=== PATIENT | female | born 1960 | race Caucasian/White ===

== ENCOUNTER → 2017-05-29 16:56 | Outpatient (CLI) | payer BC, SELFPAY ==
--- NOTE | 2017-05-29 17:10 | XR_ITS ---
XR foot RT min 3V HISTORY: ITS.REASON: RIGHT FOOT PAIN ORDERING PHYSICIAN: Buddy Blanton MD PATIENT AGE: 56 years COMPARISON: None FINDINGS: No acute displaced fracture or dislocation. There is deformity of the distal aspect of the fifth metatarsal with cortical thickening and bony hypertrophic changes laterally consistent with an old fracture. No lytic or blastic change. No significant arthritic change. There is a faint longitudinal lucency at the base of the first metatarsal. While this could be related to an area of prominent trabeculation, one cannot exclude a nondisplaced fracture. Please correlate to patient's area of pain and tenderness otherwise negative. IMPRESSION: 1. Faint longitudinal lucency base of first metatarsal which could be related to nondisplaced fracture or prominent trabeculation. 2. Old fifth metatarsal fracture
[2017-05-29 17:29] LABS: Basophils % 0.5 % (0.1-2.0); Eosinophils % 0.2 % (0.1-12.0); Hematocrit 35.2 % (37.0-47.0); Hemoglobin 11.3 g/dL (12.2-16.2); Lymphocytes # 2.5 K/mm3 (0.7-4.5); Lymphocytes % 30.7 K/mm3 (10-50); Mean Corpuscular HGB Conc 32.1 g/dL (31.8-35.4); Mean Corpuscular Hemoglobin 26.8 pg (27.0-31.2); Mean Corpuscular Volume 83.5 fl (81-99); Mean Platelet Volume 7.7 fl (7.4-10.4); Monocytes # 0.4 K/mm3 (0.1-1.0); Monocytes % 4.8 % (1.7-9.3); Neutrophils # 5.3 K/mm3 (1.8-7.8); Neutrophils % 63.7 % (37.0-80.0); Platelet Count 216 K/mm3 (142-424); Red Blood Count 4.21 M/mm3 (4.20-5.40); Red Cell Distribution Width 14.6 % (11.5-17.5); White Blood Count 8.3 K/mm3 (4.8-10.8)
[2017-05-29 18:07] LABS: Alanine Aminotransferase 26 U/L (12-78); Albumin Level 3.7 gm/dL (3.4-5.0); Albumin/Globulin Ratio 0.8 (1.1-1.8); Alkaline Phosphatase 140 U/L (46-116); Anion Gap 13.3 mEq/L (5-15); Aspartate Amino Transferase 20 U/L (15-37); Bilirubin,Total 0.2 mg/dL (0.2-1.0); Blood Urea Nitrogen 18 mg/dL (7-18); Calcium 9.1 mg/dL (8.5-10.1); Carbon Dioxide 26 mmol/L (21.0-32.0); Chloride 102 mmol/L (98-107); Chol/HDL Ratio 3.3 (1-3.5); Cholesterol 190 mg/dL (140-200); Creatinine,Serum 0.98 mg/dL (0.55-1.02); Estimated Glomerular Filt Rate 59 ml/min (>60); GFR (African American) 71 ML/MIN (>60); Globulin 4.4 gm/dl (1.3-3.2); Glucose 135 mg/dL (74-106); HDL Cholesterol 58 mg/dL (29-89); LDL Cholesterol 105 mg/dL (0-130); Potassium 4.3 mmoL/L (3.5-5.1); Sodium 137 mmol/L (136-145); Total Protein,Serum 8.1 gm/dL (6.4-8.2); Triglycerides 133 mg/dL (30-200); VLDL Cholesterol 27 mg/dL (0-40)
[2017-05-29 19:22] LABS: Hemoglobin A1C 7.3 % (0.0-7.0)
[2017-05-29 20:02] LABS: Erythrocyte Sedimentation Rate 58 mm/hr (0-30)
== END ==
PROVIDERS: PCP Internal Medicine Adolescent Medicine; Visit Provider Internal Medicine Adolescent Medicine
DX: E11.42 Type 2 diabetes mellitus with diabetic polyneuropathy (principal); M79.671 Pain in right foot
CPT/HCPCS: 36415; 73630; 80053; 80061; 83036; 85025; 85651

== ENCOUNTER → 2017-08-09 15:50 | Outpatient (CLI) | payer BC, SELFPAY ==
--- NOTE | 2017-08-09 15:55 | MR_ITS ---
MR foot RT wo con CLINICAL INDICATION: Right foot pain and swelling with neuropathy ITS.REASON: SWELLING OF RIGHT FOOT ORDERING PHYSICIAN: Buddy Blanton MD PATIENT AGE: 57 years Comparison: 05/29/2017 TECHNIQUE: Multiplanar multiecho sequences performed without contrast FINDINGS: On the radiograph there was a faint radiolucency at the base of the first metatarsal. This is not demonstrated on the MRI and was likely due to prominent trabeculation. Increased T2 signal involves the second and third metatarsal from the proximal to the distal aspect with sparing of the head. There is also increased T2 signal involving the proximal and mid aspect of the fourth metatarsal. Increased T2 signal is also present in mid and lateral cuneiforms. There are some cystic changes noted in the base of the third metatarsal as well nonspecific measuring approximately 6 mm.. Mild edema is also noted at the navicular cuneiform junction superiorly. There is a small amount fluid in the first metatarsophalangeal joint. No abscess. No obvious ligamentous or tendinous abnormality. Mild subcutaneous edema about the ankle and in the dorsal subcutaneous tissues. Plantar fascia has an unremarkable appearance. IMPRESSION: Generalized bone marrow edema in the mid and forefoot as described within the second, third, and fourth metatarsals as well as the mid and lateral cuneiform and the navicular cuneiform junction. This is nonspecific. Differential diagnosis would include developing Charcot joint, posttraumatic changes, avascular sclerosis, or osteomyelitis. No fracture or dislocation. No abscess.
== END ==
PROVIDERS: PCP Internal Medicine Adolescent Medicine; Visit Provider Internal Medicine Adolescent Medicine
DX: M79.89 Other specified soft tissue disorders (principal); M79.671 Pain in right foot
CPT/HCPCS: 73718

== ENCOUNTER → 2017-08-21 11:37 | Outpatient (CLI) | payer BC, SELFPAY ==
--- NOTE | 2017-08-21 11:38 | XR_ITS ---
XR foot wt bearing RT 3V HISTORY: Right foot pain and swelling ITS.REASON: pain ORDERING PHYSICIAN: Megan Jiang DPM PATIENT AGE: 57 years COMPARISON: 05/29/2017 FINDINGS: No fracture or dislocation. No lytic or blastic change. There is normal mineralization.. There are minimal osteoarthritic changes first metatarsophalangeal joint. There is some deformity of the distal aspect of the fifth metatarsal consistent with old fracture. IMPRESSION: Old distal fifth metatarsal fracture Minimal osteoarthritis first metatarsophalangeal joint
--- NOTE | 2017-08-21 11:38 | XR_ITS ---
XR foot wt bearing LT 3V HISTORY: ITS.REASON: pain ORDERING PHYSICIAN: Megan Jiang DPM PATIENT AGE: 57 years COMPARISON: 11/24/2016 FINDINGS: There has been prior amputation involving the distal aspect of the fifth metatarsal with some bony hypertrophic change at the amputation site. Minimal osteoarthritic change involves the first metatarsophalangeal joint. No other significant anomalies are evident. IMPRESSION: 1. Minimal osteoarthritis first metatarsophalangeal joint. 2. Prior amputation of the distal aspect of the fifth metatarsal
== END ==
PROVIDERS: Visit Provider Podiatrist
DX: E11.610 Type 2 diabetes mellitus with diabetic neuropathic arthropathy; M79.671 Pain in right foot; E11.42 Type 2 diabetes mellitus with diabetic polyneuropathy; Z79.4 Long term (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
CPT/HCPCS: 73630

== ENCOUNTER → 2017-09-06 07:55 | Outpatient (CLI) | payer BC, SELFPAY ==
--- NOTE | 2017-09-06 07:57 | XR_ITS ---
XR foot wt bearing RT 3V HISTORY: ITS.REASON: pain ORDERING PHYSICIAN: Megan Jiang DPM PATIENT AGE: 57 years COMPARISON: 08/21/2017 FINDINGS:. Weightbearing views performed. There is an old fifth metatarsal fracture. Minimal osteoarthritic changes are present at the first metatarsophalangeal junction. No acute fracture or dislocation. No lytic or blastic change. IMPRESSION: No jacket changer the fifth metatarsal fracture with minimal osteoarthritic change at the first MTP joint
== END ==
PROVIDERS: Visit Provider Podiatrist
DX: E11.610 Type 2 diabetes mellitus with diabetic neuropathic arthropathy (principal)
CPT/HCPCS: 73630

== ENCOUNTER → 2017-09-19 11:03 | Outpatient (CLI) | payer BC, SELFPAY ==
--- NOTE | 2017-09-19 11:05 | XR_ITS ---
XR foot wt bearing RT 3V HISTORY: Right foot pain ITS.REASON: pain ORDERING PHYSICIAN: Megan Jiang DPM PATIENT AGE: 57 years COMPARISON: 09/06/2017 FINDINGS: There is an old fracture of the distal aspect of the fifth metatarsal. Minimal osteoarthritic changes involve the first metatarsophalangeal joint. Normal alignment with no other significant anomalies. IMPRESSION: No change with no acute finding compared to 09/06/2017
--- NOTE | 2017-09-19 11:05 | XR_ITS ---
XR foot wt bearing LT 3V HISTORY: Left foot pain, recent fifth toe amputation ITS.REASON: pain ORDERING PHYSICIAN: Megan Jiang DPM PATIENT AGE: 57 years COMPARISON: 08/21/2017 FINDINGS: There has been prior amputation of the mid to distal shaft of the fifth metatarsal with callus formation at this region and minimal dystrophic calcification. This is similar. No bony erosive process evident. No acute fracture or dislocation. No significant change compared to the previous exam. IMPRESSION: No change status post amputation at the mid to distal aspect of the fifth metatarsal with no acute finding
--- NOTE | 2017-09-19 11:05 | XR_ITS ---
XR ankle wt bearing LT min 3V HISTORY: ITS.REASON: pain ORDERING PHYSICIAN: Megan Jiang DPM PATIENT AGE: 57 years Comparison: None FINDINGS: No fracture or dislocation. No lytic or blastic change. There is normal mineralization.. The joint spaces are well-preserved. No significant degenerative/arthritic changes. No erosive changes evident. There is a small nonspecific calcaneal spur and an enthesophyte at the Achilles insertion IMPRESSION: As above, no acute finding
--- NOTE | 2017-09-19 11:05 | XR_ITS ---
XR ankle wt bearing RT min 3V HISTORY: ITS.REASON: pain ORDERING PHYSICIAN: Megan Jiang DPM PATIENT AGE: 57 years Comparison: None FINDINGS: No fracture or dislocation. No lytic or blastic change. There is normal mineralization.. The joint spaces are well-preserved. No significant degenerative/arthritic changes. No erosive changes evident. IMPRESSION: Negative ankle, no acute finding
== END ==
PROVIDERS: Visit Provider Podiatrist
DX: E11.610 Type 2 diabetes mellitus with diabetic neuropathic arthropathy (principal)
CPT/HCPCS: 73610; 73630

== ENCOUNTER → 2017-10-04 07:48 | Outpatient (CLI) | payer BC, SELFPAY ==
--- NOTE | 2017-10-04 07:49 | XR_ITS ---
XR foot wt bearing RT 3V Ordering Physician: Megan Jiang DPM Patient Age: 57 years: Female HISTORY: ITS.REASON: charcot Diabetic foot pain on right. TECHNIQUE: 3 views right foot weightbearing COMPARISON :09/19/2017 right foot FINDINGS There is an old old fracture with deformity at the neck of the fifth metatarsal. . narrowing at the first MTP joint reflecting degenerative changes here. Suggestion slight narrowing at the IP joint of the toes reflecting possible scant degenerative changes in these regions. Suspect early developing arthritic changes at tarsometatarsal joints with suggestion of subtle sclerosis about these joints as noted on oblique view. Mild calcaneal spurs at Achilles insertion and plantar aspect calcaneus noted similar to previous. Suggest mild soft tissue swelling about the foot. IMPRESSION: ======== Old fracture neck of fifth met at tarsal with mild deformity here. Suspect some early degenerative arthritic changes at tarsometatarsal joints. Also mild degenerative changes at first MTP joint and possibly early arthritic changes at toes
== END ==
PROVIDERS: Visit Provider Podiatrist
DX: E11.610 Type 2 diabetes mellitus with diabetic neuropathic arthropathy (principal)
CPT/HCPCS: 73630

== ENCOUNTER 2018-01-29 12:40 | Outpatient (RCR) | payer BC, SELFPAY ==
--- NOTE | 2018-01-29 13:46 | HMH.PTOPWND ---
Rehab Outpt Wound Evaluation Rehab OP Wound Evaluation Start: 01/29/18 12:55 Freq: Status: Active Protocol: Document 01/29/18 13:29 PHOARIC (Rec: 01/29/18 13:46 PHORNE [id number]) Electronically Signed By Len Lazo, PT 01/29/18 13:29 Subjective/History History History Pt is 57 yowf who presents with right ankle skin irritation x ~ 3 wks. SHe reports she initially had a small spot ( the size of a quarter ) ~ 4 mos ago, but it has now greatly increased in its size. She reports no c/o drainage or itching of the skin and only minimal tenderness to palpation. She has hx of DM-II with neuropathy, morbid obesity, HTN, HL, and right charcot foot. Subjective Subjective Currently no c/o pain or discomfort and mild pitting edema. Wound Eval Wound Right Anterior Ankle Wound Type dermatitis of unknown etiology . Is This a Chronic Wound No Wound Length (cm) 8.0 Wound Width (cm) 11.0 Wound Bed Appearance [place] Wound Margins Description Well Defined Edema Type Pitting Edema Degree 1+ Query Text:1+ Trace, Barely Detectable, Rebound 15-30 seconds 2+ Moderate, Slight Indentation, Rebound 10-20 seconds 3+ Deep, Deeper Indentation, Rebound > 30 seconds 4+ Very Deep, Rebound > 60 seconds Wound Topical Solution/Irrigant Medicated Gel Comment silvasorb gel Wound Secondary Dressing Type Gauze Roll/Wrap Adhering Gauze Roll Wound Debridement Amount of Tissue None Removed Dressing Change Patient Tolerance Tolerated Well Wound Problems/Impairments Impairments Problems/Impairmments Palpation Tenderness Increased Edema Wound Care Needs Prognosis Rehab Potential Good Clinical Impression Consistent with Diagnosis Yes Short Term Goals Number of Weeks 4 Decrease Wound Area Yes: by 50% Correction Goals Number of Weeks 8 Decrease Edema Yes: by 75% Decrease Wound Area Yes: by 100% Outpatient Therapy Plan of Care Treatment Plan May Include Thera
== END 2018-01-29 12:45 | disposition home or self-care (01) ==
LOC: PT 12:40
PROVIDERS: Visit Provider Internal Medicine Adolescent Medicine
DX: L03.115 Cellulitis of right lower limb (principal)
CPT/HCPCS: 97162

== ENCOUNTER → 2018-05-23 07:13 | Outpatient (CLI) | payer BC, SELFPAY ==
[2018-05-23 13:49] LABS: Basophils % 0.2 % (0.1-2.0); Eosinophils % 0.5 % (0.1-12.0); Hemoglobin 10.7 g/dL (12.2-16.2); Lymphocytes # 1.1 K/mm3 (0.7-4.5); Lymphocytes % 24.3 % (10-50); Mean Corpuscular HGB Conc 32.5 g/dL (31.8-35.4); Mean Corpuscular Hemoglobin 26.8 pg (27.0-31.2); Mean Corpuscular Volume 82.5 fl (81-99); Mean Platelet Volume 8.7 fl (7.4-10.4); Monocytes # 0.2 K/mm3 (0.1-1.0); Monocytes % 3.7 % (1.7-9.3); Neutrophils # 3.3 K/mm3 (1.8-7.8); Neutrophils % 71.3 % (37.0-80.0); Platelet Count 161 K/mm3 (142-424); Red Blood Count 4.01 M/mm3 (4.20-5.40); Red Cell Distribution Width 14.7 % (11.5-17.5); White Blood Count 4.7 K/mm3 (4.8-10.8)
[2018-05-23 14:06] LABS: Alanine Aminotransferase 25 U/L (12-78); Albumin Level 3.3 gm/dL (3.4-5.0); Albumin/Globulin Ratio 0.8 (1.1-1.8); Alkaline Phosphatase 129 U/L (46-116); Anion Gap 16.1 mEq/L (5-15); Aspartate Amino Transferase 20 U/L (15-37); Bilirubin,Total 0.3 mg/dL (0.2-1.0); Blood Urea Nitrogen 21 mg/dL (7-18); Calcium 9.4 mg/dL (8.5-10.1); Carbon Dioxide 26 mmol/L (21.0-32.0); Chloride 104 mmol/L (98-107); Chol/HDL Ratio 3.6 (1-3.5); Cholesterol 174 mg/dL (140-200); Creatinine,Serum 1.23 mg/dL (0.55-1.02); Estimated Glomerular Filt Rate 45 ml/min (>60); GFR (African American) 54 ML/MIN (>60); Globulin 3.9 gm/dl (1.3-3.2); Glucose 207 mg/dL (74-106); HDL Cholesterol 48 mg/dL (29-89); LDL Cholesterol 108 mg/dL (0-130); Potassium 4.1 mmoL/L (3.5-5.1); Sodium 142 mmol/L (136-145); Total Protein,Serum 7.2 gm/dL (6.4-8.2); Triglycerides 92 mg/dL (30-200); VLDL Cholesterol 18 mg/dL (0-40)
[2018-05-23 15:36] LABS: Hemoglobin A1C 7.5 % (0.0-7.0)
== END ==
PROVIDERS: PCP Internal Medicine Adolescent Medicine; Visit Provider Internal Medicine Adolescent Medicine
DX: I10 Essential (primary) hypertension (principal)
CPT/HCPCS: 36415; 80053; 80061; 83036; 85025

== ENCOUNTER → 2018-09-16 11:46 | Outpatient (CLI) | payer BC, SELFPAY ==
[2018-09-16 14:21] LABS: Basophils % 0.3 % (0.1-2.0); Eosinophils % 0.1 % (0.1-12.0); Hematocrit 34.7 % (37.0-47.0); Hemoglobin 10.7 g/dL (12.2-16.2); Lymphocytes % 15.4 % (10-50); Mean Corpuscular HGB Conc 30.7 g/dL (31.8-35.4); Mean Corpuscular Hemoglobin 26.9 pg (27.0-31.2); Mean Corpuscular Volume 87.5 fl (81-99); Mean Platelet Volume 8.6 fl (7.4-10.4); Monocytes # 0.3 K/mm3 (0.1-1.0); Monocytes % 3.7 % (1.7-9.3); Neutrophils # 5.4 K/mm3 (1.8-7.8); Neutrophils % 80.3 % (37.0-80.0); Platelet Count 171 K/mm3 (142-424); Red Blood Count 3.97 M/mm3 (4.20-5.40); Red Cell Distribution Width 16.1 % (11.5-17.5); White Blood Count 6.7 K/mm3 (4.8-10.8)
[2018-09-16 14:30] LABS: Anion Gap 16.7 mEq/L (5-15); Blood Urea Nitrogen 39 mg/dL (7-18); Calcium 8.8 mg/dL (8.5-10.1); Carbon Dioxide 22 mmol/L (21.0-32.0); Chloride 108 mmol/L (98-107); Estimated Glomerular Filt Rate 36 ml/min (>60); GFR (African American) 43 ML/MIN (>60); Glucose 209 mg/dL (74-106); Potassium 4.7 mmoL/L (3.5-5.1); Sodium 142 mmol/L (136-145)
[2018-09-16 14:47] LABS: Hemoglobin A1C 9.3 % (0.0-7.0)
[2018-09-16 15:00] LABS: Activated Partial Thrombo Time 24.2 seconds (23.6-34.0); INR 0.96 (0.9-1.1)
== END ==
PROVIDERS: PCP Internal Medicine Adolescent Medicine; Visit Provider Internal Medicine Adolescent Medicine
DX: I10 Essential (primary) hypertension (principal)
CPT/HCPCS: 36415; 80048; 83036; 85025; 85610; 85730

== ENCOUNTER → 2019-01-08 07:11 | Outpatient (CLI) | payer BC, SELFPAY ==
[2019-01-08 14:14] LABS: Alanine Aminotransferase 21 U/L (12-78); Albumin Level 3.6 gm/dL (3.4-5.0); Alkaline Phosphatase 118 U/L (46-116); Anion Gap 13.2 mEq/L (5-15); Aspartate Amino Transferase 23 U/L (15-37); Bilirubin,Total 0.3 mg/dL (0.2-1.0); Blood Urea Nitrogen 31 mg/dL (7-18); Calcium 8.7 mg/dL (8.5-10.1); Carbon Dioxide 26 mmol/L (21.0-32.0); Chloride 105 mmol/L (98-107); Chol/HDL Ratio 4.1 (1-3.5); Cholesterol 192 mg/dL (140-200); Creatinine,Serum 1.62 mg/dL (0.55-1.02); Estimated Glomerular Filt Rate 33 ml/min (>60); GFR (African American) 39 ML/MIN (>60); Globulin 3.6 gm/dl (1.3-3.2); Glucose 183 mg/dL (74-106); HDL Cholesterol 47 mg/dL (29-89); LDL Cholesterol 117 mg/dL (0-130); Potassium 4.2 mmoL/L (3.5-5.1); Sodium 140 mmol/L (136-145); Total Protein,Serum 7.2 gm/dL (6.4-8.2); Triglycerides 138 mg/dL (30-200); VLDL Cholesterol 28 mg/dL (0-40)
[2019-01-08 14:15] LABS: Basophils % 0.4 % (0.1-2.0); Eosinophils % 0.7 % (0.1-12.0); Hematocrit 33.2 % (37.0-47.0); Hemoglobin 10.8 g/dL (12.2-16.2); Lymphocytes # 1.1 K/mm3 (0.7-4.5); Mean Corpuscular HGB Conc 32.3 g/dL (31.8-35.4); Mean Corpuscular Hemoglobin 27.5 pg (27.0-31.2); Mean Corpuscular Volume 85.1 fl (81-99); Mean Platelet Volume 9.3 fl (7.4-10.4); Monocytes # 0.3 K/mm3 (0.1-1.0); Monocytes % 4.7 % (1.7-9.3); Neutrophils # 4.2 K/mm3 (1.8-7.8); Neutrophils % 74.3 % (37.0-80.0); Platelet Count 173 K/mm3 (142-424); Red Blood Count 3.91 M/mm3 (4.20-5.40); Red Cell Distribution Width 14.4 % (11.5-17.5); White Blood Count 5.6 K/mm3 (4.8-10.8)
[2019-01-08 14:21] LABS: Hemoglobin A1C 7.8 % (0.0-7.0)
== END ==
PROVIDERS: PCP Internal Medicine Adolescent Medicine; Visit Provider Internal Medicine Adolescent Medicine
DX: E11.69 Type 2 diabetes mellitus with other specified complication (principal); Z79.4 Long term (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
CPT/HCPCS: 36415; 80053; 80061; 83036; 85025

== ENCOUNTER → 2019-04-29 07:05 | Outpatient (CLI) | payer BC, SELFPAY ==
[2019-04-29 14:19] LABS: Chloride 109 mmol/L (98-107)
[2019-04-29 14:20] LABS: Potassium 4.5 mmoL/L (3.5-5.1); Sodium 140 mmol/L (136-145)
[2019-04-29 14:22] LABS: Blood Urea Nitrogen 34 mg/dl (7-17); Estimated Glomerular Filt Rate 29 ml/min (>60); GFR (African American) 35 ML/MIN (>60)
[2019-04-29 14:23] LABS: Alanine Aminotransferase 21 U/L (12-78); Albumin Level 4.1 g/dl (3.5-5.0); Albumin/Globulin Ratio 1.3 (1.1-1.8); Alkaline Phosphatase 95 U/L (38-126); Anion Gap 14.5 mEq/L (5-15); Aspartate Amino Transferase 31 U/L (14-36); Bilirubin,Total 0.2 mg/dl (0.2-1.3); Calcium 9.4 mg/dl (8.4-10.2); Carbon Dioxide 21 mmol/L (22.0-30.0); Globulin 3.1 g/dL (1.3-3.2); Glucose 110 mg/dl (74-100); Total Protein,Serum 7.2 g/dl (6.3-8.2)
[2019-04-29 14:41] LABS: Basophils % 0.4 % (0.1-2.0); Eosinophils % 0.3 % (0.1-12.0); Hematocrit 32.4 % (37.0-47.0); Hemoglobin 10.2 g/dL (12.2-16.2); Lymphocytes # 1.2 K/mm3 (0.7-4.5); Lymphocytes % 20.2 % (10-50); Mean Corpuscular HGB Conc 31.5 g/dL (31.8-35.4); Mean Corpuscular Hemoglobin 26.8 pg (27.0-31.2); Mean Platelet Volume 8.7 fl (7.4-10.4); Monocytes # 0.4 K/mm3 (0.1-1.0); Monocytes % 5.9 % (1.7-9.3); Neutrophils # 4.3 K/mm3 (1.8-7.8); Neutrophils % 73.2 % (37.0-80.0); Platelet Count 162 K/mm3 (142-424); Red Blood Count 3.81 M/mm3 (4.20-5.40); Red Cell Distribution Width 15.8 % (11.5-17.5); White Blood Count 5.9 K/mm3 (4.8-10.8)
[2019-04-29 14:51] LABS: Thyroid Stimulating Hormone 2.28 uIU/mL (0.465-4.68)
[2019-04-29 16:15] LABS: Hemoglobin A1C 7.8 % (4.0-6.0)
== END ==
PROVIDERS: Visit Provider Internal Medicine Adolescent Medicine
DX: I10 Essential (primary) hypertension (principal); E11.42 Type 2 diabetes mellitus with diabetic polyneuropathy; Z79.4 Long term (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
CPT/HCPCS: 36415; 80053; 83036; 84443; 85025

== ENCOUNTER → 2019-06-13 09:13 | Outpatient (CLI) | payer BC, SELFPAY ==
--- NOTE | 2019-06-13 09:18 | CA_ITS ---
APPROVED REPORT Nutrition Specialist: CT Laterality: Bilateral Indications: DIABETIC RETINOPATHY Risk Factors Hypertension: Hyperlipidemia Diabetes Doppler Spectral Velocity Analysis ECA (R) 71.90/71.90 cm/s ECA (L) 78.30/14.10 cm/s dICA (R) 81.50/25.70 cm/s dICA (L) 70.10/24.40 cm/s Kaylynn (R) 88.60/28.90 cm/s Kaylynn (L) 76.70/29.70 cm/s pICA (R) 80.90/33.40 cm/s pICA (L) 82.30/24.70 cm/s dCCA (R) 79.70/18.00 cm/s dCCA (L) 67.40/16.10 cm/s pCCA (R) 99.40/12.90 cm/s pCCA (L) 101.50/21.20 cm/s Vert (R) 42.40/10.90 cm/s Vert (L) 52.00/20.50 cm/s ICA/CCA 1.10 ICA/CCA 1.20 Findings Duplex evaluation demonstrates stenosis of the right proximal internal carotid artery in the range of 20-49% with PSV <140 cm/sec, EDV <100 cm/sec, and IC/CC Ratio <4.0, low end of scale Duplex evaluation demonstrates stenosis of the left proximal internal carotid artery in the range of 20-49% with PSV <140 cm/sec, EDV <100 cm/sec, and IC/CC Ratio <4.0, low end of scale. Duplex evaluation demonstrates antegrade flow of the bilateral Vertebral Arteries. Conclusion Duplex evaluation demonstrates stenosis of the right proximal internal carotid artery in the range of 20-49% with PSV <140 cm/sec, EDV <100 cm/sec, and IC/CC Ratio <4.0, low end of scale Duplex evaluation demonstrates stenosis of the left proximal internal carotid artery in the range of 20-49% with PSV <140 cm/sec, EDV <100 cm/sec, and IC/CC Ratio <4.0, low end of scale. Duplex evaluation demonstrates antegrade flow of the bilateral Vertebral Arteries. Electronically signed by : Jarrod Mancuso, 06/13/2019 11:16:53
== END ==
PROVIDERS: PCP Internal Medicine Adolescent Medicine; Visit Provider Internal Medicine Adolescent Medicine
DX: E11.319 Type 2 diabetes mellitus with unspecified diabetic retinopathy without macular edema (principal)
CPT/HCPCS: 93880

== ENCOUNTER → 2019-07-24 09:48 | Outpatient (CLI) | payer BC, SELFPAY ==
[2019-07-24 13:05] LABS: Chloride 108 mmol/L (98-107); Potassium 4.9 mmoL/L (3.5-5.1); Sodium 140 mmol/L (136-145)
[2019-07-24 13:18] LABS: Basophils % 0.7 % (0.1-2.0); Eosinophils % 0.4 % (0.1-12.0); Hematocrit 34.3 % (37.0-47.0); Hemoglobin 10.9 g/dL (12.2-16.2); Lymphocytes # 1.4 K/mm3 (0.7-4.5); Mean Corpuscular HGB Conc 31.8 g/dL (31.8-35.4); Mean Corpuscular Hemoglobin 27.3 pg (27.0-31.2); Mean Corpuscular Volume 85.8 fl (81-99); Mean Platelet Volume 8.2 fl (7.4-10.4); Monocytes # 0.3 K/mm3 (0.1-1.0); Monocytes % 5.6 % (1.7-9.3); Neutrophils # 3.6 K/mm3 (1.8-7.8); Neutrophils % 67.3 % (37.0-80.0); Platelet Count 176 K/mm3 (142-424); Red Cell Distribution Width 15.3 % (11.5-17.5); White Blood Count 5.3 K/mm3 (4.8-10.8)
[2019-07-24 13:48] LABS: Hemoglobin A1C 6.5 % (4.0-6.0)
[2019-07-24 13:55] LABS: Alanine Aminotransferase 19 U/L (12-78); Albumin Level 4.2 g/dl (3.5-5.0); Albumin/Globulin Ratio 1.3 (1.1-1.8); Alkaline Phosphatase 93 U/L (38-126); Anion Gap 11.9 mEq/L (5-15); Aspartate Amino Transferase 30 U/L (14-36); Bilirubin,Total 0.4 mg/dl (0.2-1.3); Blood Urea Nitrogen 22 mg/dl (7-17); Calcium 9.4 mg/dl (8.4-10.2); Carbon Dioxide 25 mmol/L (22.0-30.0); Estimated Glomerular Filt Rate 57 ml/min (>60); GFR (African American) 69 ML/MIN (>60); Globulin 3.2 g/dL (1.3-3.2); Glucose 103 mg/dl (74-100); Total Protein,Serum 7.4 g/dl (6.3-8.2)
== END ==
PROVIDERS: Visit Provider Internal Medicine Adolescent Medicine
DX: E11.311 Type 2 diabetes mellitus with unspecified diabetic retinopathy with macular edema (principal); G62.9 Polyneuropathy, unspecified
CPT/HCPCS: 36415; 80053; 83036; 85025

== ENCOUNTER → 2020-02-03 08:22 | Outpatient (CLI) | payer BC, SELFPAY ==
[2020-02-03 10:30] LABS: Hemoglobin A1C 6.9 % (4.0-6.0)
[2020-02-03 10:41] LABS: Chloride 110 mmol/L (98-107); Potassium 4.2 mmoL/L (3.5-5.1); Sodium 142 mmol/L (136-145)
[2020-02-03 10:43] LABS: Blood Urea Nitrogen 19 mg/dl (7-17); Estimated Glomerular Filt Rate 51 ml/min (>60); GFR (African American) 62 ML/MIN (>60)
[2020-02-03 10:44] LABS: Alanine Aminotransferase 26 U/L (12-78); Albumin Level 4.2 g/dl (3.5-5.0); Albumin/Globulin Ratio 1.3 (1.1-1.8); Alkaline Phosphatase 170 U/L (38-126); Anion Gap 10.2 mEq/L (5-15); Aspartate Amino Transferase 34 U/L (14-36); Bilirubin,Total 0.4 mg/dl (0.2-1.3); Calcium 9.1 mg/dl (8.4-10.2); Carbon Dioxide 26 mmol/L (22.0-30.0); Chol/HDL Ratio 2.3 (1-3.5); Cholesterol 158 mg/dl (140-200); Globulin 3.2 g/dL (1.3-3.2); Glucose 139 mg/dl (74-100); HDL Cholesterol 69 mg/dl (40-60); Total Protein,Serum 7.4 g/dl (6.3-8.2); Triglycerides 110 mg/dl (30-150); VLDL Cholesterol 22 mg/dL (0-40)
[2020-02-03 10:56] LABS: Direct LDL Cholesterol 58.66 mg/dL (100-129)
== END ==
PROVIDERS: Visit Provider Internal Medicine Adolescent Medicine
DX: E78.5 Hyperlipidemia, unspecified (principal); E11.42 Type 2 diabetes mellitus with diabetic polyneuropathy; Z79.4 Long term (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
CPT/HCPCS: 36415; 80053; 80061; 83036

== ENCOUNTER → 2020-05-14 07:12 | Outpatient (CLI) | payer BC, SELFPAY ==
[2020-05-14 09:00] LABS: Hemoglobin A1C 7.8 % (4.0-6.0)
[2020-05-14 09:06] LABS: Chloride 111 mmol/L (98-107)
[2020-05-14 09:07] LABS: Potassium 4.3 mmoL/L (3.5-5.1); Sodium 143 mmol/L (136-145)
[2020-05-14 09:09] LABS: Alanine Aminotransferase 30 U/L (12-78); Alkaline Phosphatase 140 U/L (38-126); Aspartate Amino Transferase 40 U/L (14-36); Bilirubin,Total 0.4 mg/dl (0.2-1.3); Blood Urea Nitrogen 12 mg/dl (7-17); Estimated Glomerular Filt Rate 64 ml/min (>60); GFR (African American) 78 ML/MIN (>60)
[2020-05-14 09:10] LABS: Albumin Level 4.2 g/dl (3.5-5.0); Albumin/Globulin Ratio 1.3 (1.1-1.8); Anion Gap 11.3 mEq/L (5-15); Calcium 9.3 mg/dl (8.4-10.2); Carbon Dioxide 25 mmol/L (22.0-30.0); Globulin 3.2 g/dL (1.3-3.2); Glucose 112 mg/dl (74-100); Total Protein,Serum 7.4 g/dl (6.3-8.2)
== END ==
PROVIDERS: Visit Provider Internal Medicine Adolescent Medicine
DX: E11.42 Type 2 diabetes mellitus with diabetic polyneuropathy (principal); Z79.4 Long term (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
CPT/HCPCS: 36415; 80053; 83036

== ENCOUNTER 2020-09-14 10:20 | Observation (INO) | payer BC, SELFPAY ==
[2020-09-14] VITALS (10 sets, daily range): BP systolic 134–155; BP diastolic 73–85; PULSE 95–113; RESP 15–26; TEMP 36.9–37.5; O2SAT 96–99; BMI 41.8
--- NOTE | 2020-09-14 10:24 | ECG_ITS ---
APPROVED REPORT Exam: Resting ECG HR:92 bpm ECG Measurements Heart Rate 92 AXES [place] 176 P 57 QRSd 82 QRS 22 QT 380 T 36 QTc 469 Conclusion Normal sinus rhythm with sinus arrhythmia Normal ECG Electronically signed by : Buddy Blanton, 09/14/2020 17:43:10
--- NOTE | 2020-09-14 10:36 | XR_ITS ---
PROCEDURE: XR CHEST PORTABLE CLINICAL HISTORY: CHEST PAIN COMPARISON: CR CXR CHEST(2 VIEWS-NOT PORTABLE) from 12/15/2014 CR CXR CHEST(2 VIEWS-NOT PORTABLE) from 12/17/2014 CR CXR-PICC CHEST PORTABLE-PICC PLACEMENT from 10/05/[address] ABDOMEN PELVIS W CON from 09/14/2020 FINDINGS: The cardiomediastinal silhouette and pulmonary vascularity are within normal limits. The lungs are clear without infiltrates, suspicious nodules, or pleural effusions. Minimal upper thoracic curvature convex left IMPRESSION: No acute findings. Dictated by: Obinna Dennison MD 09/14/2020 12:03 Obinna Dennison MD in [place] 09/14/2020 12:03
--- NOTE | 2020-09-14 10:36 | CT_ITS ---
PROCEDURE: CT ABDOMEN PELVIS W CON CLINICAL INDICATION: vomitting coffee ground emesis COMPARISON: No exams were available for comparison TECHNIQUE: IV Contrast: 75ML Isovue 370 Oral Contrast None Axial images obtained with sagittal and coronal reformats. All CT scans at the facility use one or more dose reduction, viz: automated exposure control, ma/kV adjustment per patient size (including targeted exams where dose is matched to indication, i.e. head), or iterative reconstruction technique. FINDINGS: LOWER THORAX: No acute finding ABDOMEN & PELVIS: There is mild thickening of the distal esophagus at the GE junction nonspecific. The liver has an unremarkable appearance. The gallbladder and pancreas appear unremarkable. There is mild splenomegaly at 14 cm. Adrenal glands and kidneys are unremarkable. There is a small left renal cyst along the lower pole of the left kidney at 1 cm. No renal or ureteral calculi. No hydronephrosis No intestinal obstruction or free air.. No evidence of appendicitis. No evidence diverticulitis. Bowel gas pattern is nonspecific. There is a tubal ligation clip on the left. No pelvic mass or abnormal fluid collection. Increased subcutaneous density is noted in the right lower abdominal region and could be due to an area of injections. There are mild degenerative changes in the lumbar spine with mild lumbar scoliosis convex right. IMPRESSION: Mild nonspecific thickening of the distal esophagus. Differential diagnosis includes nondistention, soft guidance, or even neoplasm. Upper endoscopy may provide further evaluation. Mild splenomegaly Increased subcutaneous density right lower quadrant which could be due to recent injection site. Dictated by: Obinna Dennison MD 09/14/2020 12:09 Obinna Dennison MD in [place] 09/14/2020 12:09
[2020-09-14 11:17] LABS: Basophils % 0.2 % (0.1-2.0); Eosinophils # 0.1 K/mm3 (0.0-0.4); Eosinophils % 0.8 % (0.1-12.0); Hematocrit 35.6 % (37.0-47.0); Hemoglobin 11.7 g/dL (12.2-16.2); Lymphocytes % 11.9 % (10-50); Mean Corpuscular HGB Conc 32.8 g/dL (31.8-35.4); Mean Corpuscular Hemoglobin 27.7 pg (27.0-31.2); Mean Corpuscular Volume 84.5 fl (81-99); Mean Platelet Volume 7.6 fl (7.4-10.4); Monocytes # 0.3 K/mm3 (0.1-1.0); Monocytes % 3.2 % (1.7-9.3); Neutrophils # 6.9 K/mm3 (1.8-7.8); Neutrophils % 83.9 % (37.0-80.0); Platelet Count 149 K/mm3 (142-424); Red Blood Count 4.21 M/mm3 (4.20-5.40); Red Cell Distribution Width 14.9 % (11.5-17.5); White Blood Count 8.2 K/mm3 (4.8-10.8)
--- NOTE | 2020-09-14 11:21 | HMH.EDGENADL ---
ED Disposition Clinical Impression: Esophagitis, Intractable nausea and vomiting Hematemesis Qualifiers: Nausea presence: with nausea Qualified Code(s): K92.0 - Hematemesis Chest pain Qualifiers: Chest pain type: unspecified Qualified Code(s): R07.9 - Chest pain, unspecified Disposition: Admitted as Observation Condition on Discharge: Fair Referrals: Buddy Blanton MD [Primary Care Provider] - - Critical Care Critical Care Time: No Attestation: On 09/14/20, the high probability of a clinically significant, sudden or life threatening deterioration of the following system(s) required my full and direct attention, intervention and personal management. The time I documented below is in addition to time spent performing reported procedures but includes the following listed in this critical care notation. Medical Decision Making - Eliseo Inquiry Pt receiving controlled substance: No Vital Signs: 09/14/20 10:11 09/14/20 10:30 Temperature 98.5 F Temperature Source Oral Pulse Rate [Right] 105 H Respiratory Rate 20 26 H Blood Pressure 155/79 H Blood Pressure [Right Arm] 145/85 H Blood Pressure Mean 97 Blood Pressure Mean [Right Arm] 105 02 Sat by Pulse Oximetry 99 Oxygen Delivery Method Room Air - Lab Data Lab Results 09/14/20 11:10: WBC 8.2, RBC 4.21, Hgb 11.7 L, Hct 35.6 L, MCV 84.5, MCH 27.7, MCHC 32.8, RDW 14.9, Plt Count 149, MPV 7.6, Neut % (Auto) 83.9 H, Lymph % (Auto) 11.9, [place] % (Auto) 3.2, Eos % (Auto) 0.8, Baso % (Auto) 0.2, Neut # (Auto) 6.9, Lymph # (Auto) 1.0, [place] # (Auto) 0.3, Eos # (Auto) 0.1, Baso # (Auto) 0.0 09/14/20 11:10: Sodium 142, Potassium 4.2, Chloride 110 H, Carbon Dioxide 19 L, Anion Gap 17.2 H, BUN 17, Creatinine 0.90, Estimated Creat Clear 65, Estimated GFR 64, Est GFR ( Amer) 77, Glucose 240 H, Calcium 9.2, Troponin I < 0.01 09/14/20 11:10: Total Bilirubin 0.7, Direct Bilirubin 0.4, Conjugated Bilirubin 0.0, Indirect Bilirubin 0.3, Unconjugated Bilirubin 0.3, AST 44 H, ALT 31, Alkaline Phosphatase 148 H, Total Protein 8.0, Albumin 4.5, Lipase 113 09/14/20 12:15: Gastric Occult Blood Positive Result diagrams: 09/14/20 11:10 09/14/20 11:10 Orders (Tests/Meds): ED MEDICATIONS Generic Name Dose Route Start Last Admin Trade Name Freq PRN Reason Stop Dose Admin Sodium Chloride 10 ml 09/14/20 12:35 Sodium Chloride 0.9% 10ml Vial IV 10/14/20 12:34 NEEDED PRN dilute protonix Discontinued Medications Generic Name Dose Route Start Last Admin Trade Name Freq PRN Reason Stop Dose Admin Iopamidol 75 ml 09/14/20 11:54 09/14/20 11:55 Iopamidol-370 (76%);100ml Bottle IV 09/14/20 11:55 75 ml ONCE ONE Administration Pantoprazole Sodium 40 mg 09/14/20 12:35 09/14/20 12:39 Pantoprazole 40mg Vial IV 09/14/20 12:36 40 mg ONCE ONE Administration Prochlorperazine Edisylate 5 mg 09/14/20 12:13 09/14/20 12:37 Prochlorperazine 10mg/2ml Vial IV 09/14/20 12:14 5 mg ONCE ONE Administration Promethazine HCl 12.5 mg 09/14/20 10:47 09/14/20 11:24 Promethazine Hcl 25mg/Ml 1ml Vial IV 09/14/20 10:48 12.5 mg ONCE ONE Administration Sodium Chloride 25 ml 09/14/20 10:47 09/14/20 11:24 Sodium Chloride 0.9% 25ml Bag IV 09/14/20 10:48 25 ml ONCE ONE Administration Sodium Chloride 10 ml 09/14/20 11:54 09/14/20 11:55 Sodium Chloride 0.9% 10ml Syr (Rad Only) IV 09/14/20 11:55 10 ml ONCE ONE Administration ORDERS Category Date Time Status Troponin I Q3H Lab 09/14/20 13:45 Ordered Troponin I Q3H Lab 09/14/20 16:45 Ordered - Radiology Data #1 Image(s): Chest Image Reviewed: Yes I have reviewed radiologist's interpretation PROCEDURE: XR CHEST PORTABLE CLINICAL HISTORY: CHEST PAIN COMPARISON: CR CXR CHEST(2 VIEWS-NOT PORTABLE) from 12/15/2014 CR CXR CHEST(2 VIEWS-NOT PORTABLE) from 12/17/2014 CR CXR-PICC CHEST PORTABLE-PICC PLACEMENT from 10/05/[address] ABDOM
[2020-09-14 11:23] LABS: Chloride 110 mmol/L (98-107); Sodium 142 mmol/L (136-145)
[2020-09-14 11:24] LABS: Potassium 4.2 mmoL/L (3.5-5.1)
[2020-09-14 11:27] LABS: Anion Gap 17.2 mEq/L (5-15); Blood Urea Nitrogen 17 mg/dl (7-17); Calcium 9.2 mg/dl (8.4-10.2); Carbon Dioxide 19 mmol/L (22.0-30.0); Creatinine Clearance Estimated 65 mL/min (50-200); Estimated Glomerular Filt Rate 64 ml/min (>60); GFR (African American) 77 ML/MIN (>60); Glucose 240 mg/dl (74-100)
--- NOTE | 2020-09-14 11:38 | PC.NURSE ---
pt going up for ct
[2020-09-14 11:50] LABS: Troponin I < 0.01 ng/ml (0.00-0.034)
[2020-09-14 12:24] LABS: Bilirubin,Unconjugated 0.3 mg/dL (0.0-1.1)
[2020-09-14 12:25] LABS: Alanine Aminotransferase 31 U/L (12-78); Albumin Level 4.5 g/dl (3.5-5.0); Alkaline Phosphatase 148 U/L (38-126); Aspartate Amino Transferase 44 U/L (14-36); Bilirubin,Direct 0.4 mg/dl (0.0-0.4); Bilirubin,Indirect 0.3 mg/dL (0.0-0.9); Bilirubin,Total 0.7 mg/dl (0.2-1.3); Lipase 113 U/L (23-300)
[2020-09-14 12:29] LABS: Occult Blood,Gastric Fluid Positive (Negative)
--- NOTE | 2020-09-14 12:45 | PC.NURSE ---
called mortician investigator to page to speak to him about pt
--- NOTE | 2020-09-14 12:53 | PC.NURSE ---
ware dresser called back and said that dr yepez was out of state and dr. luther was covering for him. called he was not covering for him, called office so the dr could talk to him about the pt. office advised that they would have him call back
--- NOTE | 2020-09-14 13:09 | PC.NURSE ---
bed assignment requested, pt will be med/surg overflow to OB unit room 280. all staff notified
[2020-09-14 13:25] LABS: Coronavirus 19, PCR Not Detected (NotDetected); Influenza A, PCR Not Detected (NotDetected); Influenza B, PCR Not Detected (NotDetected)
--- NOTE | 2020-09-14 13:39 | PC.NURSE ---
pt to be admitted [facility] to [facility] for esphagel chest pain, vomiting, and hemoptosis, called care management to get a bed
--- NOTE | 2020-09-14 14:37 | HMH.PHAINT ---
MEDICATION RECONCILIATION COMPLETED ON PATIENT USING EXTERNAL FILL HISTORY FROM PHARMACY. -FLETCHER HOLLEY, [facility]
[2020-09-14 14:53] LABS: Troponin I < 0.01 ng/ml (0.00-0.034)
--- NOTE | 2020-09-14 16:25 | PC.NURSE ---
Report received from [facility] Watson staff.
--- NOTE | 2020-09-14 16:26 | PC.NURSE ---
report called to chace MEZA AT THIS TIME ON FLOOR
--- NOTE | 2020-09-14 16:55 | PC.NURSE ---
Pt. brought up in wheelchair, to room 280.
--- NOTE | 2020-09-14 17:15 | PC.NURSE ---
Dr. Blanton in room at this time. Order received to give 10mg Reglan IVP now, give it 30-45 minutes, if pt. reports nausea/vomiting remains, apply scopolamine patch, give insulin on Medium intensity sliding scale, apply mupirocin to area under left breast TID. Orders read back and verified.
--- NOTE | 2020-09-14 17:36 | HMH.HP ---
*Admission Date: 09/14/20 *Chief complaint: Significant nausea, epigastric pain and vomiting *History of present illness: Description of Symptoms (Recalled from ER Triage Doc. by RN): EMS reports they were called out for a chest pain and nausea and vomitting. EMS reports they have patient 324mg of Aspirin, one nitro and 8mg of Zofran. Patient reports she has been vomitting dark brown emesis since this AM at 0330. Pt denies any abdominal pain or chest pain at the time of triage. - History of Present Illness HPI narrative: Brought in by ambulance. States she started having severe nausea, vomiting brown liquid at 3 AM. Denies abdominal pain. Denies diarrhea. Denies any bright red hematemesis. No fever. Started having chest pain at 5 AM which lasted until 9 AM. No chest pain at this time. No shortness of breath or cough. No history of heart problems. She does have diabetes and hypertension. Family history of heart disease in both parents. Non-smoker, nondrinker. Received 2 doses of Zofran during transport by ambulance. Received Phenergan here prior to my evaluation. Still complains of nausea. Above note per emergency department. Patient continues to complain of significant nausea, pain has somewhat improved, wonders about a spot on her left breast that seems to be infected that might be causing this nausea. [facility] History I have reviewed the patient's past medical history: Yes Medical History: Reports:: Diabetes Mellitus Type 2, Hyperlipidemia, Hypertension, MRSA Denies:: Cancer, Diabetes Mellitus Type 1 *Have you ever received a pneumonia vaccine?: Yes *Have you received a flu vaccine this season?: Yes Other Medical History: Reports: Arthritis, Cataracts Other Surgeries: Yes: No Previous Surgery, , Tubal Ligation, Other Amputation: Yes (5th toe of the left foot. ) Fractures: No - *Social History Last grade of school completed: Advanced degree Smoking Status: Never smoker Alcohol Intake: never Alcohol Intake Frequency:: other Substance Use Type: denies use *Occupational Status:: retired Housing: house Household Members: none *Travel in the last 8 weeks: None Family Hx:: Coronary Artery Disease, Diabetes, Hyperlipidemia, Hypertension, Stroke Review of Systems - Review of Systems Review of systems:: pertinent systems reviewed and negative unless documented below - Constitutional Reports anorexia, Reports chills - Eyes Denies blind spots, Denies blurry vision - ENT Denies abnormal hearing, Denies poor balance, Denies dizziness - *Cardiovascular Reports chest pain Comments: See ER notes. Chest pain is now resolved - *Respiratory Denies change in phlegm color, Denies shortness of breath with activity, Denies pain on inspiration - *Gastrointestinal Reports abdominal pain, Reports heartburn, Reports nausea, Reports vomiting Meds Home Medications Medication Instructions Recorded Confirmed Type Amlodipine Besylate 5 mg PO DAILY 09/14/20 09/14/20 History Atorvastatin Calcium [Lipitor 20mg 20 mg PO DAILY 09/14/20 09/14/20 History Tablet*] Hydrocodone/Acetaminophen 1 tab PO Q6H 09/14/20 09/14/20 History [Hydrocodone-Acetamin 7.5-325] Insulin Aspart Prot/Insuln Asp 20 unit SQ DAILY 09/14/20 09/14/20 History [Novolog Mix 70/30 Flexpen 100 Units/mL 3mL] Insulin Glargine,Hum.rec.anlog 80 units SQ DAILY 09/14/20 09/14/20 History [Basaglar Kwikpen U-100] Liraglutide [Saxenda] 3 mg SQ DAILY 09/14/20 09/14/20 History OLANZapine [Olanzapine] 10 mg PO DAILY 09/14/20 09/14/20 History carvediloL [Carvedilol 12.5mg Tab] 12.5 mg PO BID 09/14/20 09/14/20 History lisinopriL [Lisinopril] 40 mg PO DAILY 09/14/20 09/14/20 History Allergies Allergy/AdvReac Type Severity Reaction Status Date / Time daptomycin [DAPTOMYCIN] AdvReac Mild I-RASH Verified 09/14/20 12:33 Exam Vital signs and Labs for Last 24 Hours: Temp Pulse Resp BP Pulse Ox 98.5 F 95 H 18 134/77 99
--- NOTE | 2020-09-14 18:30 | PC.NURSE ---
Pt. reports nausea remains, Scopolamine patch placed per MD order.
--- NOTE | 2020-09-14 19:45 | PC.NURSE ---
UPON DOING PT INITIAL ASSESSMENT,PT IV SITE ON LFA WAS SWELLED,RED AND WARM TO TOUCH.IV FLUIDS STOPPED.PT HAS BEEN STUCK MULTIPLE TIME IN ER AND LAB WAS EVEN UNABLE TO OBTAIN LABS IN ER.CALLED HOUSE TO SEE IF SHE COULD GET AN IV AND LABS.DERRICK KHAN SAID SHE WOULD BE UP TO SEE.DISCONTINUED IV,GAUZE AND COBAN APPLIED.
--- NOTE | 2020-09-14 20:20 | PC.NURSE ---
NOTIFIED ABOUT PT IV INFILTRATED AND PT HAS BEEN STUCK MULTIPLE TIMES IN ER AND THAT HOUSE HAS TRIED A COUPLE TIMES AND IS GOING TO TRY AGAIN,BUT PT NEEDING SOMETHIUNG FOR NAUSEA AND HAS NO ORDERS FOR ANYTHING,ORDERS FOR ZOFRAN 8MG IV EVERY 6 HOURS PRN FOR NAUSEA AND IF UNABLE TO GET IV ACCESS,ZOFRAN 8MG IM EVERY 6 HOURS PRN.
--- NOTE | 2020-09-14 21:03 | PC.NURSE ---
spoke with Dr Shoemaker at this time, states ok to do capillary blood draw d/t inability to obtain venous blood draw for cbc, bmp, and troponin.
[2020-09-14 21:05] LABS: POC Glucose,Bedside 281 (70-110)
[2020-09-14 21:05] LABS: POC Glucose,Bedside 209 (70-110)
[2020-09-14 21:39] LABS: Basophils % 0.2 % (0.1-2.0); Eosinophils % 0.5 % (0.1-12.0); Hematocrit 45.6 % (37.0-47.0); Lymphocytes # 0.8 K/mm3 (0.7-4.5); Lymphocytes % 11.6 % (10-50); Mean Corpuscular HGB Conc 33.8 g/dL (31.8-35.4); Mean Corpuscular Hemoglobin 27.7 pg (27.0-31.2); Mean Corpuscular Volume 81.8 fl (81-99); Mean Platelet Volume 8.8 fl (7.4-10.4); Monocytes # 0.3 K/mm3 (0.1-1.0); Monocytes % 3.8 % (1.7-9.3); Neutrophils # 5.5 K/mm3 (1.8-7.8); Neutrophils % 83.9 % (37.0-80.0); Platelet Count 123 K/mm3 (142-424); Red Blood Count 5.57 M/mm3 (4.20-5.40); Red Cell Distribution Width 15.7 % (11.5-17.5); White Blood Count 6.5 K/mm3 (4.8-10.8)
[2020-09-14 21:46] LABS: Hemoglobin 15.4 g/dL (12.2-16.2)
[2020-09-14 21:52] LABS: Chloride 113 mmol/L (98-107); Potassium 4.5 mmoL/L (3.5-5.1); Sodium 144 mmol/L (136-145)
[2020-09-14 21:55] LABS: Blood Urea Nitrogen 17 mg/dl (7-17); Creatinine Clearance Estimated 65 mL/min (50-200); Estimated Glomerular Filt Rate 64 ml/min (>60); GFR (African American) 77 ML/MIN (>60)
[2020-09-14 21:56] LABS: Anion Gap 17.5 mEq/L (5-15); Calcium 9.4 mg/dl (8.4-10.2); Carbon Dioxide 18 mmol/L (22.0-30.0); Glucose 214 mg/dl (74-100)
--- NOTE | 2020-09-14 22:15 | PC.NURSE ---
ASSISTED PT TO BR AT THIS TIME.PT WAS A LITTLE DIZZY AT FIRST,SAT ON SIDE OF BED A LITTLE WHILE.ASKED PT ABOUT A BASIN BATH OR A SHOWER PRIOR TO POSSIBLE SCOPE TOMORROW,PT REPORTS SHE WILL SHOWER IN THE MORNING.
--- NOTE | 2020-09-14 22:25 | PC.NURSE ---
NOTIFIED OF PT STILL HAVING NAUSEA AND VOMITING.ORDERS FOR PHENERGAN 25MG IV EVERY 4 HOURS PRN
[2020-09-14 22:52] LABS: Troponin I < 0.01 ng/ml (0.00-0.034)
--- NOTE | 2020-09-14 23:30 | PC.NURSE ---
PT LAYING IN BED WITH EMESIS BAG ON HER CHEST,PT REPORTS SHE STILL HAS THE NAUSEA,PT REPORTS SHE TOOK A DRINK OF GATORADE AFTER THE PHENERGAN AND SHE GOT NAUSEATED.TOLD PT THAT RIGHT NOW MAYBE BEST NOT TO DRINK ANYTHING.SHE IS NPO FOR POSSIBLE ENDOSCOPE TOMORROW,PT V/U.PT HAS HAD PHENERGAN,ZOFRAN,PROTONIX,REGLAN,SCOPOLOMINE PATCH AND NOTHING HAD WORKED.WILL CONTINUE TO MONITOR
[2020-09-15] VITALS (15 sets, daily range): BP systolic 140–163; BP diastolic 70–96; PULSE 87–114; RESP 16–18; TEMP 36.4–37.9; O2SAT 93–100
--- NOTE | 2020-09-15 01:30 | PC.NURSE ---
PT LAYING IN BED WITH EYES CLOSED,EASILY AROUSED,PT REPORTS STILL HAS NAUSEA,REFUSED MORE PHENERGAN,PT REPORTS IT HAS NOT HELP
--- NOTE | 2020-09-15 04:32 | PC.NURSE ---
PT HAS BEEN NAUSEATED ALL NIGHT AND HAS HAD SEVERAL EPISODES OF VOMITING (BILE).SHE HAS HAD ZOFRAN,PHENERGAN,PROTONIX AND HAS A SCOPOLAIMINE PATCH BEHIND HER EAR.BEGINNING OF SHIFT TEMP WAS 99.4 NOW 98.3,PT SHOWERED AND SAID IT MADE HER FEEL BETTER.ASSISTED HER WITH DRYING HERSELF,WITH BEING OFF BALANCE,PT SAT IN CHAIR AND WENT TO SLEEP,WHILE I BLOW DRIED HER HAIR.LUNGS CLEAR,RESP.EVEN AND UNLABORED,BOWEL SOUNDS NORMAL X4 QUADS,PT HAS ONLY VOIDED 200ML OF YELLOW URINE,IV FLUIDS GOING AT 100ML/HR NOW SINCE HER IV HAS DONE WELL THROUGHTOUT THE NIGHT.ASSISTED PT TO BED AND IS NOW SNORING.
[2020-09-15 06:16] LABS: POC Glucose,Bedside 183 (70-110)
--- NOTE | 2020-09-15 07:21 | PC.NURSE ---
Pre-op Nurse notified of consult for Dr. Naik
--- NOTE | 2020-09-15 07:42 | HMH.PHAVTE ---
[facility] Pharmacy VTE Monitoring - Patient Demographics Admission date: 09/14/20 Report Date: 09/15/20 Time: 07:42 Allergies/Adverse Reactions: Patient Allergies daptomycin [DAPTOMYCIN] Adverse Reaction (Mild, Verified 09/14/20 12:33) I-RASH Height: 1.7 m Weight: 121.109 kg Patient Problems: Current Active Problems Esophagitis (Acute) Hematemesis (Acute) Intractable nausea and vomiting (Acute) Chest pain (Acute) - VTE Risk Labs: VTE Related Lab Results Hgb 15.4 g/dL (12.2-16.2) D 09/14/20 21:15 Hct 45.6 % (37.0-47.0) 09/14/20 21:15 Plt Count 123 K/mm3 (142-424) L 09/14/20 21:15 BUN 17 mg/dl (7-17) 09/14/20 21:15 Creatinine 0.90 mg/dl (0.52-1.04) 09/14/20 21:15 Estimated Creat Clear 65 mL/min (50-200) 09/14/20 21:15 VTE Score: 2 VTE Risk Level: Very Low Risk - Prophylaxis VTE Prophylaxis Ordered?: Yes Types of VTE Prophylaxis: TEDS Knee High Location of Applied Device: Bilateral Lower Extremeties
--- NOTE | 2020-09-15 07:46 | PC.NURSE ---
Pt. up to bathroom. pt. reports being slightly less nauseous than when she came in, reports she hasn't vomited since midnight. Pt. sitting up on side of beds, call light and emesis bag within reach, will continue to monitor.
--- NOTE | 2020-09-15 07:57 | PC.NURSE ---
Dr. Naik in room. Plans for scope today.
--- NOTE | 2020-09-15 08:12 | PC.NURSE ---
Dr. Blanton in room, with care team.
--- NOTE | 2020-09-15 08:30 | HMH.ACPN2 ---
Internal Medicine - PN: Subj *Date: 09/15/20 *Time: 08:30 Interval history: Patient had no vomiting overnight. Continues to have significant nausea which she states is really not helped by any intravenous medication. She notes that Reglan, Zofran, Phenergan have not really helped. However she does not ask for any of those overnight. Exam Vital signs and Labs for Last 24 Hours: Temp Pulse Resp BP Pulse Ox 98.9 F 95 H 18 140/76 99 09/15/20 08:00 09/15/20 08:00 09/15/20 08:00 09/15/20 08:00 09/15/20 08:00 Laboratory Results - last 24 hr 09/14/20 11:10: WBC 8.2, RBC 4.21, Hgb 11.7 L, Hct 35.6 L, MCV 84.5, MCH 27.7, MCHC 32.8, RDW 14.9, Plt Count 149, MPV 7.6, Neut % (Auto) 83.9 H, Lymph % (Auto) 11.9, Williams % (Auto) 3.2, Eos % (Auto) 0.8, Baso % (Auto) 0.2, Neut # (Auto) 6.9, Lymph # (Auto) 1.0, Williams # (Auto) 0.3, Eos # (Auto) 0.1, Baso # (Auto) 0.0 09/14/20 11:10: Sodium 142, Potassium 4.2, Chloride 110 H, Carbon Dioxide 19 L, Anion Gap 17.2 H, BUN 17, Creatinine 0.90, Estimated Creat Clear 65, Estimated GFR 64, Est GFR ( Amer) 77, Glucose 240 H, Calcium 9.2, Troponin I < 0.01 09/14/20 11:10: Total Bilirubin 0.7, Direct Bilirubin 0.4, Conjugated Bilirubin 0.0, Indirect Bilirubin 0.3, Unconjugated Bilirubin 0.3, AST 44 H, ALT 31, Alkaline Phosphatase 148 H, Total Protein 8.0, Albumin 4.5, Lipase 113 09/14/20 12:15: Gastric Occult Blood Positive 09/14/20 13:14: SARS-CoV-2 (PCR) Not detected, Influenza A Untype (PCR) Not detected, Influenza Type B (PCR) Not detected 09/14/20 13:30: Troponin I < 0.01 09/14/20 17:43: POC Glucose 209 H 09/14/20 20:46: POC Glucose 281 H 09/14/20 21:15: Troponin I < 0.01 09/14/20 21:15: WBC 6.5, RBC 5.57 H D, Hgb 15.4 D, Hct 45.6, MCV 81.8, MCH 27.7, MCHC 33.8, RDW 15.7, Plt Count 123 L, MPV 8.8, Neut % (Auto) 83.9 H, Lymph % (Auto) 11.6, Williams % (Auto) 3.8, Eos % (Auto) 0.5, Baso % (Auto) 0.2, Neut # (Auto) 5.5, Lymph # (Auto) 0.8, Williams # (Auto) 0.3, Eos # (Auto) 0.0, Baso # (Auto) 0.0 09/14/20 21:15: Sodium 144, Potassium 4.5, Chloride 113 H, Carbon Dioxide 18 L, Anion Gap 17.5 H, BUN 17, Creatinine 0.90, Estimated Creat Clear 65, Estimated GFR 64, Est GFR ( Amer) 77, Glucose 214 H, Calcium 9.4 09/15/20 06:06: POC Glucose 183 H I & O for Last 24 hours: Intake & Output 09/12/20 09/13/20 09/14/20 09/15/20 11:59 11:59 11:59 11:59 Intake Total 1000 / 1000 Output Total 500 / 500 Balance 500 / 500 Weight 267 lb Narrative: Abdomen soft, nontender, heart rate regular. Lungs clear. No edema or clubbing. Neurologically intact. Assessment and Plan (1) Esophagitis Status: Acute Category: Medical Code(s): K20.90 - Esophagitis, unspecified without bleeding (2) Hematemesis Status: Acute Qualifiers: Nausea presence: with nausea Qualified Code(s): K92.0 - Hematemesis Category: Medical Code(s): K92.0 - Hematemesis (3) Intractable nausea and vomiting Status: Acute Category: Medical Code(s): R11.2 - Nausea with vomiting, unspecified - Assessment and plan all Dx Assessment and Plan for all problems:: Condition improved. Surgical consult appreciated, agree with EGD planned today.
--- NOTE | 2020-09-15 08:54 | HMH.GSCON ---
*Admission Date: 09/14/20 *Reason for consult:: Vomiting, need for EGD *History of present illness: Patient is a 60-year-old female from [place]. She states that yesterday morning approximately 3:30 AM she awoke with nausea and vomiting of dark brown emesis. Not associated with any abdominal pain. She contacted EMS and was brought to the emergency department by ambulance. She described severe nausea and vomiting of brown liquid without abdominal pain. Denied any symptoms consistent with hematemesis. She did develop some chest pain for a few hours but this was transient and resolved. She was seen and evaluated in the emergency department with ongoing nausea. She underwent CT scan which revealed findings of possible esophageal pathology versus nondistention. Surgery was consulted for upper endoscopy. Patient denies any prior similar symptoms. Review of Systems - Review of Systems Review of systems:: pertinent systems reviewed and negative unless documented below - *Neurologic Denies abnormal hearing, Denies unsteadiness, Denies dizziness [facility] History I have reviewed the patient's past medical history: Yes Medical History: Reports:: Diabetes Mellitus Type 2, Hyperlipidemia, Hypertension, MRSA Denies:: Cancer, Diabetes Mellitus Type 1 *Have you ever received a pneumonia vaccine?: Yes *Have you received a flu vaccine this season?: Yes Other Medical History: Reports: Arthritis, Cataracts Other Surgeries: Yes: No Previous Surgery, , Tubal Ligation, Other Amputation: Yes (5th toe of the left foot. ) Fractures: No - *Social History Last grade of school completed: Advanced degree Smoking Status: Never smoker Alcohol Intake: never Alcohol Intake Frequency:: other Substance Use Type: denies use *Occupational Status:: retired Housing: house Household Members: none *Travel in the last 8 weeks: None Family Hx:: Coronary Artery Disease, Diabetes, Hyperlipidemia, Hypertension, Stroke Meds Home Medications Medication Instructions Recorded Confirmed Type Amlodipine Besylate 5 mg PO DAILY 09/14/20 09/14/20 History Atorvastatin Calcium [Lipitor 20mg 20 mg PO DAILY 09/14/20 09/14/20 History Tablet*] Hydrocodone/Acetaminophen 1 tab PO Q6H 09/14/20 09/14/20 History [Hydrocodone-Acetamin 7.5-325] Insulin Aspart Prot/Insuln Asp 20 unit SQ DAILY 09/14/20 09/14/20 History [Novolog Mix 70/30 Flexpen 100 Units/mL 3mL] Insulin Glargine,Hum.rec.anlog 80 units SQ DAILY 09/14/20 09/14/20 History [Basaglar Kwikpen U-100] Liraglutide [Saxenda] 3 mg SQ DAILY 09/14/20 09/14/20 History OLANZapine [Olanzapine] 10 mg PO HS 09/14/20 09/15/20 History carvediloL [Carvedilol 12.5mg Tab] 12.5 mg PO BID 09/14/20 09/14/20 History lisinopriL [Lisinopril] 40 mg PO DAILY 09/14/20 09/14/20 History Allergies Allergy/AdvReac Type Severity Reaction Status Date / Time daptomycin [DAPTOMYCIN] AdvReac Mild I-RASH Verified 09/14/20 12:33 Exam Vital signs and Labs for Last 24 Hours: Temp Pulse Resp BP Pulse Ox 98.9 F 95 H 18 140/76 99 09/15/20 08:00 09/15/20 08:00 09/15/20 08:00 09/15/20 08:00 09/15/20 08:00 Laboratory Results - last 24 hr 09/14/20 11:10: WBC 8.2, RBC 4.21, Hgb 11.7 L, Hct 35.6 L, MCV 84.5, MCH 27.7, MCHC 32.8, RDW 14.9, Plt Count 149, MPV 7.6, Neut % (Auto) 83.9 H, Lymph % (Auto) 11.9, Sampson % (Auto) 3.2, Eos % (Auto) 0.8, Baso % (Auto) 0.2, Neut # (Auto) 6.9, Lymph # (Auto) 1.0, Sampson # (Auto) 0.3, Eos # (Auto) 0.1, Baso # (Auto) 0.0 09/14/20 11:10: Sodium 142, Potassium 4.2, Chloride 110 H, Carbon Dioxide 19 L, Anion Gap 17.2 H, BUN 17, Creatinine 0.90, Estimated Creat Clear 65, Estimated GFR 64, Est GFR ( Amer) 77, Glucose 240 H, Calcium 9.2, Troponin I < 0.01 09/14/20 11:10: Total Bilirubin 0.7, Direct Bilirubin 0.4, Conjugated Bilirubin 0.0, Indirect Bilirubin 0.3, Unconjugated Bilirubin 0.3, AST 44 H, ALT 31, Alkaline Phosphatase 148 H, Total Protein 8.0, Albumin 4.5, Lipase 113 09/14/20 12:
--- NOTE | 2020-09-15 10:09 | PC.NURSE ---
Pt. reports nausea remains, nurse offered Zofran, pt. refused, reports they make her more nauseous. Pt. denies needs, will continue to monitor.
--- NOTE | 2020-09-15 11:01 | PC.NURSE ---
Pt. to pre-op in wheelchair. report given to Pre-op staff.
--- NOTE | 2020-09-15 12:01 | HMH.ANESCL ---
[facility] Anesthesia Checklist - Structural Data Admitted From: Inpatient Planned Operative Procedure/s: egd Consent for Planned Operative Procedure(s) Verified: Yes - Airway Assessment C-Spine Mobility Assessed: Yes TMJ Mobility Assessed: Yes Dentition: Good Dentition - Neurological Assessment Level of Consciousness: Awake, Alert, Appropriate - Anesthesia Plan Anesthesia Risk discussed: Yes Anesthesia Plan: Verified ASA Class: III Anesthesia Type: MAC [facility] History I have reviewed the patient's past medical history: Yes Medical History: Reports:: Diabetes Mellitus Type 2, Hyperlipidemia, Hypertension, MRSA Denies:: Cancer, Diabetes Mellitus Type 1 *Have you ever received a pneumonia vaccine?: Yes *Have you received a flu vaccine this season?: Yes Other Medical History: Reports: Arthritis, Cataracts Anesthesia experience/problems:: none Other Surgeries: Yes: No Previous Surgery, , Tubal Ligation, Other Amputation: Yes (5th toe of the left foot. ) Fractures: No - *Social History Last grade of school completed: Advanced degree Smoking Status: Never smoker Alcohol Intake: never Alcohol Intake Frequency:: other Substance Use Type: denies use *Occupational Status:: retired Housing: house Household Members: none *Travel in the last 8 weeks: None Family Hx:: Coronary Artery Disease, Diabetes, Hyperlipidemia, Hypertension, Stroke
--- NOTE | 2020-09-15 12:08 | P.PCN_ITS ---
- Procedure: Date: 09/15/20 Patient Date of :: 1960 Procedure Performed:: Gastroduodenoscopy with biopsies and dilatation to 19 mm Indications:: Patient is a 60-year-old diabetic female from [place]. She states that yesterday morning approximately 3:30 AM she awoke with nausea and vomiting of dark brown emesis. Not associated with any abdominal pain. She contacted EMS and was brought to the emergency department by ambulance. She described severe nausea and vomiting of brown liquid without abdominal pain. Denied any symptoms consistent with hematemesis. She did develop some chest pain for a few hours but this was transient and resolved. She was seen and evaluated in the emergency department with ongoing nausea. She underwent CT scan which revealed findings of possible esophageal pathology versus nondistention. Surgery was consulted for upper endoscopy. Patient denies any prior similar symptoms. Patient has had nothing to eat or drink for at least 36 hours and has had persistent nausea and dry heaves. Performing Provider:: Geoffrey Naik MD Referring Provider:: Buddy Blanton MD Sedation:: MAC sedation Procedure:: Patient was taken to endoscopy procedure room. She was positioned in lateral decubitus position. Adequate intravenous sedation was achieved with anesthesia titration of propofol. Olympus endoscope was inserted via the oropharynx and advanced into the esophagus. The distal esophagus there is evidence of some focal moderate to moderately severe esophagitis. This was on the distal esophagus at the gastroesophageal junction. This was approximately 40 cm from the incisors. There is some minor mucosal narrowing consistent with Schatzki's ring. Stomach was cannulated and insufflated. Retroflexion revealed no evidence of any appreciable hiatal hernia. There was some bilious liquid within the stomach which was suctioned free. However, pylorus was patent and there was no evidence of any gastric outlet obstruction. The endoscope was advanced through the pylorus and into the duodenal sweep which appeared unremarkable. Endoscope was withdrawn into the stomach. Gastric antral mucosal biopsy was obtained for CLOtest for H. pylori. Gastric mucosal biopsy was obtained for histopathologic analysis. Several biopsies were obtained in the distal esophagus. This area was dilated sequentially to 18 mm and then 19 mm. Stomach was desufflated and the endoscope was withdrawn. Findings:: Moderate to moderately significant focal distal esophagitis. Biopsies were o btained. Dilatation performed. Recommendations:: Although she did have findings most consistent with esophagitis focally in the distal esophagus this seems less likely the definitive cause of persistent nausea and vomiting. Would recommend proton pump inhibitors at this time. May need gastric emptying scan. Complications:: None immediately apparent Estimated blood obtained (mL): 4
--- NOTE | 2020-09-15 12:21 | PC.NURSE ---
Report received from Marilyn Mcallister RN.
--- NOTE | 2020-09-15 16:17 | PC.NURSE ---
Routine reassessment completed. Pt. resting comfortably in bed, reports nausea has decreased but still has some nausea. No further acute changes from previous assessment. Pt. denies needs at this time. Call light and emesis bag in reach. Family in room. Will continue to monitor.
[2020-09-15 16:46] LABS: POC Glucose,Bedside 223 (70-110)
--- NOTE | 2020-09-15 19:03 | PC.NURSE ---
Pt. has home CPAP in room, Brand is Respmed.
--- NOTE | 2020-09-15 20:40 | PC.NURSE ---
paged Dr Mccord at this time for temperature of 100.3
[2020-09-15 21:09] LABS: POC Glucose,Bedside 252 (70-110)
[2020-09-16 01:05] VITALS: BP 138/74; PULSE 89; RESP 17; TEMP 37.7; O2SAT 96
--- NOTE | 2020-09-16 04:10 | PC.NURSE ---
pt has rested well throughout shift, pt remains alert and oriented, lungs remain clear, heart regular, pt was febrile at 1999 assessment attempted to page md with no return call pt continued to be monitored and temperature at this time is 98.2 orally, pt remains nauseous but no episodes of vomiting this shift, small spot under breast remains raised and reddened with small yellow area in the middle of the raised area bactroban was applied as ordered, pt has had good urinary output, vital signs stable, iv patent, call light within reach
[2020-09-16 06:10] LABS: POC Glucose,Bedside 232 (70-110)
--- NOTE | 2020-09-16 06:22 | PC.NURSE ---
pt vomited 100ml of bile at this time, pt refusing zofran at this time, will continue to monitor
--- NOTE | 2020-09-16 07:16 | PC.NURSE ---
report given to Megan Arevalo RN
[2020-09-16 07:45] VITALS: O2SAT 99
[2020-09-16 08:00] VITALS: BP 109/49; PULSE 90; RESP 20; TEMP 36.8; O2SAT 99
--- NOTE | 2020-09-16 08:01 | XR_ITS ---
PROCEDURE: XR CHEST PORTABLE CLINICAL HISTORY: fever COMPARISON: CR CXR CHEST(2 VIEWS-NOT PORTABLE) from 12/17/2014 CR CXR-PICC CHEST PORTABLE-PICC PLACEMENT from 10/05/2016 CR XR CHEST PORTABLE from 09/14/2020 FINDINGS: Borderline cardiomegaly without failure. The lungs are clear without infiltrates, suspicious nodules, or pleural effusions. 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
--- NOTE | 2020-09-16 09:06 | PC.NURSE ---
lab at bedside
[2020-09-16 09:24] LABS: Basophils % 0.4 % (0.1-2.0); Eosinophils % 0.2 % (0.1-12.0); Hematocrit 33.6 % (37.0-47.0); Hemoglobin 11.1 g/dL (12.2-16.2); Lymphocytes # 1.2 K/mm3 (0.7-4.5); Lymphocytes % 17.4 % (10-50); Mean Corpuscular Hemoglobin 27.8 pg (27.0-31.2); Mean Corpuscular Volume 84.2 fl (81-99); Mean Platelet Volume 7.6 fl (7.4-10.4); Monocytes # 0.4 K/mm3 (0.1-1.0); Monocytes % 5.4 % (1.7-9.3); Neutrophils # 5.4 K/mm3 (1.8-7.8); Neutrophils % 76.7 % (37.0-80.0); Platelet Count 123 K/mm3 (142-424); Red Blood Count 3.99 M/mm3 (4.20-5.40); Red Cell Distribution Width 15.5 % (11.5-17.5); White Blood Count 7.1 K/mm3 (4.8-10.8)
[2020-09-16 09:33] LABS: Anion Gap 14.6 mEq/L (5-15); Blood Urea Nitrogen 14 mg/dl (7-17); Carbon Dioxide 21 mmol/L (22.0-30.0); Chloride 107 mmol/L (98-107); Creatinine Clearance Estimated 65 mL/min (50-200); Estimated Glomerular Filt Rate 64 ml/min (>60); GFR (African American) 77 ML/MIN (>60); Glucose 308 mg/dl (74-100); Potassium 3.6 mmoL/L (3.5-5.1); Sodium 139 mmol/L (136-145)
[2020-09-16 09:34] LABS: Calcium 8.2 mg/dl (8.4-10.2)
--- NOTE | 2020-09-16 09:35 | P.PN_ITS ---
Subjective Narrative: She states that she feels about the same . Progress Note: A&P (1) Esophagitis Status: Acute (2) Hematemesis Status: Acute (3) Intractable nausea and vomiting Status: Acute Assessment and Plan for All Diagnoses:: Likely discharge home today with outpatient follow-up. She will be scheduled to see Dr. Naik next week for follow-up status post EGD. Discussion with regard to further evaluation and management (possible gastric emptying scan, etc.) will be ongoing. Exam Vital signs and Labs for Last 24 Hours: Temp Pulse Resp BP Pulse Ox 98.3 F 90 20 109/49 L 99 09/16/20 08:00 09/16/20 08:00 09/16/20 08:00 09/16/20 08:00 09/16/20 08:00 Laboratory Results - last 24 hr 09/15/20 16:38: POC Glucose 223 H 09/15/20 21:02: POC Glucose 252 H 09/16/20 05:57: POC Glucose 232 H 09/16/20 09:16: WBC 7.1, RBC 3.99 L D, Hgb 11.1 L, Hct 33.6 L, MCV 84.2, MCH 27.8, MCHC 33.0, RDW 15.5, Plt Count 123 L, MPV 7.6, Neut % (Auto) 76.7, Lymph % (Auto) 17.4, [place] % (Auto) 5.4, Eos % (Auto) 0.2, Baso % (Auto) 0.4, Neut # (Auto) 5.4, Lymph # (Auto) 1.2, [place] # (Auto) 0.4, Eos # (Auto) 0.0, Baso # (Auto) 0.0 09/16/20 09:16: Sodium 139, Potassium 3.6, Chloride 107, Carbon Dioxide 21 L, Anion Gap 14.6, BUN 14, Creatinine 0.90, Estimated Creat Clear 65, Estimated GFR 64, Est GFR ( Amer) 77, Glucose 308 H, Calcium 8.2 L D I & O for Last 24 hours: Intake & Output 09/13/20 09/14/20 09/15/20 09/16/20 11:59 11:59 11:59 11:59 Intake Total 1000 / 1000 100 / 100 Output Total 700 / 700 Balance 300 / 300 100 / 100 Weight 267 lb - Constitutional no acute distress - *Routine Respiratory Exam Absent: respiratory distress - *Routine Cardiovascular Exam Comments: Regular rate
[2020-09-16 11:26] LABS: Microscopic, Urine URINE MICROSCOPIC (MICROSCOPIC)
[2020-09-16 11:36] LABS: Appearance,Urine SL CLOUDY (Clear); Bilirubin,Urine Negative (Negative); Blood, Urine 2+ (Negative); Color,Urine YELLOW (Yellow); Glucose,Urine (UA) 3+ (Negative); Ketones,Urine Negative (Negative); Leukocyte Esterase,Urine 1+ (Negative); Nitrate,Urine Negative (Negative); PH,Urine 5.5 (5.0-8.5); Protein,Urine TRACE (Negative); Urobilinogen,Urine 0.2 EU/dl (0.2)
--- NOTE | 2020-09-16 12:27 | HMH.DCSUM ---
General - General Admission date:: 09/14/20 Discharge date: 09/16/20 HPI HPI: Description of Symptoms (Recalled from ER Triage Doc. by RN): EMS reports they were called out for a chest pain and nausea and vomitting. EMS reports they have patient 324mg of Aspirin, one nitro and 8mg of Zofran. Patient reports she has been vomitting dark brown emesis since this AM at 0330. Pt denies any abdominal pain or chest pain at the time of triage. - History of Present Illness HPI narrative: Brought in by ambulance. States she started having severe nausea, vomiting brown liquid at 3 AM. Denies abdominal pain. Denies diarrhea. Denies any bright red hematemesis. No fever. Started having chest pain at 5 AM which lasted until 9 AM. No chest pain at this time. No shortness of breath or cough. No history of heart problems. She does have diabetes and hypertension. Family history of heart disease in both parents. Non-smoker, nondrinker. Received 2 doses of Zofran during transport by ambulance. Received Phenergan here prior to my evaluation. Still complains of nausea. Above note per emergency department. Patient continues to complain of significant nausea, pain has somewhat improved, wonders about a spot on her left breast that seems to be infected that might be causing this nausea. Hospital Course Hospital Course: Patient was admitted to hospital. She was given IV fluids which improved her malaise and fatigue symptoms. She had intractable nausea and reported that Zofran or promethazine or IV Reglan was not effective whatsoever and made her stomach feel worse Given somewhat ominous CT scan report of distal esophageal thickening she was subjected to EGD yesterday morning which revealed severe and erosive esophagitis but no evidence of malignancy although biopsies were taken. There was noted to be some stricture and she was dilated successfully. This resulted in some improvement in her symptoms, and she was able to tolerate a full liquid diet fairly well. Twice daily PPI and sucralfate was recommended. This was started and patient improved somewhat. Overnight last night she had a very low-grade fever, otherwise no complaints. This morning CBC was unremarkable, electrolytes were unremarkable. Chest x-ray was clear, physical exam was essentially unrevealing as noted in her discharge physical exam documentation. However urinalysis showed leukocytes and trace blood. Plan we did discharge her home on PPI, sucralfate and promethazine for nausea. Short-term follow-up in our office and with general surgery next week for discussion of repeat EGD, given her abnormal urine we will treat for cystitis and check a urine culture. Objective Vital signs: Temp Pulse Resp BP Pulse Ox 98.3 F 90 20 109/49 L 99 09/16/20 08:00 09/16/20 08:00 09/16/20 08:00 09/16/20 08:00 09/16/20 08:00 no acute distress - *Routine HEENT Exam Head: Present: normocephalic Eye: Present: EOMI, PERRL ENT: Present: mucous membranes moist - *Routine Neck Exam Present: supple - *Routine Respiratory Exam Present: CTA bilaterally - *Routine Cardiovascular Exam Present: RRR - *Routine Abdominal Exam Present: soft, normoactive bowel sounds. Absent: tenderness - *Routine Extremities Exam Absent: cyanosis, clubbing, edema - *Routine Skin Exam Present: warm. Absent: rash - Detailed Eye Exam Eyelids: Bilateral normal inspection Results Labs on day of discharge: Labs from last 24 hours 09/16/20 09/16/20 09/16/20 11:11 09:16 09:16 WBC 7.1 RBC 3.99 L D Hgb 11.1 L Hct 33.6 L MCV 84.2 MCH 27.8 MCHC 33.0 RDW 15.5 Plt Count 123 L MPV 7.6 Neut % (Auto) 76.7 Lymph % (Auto) 17.4 [place] % (Auto) 5.4 Eos % (Auto) 0.2 Baso % (Auto) 0.4 Neut # (Auto) 5.4 Lymph # (Auto) 1.2 [place] # (Auto) 0.4 Eos # (Auto) 0.0 Baso # (Auto) 0.0 Sodium 139 Potassium 3.6 Chlorid
--- NOTE | 2020-09-16 13:10 | PC.NURSE ---
Discharge education provided to patient at this time. pt v/u.
== END 2020-09-16 13:20 | disposition home or self-care (01) ==
LOC: ER 13:03 → OB 13:12
PROVIDERS: Surgery; Admitting Provider Internal Medicine Adolescent Medicine; Emergency Provider Emergency Medicine; PCP Internal Medicine Adolescent Medicine; Visit Provider Internal Medicine Adolescent Medicine
PROC: 0DJ08ZZ Inspection of Upper Intestinal Tract, Via Natural or Artificial Opening Endoscopic (ICD-10-PCS; CPT 43235; principal; 2020-09-15 13:30)
DX: K20.90 Esophagitis, unspecified without bleeding (principal); K92.0 Hematemesis; R11.2 Nausea with vomiting, unspecified; E11.9 Type 2 diabetes mellitus without complications; Z79.4 Long term (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; I10 Essential (primary) hypertension; Z79.899 Other long term (current) drug therapy; N30.90 Cystitis, unspecified without hematuria; K22.2 Esophageal obstruction
CPT/HCPCS: 43239; 36415; 71045; 74177; 80048; 80076; 81001; 82272; 82962; 83690; 84484; 85025; 87086; 87088; 87186; 87339; 93005; 96374; 99284; 99291; C1726; G0328; G0378; J2405; Q9967; U0003

== ENCOUNTER 2020-11-02 07:53 | Outpatient (CLI) | payer BC, SELFPAY ==
[2020-11-02] VITALS (7 sets, daily range): BP systolic 108–142; BP diastolic 65–84; PULSE 79–96; RESP 16–18; TEMP 36.6; O2SAT 97–100; BMI 42.3
== END 2020-11-02 10:40 | disposition home or self-care (01) ==
LOC: COVID.OUT 07:54 → INF 07:56
PROVIDERS: PCP Internal Medicine Adolescent Medicine; Visit Provider Internal Medicine Adolescent Medicine
DX: U07.1 COVID-19 (principal)
CPT/HCPCS: 96365

== ENCOUNTER → 2020-12-23 11:39 | Outpatient (CLI) | payer BC, SELFPAY ==
[2020-12-23 13:36] LABS: Basophils % 0.4 % (0.1-2.0); Eosinophils % 0.1 % (0.1-12.0); Hematocrit 34.2 % (37.0-47.0); Hemoglobin 10.6 g/dL (12.2-16.2); Lymphocytes # 1.1 K/mm3 (0.7-4.5); Lymphocytes % 13.2 % (10-50); Mean Corpuscular HGB Conc 31.1 g/dL (31.8-35.4); Mean Corpuscular Volume 89.9 fl (81-99); Mean Platelet Volume 9.8 fl (7.4-10.4); Monocytes # 0.4 K/mm3 (0.1-1.0); Monocytes % 5.2 % (1.7-9.3); Neutrophils # 6.7 K/mm3 (1.8-7.8); Neutrophils % 81.2 % (37.0-80.0); Platelet Count 157 K/mm3 (142-424); Red Cell Distribution Width 15.7 % (11.5-17.5); White Blood Count 8.3 K/mm3 (4.8-10.8)
[2020-12-23 14:05] LABS: Alanine Aminotransferase 13 U/L (12-78); Albumin Level 3.5 g/dl (3.5-5.0); Albumin/Globulin Ratio 1.2 (1.1-1.8); Alkaline Phosphatase 110 U/L (38-126); Anion Gap 14.7 mEq/L (5-15); Aspartate Amino Transferase 22 U/L (14-36); Bilirubin,Total 0.5 mg/dl (0.2-1.3); Blood Urea Nitrogen 24 mg/dl (7-17); Calcium 8.7 mg/dl (8.4-10.2); Carbon Dioxide 20 mmol/L (22.0-30.0); Chloride 110 mmol/L (98-107); Chol/HDL Ratio 2.3 (1-3.5); Cholesterol 117 mg/dl (140-200); Estimated Glomerular Filt Rate 57 ml/min (>60); GFR (African American) 68 ML/MIN (>60); Glucose 186 mg/dl (74-100); HDL Cholesterol 51 mg/dl (40-60); Potassium 4.7 mmoL/L (3.5-5.1); Sodium 140 mmol/L (136-145); Total Protein,Serum 6.5 g/dl (6.3-8.2); Triglycerides 100 mg/dl (30-150); VLDL Cholesterol 20 mg/dL (0-40)
[2020-12-23 14:15] LABS: Direct LDL Cholesterol 45.53 mg/dL (100-129)
[2020-12-23 16:23] LABS: Hemoglobin A1C 10.8 % (4.0-6.0)
== END ==
PROVIDERS: Visit Provider Internal Medicine Adolescent Medicine
DX: E11.42 Type 2 diabetes mellitus with diabetic polyneuropathy (principal); R30.0 Dysuria; Z79.4 Long term (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; B96.20 Unspecified Escherichia coli [E. coli] as the cause of diseases classified elsewhere
CPT/HCPCS: 36415; 80053; 80061; 83036; 85025; 87086; 87088; 87186

== ENCOUNTER → 2021-03-26 07:25 | Outpatient (CLI) | payer BC, SELFPAY ==
[2021-03-26 09:53] LABS: Alanine Aminotransferase 25 U/L (12-78); Albumin Level 4.3 g/dl (3.5-5.0); Albumin/Globulin Ratio 1.5 (1.1-1.8); Alkaline Phosphatase 148 U/L (38-126); Anion Gap 14.2 mEq/L (5-15); Aspartate Amino Transferase 44 U/L (14-36); Bilirubin,Total 0.5 mg/dl (0.2-1.3); Blood Urea Nitrogen 21 mg/dl (7-17); Calcium 9.2 mg/dl (8.4-10.2); Carbon Dioxide 25 mmol/L (22.0-30.0); Chloride 105 mmol/L (98-107); Chol/HDL Ratio 2.6 (1-3.5); Cholesterol 145 mg/dl (140-200); Estimated Glomerular Filt Rate 57 ml/min (>60); GFR (African American) 68 ML/MIN (>60); Globulin 2.9 g/dL (1.3-3.2); Glucose 167 mg/dl (74-100); HDL Cholesterol 56 mg/dl (40-60); Potassium 5.2 mmoL/L (3.5-5.1); Sodium 139 mmol/L (136-145); Total Protein,Serum 7.2 g/dl (6.3-8.2); Triglycerides 89 mg/dl (30-150); VLDL Cholesterol 18 mg/dL (0-40)
[2021-03-26 10:04] LABS: Direct LDL Cholesterol 63.68 mg/dL (100-129)
[2021-03-26 10:36] LABS: Hemoglobin A1C 7.1 % (4.0-6.0)
== END ==
PROVIDERS: PCP Internal Medicine Adolescent Medicine; Visit Provider Internal Medicine Adolescent Medicine
DX: E11.42 Type 2 diabetes mellitus with diabetic polyneuropathy (principal); Z79.4 Long term (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
CPT/HCPCS: 36415; 80053; 80061; 83036

== ENCOUNTER → 2021-07-01 06:15 | Outpatient (CLI) | payer BC, SELFPAY ==
--- NOTE | 2021-07-01 | CA_ITS ---
APPROVED REPORT Exam: Pharmacologic Technologist: Katrina Ni, Ht: 5 ft 7 in Wt: 272 lbs BSA: 2.30 m2 HR: 89 bpm BP: 154/91 mmHg Medical History Medical History: HTN, Diabetes Medications: Amlodipine,,,,, Lisinopril,,,,, Pantoprazole,,,,, Carvedilol,,,,, Sucralfate,,,,, ProMETHAZINE,,,,, Olanzapine,,,,, AORVASTATIN,,,,, Levoflaxacin,,,,, Hydrocodone-Acetaminohen,,,,, INSULIN GLARGINE,,,,, INSULIN ASPART,,,,, Allergies: DAPTOMYCIN Cardiac Risk Factors: HTN, Diabetes, FHX of CAD Stress Test Details Test: LEXISCAN HR Resting HR: 86 bpm Max Heart Rate (APMHR): 159.344378 bpm Max HR Achieved: 101 bpm Target HR (85% APMHR): 135.516285 bpm % of APMHR: 63.52 Recovery HR: 96 bpm BP Resting BP: 154/91 mmHg Max BP: 180/88 mmHg Recovery BP: 166.0/91.0 mmHg ECG Clinical Exercise duration: 04:04 min Highest Stage Achieved: Exercise capacity: 1.0 METs Stress ECG Conclusion PT BECAME SOA WITH LEXISCAN. NO CP. PVC NOTED. <1.[address] SEGMENT CHANGES. Test Summary REST 06:14 . . 86 . 154/ 91 . . Stage 1 01:00 . . 93 . . . . Stage 2 01:00 . . 95 . 131/ 69 . . Stage 3 01:00 . . 95 . 142/ 71 . . Stage 4 01:00 . . 94 . 142/ 75 . . Stage 4 01:04 . . 96 . 142/ 75 . Stop exercise at 04:04 RECOVERY 01:00 . . 101 . 155/ 88 . . RECOVERY 02:00 . . 98 . 163/ 83 . . RECOVERY 03:00 . . 96 . 180/ 88 . . RECOVERY 03:56 . . 98 . 166/ 91 . . Electronically signed by : Matt Rivera MD 07/01/2021 09:01:15
--- NOTE | 2021-07-01 07:12 | NM_ITS ---
APPROVED REPORT Exam: Nuclear Stress Test Indication: Cheast pain..short of breath Patient Location: Outpatient Stress Tech: Katrina Ni NM Tech:Chasity ZhengTASHI RT(R)(N) Ht: 5 ft 7 in Wt: 280 lbs Bra Size: 46c HR: 89 bpm BP: 154/91 mmHg BSA: 2.33 m2 BMI: 43.8 History: Cheast pain..short of breath Procedure: Patient received a 0.4 mg of intravenous Lexiscan, resting heart rate 89 bpm, resting blood pressure 154/91 mmHg, with Lexiscan maximum heart rate achived was 96 bpm which is Less than 85 % of the maximum predicted heart rate and blood pressure was 180/88 mmHg. With Lexiscan, patient denied any complaint of chest pain. pt was unable to lay on her belly for prone images. Electrocardiogram Resting electrocardiogram shows sinus rhythm, with Lexiscan there is less than 1.[address] segment depression noted from the baseline EKG. The EKG portion of the Lexiscan is nondiagnostic. Cardiac Stress and Resting SPECT Images: Cardiac Stress and Resting SPECT images were obtained using technetium 99m Myoview 30.0 mCi stress and 10.17 mCi at rest. Gated SPECT for analysis of segmental wall motion and calculation of the ejection fraction also done. Cardiac stress and resting SPECT images show mild fixed defect in the anterior wall with normal contractility gated SPECT is likely secondary to soft tissue attenuation, no reversible ischemia seen, computer derived ejection fraction is 62% with no regional wall motion abnormality, right ventricle is normal size and contractility. Conclusion: 1. The EKG portion of the Lexiscan is nondiagnostic. 2. No scintigraphic evidence of reversible ischemia seen, computer derived ejection fraction is 62% with no regional wall motion abnormality, right ventricle is normal size and contractility. 3. Likely normal Lexiscan Myoview study. Electronically signed by : Matt Rivera MD 07/01/2021 12:36:32
== END ==
LOC: RAD 06:16
PROVIDERS: PCP Internal Medicine Adolescent Medicine; Visit Provider Nurse Practitioner Family
DX: R06.02 Shortness of breath (principal); R07.9 Chest pain, unspecified
CPT/HCPCS: 78452; 93017; A9502; J2785

== ENCOUNTER 2021-11-06 13:02 | Observation (INO) | payer BC, SELFPAY ==
[2021-11-06] VITALS (12 sets, daily range): BP systolic 109–149; BP diastolic 48–81; PULSE 75–87; RESP 16–18; TEMP 36.4–36.8; O2SAT 95–99; BMI 42.3; BMI 43.1
--- NOTE | 2021-11-06 13:17 | XR_ITS ---
PROCEDURE INFORMATION: Exam: XR Chest Exam date and time: 11/06/2021 1:38 PM Age: 61 years old Clinical indication: Injury or trauma; Fall; Blunt trauma (contusions or hematomas) TECHNIQUE: Imaging protocol: Radiologic exam of the chest. Views: 1 view. COMPARISON: CR XR CHEST PORTABLE 09/16/2020 9:14 AM FINDINGS: Lungs: Hypoinflation, without acute airspace disease. Pleural spaces: No pleural effusion. Heart/Mediastinum: Epicardial fat , without cardiomegaly. Bones/joints: Mild degenerative change. IMPRESSION: No acute airspace or pleural disease.
--- NOTE | 2021-11-06 13:17 | CT_ITS ---
PROCEDURE INFORMATION: Exam: CT Head Without Contrast Exam date and time: 11/06/2021 1:22 PM Age: 61 years old Clinical indication: Injury or trauma; Fall TECHNIQUE: Imaging protocol: Computed tomography of the head without contrast. Radiation optimization: All CT scans at this facility use at least one of these dose optimization techniques: automated exposure control; mA and/or kV adjustment per patient size (includes targeted exams where dose is matched to clinical indication); or iterative reconstruction. COMPARISON: None FINDINGS: Brain: No acute post-traumatic brain injury. Symmetric caliber of the cortical sulci. Cerebral ventricles: Normal configuration of the ventricles. Paranasal sinuses: No sinus fluid. Mastoid air cells: No mastoid effusion. Bones/joints: No acute calvarial injury. Soft tissues: No significant scalp hematoma. IMPRESSION: No acute post-traumatic brain injury.
--- NOTE | 2021-11-06 14:03 | HMH.EDGENADL ---
Discharge Plan Disposition Patient Disposition: Admitted as Observation Condition: Fair Chief Complaint: Fall Prescriptions Prescriptions: No Action atorvastatin 20 MG tablet 20 mg PO DAILY carvedilol 12.5 MG tablet 12.5 mg PO BID amlodipine 5 MG tablet 5 mg PO DAILY lisinopril 40 MG tablet 40 mg PO DAILY insulin glargine 100 UNIT/ML insulin pen 80 units SQ DAILY liraglutide (weight loss) 3 MG/0.5 ML pen injector 3 mg SQ DAILY olanzapine 10 MG tablet 10 mg PO HS hydrocodone-acetaminophen 1 EACH tablet 1 tab PO Q6H insulin asp prt-insulin aspart 100 UNIT/ML insulin pen 20 unit SQ DAILY sucralfate 1 GM/10 ML suspension 1 gm PO ACHS 30 Days Qty: 1 0RF pantoprazole 40 MG tablet,delayed release (DR/EC) 40 mg PO BID Qty: 60 0RF levofloxacin 500 MG tablet 500 mg PO DAILY Qty: 7 0RF promethazine 25 MG tablet 25 mg PO TIDP PRN (Reason: Nausea And Vomiting) Qty: 30 0RF Referrals Follow up/Referrals: Alberto Diehl MD [Primary Care Provider] - See instructions Clinical Impressions Clinical Impression: Acute confusion, Hallucination, visual, Generalized weakness, Multiple falls, Dizziness Discharge ED Provider: Temo Alex General Adult HPI General Chief complaint: Fall Stated complaint: AO [id number] AMS Fell at home Time Seen by Provider: 11/06/21 14:15 Mode of Arrival: Wheelchair Source of Information: Patient Limitations: No Limitations Description of Symptoms (Recalled from ER Triage Doc. by RN): pt to ed c/o fall. pt states she fell [id number] ago an hit her head. pt states today she fell and had no injuries. pt states she woke up today and was confused and felt altered. History of Present Illness HPI narrative: History obtained from patient and daughter. Daughter states that she does not live with her but speaks to her every day. She noticed yesterday when she spoke with her that she seemed confused and disoriented. The day prior to that, Sunday, she seemed to be fine. Today she went to see her at noon and noticed that she was confused, disoriented, seeing things out of her left peripheral vision, dizzy, with slurred speech. Patient states that she has been dizzy for about 2 weeks, seems off balance. She fell 2 weeks ago and hit her head. She fell again today but did not injure herself. She currently has no pain. She has had some vomiting, but otherwise denies any recent illness. No fever, no URI symptoms. No urinary symptoms. No chest pain. Related Data Home Medications Medication Instructions Recorded Confirmed amlodipine 5 mg tablet 5 mg PO DAILY Hypertension 09/14/20 10/08/20 atorvastatin 20 mg tablet 20 mg PO DAILY Cholesterol 09/14/20 10/08/20 carvedilol 12.5 mg tablet 12.5 mg PO BID Hypertension 09/14/20 10/08/20 hydrocodone 7.5 mg-acetaminophen 1 tab PO Q6H Pain 09/14/20 10/08/20 325 mg tablet insulin aspar prot-insulin aspart 20 unit SQ DAILY Diabetes 09/14/20 10/08/20 100 unit/mL (70-30) subcutaneous pen insulin glargine 100 unit/mL (3 80 units SQ DAILY Diabetes 09/14/20 10/08/20 mL) subcutaneous pen liraglutide (weight loss) 3 mg/0.5 3 mg SQ DAILY Diabetes 09/14/20 10/08/20 mL (18 mg/3 mL) subcut pen injector lisinopril 40 mg tablet 40 mg PO DAILY Hypertension 09/14/20 10/08/20 olanzapine 10 mg tablet 10 mg PO HS MOOD 09/14/20 10/08/20 Previous Rx's Medication Instructions Recorded levofloxacin 500 mg tablet 500 mg PO DAILY #7 tabs 09/16/20 pantoprazole 40 mg tablet,delayed 40 mg PO BID #60 tabs 09/16/20 release promethazine 25 mg tablet 25 mg PO TIDP PRN Nausea And 09/16/20 Vomiting #30 tabs sucralfate 100 mg/mL oral 1 gm PO ACHS 30 days ##1 09/16/20 suspension Allergies Allergy/AdvReac Type Severity Reaction Status Date / Time daptomycin [DAPTOMYCIN] AdvReac Mild I-RASH Verified 10/08/20 09:10 PFSH PFSH Social History Smoking Status: Never smoker alcohol intake:
[2021-11-06 14:06] LABS: Alanine Aminotransferase 21 U/L (12-78); Albumin/Globulin Ratio 1.3 (1.1-1.8); Alkaline Phosphatase 168 U/L (38-126); Anion Gap 11.1 mEq/L (5-15); Aspartate Amino Transferase 30 U/L (14-36); Basophils % 0.2 % (0.1-2.0); Bilirubin,Total 0.5 mg/dl (0.2-1.3); Blood Urea Nitrogen 14 mg/dl (7-17); Calcium 9.2 mg/dl (8.4-10.2); Carbon Dioxide 24 mmol/L (22.0-30.0); Chloride 107 mmol/L (98-107); Creatinine Clearance Estimated 57 mL/min (50-200); Eosinophils % 0.1 % (0.1-12.0); Estimated Glomerular Filt Rate 56 ml/min (>60); GFR (African American) 68 ML/MIN (>60); Globulin 3.1 g/dL (1.3-3.2); Glucose 194 mg/dl (74-100); Hematocrit 36.4 % (37.0-47.0); Hemoglobin 11.4 g/dL (12.2-16.2); Lymphocytes # 1.1 K/mm3 (0.7-4.5); Lymphocytes % 19.8 % (10-50); Mean Corpuscular HGB Conc 31.4 g/dL (31.8-35.4); Mean Corpuscular Hemoglobin 28.1 pg (27.0-31.2); Mean Corpuscular Volume 89.6 fl (81-99); Mean Platelet Volume 8.5 fl (7.4-10.4); Monocytes # 0.3 K/mm3 (0.1-1.0); Monocytes % 5.4 % (1.7-9.3); Neutrophils # 4.1 K/mm3 (1.8-7.8); Neutrophils % 74.4 % (37.0-80.0); Platelet Count 123 K/mm3 (142-424); Potassium 5.1 mmoL/L (3.5-5.1); Red Blood Count 4.06 M/mm3 (4.20-5.40); Red Cell Distribution Width 16.5 % (11.5-17.5); Sodium 137 mmol/L (136-145); Total Protein,Serum 7.1 g/dl (6.3-8.2); White Blood Count 5.4 K/mm3 (4.8-10.8)
[2021-11-06 14:40] LABS: Ethyl Alcohol < 10 mg/dl (0-10)
--- NOTE | 2021-11-06 14:48 | ECG_ITS ---
APPROVED REPORT Exam: Resting ECG HR:80 bpm ECG Measurements Heart Rate 80 AXES CA 178 P 69 QRSd 102 QRS 31 QT 385 T 46 QTc 421 Conclusion SINUS RHYTHM NORMAL ECG UNCONFIRMED REPORT Electronically signed by : Buddy Blanton MD 11/07/2021 20:10:56
[2021-11-06 14:51] LABS: Troponin I < 0.01 ng/ml (0.00-0.034)
[2021-11-06 15:01] LABS: Coronavirus 19, PCR Not Detected (NotDetected); Influenza A, PCR Not Detected (NotDetected); Influenza B, PCR Not Detected (NotDetected)
--- NOTE | 2021-11-06 15:15 | PC.NURSE ---
PT GETTING UP TO BR WITH ASSISTANCE SHE BECAME VERY DIZZY AND HAD TO LAY BACK DOWN
[2021-11-06 15:29] LABS: Microscopic, Urine URINE MICROSCOPIC (MICROSCOPIC)
[2021-11-06 15:31] LABS: Appearance,Urine CLEAR (Clear); Bilirubin,Urine Negative (Negative); Blood, Urine Negative (Negative); Color,Urine YELLOW (Yellow); Glucose,Urine (UA) Negative (Negative); Ketones,Urine Negative (Negative); Leukocyte Esterase,Urine Negative (Negative); Nitrate,Urine Negative (Negative); Protein,Urine Negative (Negative); Specific Gravity, Urine <= 1.005 (1.005-1.030); Urobilinogen,Urine 0.2 EU/dl (0.2)
[2021-11-06 15:33] LABS: VBG HCO3 17.9 mmol/L (23-30); VBG Oxygen Saturation 99.3 % (50-70); VBG PCO2 26.1 mmol/L (35-51); VBG PH 7.45 mmol/L (7.31-7.41); VBG Total CO2 18.7 mmol/L (23-27)
[2021-11-06 15:42] LABS: Squamous Epithelial Cell,Urine Occasional #/hpf (0-5)
[2021-11-06 15:44] LABS: Amphetamine/Metha Screen,Urine Negative ng/ml (<1000)
[2021-11-06 15:45] LABS: Barbiturates Screen,Urine Negative ng/ml (<200); Benzodiazepines Screen,Urine Negative ng/ml (<200)
[2021-11-06 15:46] LABS: Cannabinoid Screen,Urine Negative ng/ml (<50)
[2021-11-06 15:47] LABS: Cocaine Screen,Urine Negative ng/ml (<300); Methadone Screen,Urine Negative ng/ml (<300)
[2021-11-06 15:48] LABS: Opiate Screen,Urine Positive ng/ml (<300)
[2021-11-06 15:49] LABS: Phencyclidine Screen,Urine Negative ng/ml (<25)
[2021-11-06 16:31] LABS: Ammonia < 9 umol/L (9-30)
--- NOTE | 2021-11-06 17:39 | PC.NURSE ---
Dr Alex speaking with dr Mccord
--- NOTE | 2021-11-06 19:38 | PC.NURSE ---
pt arrive to floor at 1930 via stretcher and ER staff
[2021-11-07 04:06] VITALS: BP 130/73; PULSE 87; O2SAT 94
--- NOTE | 2021-11-07 04:58 | PC.NURSE ---
NO ACUTE CHANGES SINCE PREVIOUS ASSESMNET. PT HAS RESTED WELL THIS SIFT. PT IS ALERT AND ORIENTED X4. LUNG SOUNDS ARE CLEAR BILATERALLY. TOLERATING ROOM AIR WELL. HAS BEEN UP TO THE BEDSIDE COMMODE WITH X1 ASSIST AND DID WELL. PT HAS NOT STATED THAT SHE HAS SEE ANY HALLUCINATIONS SINCE ARRIVING TO THE UNIT. PT HAS STATED HER DESIRE TO GO HOME. VSS.
[2021-11-07 05:00] VITALS: BMI 43.2
--- NOTE | 2021-11-07 07:32 | EXP.PHA.VTE ---
[facility] Pharmacy VTE Monitoring Patient Demographics Patient Allergies daptomycin [DAPTOMYCIN] Adverse Reaction (Mild, Verified 10/08/20 09:10) I-RASH Height: 1.7 m Weight: 124.9 kg Current Active Problems (Updated 11/06/21 @ 18:23 by Lavinia Bailey, RN) Acute confusion (Acute) Hallucination, visual (Acute) Generalized weakness (Acute) Multiple falls (Acute) Dizziness (Acute) VTE Risk Labs: VTE Related Lab Results Hgb 11.4 g/dL (12.2-16.2) L 11/06/21 13:45 Hct 36.4 % (37.0-47.0) L 11/06/21 13:45 Plt Count 123 K/mm3 (142-424) L 11/06/21 13:45 BUN 14 mg/dl (7-17) 11/06/21 13:45 Creatinine 1.00 mg/dl (0.52-1.04) 11/06/21 13:45 Estimated Creat Clear 57 mL/min (50-200) 11/06/21 13:45 Was VTE Risk Assessment Performed: Yes VTE Score: 8 VTE Risk Level: Moderate Risk Prophylaxis VTE Prophylaxis Ordered?: Yes Types of VTE Prophylaxis: TEDS Knee High Location of Applied Device: Bilateral Lower Extremeties
[2021-11-07 07:33] VITALS: BP 151/96; PULSE 95; RESP 16; TEMP 36.4; O2SAT 93
[2021-11-07 08:27] LABS: POC Glucose,Bedside 179 (70-110)
[2021-11-07 08:27] LABS: POC Glucose,Bedside 148 (70-110)
--- NOTE | 2021-11-07 09:01 | EXP.HPDC ---
General Admission date:: 11/06/21 Discharge date: 11/07/21 *Admission Date: 11/06/21 *Chief complaint: Admitted thru ER for AMS... hallucinations.... *History of present illness: See ER notes... admitted per ER for hallucinations. W/u for stroke, metabolic issues were negative. [facility] Medical History (Updated 11/06/21 @ 18:23 by Lavinia Bailey, RN) Diabetes mellitus, type 2 Hyperlipidemia Hypertension Kidney stone Migraine Osteoarthritis Sleep apnea Surgical History (Updated 11/06/21 @ 18:22 by Lavinia Bailey, RN) History of section Family History (Updated 11/06/21 @ 18:21 by Lavinia Bailey, RN) Family history of stroke Family history of hypertension Family history of diabetes mellitus type II Family history of hyperlipidemia Social History (Updated 11/06/21 @ 18:34 by Lavinia Bailey RN) Smoking Status: Never smoker alcohol intake: never substance use type: denies use current occupational status: retired Travel in the last 8 weeks: None household members: none housing: house caffeine: Yes Review of Systems Review of Systems Review of systems:: pertinent systems reviewed and negative unless documented below Constitutional Constitutional: Reports frequent falls, Denies headache(s) and Denies weakness ENT Ears, Nose, Mouth, and Throat: Reports disequilibrium and Denies headache(s) *Musculoskeletal Musculoskeletal: Denies numbness *Neurologic Neurologic: Reports abnormal speech, Reports confusion, Reports disequilibrium, Denies localized weakness, Reports frequent falls, Denies headache(s), Denies numbness and Denies weakness Psychiatric Psychiatric: Reports confusion Exam Data for Last 24 hours Vital signs and Labs for Last 24 Hours: Temp Pulse Resp BP Pulse Ox 97.5 F L 95 H 16 151/96 H 93 L 11/07/21 07:33 11/07/21 07:33 11/07/21 07:33 11/07/21 07:33 11/07/21 07:33 Laboratory Results - last 24 hr 11/06/21 13:45: WBC 5.4, RBC 4.06 L, Hgb 11.4 L, Hct 36.4 L, MCV 89.6, MCH 28.1, MCHC 31.4 L, RDW 16.5, Plt Count 123 L, MPV 8.5, Neut % (Auto) 74.4, Lymph % (Auto) 19.8, [place] % (Auto) 5.4, Eos % (Auto) 0.1, Baso % (Auto) 0.2, Neut # (Auto) 4.1, Lymph # (Auto) 1.1, [place] # (Auto) 0.3, Eos # (Auto) 0.0, Baso # (Auto) 0.0 11/06/21 13:45: Sodium 137, Potassium 5.1, Chloride 107, Carbon Dioxide 24, Anion Gap 11.1, BUN 14, Creatinine 1.00, Estimated Creat Clear 57, Estimated GFR 56 L, Est GFR ( Amer) 68, Glucose 194 H, Calcium 9.2, Total Bilirubin 0.5, AST 30, ALT 21, Alkaline Phosphatase 168 H, Total Protein 7.1, Albumin 4.0, Globulin 3.1, Albumin/Globulin Ratio 1.3 11/06/21 13:45: Troponin I < 0.01 11/06/21 13:45: Plasma/Serum Alcohol < 10 11/06/21 14:27: VBG pH 7.45 H, VBG pCO2 26.1 L, VBG pO2 141.0 H, VBG HCO3 17.9 L, VBG Total CO2 18.7 L, VBG O2 Saturation 99.3 H, VBG Base Excess -6.0 L 11/06/21 14:50: SARS-CoV-2 (PCR) Not detected, Influenza A Untype (PCR) Not detected, Influenza Type B (PCR) Not detected 11/06/21 15:20: Urine Color Yellow, Urine Appearance Clear, Urine pH 6.0, Ur Specific [place] <= 1.005, Urine Protein Negative, Urine Glucose (UA) Negative, Urine Ketones Negative, Urine Blood Negative, Urine Nitrate Negative, Urine Bilirubin Negative, Urine Urobilinogen 0.2, Ur Leukocyte Esterase Negative, Ur Squamous Epith Cells Occasional 11/06/21 15:20: Urine Opiates Screen Positive H, Urine Methadone Screen Negative, Ur Barbituates Screen Negative, Ur Phencyclidine Scrn Negative, Ur Amphetamines Screen Negative, U Benzodiazepines Scrn Negative, Urine Cocaine Screen Negative, U Marijuana (THC) Screen Negative 11/06/21 16:15: Ammonia < 9 L 11/06/21 20:03: POC Glucose 179 H 11/07/21 05:31: POC Glucose 148 H I & O for Last 24 hours: Intake & Output 11/04/21 11/05/21 11/06/21 11/07/21 11:59 11:59 11:59 11:59 Intake Total 752 / 752 Output Total 150 / 150 Balance 602 / 602 Weight 275 lb 5.718 oz Constitutional Constitutional:
--- NOTE | 2021-11-07 10:09 | HMH.PHAINT1 ---
Pharmacy Intervention Comments: DISCHARGE MEDICATION COUNSELING PROVIDED. DISCUSSED NO CHANGES TO CURRENT HOME MEDICATIONS. PATIENT VERBALIZED NO QUESTIONS AT THIS TIME.
--- NOTE | 2021-11-08 14:38 | CARE MANAGER ---
Contacted patient related to hospital discharge. She states that she feels well and denies any questions or concerns. She is aware of follow up appointment. DERRICK Serrano
== END 2021-11-07 10:05 | disposition home or self-care (01) ==
LOC: ER 17:48 → ICU 18:32
PROVIDERS: Admitting Provider Emergency Medicine; Emergency Provider Emergency Medicine; PCP Internal Medicine Adolescent Medicine; Visit Provider Internal Medicine Adolescent Medicine
DX: R44.1 Visual hallucinations (principal); E11.9 Type 2 diabetes mellitus without complications; Z79.4 Long term (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; E03.9 Hypothyroidism, unspecified; R29.6 Repeated falls; Z79.899 Other long term (current) drug therapy; G43.909 Migraine, unspecified, not intractable, without status migrainosus; I10 Essential (primary) hypertension
CPT/HCPCS: 36415; 70450; 71045; 80053; 80305; 81001; 82140; 82803; 82962; 84484; 85025; 93005; C9803; G0378; U0003; U0005

== ENCOUNTER 2022-12-04 07:00 | Outpatient (RCR) | payer BC, SELFPAY ==
--- NOTE | 2022-10-09 09:12 | HMH.PTOPEV ---
PT Outpatient Evaluation Rehab PT Outpatient Evaluation Start: 10/09/22 07:01 Freq: Status: Active Protocol: Document 10/09/22 07:01 JOSE (Rec: 10/09/22 09:11 [email or web address] [id number]) E-signed By Car Subramanian, PT Outpatient Therapy Subjective History Subjective History Pt. is a 62 year old female who presents to [facility] Out[facility] Services in [place] for the initial evaluation this date(10/09/22) w/ c/o chronic and intermittent B/L(R>L) lumbar sharp P! and stiffness of insidious onset over the last year. Pt. reports having a chronic history of LBP!, however, c/o current symptoms have progressively worsened over the last year. Pt. describes symptoms as a sharp P! that worsens w/ standing/ ambulatory tasks. Pt. reports, I quit going to [employer] because of my back pain. Pt. also reports symptoms worsen w / standing and doing dishes/ cleaning at home. Pt. reports having complete symptom relief w/ sitting. Pt. reports having no symptom relief w/ steroid injection 2 weeks ago. Recent diagnostic imaging( radiograph) indicates moderate arthritis per pt. report. Pt. RTMD in 6 weeks. Pt. denies numbness/tingling into BLEs, denies having any recent bowel/bladder dysfunction. Current medications include [place](pt. unable to recall other prescribed medications at this time). 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 Chief Complaint Pain,Stiff,Weakness Symptom Type Ache,Sharp,Stabbing,Shooting Symptoms Relieved By Rest/Positioning,Ice Symptoms Aggravated By Standing,Physical Activity,
== END 2022-12-11 14:32 | disposition home or self-care (01) ==
LOC: PT 07:00
PROVIDERS: PCP Internal Medicine Adolescent Medicine; Visit Provider Nurse Practitioner Family
DX: M54.50 Low back pain, unspecified (principal)
CPT/HCPCS: 97010; 97014; 97110; 97140; 97163; 97164; 97530; G0283

== ENCOUNTER 2023-03-07 16:38 | Observation (INO) | payer BC, SELFPAY ==
--- OUTSIDE RECORDS SUMMARY | 2023-03-07 16:40 | XMS_ITS | Continuity of Care Document ---
Author Name Unknown Address [address] [place], [place] [id number] Organization [facility] Phone Care Team Providers Care Bsa Officer Name Role Phone AVINASH HUSTON Primary Attending ROXANNE DEL VALLE Primary Care AVINASH HUSTON Unavailable AVINASH HUSTON Admitting ALLERGIES AND ADVERSE REACTIONS ALLERGIES AND ADVERSE REACTIONS Code System Allergy Substance Adverse Reaction Date Reaction (Severity) Comment Status Reported By Updated By No Known Allergies FAMILY HISTORY RELATION: Father Status: Cause of : Myocardial infarction Age at : Unknown SNOMED-CT Diagnosis Age At Onset Information not available RELATION: Mother Status: LIVING SNOMED-CT Diagnosis Age At Onset [id number] Diabetes mellitus [id number] Hypertensive disorder RELATION: Sister Status: LIVING SNOMED-CT Diagnosis Age At Onset [id number] Chronic depression [id number] Hypoglycemia RELATION: Sister Status: LIVING SNOMED-CT Diagnosis Age At Onset [id number] Hypoglycemia RESULTS Patient: BRITTANY POPE Date of : [birth year] LABORATORY RESULTS ORDER 200: CBC AUTO W DIFF ( LOINC: 50935-3) ORDER DATE: October 26, 2022 12:36:00 PM UTC Specimen Source: Whole Blood PERFORMING LAB: [facility] [address] [facility] [id number] Result Comment: Final Result Date: October 26, 2022 12:56:00 PM UTC (TECH: MRB) LOINC TEST FLAG RESULT REFERENCE RANGE UPDA SNEHAL BY 6690-2 Leukocytes [#/volume] in Blood by Automated count L 4.0 10^3/uL 4.5 10^3/uL - 11.5 10^3/uL October 26, 2022 12:56:00 PM UTC (TECH: MRB) 789-8 Erythrocytes [#/volume] in Blood by Automated count L 3.83 10^6/uL 4.25 10^6/uL - 5.57 10^6/uL October 26, 2022 12:56:00 PM UTC (TECH: MRB) 718-7 Hemoglobin [Mass/volume] in Blood L 10.7 g/dL 12.0 g/dL - 15.7 g/dL October 26, 2022 12:56:00 PM UTC (TECH: MRB) 04691-3 Hematocrit [Volume Fraction] of Blood L 33.8 % 36.0 % - 47.0 % October 26, 2022 12:56:00 PM UTC (TECH: MRB) 787-2 Erythrocyte mean corpuscular volume [Entitic volume] by Automated count N 88.3 fl 80 fl - 95 fl October 26, 2022 12:56:00 PM UTC (TECH: MRB) 99835-5 Erythrocyte mean corpuscular hemoglobin [Entitic mass] in Blood from [place] by Automated count N 27.9 pg 27.0 pg - 34.0 pg October 26, 2022 12:56:00 PM UTC (TECH: MRB) 89149-5 Erythrocyte mean corpuscular hemoglobin concentration [Mass/volume] in Blood from Fetus by Automated count L 31.7 g/dL 32.0 g/dL - 36.0 g/dL October 26, 2022 12:56:00 PM UTC (TECH: MRB) 67748-5 Platelets [#/volume] in Blood L 112 10^3/uL 150 10^3/uL - 450 10^3/uL October 26, 2022 12:56:00 PM UTC (TECH: MRB) 01494-9 Erythrocyte distribution width [Ratio] N 14.6 % 12.3 % - 15.1 % October 26, 2022 12:56:00 PM UTC (TECH: MRB) 67677-1 Platelet mean volume [Entitic volume] in Blood by Automated count H 10.7 fl 7.4 fl - 10.4 fl October 26, 2022 12:56:00 PM UTC (TECH: MRB) 05344-2 Granulocytes/100 leukocytes in Blood by Automated count N 66.2 % 40 % - 75 % October 26, 2022 12:56:00 PM UTC (TECH: MRB) 736-9 Lymphocytes/100 leukocytes in Blood by Automated count N 24.7 % 15 % - 57 % October 26, 2022 12:56:00 PM UTC (TECH: MRB) 5905-5 Monocytes/100 leukocytes in Blood by Automated count N 8.2 % 4.0 % - 12.0 % October 26, 2022 12:56:00 PM UTC (TECH: MRB) 713-8 Eosinophils/100 leukocytes in Blood by Automated count N 0.2 % 0.0 % - 4.0 % October 26, 2022 12:56:00 PM UTC (TECH: MRB) 706-2 Basophils/100 leukocytes in Blood by Automated count N 0.5 % 0.0 % - 1.0 % October 26, 2022 12:56:00 PM UTC (TECH: MRB) 84094-3 Immature granulocytes [#/volume] in Blood N 0.2 % 0.0 % - 0.8 % October 26, 2022 12:56:00 PM UTC (TECH: MRB) 83536-6 Granulocytes [#/volume] in Blood by Automated count N 2.65 10^3/uL October 26, 2022 12:56:00 PM UTC (TECH: MRB) 731-0 Lymphocytes [#/volume] in Blood by Automated count N 0.99 10^3/uL October 26, 2022 12:56:00 PM UTC (TECH: MRB) 742-7 Monocytes [#/volume] in Blood by Automated count N 0.33 10^3/uL October 26, 2022 12:56:00 PM UTC (TECH: MRB) 711-2 Eosinophils [#/volume] in Blood by Automated count N 0.01 10^3/uL October 26, 2022 12:56:00 PM UTC (TECH: MRB) 704-7 Basophils [#/volume] in Blood by Automated count N 0.02 10^3/uL October 26, 2022 12:56:00 PM UTC (TECH: MRB) 45221-2 Immature granulocytes [#/volume] in Blood N 0.01 10^3/uL October 26, 2022 12:56:00 PM UTC (TECH: MRB) 52942-8 Manual differential performed [Presence] in Blood N NO October 26, 2022 12:56:00 PM UTC (TECH: MRB) ORDER 300: HEMOGLOBIN A1C (L OINC: 4548-4) ORDER DATE: October 26, 2022 12:36:00 PM UTC Specimen Source: Whole Blood PERFORMING LAB: [address] [id number] Result Comment: Final Result Date: October 26, 2022 1:18:00 PM UTC (TECH: TH) LOINC TEST FLAG RESULT REFERENCE RANGE UPDA SNEHAL BY 4548-4 Hemoglobin A1c/Hemoglobin.tot al in Blood H 7.5 % 4.5 % - 6.2 % October 26, 2022 1:18:00 PM UTC (TECH: TH) 31916-7 Glucose mean value [Mass/volume] in Blood Estimated from glycated hemoglobin H 169 mg/dl 82 mg/dl - 131 mg/dl October 26, 2022 1:18:00 PM UTC (TECH: TH) ORDER 400: THYROID STIMULATI NG HORMONE (LOINC: 3016-3) ORDER DATE: October 26, 2022 12:36:00 PM UTC Specimen Source: Serum/Plasm a PERFORMING LAB: [address] [id number] Result Comment: Final Result Date: October 26, 2022 2:03:00 PM UTC (TECH: TH) LOINC TEST FLAG RESULT REFERENCE RANGE UPDA SNEHAL BY 3016-3 Thyrotropin [Units/volume] in Serum or Plasma N 1.66 mIU/mL 0.34 mIU/mL - 4.80 mIU/mL October 26, 2022 2:03:00 PM UTC (TECH: TH) ORDER 500: VITAMIN D3 25-OH (LOINC: 1989-3) ORDER DATE: October 26, 2022 12:36:00 PM UTC Specimen Source: Serum/Plasm a PERFORMING LAB: [address] [id number] Result Comment: October 27 3:13:00 PM UTC Vitamin D deficiency has been defined by the [place] of Result Comment: October 27, 2022 3:13:00 PM UTC Medicine and an Endocrine Society practice guideline as a Result Comment: October 27, 2022 3:13:00 PM UTC level of serum 25-OH vitamin D less than 20 ng/mL (1,2). Result Comment: October 27, 2022 3:13:00 PM UTC The Endocrine Society went on to further define vitamin D Result Comment: October 27, 2022 3:13:00 PM UTC insufficiency as a level between 21 and 29 ng/mL (2). Result Comment: October 27, 2022 3:13:00 PM UTC 1. IOM ([place] of Medicine). 2010. Dietary reference Result Comment: October 27, 2022 3:13:00 PM UTC intakes for calcium and D. [facility]: The Result Comment: October 27, 2022 3:13:00 PM UTC [employer]. Result Comment: October 27, 2022 3:13:00 PM UTC 2. Aisha MF, Shonda SHIRLEY, Ludy MENA, et al. Result Comment: October 27, 2022 3:13:00 PM UTC Evaluation, treatment, and prevention of vitamin D Result Comment: October 27, 2022 3:13:00 PM UTC deficiency: an Endocrine Society clinical practice Result Comment: October 27, 2022 3:13:00 PM UTC guideline. JCEM. 2010; 96(5):1911-30. Result Comment: October 27, 2022 3:13:00 PM UTC Performed at: [facility] Result Comment: October 27, 2022 3:13:00 PM UTC [address] [place] [id number] Result Comment: October 27, 2022 3:13:00 PM UTC Bioinformatics Software Engineer: Jacky Wilkins PhD, Phone: [phone] Result Comment: October 27, 2022 3:13:00 PM UTC Final Result Date: October 27, 2022 12:36:00 PM UTC (TECH: LAB) LOINC TEST FLAG RESULT REFERENCE RANGE UPDA SNEHAL BY 1988- Calcidiol [Mass/volume] in Serum or Plasma L 9.0 ng/mL 30.0 ng/mL - 100.0 ng/mL October 27, 2022 12:36:00 PM UTC (TECH: LAB) ORDER 600: COMP METABOLIC PA CLARISSA (LOINC: 34823-3) ORDER DATE: October 26, 2022 12:36:00 PM UTC Specimen Source: Serum/Plasm a PERFORMING LAB: [address] [id number] Result Comment: Final Result Date: October 26, 2022 2:04:00 PM UT (TECH: TH) LOINC TEST FLAG RESULT REFERENCE RANGE UPDA SNEHAL BY 2951-2 Sodium [Moles/volume ] in Serum or Plasma N 143 mmol/L 136 mmol/L - 145 mmol/L October 26, 2022 2:04:00 PM UTC (TECH: TH) 2823-3 Potassium [Moles/volume] in Serum or Plasma N 4.4 mmol/L 3.5 mmol/L - 5.1 mmol/L October 26, 2022 2:04:00 PM UTC (TECH: TH) 2075-0 Chloride [Moles/volu me] in Serum or Plasma H 108 mmol/L 98 mmol/L - 107 mmol/L October 26, 2022 2:04:00 PM UT (TECH: TH) 2027-9 Carbon dioxide, tota l [Moles/volume] in Serum or Plasma N 25 mmol/L 21 mmol/L - 32 mmol/L October 26, 2022 2:04:00 PM UT (TECH: TH) 16782-9 Anion gap 3 in Serum or Plasma N 10.0 October 26, 2022 2:04:00 PM UT (TECH: TH) 2345-7 Glucose [Mass/volume ] in Serum or Plasma H 193 mg/dL 70 mg/dL - 110 mg/dL October 26, 2022 2:04:00 PM UT (TECH: TH) 3094-0 Urea nitrogen [Mass/volume] in Serum or Plasma H 30 mg/dL 7 mg/dL - 18 mg/dL October 26, 2022 2:04:00 PM UTC (TECH: TH) 2160-0 Creatinine [Mass/volume] in Serum or Plasma H 1.7 mg/dL 0.6 mg/dL - 1.0 mg/dL October 26, 2022 2:04:00 PM UTC (TECH: TH) 3097-3 Urea nitrogen/Creatinine [Mass Ratio] in Serum or Plasma N 17.6 Ratio 9 Ratio - 21 Ratio October 26, 2022 2:04:00 PM UT (TECH: TH) 56274-3 Glomerular filtratio n rate/1.73 sq M.predicted by Creatinine-based formula (MDRD) L 32 mL/min >60 October 26, 2022 2:04:00 PM UT (TECH: TH) 2885-2 Protein [Mass/volume ] in Serum or Plasma N 6.9 g/dL 6.4 g/dL - 8.2 g/dL October 26, 2022 2:04:00 PM UT (TECH: TH) 1751-7 Albumin [Mass/volume ] in Serum or Plasma N 3.4 g/dL 3.4 g/dL - 5.0 g/dL October 26, 2022 2:04:00 PM UT (TECH: TH) 52125-9 Calcium [Mass/volume ] in Serum or Plasma L 8.2 mg/dL 8.5 mg/dL - 10.1 mg/dL October 26, 2022 2:04:00 PM UT (TECH: TH) 36916-1 Calcium [Mass/volume ] corrected for total protein in Serum or Plasma N 8.7 mg/dL 8.5 mg/dL - 10.1 mg/dL October 26, 2022 2:04:00 PM [facility] (TECH: TH) 1975-2 Bilirubin.total [Mass/volume] in Serum or Plasma L 0.2 mg/dL 0.4 mg/dL - 1.5 mg/dL October 26, 2022 2:04:00 PM UT (TECH: TH) 1920-8 Aspartate aminotransferase [Enzymatic activity/volume] in Serum or Plasma N 18 U/L 15 U/L - 37 U/L October 26, 2022 2:04:00 PM UT (TECH: TH) 1742-6 Alanine aminotransferase [Enzymatic activity/volume] in Serum or Plasma N 24 U/L 12 U/L - 78 U/L October 26, 2022 2:04:00 PM [facility] (TECH: TH) 6768-6 Alkaline phosphatase [Enzymatic activity/volume] in Serum or Plasma H 181 U/L 53 U/L - 141 U/L October 26, 2022 2:04:00 PM UT (TECH: TH) ORDER 700: LIPID PANEL (LOIN C: 79788-6) ORDER DATE: October 26, 2022 12:36:00 PM UT Specimen Source: Serum/Plasm a PERFORMING LAB: [address] [id number] Result Comment: Final Result Date: October 26, 2022 2:04:00 PM UT (TECH: TH) LOINC TEST FLAG RESULT REFERENCE RANGE UPDA SNEHAL BY 2571-8 Triglyceride [Mass/volume] in Serum or Plasma N 139 mg/dL 20 mg/dL - 200 mg/dL October 26, 2022 2:04:00 PM UT (TECH: TH) 3-3 Cholesterol [Mass/volume] in Serum or Plasma N 134 mg/dL 0 mg/dL - 200 mg/dL October 26, 2022 2:04:00 PM UT (TECH: TH) 2084-9 Cholesterol in HDL [Mass/volume] in Serum or Plasma L 53 mg/dL 60 mg/dL October 26, 2022 2:04:00 PM UT (TECH: TH) 69599-8 Cholesterol in LDL [Mass/volume] in Serum or Plasma by calculation L 53 mg/dL 100 mg/dL October 26, 2022 2:04:00 PM UT (TECH: TH) 5-8 Cholesterol in HDL/Cholesterol.tota l [Mass Ratio] in Serum or Plasma N 3 Ratio October 26, 2022 2:04:00 PM UT (TECH: TH) ORDER 800: CREATININE URINE (LOINC: 2161-8) ORDER DATE: October 26, 2022 12:36:00 PM UT Specimen Source: URINE PERFORMING LAB: [address] [id number] Result Comment: Final Result Date: October 26, 2022 1:00:00 PM UT (TECH: TH) LOINC TEST FLAG RESULT REFERENCE RANGE UPDA SNEHAL BY 2161-8 Creatinine [Mass/volume] in Urine H 236.3 mg/dL 30 mg/dL - 125 mg/dL October 26, 2022 1:00:00 PM UT (TECH: TH) ORDER 900: MICROALBUMIN RAND OM URINE (LOINC: 53384-9) ORDER DATE: October 26, 2022 12:36:00 PM UT Specimen Source: URINE PERFORMING LAB: [address] [id number] Result Comment: Final Result Date: October 26, 2022 1:00:00 PM UT (TECH: TH) LOINC TEST FLAG [place] [address]-6 Microalbumin [Mass/volume] in Urine H 35.6 mcg/mL 1.3 mcg/mL - 17.0 mcg/mL October 26, 2022 1:00:00 PM UTC (TECH: TH) ORDER 1000: FOLIC ACID (LOIN C: 2282-2) ORDER DATE: October 26, 2022 12:36:00 PM UTC Specimen Source: Serum/Plasm a PERFORMING LAB: [address] [id number] Result Comment: Final Result Date: October 26, 2022 2:04:00 PM UTC (TECH: TH) LOINC TEST FLAG RESULT REFERENCE RANGE UPDA SNEHAL BY 2282-2 Folate [Mass/volume] in Blood L 6.3 ng/mL 8.6 ng/mL - 58.9 ng/mL October 26, 2022 2:04:00 PM UTC (TECH: TH) ORDER 1100: VITAMIN B12 (YANI NC: 2132-9) ORDER DATE: October 26, 2022 12:36:00 PM UTC Specimen Source: Serum/Plasm a PERFORMING LAB: [address] [id number] Result Comment: Final Result Date: October 26, 2022 2:04:00 PM UTC (TECH: TH) LOINC TEST FLAG RESULT REFERENCE RANGE UPDA SNEHAL BY 2132-9 Cobalamin (Vitamin B12) [Mass/volume] in Serum or Plasma N 244 pg/mL 193 pg/mL - 986 pg/mL October 26, 2022 2:04:00 PM UTC (TECH: TH) LABORATORY NARRATIVE RESULTS Information is not available RADIOLOGY RESULTS Information is not available PATHOLOGY NARRATIVE RESULTS Information is not available MICROBIOLOGY RESULTS No Micro Labs/Results Exist for Patient BLOOD ADMIN RESULTS Information is not available TREATMENT PLAN DISCHARGE MEDICATIONS Status RXNORM Medication Dose Route Frequency Dates Comments U pdated By Patient discharge medication information is not available. PATIENT OPEN ORDERS Code System Description Frequency Occurrences Priority [place] [address]3 [facility] Collection method - Specimen ONE TIME 0 Routine October 26, 2022 12:35:0 0 PM UT BETZAIDAPAWAN DA SILVA Shahzad RAY [id number] on October 26, 2022 12:36:00 PM UT SCHEDULED PROCEDURES Code System Description Status Scheduled Date Upd ated By Patient scheduled procedure information is not available. MEDICATIONS HOME MEDICATIONS Status RXNORM Medication Dose Route Frequency Dates Comments R eported By Updated By Drug Treatment Unknown DISCHARGE MEDICATIONS Status RXNORM Medication Dose Route Frequency Dates Comments Physic harry Updated By No Discharge Medication Info rmation Available INPATIENT MEDICATIONS Status RXNORM Medication Dose Route Frequency Rate Quantity Dates Comments Physician Updated By No Inpatient Medication Info rmation Available SOCIAL HISTORY SOCIAL HISTORY SNOMED-CT Social History Element Description Effective Dates Offered Cessation Comment UpdatedBy [id number] Historical Tobacco smoking status Never Smoked Not Applicable [id number] on December 25, 2014 6:36:25 PM [facility] SOCIAL HISTORY - Gender Sex: Female SOCIAL HISTORY - Sexual Behavior Sexual Orientation Gender Identity SNOMED-CT Description SNO MED -CT Description Activity Level No of Partners Partner Type UpdatedBy HEALTH CONCERNS Problems Concern Status Health Concern problem infor mation not available. Smoking Status Status Years Used Consumed packs p er day Health Concern smoking histo ry information not available. Family History Concern Status Health Concern family histor y information not available. ENCOUNTERS ENCOUNTER INFORMATION Reason for Visit E11.42 Admission October 26, 2022 12:24:[address] [address] Discharge October 26, 2022 12:24:00 PM [facility] DISCHARGED TO HOME OR SELF CARE ENCOUNTER DIAGNOSES Notes information is not gris ilable. Code System Diagnosis Onset Date Diagnosis information is not available. 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 [id number] on October 27, 2022 11:54:04 AM [facility] Z51.81 ICD10 ENCOUNTER FOR TH ERAPEUTIC DRUG LEVEL MONITORING [id number] on October 27, 2022 11:54:04 AM [facility] F32.9 ICD10 MAJOR DEPRESSIVE DISORDER, SINGLE EPISODE, UNSPECIFIED [id number] on October 27, 2022 11:54:04 AM [facility] R20.2 ICD10 PARESTHESIA OF SKIN [id number] on October 27, 2022 11:54:04 AM [facility] CARE TEAM Care Bsa Officer Role AVINASH HUSTON Primary Attending ROXANNE DEL VALLE Primary Care AVINASH HUSTON Referring AVINASH HUSTON Admitting CARE TEAM CARE histopath tech Role on Team Status Start Date End Date Update d By BETZAIDA Pike APRN Referring normal October 26, 2022 4:00:00 AM [facility] October 26, 2022 4:00:00 AM [facility] [id number] on October 26, 2022 12:26:30 PM [facility] BETZAIDA Pike APRN Attending normal October 26, 2022 4:00:00 AM UT October 26, 2022 4:00:00 AM UT [id number] on October 26, 2022 12:26:30 PM [facility] BETZAIDA Pike APRN Admitting normal October 26, 2022 4:00:00 AM UT October 26, 2022 4:00:00 AM [facility] [id number] on October 26, 2022 12:26:30 PM [facility] IVON OLIVEIRA MD [facility] normal October 26, 2022 4:00:00 AM [facility] October 26, 2022 4:00:00 AM [facility] [id number] on October 26, 2022 12:26:30 PM [facility]
--- OUTSIDE RECORDS SUMMARY | 2023-03-07 16:40 | XMS_ITS | Continuity of Care Document ---
Author Name Unknown Address [address] [place], [place] [id number] Organization [facility] Phone Care Team Providers Care Edging Catcher Name Role Phone ROXANNE DEL VALLE Primary Care GERRY TOMLIN Admitting GERRY TOMLIN Unavailable GERRY TOMLIN Primary Attending ALLERGIES AND ADVERSE REACTIONS ALLERGIES AND ADVERSE REACTIONS Code System Allergy Substance Adverse Reaction Date Reaction (Severity) Comment Status Reported By Updated By No Known Allergies [id number] on January 25, 2023 1:34:[address] [facility] FAMILY HISTORY RELATION: Father Status: Cause of : Myocardial infarction Age at : Unknown SNOMED-CT Diagnosis Age At Onset Information not available RELATION: Mother Status: LIVING SNOMED-CT Diagnosis Age At Onset [id number] Diabetes mellitus [id number] Hypertensive disorder RELATION: Sister Status: LIVING SNOMED-CT Diagnosis Age At Onset [id number] Chronic depression [id number] Hypoglycemia RELATION: Sister Status: LIVING SNOMED-CT Diagnosis Age At Onset [id number] Hypoglycemia RESULTS Patient: BRITTANY Camarillo Date of : June [birth year] LABORATORY RESULTS Information is not available LABORATORY NARRATIVE RESULTS Information is not available RADIOLOGY RESULTS ORDER 100: KNEE 3V LT (LOINC : 40279-4) ORDER DATE: January 25, 2023 1:34:[address] [facility] PATHOLOGY NARRATIVE RESULTS Information is not available MICROBIOLOGY RESULTS No Micro Labs/Results Exist for Patient BLOOD ADMIN RESULTS Information is not available MEDICATIONS HOME MEDICATIONS Status RXNORM Medication Dose Route Frequency Dates Comments R eported By Updated By Active [id number] lisinopril 40 mg tablet 1.0 TAB PO DAILY Last Dose: [id number] on January 25, 2023 1:34:[address] [facility] Active [id number] olanzapine 10 mg tablet 1.0 TAB PO DAILY Last Dose: [id number] on January 25, 2023 1:34:05 PM UT Active atorvastatin oral unkn 0.0 DAILY Last Dose: [id number] on January 25, 2023 1:34:05 PM UT DISCHARGE MEDICATIONS Status RXNORM Medication Dose Route Frequency Dates Comments Physic harry Updated By No Discharge Medication Info rmation Available INPATIENT MEDICATIONS Status RXNORM Medication Dose Route Frequency Rate Quantity Dates Comments Physician Updated By No Inpatient Medication Info rmation Available SOCIAL HISTORY SOCIAL HISTORY SNOMED-CT Social History Element Description Effective Dates Offered Cessation Comment UpdatedBy [id number] Historical Tobacco smoking status Never Smoked Not Applicable [id number] on December 25, 2014 6:36:25 PM UT SOCIAL HISTORY - Gender Sex: Female SOCIAL HISTORY - Sexual Behavior Sexual Orientation Gender Identity SNOMED-CT Description SNO MED -CT Description Activity Level No of Partners Partner Type UpdatedBy VITAL SIGNS PATIENT VITAL SIGNS This section displays the mo st recent value for each vital sign as of January 29, 2023 11:31:55 AM UT [facility] Code Vital Sign Activity Date Result Updated By 8310-5 Body temperature January 25 1:28:00 PM UTC 97.1 [degF] [id number] on January 25, 2023 1:30:50 PM UT 8462-4 Diastolic blood pressure January 25, 2023 1:28:00 PM UTC 74.0 mm[Hg] [id number] on January 25, 2023 1:30:50 PM UT 8867-4 Heart rate January 25 1:28:00 PM UTC 89 /min [id number] on January 25, 2023 1:30:[place] [address]-4 Oxygen saturation in Arterial blood by Pulse oximetry January 25, 2023 1:28:00 PM UTC 97.0 % [id number] on January 25, 2023 1:30:50 PM UT 9279-1 Respiratory rate January 25 1:28:00 PM UTC 18 /min [id number] on January 25, 2023 1:30:50 PM UT 8480-6 Systolic blood pressure January 25, 2023 1:28:00 PM UTC 162.0 mm[Hg] [id number] on January 25, 2023 1:30:[address] [facility] PEDIATRIC GROWTH CHART - VITAL SIGNS This section displays Head C ircumference Percentile, Weight for Length Percentile and BMI Percentile Loinc Code Pediatric Measure Age (Months) Result Updat ed By HEALTH CONCERNS Problems Concern Status Health Concern problem infor mation not available. Smoking Status Status Years Used Consumed packs p er day Health Concern smoking histo ry information not available. Family History Concern Status Health Concern family histor y information not available. ENCOUNTERS ENCOUNTER INFORMATION Reason for Visit KNEE INJURY Admission January 25, 2023 1:17:[address] [address] Discharge January 25, 2023 2:53:[address] [facility] DISCHARGED TO HOME OR SELF CARE ENCOUNTER DIAGNOSES Notes information is not gris ilable. Code System Diagnosis Onset Date Diagnosis information is not available. ABSTRACT DIAGNOSES Code System Diagnosis Updated By M25.562 ICD10 PAIN IN LEFT KNEE [id number] on January 29, 2023 11:31:[address] [facility] S83.412A ICD10 SPRAIN OF MEDIAL COLLATERAL LIGAMENT OF LEFT KNEE, INITIAL ENCOUNTER [id number] on January 29, 2023 11:31:[address] [facility] X58.XXXA ICD10 EXPOSURE TO OTHE R SPECIFIED FACTORS, INITIAL ENCOUNTER [id number] on January 29, 2023 11:31:[address] [facility] Y93.01 ICD10 ACTIVITY, WALKIN G, MARCHING AND HIKING [id number] on January 29, 2023 11:31:[address] [facility] Y92.009 ICD10 UNSPECIFIED PLAC E IN UNSPECIFIED NON-INSTITUTIONAL (PRIVATE) RESIDENCE THE PLACE OF OCCURRENCE OF THE EXTERNAL CAUSE [id number] on January 29, 2023 11:31:[address] [facility] I10 ICD10 ESSENTIAL (PRIMARY) HYPERTEN EILEEN [id number] on January 29, 2023 11:31:[address] [facility] E78.00 ICD10 PURE HYPERCHOLES TEROLEMIA, UNSPECIFIED [id number] on January 29, 2023 11:31:[address] 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 CARE TEAM Care Edging Catcher Role ROXANNE DEL VALLE Primary Care GERRY TOMLIN Admitting GERRY TOMLIN Referring GERRY TOMLIN Primary Attending CARE TEAM CARE budget accountant Role on Team Status Start Date End Date Update d By SADA GARRETT DO Referring normal January 1:30:21 PM UT January 25, 2023 5:00:00 AM UT [id number] on January 25, 2023 1:30:21 PM UT SADA GARRETT DO Attending normal January 1:30:21 PM UT January 25, 2023 5:00:00 AM UT [id number] on January 25, 2023 1:30:21 PM UT SADA GARRETT DO Admitting normal January 1:30:20 PM UT January 25, 2023 5:00:00 AM UT [id number] on January 25, 2023 1:30:21 PM UT IVON OLIVEIRA MD PCP normal January 25, 2023 1:17:42 PM UT January 25, 2023 5:00:00 AM UT [id number] on January 25, 2023 1:30:21 PM UT
--- OUTSIDE RECORDS SUMMARY | 2023-03-07 16:40 | XMS_ITS | Continuity of Care Document ---
Author Name Unknown Address [address] [place], [place] [id number] Organization [facility] Phone Care Team Providers Care Forest Management Professor Name Role Phone AVINASH HUSTON Primary Attending [...] Status: LIVING SNOMED-CT Diagnosis Age At Onset [id number] Diabetes mellitus [id number] Hypertensive disorder RELATION: Sister Status: LIVING SNOMED-CT Diagnosis Age At Onset [id number] Chronic depression [id number] Hypoglycemia RELATION: Sister Status: LIVING SNOMED-CT Diagnosis Age At Onset [id number] Hypoglycemia RESULTS Patient: BRITTANY POPE Date of : [birth year] LABORATORY RESULTS ORDER 200: CBC AUTO W DIFF ( LOINC: 51654-5) ORDER DATE: October 26, 2022 12:36:00 PM UTC Specimen Source: Whole Blood [facility] [id number] Result Comment: Final Result Date: October 26, [...] 26, 2022 12:56:00 PM UTC (TECH: MRB) 34076-3 Hematocrit [Volume Fraction] of Blood L 33.8 % 36.0 % - 47.0 % October 26, 2022 12:56:00 PM UTC (TECH: MRB) 787-2 Erythrocyte mean corpuscular volume [Entitic volume] by Automated count N 88.3 fl 80 fl - 95 fl October 26, 2022 12:56:00 PM UTC (TECH: MRB) 51477-4 Erythrocyte mean corpuscular hemoglobin [Entitic mass] in Blood from Fetus by Automated count N 27.9 pg 27.0 pg - 34.0 pg October 26, 2022 12:56:00 PM UTC (TECH: MRB) 90973-7 Erythrocyte mean corpuscular hemoglobin concentration [Mass/volume] in Blood from Fetus by Automated count L 31.7 g/dL 32.0 g/dL - 36.0 g/dL October 26, 2022 12:56:00 PM UTC (TECH: MRB) 73398-1 Platelets [#/volume] in Blood L 112 10^3/uL 150 10^3/uL - 450 10^3/uL October 26, 2022 12:56:00 PM UTC (TECH: MRB) 60246-0 Erythrocyte distribution width [Ratio] N 14.6 % 12.3 % - 15.1 % October 26, 2022 12:56:00 PM UTC (TECH: MRB) 76543-9 Platelet mean volume [Entitic volume] in Blood by Automated count H 10.7 fl 7.4 fl - 10.4 fl October 26, 2022 12:56:00 PM UTC (TECH: MRB) 20699-2 Granulocytes/100 leukocytes in Blood by Automated count [...] 26, 2022 12:56:00 PM UTC (TECH: MRB) 61083-8 Immature granulocytes [#/volume] in Blood N 0.2 % 0.0 % - 0.8 % October 26, 2022 12:56:00 PM UTC (TECH: MRB) 82314-8 Granulocytes [#/volume] in Blood by Automated count [...] 26, 2022 12:56:00 PM UTC (TECH: MRB) 40007-4 Immature granulocytes [#/volume] in Blood N 0.01 10^3/uL October 26, 2022 12:56:00 PM UTC (TECH: MRB) 44905-2 Manual differential performed [Presence] in Blood N NO October 26, 2022 12:56:00 PM UTC (TECH: MRB) ORDER 300: HEMOGLOBIN A1C (L OINC: 4548-4) ORDER DATE: October 26, 2022 12:36:00 PM UTC Specimen Source: Whole Blood PERFORMING LAB: [address] [id number] Result Comment: Final Result Date: October 26, 2022 1:18:00 PM UTC (TECH: TH) LOINC TEST FLAG RESULT REFERENCE RANGE UPDA SNEHAL BY 4548-4 Hemoglobin A1c/Hemoglobin.tota l in Blood H 7.5 % 4.5 % - 6.2 % October 26, 2022 1:18:00 PM UTC (TECH: TH) 21830-5 Glucose mean value [Mass/volume] in Blood Estimated from glycated hemoglobin H 169 mg/dl 82 mg/dl - 131 mg/dl October 26, 2022 1:18:00 PM UTC (TECH: TH) ORDER 800: CREATININE URINE (LOINC: 2161-8) ORDER DATE: October 26, 2022 12:36:00 PM UTC Specimen Source: URINE PERFORMING LAB: [address] [id number] Result Comment: Final Result Date: October 26, 2022 1:00:00 PM UTC (TECH: TH) LOINC TEST FLAG RESULT REFERENCE RANGE UPDA SNEHAL BY 2161-8 Creatinine [Mass/volume] in Urine H 236.3 mg/dL 30 mg/dL - 125 mg/dL October 26, 2022 1:00:00 PM UTC (TECH: TH) ORDER 900: MICROALBUMIN RAND OM URINE (LOINC: 33658-6) ORDER DATE: October 26, 2022 12:36:00 PM UTC Specimen Source: URINE PERFORMING LAB: [address] [id number] Result Comment: Final Result Date: October 26, 2022 1:00:00 PM UTC (TECH: TH) LOINC TEST FLAG [place] [address]-0 Microalbumin [Mass/volume] in Urine H 35.6 mcg/mL 1.3 mcg/mL - 17.0 mcg/mL October 26, 2022 1:00:00 PM UTC (TECH: TH) LABORATORY NARRATIVE RESULTS [...] Priority [place] [address]-5 [facility] Collection method - Specimen ONE TIME 0 Routine October 26, 2022 12:35:0 0 PM [facility] BETZAIDA Pike GRAIN ELEVATOR AGENT [id number] on October 26, 2022 12:36:00 PM [facility] 3016-3 LOINC Thyrotropin [Units/volume] in Serum or Plasma ONE TIME 0 Routine October 26, 2022 12:35:0 0 PM [facility] BETZAIDA Pike GRAIN ELEVATOR AGENT [id number] on October 26, 2022 12:36:00 PM [facility] 1989-3 LOINC Calcidiol [Mass/volume] in Serum or Plasma ONE TIME 0 Routine October 26, 2022 12:35:0 0 PM [facility] BETZAIDA Pike GRAIN ELEVATOR AGENT [id number] on October 26, 2022 12:36:00 PM [facility] 06231-6 [facility] Comprehensive metabolic 2000 panel - Serum or P ONE TIME 0 Routine October 26, 2022 12:35:0 0 PM [facility] BETZAIDA Pike GRAIN ELEVATOR AGENT [id number] on October 26, 2022 12:36:00 PM [facility] 08354-9 [facility] Lipid 1996 panel - Serum or Plasma ONE TIME 0 Routine October 26, 2022 12:35:0 0 PM [facility] BETZAIDA Pike GRAIN ELEVATOR AGENT [id number] on October 26, 2022 12:36:00 PM [facility] 2282-2 LOINC Folate [Mass/volume] in Blood ONE TIME 0 Routine October 26, 2022 12:35:0 0 PM [facility] BETZAIDA Pike GRAIN ELEVATOR AGENT [id number] on October 26, 2022 12:36:00 PM [facility] 2132-9 LOINC Cobalamin (Vitamin B12) [Mass/volume] in Serum ONE TIME 0 Routine October 26, 2022 12:35:0 0 PM [facility] BETZAIDA Pike GRAIN ELEVATOR AGENT [id number] on October 26, 2022 12:36:00 PM [facility] SCHEDULED PROCEDURES Code System Description Status Scheduled [...] Description Effective Dates Offered Cessation Comment UpdatedBy [id number] Historical Tobacco smoking status Never Smoked Not Applicable [id number] on December 25, 2014 6:36:25 PM [facility] SOCIAL HISTORY - Gender Sex: Female SOCIAL [...] E11.42 Admission October 26, 2022 12:24:[address] [address] Discharge October 26, 2022 12:24:00 PM [facility] DISCHARGED TO HOME OR SELF CARE ENCOUNTER DIAGNOSES Notes information is not gris ilable. Code System Diagnosis Onset Date Diagnosis information is not available. ABSTRACT DIAGNOSES Code System Diagnosis Updated By Abstract Diagnosis informati on is not available. CARE TEAM Care Forest Management Professor Role AVINASH HUSTON Primary Attending ROXANNE DEL VALLE Primary Care AVINASH HUSTON Referring AVINASH HUSTON Admitting CARE TEAM CARE school business administrator Role on Team Status Start Date End Date Update d By BETZAIDA Pike APRN Referring normal October 26, 2022 4:00:00 AM [facility] October 26, 2022 12:24:00 PM [facility] [id number] on October 26, 2022 12:26:30 PM [facility] BETZAIDA Pike APRN Attending normal October 26, 2022 4:00:00 AM [facility] October 26, 2022 12:24:00 PM [facility] [id number] on October 26, 2022 12:26:30 PM [facility] BETZAIDA Pike APRN Admitting normal October 26, 2022 4:00:00 AM [facility] October 26, 2022 12:24:00 PM [facility] [id number] on October 26, 2022 12:26:30 PM [facility] IVON OLIVEIRA MD PCP normal October 26, 2022 4:00:00 AM [facility] October 26, 2022 12:24:00 PM [facility] [id number] on October 26, 2022 12:26:30 PM [facility]
--- OUTSIDE RECORDS SUMMARY | 2023-03-07 16:40 | XMS_ITS | Continuity of Care Document ---
Author Name Unknown Address [address] [place], [place] [id number] Organization [facility] Phone Care Team Providers Care Record Tabulating Clerk Name Role Phone AVINASH HUSTON Primary Attending [phone] ROXANNE DEL VALLE Primary Care AVINASH HUSTON [...] Status: LIVING SNOMED-CT Diagnosis Age At Onset [id number] Diabetes mellitus [id number] Hypertensive disorder RELATION: Sister Status: LIVING SNOMED-CT Diagnosis Age At Onset [id number] Chronic depression 893948777 Hypoglycemia RELATION: Sister Status: LIVING SNOMED-CT Diagnosis Age At Onset [id number] Hypoglycemia RESULTS Patient: BRITTANY POPE Date of : June [birth year] LABORATORY RESULTS ORDER 200: CBC AUTO W DIFF ( LOINC: 54261-7) ORDER DATE: October 26, 2022 12:36:00 PM UTC Specimen Source: Whole Blood PERFORMING LAB: [facility] [id number] Result Comment: Final Result Date: October 26, [...] 26, 2022 12:56:00 PM UTC (TECH: MRB) 75368-7 Hematocrit [Volume Fraction] of Blood L 33.8 % 36.0 % - 47.0 % October 26, 2022 12:56:00 PM UTC (TECH: MRB) 787-2 Erythrocyte mean corpuscular volume [Entitic volume] by Automated count N 88.3 fl 80 fl - 95 fl October 26, 2022 12:56:00 PM UTC (TECH: MRB) 00340-7 Erythrocyte mean corpuscular hemoglobin [Entitic mass] in Blood from Fetus by Automated count N 27.9 pg 27.0 pg - 34.0 pg October 26, 2022 12:56:00 PM UTC (TECH: MRB) 83423-2 Erythrocyte mean corpuscular hemoglobin concentration [Mass/volume] in Blood from Fetus by Automated count L 31.7 g/dL 32.0 g/dL - 36.0 g/dL October 26, 2022 12:56:00 PM UTC (TECH: MRB) 87258-8 Platelets [#/volume] in Blood L 112 10^3/uL 150 10^3/uL - 450 10^3/uL October 26, 2022 12:56:00 PM UTC (TECH: MRB) 93621-2 Erythrocyte distribution width [Ratio] N 14.6 % 12.3 % - 15.1 % October 26, 2022 12:56:00 PM UTC (TECH: MRB) 13622-0 Platelet mean volume [Entitic volume] in Blood by Automated count H 10.7 fl 7.4 fl - 10.4 fl October 26, 2022 12:56:00 PM UTC (TECH: MRB) 07964-6 Granulocytes/100 leukocytes in Blood by Automated count [...] 26, 2022 12:56:00 PM UTC (TECH: MRB) 72812-6 Immature granulocytes [#/volume] in Blood N 0.2 % 0.0 % - 0.8 % October 26, 2022 12:56:00 PM UTC (TECH: MRB) 82849-8 Granulocytes [#/volume] in Blood by Automated count [...] 26, 2022 12:56:00 PM UTC (TECH: MRB) 13470-6 Immature granulocytes [#/volume] in Blood N 0.01 10^3/uL October 26, 2022 12:56:00 PM UTC (TECH: MRB) 03088-9 Manual differential performed [Presence] in Blood N NO October 26, 2022 12:56:00 PM UTC (TECH: MRB) ORDER 300: HEMOGLOBIN A1C (L OINC: 4548-4) ORDER DATE: October 26, 2022 12:36:00 PM UTC Specimen Source: Whole Blood PERFORMING LAB: [address] [id number] Result Comment: Final Result Date: October 26, 2022 1:18:00 PM UTC (TECH: TH) LOINC TEST FLAG RESULT REFERENCE RANGE UPDA SNEHAL BY 4548-4 Hemoglobin A1c/Hemoglobin.tota l in Blood H 7.5 % 4.5 % - 6.2 % October 26, 2022 1:18:00 PM UTC (TECH: TH) 99837-4 Glucose mean value [Mass/volume] in Blood Estimated from glycated hemoglobin H 169 mg/dl 82 mg/dl - 131 mg/dl October 26, 2022 1:18:00 PM UTC (TECH: TH) ORDER 800: CREATININE URINE (LOINC: 2161-8) ORDER DATE: October 26, 2022 12:36:00 PM UTC Specimen Source: URINE PERFORMING LAB: [address] [id number] Result Comment: Final Result Date: October 26, 2022 1:00:00 PM UTC (TECH: TH) LOINC TEST FLAG RESULT REFERENCE RANGE UPDA SNEHAL BY 2161-8 Creatinine [Mass/volume] in Urine H 236.3 mg/dL 30 mg/dL - 125 mg/dL October 26, 2022 1:00:00 PM UTC (TECH: TH) ORDER 900: MICROALBUMIN RAND OM URINE (LOINC: 71424-8) ORDER DATE: October 26, 2022 12:36:00 PM UTC Specimen Source: URINE PERFORMING LAB: [address] [id number] Result Comment: Final Result Date: October 26, 2022 1:00:00 PM UTC (TECH: TH) LOINC TEST FLAG [place] [address]-4 Microalbumin [Mass/volume] in Urine H 35.6 mcg/mL [...] Priority [place] [address]2 [facility] Collection method - Specimen ONE TIME 0 Routine October 26, 2022 12:35:0 0 PM [facility] BETZAIDA Pike MANAGER GROUP [id number] on October 26, 2022 12:36:00 PM [facility] 3016-3 LOINC Thyrotropin [Units/volume] in Serum or Plasma ONE TIME 0 Routine October 26, 2022 12:35:0 0 PM [facility] BETZAIDA Pike MANAGER [employer] [id number] on October 26, 2022 12:36:00 PM [facility] 1989-3 LOINC Calcidiol [Mass/volume] in Serum or Plasma ONE TIME 0 Routine October 26, 2022 12:35:0 0 PM [facility] BETZAIDA Pike MANAGER [employer] [id number] on October 26, 2022 12:36:00 PM [facility] 20873-4 [facility] Comprehensive metabolic 2000 panel - Serum or P ONE TIME 0 Routine October 26, 2022 12:35:0 0 PM [facility] BETZAIDA Pike MANAGER [employer] [id number] on October 26, 2022 12:36:00 PM [facility] 65193-8 [facility] Lipid 1996 panel - Serum or Plasma ONE TIME 0 Routine October 26, 2022 12:35:0 0 PM [facility] BETZAIDA Pike MANAGER [employer] [id number] on October 26, 2022 12:36:00 PM [facility] 2282-2 LOINC Folate [Mass/volume] in Blood ONE TIME 0 Routine October 26, 2022 12:35:0 0 PM [facility] BETZAIDA Pike MANAGER GROUP [id number] on October 26, 2022 12:36:00 PM [facility] 2132-9 LOINC Cobalamin (Vitamin B12) [Mass/volume] in Serum ONE TIME 0 Routine October 26, 2022 12:35:0 0 PM [facility] BETZAIDA Pike MANAGER GROUP [id number] on October 26, 2022 12:36:00 PM [facility] SCHEDULED PROCEDURES Code System Description Status Scheduled [...] Description Effective Dates Offered Cessation Comment UpdatedBy [id number] Historical Tobacco smoking status Never Smoked Not Applicable [id number] on December 25, 2014 6:36:25 PM [facility] SOCIAL HISTORY - Gender Sex: Female SOCIAL [...] E11.42 Admission October 26, 2022 12:24:[address] [address] Discharge October 26, 2022 12:24:00 PM [facility] DISCHARGED TO HOME OR SELF CARE ENCOUNTER DIAGNOSES Notes information is not gris ilable. Code System Diagnosis Onset Date Diagnosis information is not available. ABSTRACT DIAGNOSES Code System Diagnosis Updated By Abstract Diagnosis informati on is not available. CARE TEAM Care Record Tabulating Clerk Role AVINASH HUSTON Primary Attending ROXANNE DEL VALLE Primary Care AVINASH HUSTON Referring AVINASH HUSTON Admitting CARE TEAM CARE inspection and testing supervisor Role on Team Status Start Date End Date Update d By BETZAIDA Pike APRN Referring normal October 26, 2022 4:00:00 AM [facility] October 26, 2022 12:24:00 PM [facility] [id number] on October 26, 2022 12:26:30 PM [facility] BETZAIDA Pike APRN Attending normal October 26, 2022 4:00:00 AM [facility] October 26, 2022 12:24:00 PM [facility] [id number] on October 26, 2022 12:26:30 PM [facility] BETZAIDA Pike APRN Admitting normal October 26, 2022 4:00:00 AM [facility] October 26, 2022 12:24:00 PM [facility] [id number] on October 26, 2022 12:26:30 PM [facility] IVON OLIVEIRA MD PCP normal October 26, 2022 4:00:00 AM [facility] October 26, 2022 12:24:00 PM [facility] [id number] on October 26, 2022 12:26:30 PM [facility]
--- OUTSIDE RECORDS SUMMARY | 2023-03-07 16:40 | XMS_ITS | Continuity of Care Document ---
Author Name Unknown Address [address] [place], [place] [id number] Organization [facility] Phone Care Team Providers Care Anti Air Warfare Operations Officer Name Role Phone MARIELLE HERNANDEZ Admitting ROXANNE DEL VALLE Primary Care MARIELLE HERNANDEZ Primary Attending MARIELLE HERNANDEZ Unavailable ALLERGIES AND ADVERSE REACTIONS ALLERGIES AND ADVERSE REACTIONS Code System Allergy Substance Adverse Reaction Date Reaction (Severity) Comment Status Reported By Updated By No Known Allergies [id number] on January 25, 2023 1:34:[address] [facility] FAMILY HISTORY RELATION: Father Status: Cause of : Myocardial infarction Age at : Unknown SNOMED-CT Diagnosis Age At Onset Information not available RELATION: Mother Status: LIVING SNOMED-CT Diagnosis Age At Onset [id number] Diabetes mellitus [id number] Hypertensive disorder RELATION: Sister Status: LIVING SNOMED-CT Diagnosis Age At Onset [id number] Chronic depression [id number] Hypoglycemia RELATION: Sister Status: LIVING SNOMED-CT Diagnosis Age At Onset [id number] Hypoglycemia RESULTS Patient: BRITTANY Camarillo Date of : June [birth year] LABORATORY RESULTS Information is not available LABORATORY NARRATIVE RESULTS Information is not available RADIOLOGY RESULTS ORDER 100: MRI KNEE WO CONTR ST LT (LOINC: 64458-2) ORDER DATE: February 21, 2023 12:34:[address] [facility] PATHOLOGY NARRATIVE RESULTS Information is [...] Description Effective Dates Offered Cessation Comment UpdatedBy [id number] Historical Tobacco smoking status Never Smoked Not Applicable [id number] on December 25, 2014 6:36:25 PM [facility] [...] available. ENCOUNTERS ENCOUNTER INFORMATION Reason for Visit Not Specified Admission February 21, 2023 12:13:00 PM [facility] [address] [address] Discharge February 21, 2023 12:13:00 PM [facility] DISCHARGED TO HOME OR SELF CARE ENCOUNTER DIAGNOSES Notes information is not gris ilable. Code System Diagnosis Onset Date Diagnosis information is not available. ABSTRACT DIAGNOSES Code System Diagnosis Updated By M25.562 ICD10 PAIN IN LEFT KNEE [id number] on February 22, 2023 2:00:[address] [facility] M25.562 ICD10 PAIN IN LEFT KNEE [id number] on February 22, 2023 2:00:[address] [facility] CARE TEAM Care Anti Air Warfare Operations Officer Role MARIELLE MUSIC Admitting ROXANNE DEL VALLE Primary Care MARIELLE HERNANDEZ Primary Attending MARIELLE HERNANDEZ Referring CARE TEAM CARE carpenters supervisor Role on Team Status Start Date End Date Update d By IVON OLIVEIRA MD PCP normal February 6:30:[address] [facility] February 21, 2023 5:00:[address] [facility] [id number] on February 16, 2023 6:30:[address] [facility] MUSIC MARIELLE Referring normal February 16 023 6:30:[address] [facility] February 21, 2023 5:00:[address] [facility] [id number] on February 16, 2023 6:30:[address] [facility] MUSIC MARIELLE Attending normal February 16 2 023 6:30:[address] [facility] February 21, 2023 5:00:[address] [facility] [id number] on February 16, 2023 6:30:[address] [facility] MUSIC MARIELLE Admitting normal February 16 6:30:[address] [facility] February 21, 2023 5:00:[address] [facility] [id number] on February 16, 2023 6:30:[address] [facility]
--- OUTSIDE RECORDS SUMMARY | 2023-03-07 16:40 | XMS_ITS | Continuity of Care Document ---
Author Name Unknown Address [address] [place], [place] [id number] Organization [facility] Phone Care Team Providers Care Ticket Dispatcher Name Role Phone AVINASH HUSTON Primary Attending [...] Status: LIVING SNOMED-CT Diagnosis Age At Onset [id number] Diabetes mellitus [id number] Hypertensive disorder RELATION: Sister Status: LIVING SNOMED-CT Diagnosis Age At Onset [id number] Chronic depression [id number] Hypoglycemia RELATION: Sister Status: LIVING SNOMED-CT Diagnosis Age At Onset [id number] Hypoglycemia RESULTS Patient: BRITTANY POPE Date of : [birth year] LABORATORY RESULTS ORDER 200: CBC AUTO W DIFF ( LOINC: 64540-3) ORDER DATE: October 26, 2022 12:36:00 PM UTC Specimen Source: Whole Blood PERFORMING LAB: [facility] [address] [facility] [id number] Result Comment: Final Result Date: October 26, [...] 26, 2022 12:56:00 PM UTC (TECH: MRB) 88389-3 Hematocrit [Volume Fraction] of Blood L 33.8 % 36.0 % - 47.0 % October 26, 2022 12:56:00 PM UTC (TECH: MRB) 787-2 Erythrocyte mean corpuscular volume [Entitic volume] by Automated count N 88.3 fl 80 fl - 95 fl October 26, 2022 12:56:00 PM UTC (TECH: MRB) 95222-2 Erythrocyte mean corpuscular hemoglobin [Entitic mass] in Blood from Fetus by Automated count N 27.9 pg 27.0 pg - 34.0 pg October 26, 2022 12:56:00 PM UTC (TECH: MRB) 08567-4 Erythrocyte mean corpuscular hemoglobin concentration [Mass/volume] in Blood from Fetus by Automated count L 31.7 g/dL 32.0 g/dL - 36.0 g/dL October 26, 2022 12:56:00 PM UTC (TECH: MRB) 28494-6 Platelets [#/volume] in Blood L 112 10^3/uL 150 10^3/uL - 450 10^3/uL October 26, 2022 12:56:00 PM UTC (TECH: MRB) 73471-5 Erythrocyte distribution width [Ratio] N 14.6 % 12.3 % - 15.1 % October 26, 2022 12:56:00 PM UTC (TECH: MRB) 90725-7 Platelet mean volume [Entitic volume] in Blood by Automated count H 10.7 fl 7.4 fl - 10.4 fl October 26, 2022 12:56:00 PM UTC (TECH: MRB) 36776-0 Granulocytes/100 leukocytes in Blood by Automated count [...] 26, 2022 12:56:00 PM UTC (TECH: MRB) 46450-1 Immature granulocytes [#/volume] in Blood N 0.2 % 0.0 % - 0.8 % October 26, 2022 12:56:00 PM UTC (TECH: MRB) 64824-6 Granulocytes [#/volume] in Blood by Automated count [...] 26, 2022 12:56:00 PM UTC (TECH: MRB) 86545-8 Immature granulocytes [#/volume] in Blood N 0.01 10^3/uL October 26, 2022 12:56:00 PM UTC (TECH: MRB) 64396-4 Manual differential performed [Presence] in Blood N NO October 26, 2022 12:56:00 PM UTC (TECH: MRB) ORDER 300: HEMOGLOBIN A1C (L OINC: 4548-4) ORDER DATE: October 26, 2022 12:36:00 PM UTC Specimen Source: Whole Blood PERFORMING LAB: [address] [id number] Result Comment: Final Result Date: October 26, 2022 1:18:00 PM UTC (TECH: TH) LOINC TEST FLAG RESULT REFERENCE RANGE UPDA SNEHAL BY 4548-4 Hemoglobin A1c/Hemoglobin.tot al in Blood H 7.5 % 4.5 % - 6.2 % October 26, 2022 1:18:00 PM UTC (TECH: TH) 98427-1 Glucose mean value [Mass/volume] in Blood Estimated from glycated hemoglobin H 169 mg/dl 82 mg/dl - 131 mg/dl October 26, 2022 1:18:00 PM UTC (TECH: TH) ORDER 400: THYROID STIMULATI NG HORMONE (LOINC: 3016-3) ORDER DATE: October 26, 2022 12:36:00 PM UTC Specimen Source: Serum/Plasm a PERFORMING LAB: [address] [id number] Result Comment: Final Result Date: October 26, 2022 2:03:00 PM UTC (TECH: TH) LOINC TEST FLAG RESULT REFERENCE RANGE UPDA SNEHAL BY 3016-3 Thyrotropin [Units/volume] in Serum or Plasma N 1.66 mIU/mL 0.34 mIU/mL - 4.80 mIU/mL October 26, 2022 2:03:00 PM UTC (TECH: TH) ORDER 600: COMP METABOLIC PA CLARISSA (LOINC: 66109-8) ORDER DATE: October 26, 2022 12:36:00 PM UTC Specimen Source: Serum/Plasm a PERFORMING LAB: [address] [id number] Result Comment: Final Result Date: October 26, [...] 5.1 mmol/L October 26, 2022 2:04:00 PM [facility] (TECH: TH) 2075-0 Chloride [Moles/volu me] in Serum or Plasma H 108 mmol/L 98 mmol/L - 107 mmol/L October 26, 2022 2:04:00 PM [facility] (TECH: TH) 8-9 Carbon dioxide, tota l [Moles/volume] in Serum or Plasma N 25 mmol/L 21 mmol/L - 32 mmol/L October 26, 2022 2:04:00 PM [facility] (TECH: TH) 38004-0 Anion gap 3 in Serum or Plasma N 10.0 October 26, 2022 2:04:00 PM [facility] (TECH: TH) 2345-7 Glucose [Mass/volume ] in Serum or Plasma H 193 mg/dL 70 mg/dL - 110 mg/dL October 26, 2022 2:04:00 PM [facility] (TECH: TH) 3094-0 Urea nitrogen [Mass/volume] in Serum or Plasma H 30 mg/dL 7 mg/dL - 18 mg/dL October 26, 2022 2:04:00 PM [facility] (TECH: TH) 2160-0 Creatinine [Mass/volume] in Serum or Plasma H 1.7 mg/dL 0.6 mg/dL - 1.0 mg/dL October 26, 2022 2:04:00 PM [facility] (TECH: TH) 3097-3 Urea nitrogen/Creatinine [Mass Ratio] in Serum or Plasma N 17.6 Ratio 9 Ratio - 21 Ratio October 26, 2022 2:04:00 PM [facility] (TECH: TH) 87142-1 Glomerular filtratio n rate/1.73 sq M.predicted by Creatinine-based formula (MDRD) L 32 mL/min >60 October 26, 2022 2:04:00 PM [facility] (TECH: TH) 2885-2 Protein [Mass/volume ] in Serum or Plasma N 6.9 g/dL 6.4 g/dL - 8.2 g/dL October 26, 2022 2:04:00 PM [facility] (TECH: TH) 1751-7 Albumin [Mass/volume ] in Serum or Plasma N 3.4 g/dL 3.4 g/dL - 5.0 g/dL October 26, 2022 2:04:00 PM [place] (TECH: TH) 66880-6 Calcium [Mass/volume ] in Serum or Plasma L 8.2 mg/dL 8.5 mg/dL - 10.1 mg/dL October 26, 2022 2:04:00 PM [place] (TECH: TH) 84494-8 Calcium [Mass/volume ] corrected for total protein in Serum or Plasma N 8.7 mg/dL 8.5 mg/dL - 10.1 mg/dL October 26, 2022 2:04:00 PM [facility] (TECH: TH) 1975-2 Bilirubin.total [Mass/volume] in Serum or Plasma L 0.2 mg/dL 0.4 mg/dL - 1.5 mg/dL October 26, 2022 2:04:00 PM [facility] (TECH: TH) 1920-8 Aspartate aminotransferase [Enzymatic activity/volume] in Serum or Plasma N 18 U/L 15 U/L - 37 U/L October 26, 2022 2:04:00 PM [facility] (TECH: TH) 1742-6 Alanine aminotransferase [Enzymatic activity/volume] in Serum or Plasma N 24 U/L 12 U/L - 78 U/L October 26, 2022 2:04:00 PM [facility] (TECH: TH) 6768-6 Alkaline phosphatase [Enzymatic activity/volume] in Serum or Plasma H 181 U/L 53 U/L - 141 U/L October 26, 2022 2:04:00 PM [facility] (TECH: TH) ORDER 700: LIPID PANEL (LOIN C: 29027-4) ORDER DATE: October 26, 2022 12:36:00 PM [place] Specimen Source: Serum/Plasm a PERFORMING LAB: [address] [id number] Result Comment: Final Result Date: October 26, 2022 2:04:00 PM [facility] (TECH: TH) LOINC TEST FLAG RESULT REFERENCE RANGE UPDA SNEHAL BY 2571-8 Triglyceride [Mass/volume] in Serum or Plasma N 139 mg/dL 20 mg/dL - 200 mg/dL October 26, 2022 2:04:00 PM [facility] (TECH: TH) 2093-3 Cholesterol [Mass/volume] in Serum or Plasma N 134 mg/dL 0 mg/dL - 200 mg/dL October 26, 2022 2:04:00 PM UTC (TECH: TH) 5-9 Cholesterol in HDL [Mass/volume] in Serum or Plasma L 53 mg/dL 60 mg/dL October 26, 2022 2:04:00 PM UTC (TECH: TH) 62659-9 Cholesterol in LDL [Mass/volume] in Serum or Plasma by calculation L 53 mg/dL 100 mg/dL October 26, 2022 2:04:00 PM UTC (TECH: TH) 5-8 Cholesterol in HDL/Cholesterol.tota l [Mass Ratio] in Serum or Plasma N 3 Ratio October 26, 2022 2:04:00 PM UTC (TECH: TH) ORDER 800: CREATININE URINE (LOINC: 2161-8) ORDER DATE: October 26, 2022 12:36:00 PM UTC Specimen Source: URINE PERFORMING LAB: [address] [id number] Result Comment: Final Result Date: October 26, 2022 1:00:00 PM UTC (TECH: TH) LOINC TEST FLAG RESULT REFERENCE RANGE UPDA SNEHAL BY 2161-8 Creatinine [Mass/volume] in Urine H 236.3 mg/dL 30 mg/dL - 125 mg/dL October 26, 2022 1:00:00 PM UTC (TECH: TH) ORDER 900: MICROALBUMIN RAND OM URINE (LOINC: 56103-2) ORDER DATE: October 26, 2022 12:36:00 PM UTC Specimen Source: URINE PERFORMING LAB: [address] [id number] Result Comment: Final Result Date: October 26, 2022 1:00:00 PM UTC (TECH: TH) LOINC TEST FLAG [place] [address]-7 Microalbumin [Mass/volume] in Urine H 35.6 mcg/mL 1.3 mcg/mL - 17.0 mcg/mL October 26, 2022 1:00:00 PM UTC (TECH: TH) ORDER 1000: FOLIC ACID (LOIN C: 2282-2) ORDER DATE: October 26, 2022 12:36:00 PM UTC Specimen Source: Serum/Plasm a PERFORMING LAB: [address] [id number] Result Comment: Final Result Date: October 26, 2022 2:04:00 PM UTC (TECH: TH) LOINC TEST FLAG RESULT REFERENCE RANGE UPDA SNEHAL BY 2281- Folate [Mass/volume] in Blood L 6.3 ng/mL 8.6 ng/mL - 58.9 ng/mL October 26, 2022 2:04:00 PM UTC (TECH: TH) ORDER 1100: VITAMIN B12 (YANI NC: 2132-9) ORDER DATE: October 26, 2022 12:36:00 PM UTC Specimen Source: Serum/Plasm a PERFORMING LAB: [address] [id number] Result Comment: Final Result Date: October 26, 2022 2:04:00 PM UTC (TECH: TH) LOINC TEST FLAG RESULT REFERENCE RANGE UPDA SNEHAL BY 2131-9 Cobalamin (Vitamin B12) [Mass/volume] in Serum or Plasma N 244 pg/mL 193 pg/mL - 986 pg/mL October 26, 2022 2:04:00 PM [facility] (TECH: TH) LABORATORY NARRATIVE RESULTS Information is [...] Priority [place] [address] LOINC Collection method - Specimen ONE TIME 0 Routine October 26, 2022 12:35:0 0 PM [facility] BETZAIDA Pike CORY [id number] on October 26, 2022 12:36:00 PM [facility] 1988- LOINC Calcidiol [Mass/volume] in Serum or Plasma ONE TIME 0 Routine October 26, 2022 12:35:0 0 PM [facility] BETZAIDA Pike CORY [id number] on October 26, 2022 12:36:00 PM [facility] SCHEDULED PROCEDURES Code System Description Status Scheduled [...] Description Effective Dates Offered Cessation Comment UpdatedBy [id number] Historical Tobacco smoking status Never Smoked Not Applicable [id number] on December 25, 2014 6:36:25 PM [facility] SOCIAL HISTORY - Gender Sex: Female SOCIAL [...] E11.42 Admission October 26, 2022 12:24:[address] [address] Discharge October 26, 2022 12:24:00 PM [facility] DISCHARGED TO HOME OR SELF CARE ENCOUNTER DIAGNOSES Notes information is not gris ilable. Code System Diagnosis Onset Date Diagnosis information is not available. 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 [id number] on October 27, 2022 11:54:04 AM [facility] Z51.81 ICD10 ENCOUNTER FOR TH ERAPEUTIC DRUG LEVEL MONITORING [id number] on October 27, 2022 11:54:04 AM [facility] F32.9 ICD10 MAJOR DEPRESSIVE DISORDER, SINGLE EPISODE, UNSPECIFIED [id number] on October 27, 2022 11:54:04 AM [facility] R20.2 ICD10 PARESTHESIA OF SKIN [id number] on October 27, 2022 11:54:04 AM [facility] CARE TEAM Care Ticket Dispatcher Role AVINASH HUSTON Primary Attending ROXANNE DEL VALLE Primary Care AVINASH HUSTON Referring AVINASH HUSTON Admitting CARE TEAM CARE observation assistant Role on Team Status Start Date End Date Update d By BETZAIDA Pike APRN Referring normal October 26, 2022 4:00:00 AM [facility] October 26, 2022 4:00:00 AM [facility] [id number] on October 26, 2022 12:26:30 PM [facility] BETZAIDA Pike APRN Attending normal October 26, 2022 4:00:00 AM [facility] October 26, 2022 4:00:00 AM [place] [id number] on October 26, 2022 12:26:30 PM [facility] BETZAIDA Pike APRN Admitting normal October 26, 2022 4:00:00 AM UTC October 26, 2022 4:00:00 AM [place] [id number] on October 26, 2022 12:26:30 PM [facility] IVON OLIVEIRA MD PCP normal October 26, 2022 4:00:00 AM UTC October 26, 2022 4:00:00 AM [place] [id number] on October 26, 2022 12:26:30 PM UT
--- OUTSIDE RECORDS SUMMARY | 2023-03-07 16:40 | XMS_ITS | Continuity of Care Document ---
Author Name Unknown Address [address] [place], [place] [id number] Organization [facility] Phone Care Team Providers Care Mechanical And Auto Body Car Checker Name Role Phone ROXANNE DEL VALLE Primary Care GERRY TOMLIN Admitting GERRY TOMLIN Unavailable GERRY TOMLIN Primary Attending ALLERGIES AND ADVERSE REACTIONS ALLERGIES AND ADVERSE REACTIONS Code System Allergy Substance Adverse Reaction Date Reaction (Severity) Comment Status Reported By Updated By No Known Allergies [id number] on January 25, 2023 1:34:01 PM [facility] FAMILY HISTORY RELATION: Father Status: Cause of : Myocardial infarction Age at : Unknown SNOMED-CT Diagnosis Age At Onset Information not available RELATION: Mother Status: LIVING SNOMED-CT Diagnosis Age At Onset [id number] Diabetes mellitus [id number] Hypertensive disorder RELATION: Sister Status: LIVING SNOMED-CT Diagnosis Age At Onset [id number] Chronic depression [id number] Hypoglycemia RELATION: Sister Status: LIVING SNOMED-CT Diagnosis Age At Onset [id number] Hypoglycemia RESULTS Patient: BRITTANY Camarillo Date of : June [birth year] LABORATORY RESULTS Information is not available LABORATORY NARRATIVE RESULTS Information is not available RADIOLOGY RESULTS ORDER 100: KNEE 3V LT (LOINC : 35155-4) ORDER DATE: January 25, 2023 1:34:00 PM [facility] PATHOLOGY NARRATIVE RESULTS Information is not available MICROBIOLOGY RESULTS No Micro Labs/Results Exist for Patient BLOOD ADMIN RESULTS Information is not available MEDICATIONS HOME MEDICATIONS Status RXNORM Medication Dose Route Frequency Dates Comments R eported By Updated By Active 605807 lisinopril 40 mg tablet 1.0 TAB PO DAILY Last Dose: [id number] on January 25, 2023 1:34:05 PM [facility] Active 014087 olanzapine 10 mg tablet 1.0 TAB PO DAILY Last Dose: [id number] on January 25, 2023 1:34:05 PM [place] Active atorvastatin oral unkn 0.0 DAILY Last Dose: [id number] on January 25, 2023 1:34:05 PM [facility] DISCHARGE MEDICATIONS Status RXNORM Medication Dose Route Frequency Dates Comments Physic harry Updated By No Discharge Medication Info rmation Available INPATIENT MEDICATIONS Status RXNORM Medication Dose Route Frequency Rate Quantity Dates Comments Physician Updated By No Inpatient Medication Info rmation Available SOCIAL HISTORY SOCIAL HISTORY SNOMED-CT Social History Element Description Effective Dates Offered Cessation Comment UpdatedBy [id number] Historical Tobacco smoking status Never Smoked Not Applicable [id number] on December 25, 2014 6:36:25 PM [facility] SOCIAL HISTORY - Gender Sex: Female SOCIAL HISTORY - Sexual Behavior Sexual Orientation Gender Identity SNOMED-CT Description SNO MED -CT Description Activity Level No of Partners Partner Type UpdatedBy VITAL SIGNS PATIENT VITAL SIGNS This section displays the mo st recent value for each vital sign as of January 25, 2023 3:53:03 PM [facility] Code Vital Sign Activity Date Result Updated By 8310-5 Body temperature January 25 1:28:00 PM UTC 97.1 [degF] [id number] on January 25, 2023 1:30:50 PM [place] 8462-4 Diastolic blood pressure January 25, 2023 1:28:00 PM UTC 74.0 mm[Hg] [id number] on January 25, 2023 1:30:50 PM UT 8867-4 Heart rate January 25 1:28:00 PM UTC 89 /min [id number] on January 25, 2023 1:30:50 [place] [address]-8 Oxygen saturation in Arterial blood by Pulse oximetry January 25, 2023 1:28:00 PM UTC 97.0 % [id number] on January 25, 2023 1:30:50 PM [place] 9279-1 Respiratory rate January 25 1:28:00 PM UTC 18 /min [id number] on January 25, 2023 1:30:50 PM UT 8480-6 Systolic blood pressure January 25, 2023 1:28:00 PM UTC 162.0 mm[Hg] [id number] on January 25, 2023 1:30:50 PM [facility] PEDIATRIC GROWTH CHART - VITAL [...] INJURY Admission January 25, 2023 1:17:[address] [address] Discharge January 25, 2023 2:53:00 PM [facility] DISCHARGED TO HOME OR SELF CARE ENCOUNTER DIAGNOSES Notes information is not gris ilable. Code System Diagnosis Onset Date Diagnosis information is not available. ABSTRACT DIAGNOSES Code System Diagnosis Updated By Abstract Diagnosis informati on is not available. CARE TEAM Care Mechanical And Auto Body Car Checker Role ROXANNE DEL VALLE Primary Care GERRY TOMLIN Admitting GERRY TOMLIN Referring GERRY TOMLIN Primary Attending CARE TEAM CARE telemetry monitor Role on Team Status Start Date End Date Update d By SADA GARRETT DO Referring normal January 1:30:21 PM [facility] January 25, 2023 2:53:00 PM [facility] [id number] on January 25, 2023 1:30:21 PM [facility] SADA GARRETT DO Attending normal January 1:30:21 PM [facility] January 25, 2023 2:53:00 PM [facility] [id number] on January 25, 2023 1:30:21 PM [facility] SADA GARRETT DO Admitting normal January 1:30:20 PM [facility] January 25, 2023 2:53:00 PM [facility] [id number] on January 25, 2023 1:30:21 PM [facility] IVON OLIVEIRA MD PCP normal January 25, 2023 1:17:42 PM [facility] January 25, 2023 2:53:00 PM [facility] [id number] on January 25, 2023 1:30:21 PM [facility]
--- OUTSIDE RECORDS SUMMARY | 2023-03-07 16:40 | XMS_ITS | Continuity of Care Document ---
Author Name Unknown Address [address] [place], [place] [id number] Organization [facility] Phone Care Team Providers Care Dairy Science Teacher Name Role Phone AVINASH HUSTON Unavailable AVINASH HUSTON Admitting ROXANNE DEL VALLE Primary Care AVINASH HUSTON Primary Attending [phone] ALLERGIES AND ADVERSE REACTIONS ALLERGIES AND ADVERSE REACTIONS Code System Allergy Substance Adverse Reaction Date Reaction (Severity) Comment Status Reported By Updated By No Known Allergies FAMILY HISTORY RELATION: Father Status: Cause of : Myocardial infarction Age at : Unknown SNOMED-CT Diagnosis Age At Onset Information not available RELATION: Mother Status: LIVING SNOMED-CT Diagnosis Age At Onset [id number] Diabetes mellitus [id number] Hypertensive disorder RELATION: Sister Status: LIVING SNOMED-CT Diagnosis Age At Onset [id number] Chronic depression 747037320 Hypoglycemia RELATION: Sister Status: LIVING SNOMED-CT Diagnosis Age At Onset [id number] Hypoglycemia TREATMENT PLAN DISCHARGE MEDICATIONS Status RXNORM Medication Dose Route Frequency Dates Comments U pdated By Patient discharge medication information is not available. PATIENT OPEN ORDERS Code System Description Frequency Occurrence s Priority [place] [address] [facility] Abdomen retroperito [facility] ONE TIME 0 Routine November 15, 2022 1:48:00 PM [facility] BETZAIDA Pike CARDIOVASCULAR OPERATING ROOM NURSE [id number] on November 15, 2022 1:49:00 PM [facility] SCHEDULED PROCEDURES Code System Description Status [...] Description Effective Dates Offered Cessation Comment UpdatedBy [id number] Historical Tobacco smoking status Never Smoked Not Applicable [id number] on December 25, 2014 6:36:25 PM UT [...] available. ENCOUNTERS ENCOUNTER INFORMATION Reason for Visit ULS Admission November 15, 2022 1:36:[address] [address] Discharge November 15, 2022 1:36:00 PM [facility] DISCHARGED TO HOME OR SELF CARE ENCOUNTER DIAGNOSES Notes information is not gris ilable. Code System Diagnosis Onset Date Diagnosis information is not available. ABSTRACT DIAGNOSES Code System Diagnosis Updated By R79.89 ICD10 OTHER SPECIFIED ABNORMAL FINDINGS OF BLOOD CHEMISTRY [id number] on November 06, 2022 1:49:37 PM [facility] CARE TEAM Care Dairy Science Teacher Role AVINASH HUSTON Referring AVINASH HUSTON Admitting ROXANNE DEL VALLE Primary Care AVINASH HUSTON Primary Attending CARE TEAM CARE solar designer Role on Team Status Start Date End Date Update d By IVON OLIVEIRA MD PCP normal November 06, 2022 1:49:37 PM [facility] November 15, 2022 1:36:00 PM [facility] [id number] on November 06, 2022 1:49:37 PM [facility] BETZAIDA Pike APRN Referring normal November 06, 2022 1:49:37 PM [facility] November 15, 2022 1:36:00 PM [facility] [id number] on November 06, 2022 1:49:37 PM [facility] BETZAIDA Pike APRN Attending normal November 06, 2022 1:49:37 PM [facility] November 15, 2022 1:36:00 PM [facility] [id number] on November 06, 2022 1:49:37 PM [facility] BETZAIDA Pike APRN Admitting normal November 06, 2022 1:49:37 PM [facility] November 15, 2022 1:36:00 PM [facility] [id number] on November 06, 2022 1:49:37 PM [facility]
--- OUTSIDE RECORDS SUMMARY | 2023-03-07 16:40 | XMS_ITS | Continuity of Care Document ---
Author Name Unknown Address [address] [place], [place] [id number] Organization [facility] Phone Care Team Providers Care Driver Courier Name Role Phone MARIELLE HERNANDEZ Admitting ROXANNE DEL VALLE Primary Care MARIELLE HERNANDEZ Primary Attending MARIELLE HERNANDEZ Unavailable ALLERGIES AND ADVERSE REACTIONS ALLERGIES AND ADVERSE REACTIONS Code System Allergy Substance Adverse Reaction Date Reaction (Severity) Comment Status Reported By Updated By No Known Allergies [id number] on January 25, 2023 1:34:01 PM [facility] FAMILY HISTORY RELATION: Father Status: Cause of : Myocardial infarction Age at : Unknown SNOMED-CT Diagnosis Age At Onset Information not available RELATION: Mother Status: LIVING SNOMED-CT Diagnosis Age At Onset [id number] Diabetes mellitus [id number] Hypertensive disorder RELATION: Sister Status: LIVING SNOMED-CT Diagnosis Age At Onset [id number] Chronic depression 426338473 Hypoglycemia RELATION: Sister Status: LIVING SNOMED-CT Diagnosis Age At Onset [id number] Hypoglycemia TREATMENT PLAN DISCHARGE MEDICATIONS Status RXNORM Medication Dose Route Frequency Dates Comments U pdated By Patient discharge medication information is not available. PATIENT OPEN ORDERS Code System Description Frequency Occurrences Priority [place] [address] [facility] Knee - left MRI WO contrast ONE TIME 0 Routine February 21, 2023 12:34:00 PM [facility] DAVID PALOMARES [id number] on February 21, 2023 12:34:00 PM [facility] SCHEDULED PROCEDURES Code System Description Status [...] Description Effective Dates Offered Cessation Comment UpdatedBy [id number] Historical Tobacco smoking status Never Smoked Not Applicable [id number] on December 25, 2014 6:36:25 PM [facility] [...] February 21, 2023 12:13:00 PM [place] C [address] [address] Discharge February 21, 2023 12:13:00 PM [facility] C DISCHARGED TO HOME OR SELF CARE ENCOUNTER DIAGNOSES Notes information is not gris ilable. Code System Diagnosis Onset Date Diagnosis information is not available. ABSTRACT DIAGNOSES Code System Diagnosis Updated By M25.562 ICD10 PAIN IN LEFT KNEE [id number] on February 16, 2023 6:30:24 PM [facility] CARE TEAM Care Driver Courier Role MARIELLE HERNANDEZ Admitting ROXANNE DEL VALLE Primary Care MARIELLE HERNANDEZ Primary Attending MARIELLE HERNANDEZ Referring CARE TEAM CARE silk folder Role on Team Status Start Date End Date Update d By IVON OLIVEIRA MD PCP normal February 6:30:24 PM [facility] February 21, 2023 12:13:00 PM [facility] [id number] on February 16, 2023 6:30:24 PM [facility] MUSIC MARIELLE Referring normal February 16 023 6:30:24 PM [facility] February 21, 2023 12:13:00 PM [facility] [id number] on February 16, 2023 6:30:24 PM [facility] MUSIC MARIELLE Attending normal February 16 023 6:30:24 PM [facility] February 21, 2023 12:13:00 PM [facility] [id number] on February 16, 2023 6:30:24 PM [facility] MUSIC MARIELLE Admitting normal February 16 023 6:30:24 PM [facility] February 21, 2023 12:13:00 PM [facility] [id number] on February 16, 2023 6:30:24 PM [facility]
--- OUTSIDE RECORDS SUMMARY | 2023-03-07 16:40 | XMS_ITS | Continuity of Care Document ---
Author Name Unknown Address [address] [place], [place] [id number] Organization [facility] Phone Care Team Providers Care Caustic Preparer Name Role Phone AVINASH HUSTON Unavailable ROXANNE DEL VALLE Primary Care AVINASH HUSTON Primary Attending AVINASH HUSTON Admitting ALLERGIES AND ADVERSE REACTIONS ALLERGIES AND ADVERSE REACTIONS Code System Allergy Substance Adverse Reaction Date Reaction (Severity) Comment Status Reported By Updated By No Known Allergies [email or web address] on January 25, 2023 1:34:01 PM [facility] FAMILY HISTORY RELATION: Father Status: Cause of : Myocardial infarction Age at : Unknown SNOMED-CT Diagnosis Age At Onset Information not available RELATION: Mother Status: LIVING SNOMED-CT Diagnosis Age At Onset [id number] Diabetes mellitus [id number] Hypertensive disorder RELATION: Sister Status: LIVING SNOMED-CT Diagnosis Age At Onset [id number] Chronic depression [id number] Hypoglycemia RELATION: Sister Status: LIVING SNOMED-CT Diagnosis Age At Onset [id number] Hypoglycemia RESULTS Patient: BRITTANY Camarillo Date of : [birth year] LABORATORY RESULTS ORDER 200: CBC AUTO W DIFF ( LOINC: 55561-4) ORDER DATE: February 07, 2023 3:36:00 PM [place] Specimen Source: Whole Blood PERFORMING LAB: [address] [id number] Result Comment: Final Result Date: February 07, 2023 3:51:00 PM UT (TECH: MRB) LOINC TEST FLAG RESULT REFERENCE RANGE UPDA SNEHAL BY 6690-2 Leukocytes [#/volume] in Blood by Automated count N 5.2 10^3/uL 4.5 10^3/uL - 11.5 10^3/uL February 07, 2023 3:51:00 PM UTC (TECH: MRB) 789-8 Erythrocytes [#/volume] in Blood by Automated count L 4.14 10^6/uL 4.25 10^6/uL - 5.57 10^6/uL February 07, 2023 3:51:00 PM UTC (TECH: MRB) 718-7 Hemoglobin [Mass/volume] in Blood L 11.5 g/dL 12.0 g/dL - 15.7 g/dL February 07, 2023 3:51:00 PM UTC (TECH: MRB) 94126-1 Hematocrit [Volume Fraction] of Blood L 35.9 % 36.0 % - 47.0 % February 07, 2023 3:51:00 PM UTC (TECH: MRB) 787-2 Erythrocyte mean corpuscular volume [Entitic volume] by Automated count N 86.7 fl 80 fl - 95 fl February 07, 2023 3:51:00 PM UTC (TECH: MRB) 46334-4 Erythrocyte mean corpuscular hemoglobin [Entitic mass] in Blood from Fetus by Automated count N 27.8 pg 27.0 pg - 34.0 pg February 07, 2023 3:51:00 PM UTC (TECH: MRB) 55584-9 Erythrocyte mean corpuscular hemoglobin concentration [Mass/volume] in Blood from Fetus by Automated count N 32.0 g/dL 32.0 g/dL - 36.0 g/dL February 07, 2023 3:51:00 PM UTC (TECH: MRB) 29148-2 Platelets [#/volume] in Blood L 148 10^3/uL 150 10^3/uL - 450 10^3/uL February 07, 2023 3:51:00 PM UTC (TECH: MRB) 37393-6 Erythrocyte distribution width [Ratio] N 14.1 % 12.3 % - 15.1 % February 07, 2023 3:51:00 PM UTC (TECH: MRB) 68324-2 Platelet mean volume [Entitic volume] in Blood by Automated count N 10.0 fl 7.4 fl - 10.4 fl February 07, 2023 3:51:00 PM UTC (TECH: MRB) 39841-3 Granulocytes/100 leukocytes in Blood by Automated count N 69.2 % 40 % - 75 % February 07, 2023 3:51:00 PM UTC (TECH: MRB) 736-9 Lymphocytes/100 leukocytes in Blood by Automated count N 23.3 % 15 % - 57 % February 07, 2023 3:51:00 PM UTC (TECH: MRB) 5905-5 Monocytes/100 leukocytes in Blood by Automated count N 6.1 % 4.0 % - 12.0 % February 07, 2023 3:51:00 PM UTC (TECH: MRB) 713-8 Eosinophils/100 leukocytes in Blood by Automated count N 0.6 % 0.0 % - 4.0 % February 07, 2023 3:51:00 PM UTC (TECH: MRB) 706-2 Basophils/100 leukocytes in Blood by Automated count N 0.6 % 0.0 % - 1.0 % February 07, 2023 3:51:00 PM UTC (TECH: MRB) 64206-0 Immature granulocytes [#/volume] in Blood N 0.2 % 0.0 % - 0.8 % February 07, 2023 3:51:00 PM UTC (TECH: MRB) 52739-0 Granulocytes [#/volume] in Blood by Automated count N 3.63 10^3/uL February 07, 2023 3:51:00 PM UTC (TECH: MRB) 731-0 Lymphocytes [#/volume] in Blood by Automated count N 1.22 10^3/uL February 07, 2023 3:51:00 PM UTC (TECH: MRB) 742-7 Monocytes [#/volume] in Blood by Automated count N 0.32 10^3/uL February 07, 2023 3:51:00 PM UTC (TECH: MRB) 711-2 Eosinophils [#/volume] in Blood by Automated count N 0.03 10^3/uL February 07, 2023 3:51:00 PM UTC (TECH: MRB) 704-7 Basophils [#/volume] in Blood by Automated count N 0.03 10^3/uL February 07, 2023 3:51:00 PM UTC (TECH: MRB) 99075-1 Immature granulocytes [#/volume] in Blood N 0.01 10^3/uL February 07, 2023 3:51:00 PM UTC (TECH: MRB) 25514-8 Manual differential performed [Presence] in Blood N NO February 07, 2023 3:51:00 PM UTC (TECH: MRB) ORDER 300: HEMOGLOBIN A1C (L OINC: 4548-4) ORDER DATE: February 07, 2023 3:36:00 PM UTC Specimen Source: Whole Blood PERFORMING LAB: [address] [id number] Result Comment: Final Result Date: February 07, 2023 4:12:00 PM UTC (TECH: MRB) LOINC TEST FLAG RESULT REFERENCE RANGE UPDA SNEHAL BY 4548-4 Hemoglobin A1c/Hemoglobin.tot al in Blood H 6.8 % 4.5 % - 6.2 % February 07, 2023 4:12:00 PM [place] (TECH: MRB) 68123-6 Glucose mean value [Mass/volume] in Blood Estimated from glycated hemoglobin H 148 mg/dl 82 mg/dl - 131 mg/dl February 07, 2023 4:12:00 PM UT (TECH: MRB) ORDER 400: COMP METABOLIC PA CLARISSA (LOINC: 36085-6) ORDER DATE: February 07, 2023 3:36:00 PM UTC Specimen Source: Serum/Plasm a PERFORMING LAB: [address] [id number] Result Comment: Final Result Date: February 07, 2023 4:04:00 PM UT (TECH: MRB) LOINC TEST FLAG RESULT REFERENCE RANGE UPDA SNEHAL BY 2951-2 Sodium [Moles/volume ] in Serum or Plasma N 139 mmol/L 136 mmol/L - 145 mmol/L February 07, 2023 4:04:00 PM UTC (TECH: MRB) 2823-3 Potassium [Moles/vol ume] in Serum or Plasma N 4.5 mmol/L 3.5 mmol/L - 5.1 mmol/L February 07, 2023 4:04:00 PM UTC (TECH: MRB) 2075-0 Chloride [Moles/volu me] in Serum or Plasma N 106 mmol/L 98 mmol/L - 107 mmol/L February 07, 2023 4:04:00 PM UTC (TECH: MRB) 2027-9 Carbon dioxide, tota l [Moles/volume] in Serum or Plasma N 25 mmol/L 21 mmol/L - 32 mmol/L February 07, 2023 4:04:00 PM [facility] (TECH: MRB) 40890-3 Anion gap 3 in Serum or Plasma N 8.0 February 07 4:04:00 PM [facility] (TECH: MRB) 2345-7 Glucose [Mass/volume ] in Serum or Plasma H 122 mg/dL 70 mg/dL - 110 mg/dL February 07, 2023 4:04:00 PM [facility] (TECH: MRB) 3094-0 Urea nitrogen [Mass/volume] in Serum or Plasma H 21 mg/dL 7 mg/dL - 18 mg/dL February 07, 2023 4:04:00 PM [place] (TECH: MRB) 2160-0 Creatinine [Mass/vol ume] in Serum or Plasma H 1.1 mg/dL 0.6 mg/dL - 1.0 mg/dL February 07, 2023 4:04:00 PM [facility] (TECH: MRB) 3097-3 Urea nitrogen/Creati nine [Mass Ratio] in Serum or Plasma N 19.1 Ratio 9 Ratio - 21 Ratio February 07, 2023 4:04:00 PM [facility] (TECH: MRB) 26099-6 Glomerular filtratio n rate/1.73 sq M.predicted by Creatinine-based formula (MDRD) L 53 mL/min >60 February 07 4:04:00 PM [facility] (TECH: MRB) 2885-2 Protein [Mass/volume ] in Serum or Plasma N 7.9 g/dL 6.4 g/dL - 8.2 g/dL February 07, 2023 4:04:00 PM [place] (TECH: MRB) 1751-7 Albumin [Mass/volume ] in Serum or Plasma N 3.7 g/dL 3.4 g/dL - 5.0 g/dL February 07, 2023 4:04:00 PM [place] (TECH: MRB) 41218-9 Calcium [Mass/volume ] in Serum or Plasma N 9.4 mg/dL 8.5 mg/dL - 10.1 mg/dL February 07, 2023 4:04:00 PM [facility] (TECH: MRB) 32986-2 Calcium [Mass/volume ] corrected for total protein in Serum or Plasma N 9.6 mg/dL 8.5 mg/dL - 1 0.1 mg/dL February 07, 2023 4:04:00 PM [facility] (TECH: [employer]) 1975-2 Bilirubin.total [Mass/volume] in Serum or Plasma L 0.3 mg/dL 0.4 mg/dL - 1.5 mg/dL February 07, 2023 4:04:00 PM [facility] (TECH: [employer]) 1920-8 Aspartate aminotrans ferase [Enzymatic activity/volume] in Serum or Plasma N 24 U/L 15 U/L - 37 U/L February 07 3 4:04:00 PM [facility] (TECH: [employer]) 1742-6 Alanine aminotransfe rase [Enzymatic activity/volume] in Serum or Plasma N 24 U/L 12 U/L - 78 U/L February 07 4:04:00 PM [facility] (TECH: [employer]) 6768-6 Alkaline phosphatase [Enzymatic activity/volume] in Serum or Plasma N 140 U/L 53 U/L - 141 U/L February 07 4:04:00 PM [facility] (TECH: [employer]le[employer]) LABORATORY NARRATIVE RESULTS Information is not available [...] Priority [place] [address] [facility] Collection method - Specimen ONE TIME 0 Routine February 07, 2023 3:36:00 PM [facility] BETZAIDA Pike YARD CONDUCTOR [id number] on February 07, 2023 3:36:00 PM [facility] SCHEDULED PROCEDURES Code System Description [...] Description Effective Dates Offered Cessation Comment UpdatedBy [id number] Historical Tobacco smoking status Never Smoked Not Applicable [id number] on December 25, 2014 6:36:25 PM [facility] SOCIAL HISTORY - Gender Sex: [...] ENCOUNTER INFORMATION Reason for Visit E11.42 Admission February 07, 2023 3:20:[address] [address] Discharge February 07, 2023 3:20:00 PM [facility] DISCHARGED TO HOME OR SELF CARE ENCOUNTER DIAGNOSES Notes information is not gris ilable. Code System Diagnosis Onset Date Diagnosis information is not available. ABSTRACT DIAGNOSES Code System Diagnosis Updated By Abstract Diagnosis informati on is not available. CARE TEAM Care Caustic Preparer Role AVINASH HUSTON Referring ROXANNE DEL VALLE Primary Care AVINASH HUSTON Primary Attending AVINASH HUSTON Admitting CARE TEAM CARE marketing project manager Role on Team Status Start Date End Date Update d By BETZAIDA Pike APRN Referring normal February 07, 2023 5:00:00 AM [facility] February 07, 2023 3:20:00 PM [facility] [id number] on February 07, 2023 3:23:00 PM [facility] BETZAIDA Pike APRN Attending normal February 07, 2023 5:00:00 AM [facility] February 07, 2023 3:20:00 PM [facility] [id number] on February 07, 2023 3:23:00 PM [facility] BETZAIDA Pike APRN Admitting normal February 07, 2023 5:00:00 AM [facility] February 07, 2023 3:20:00 PM [facility] [id number] on February 07, 2023 3:23:00 PM [facility] IVON OLIVEIRA MD PCP normal January [id number] 5:00:00 AM [facility] February 07, 2023 3:20:00 PM [facility] [id number] on February 07, 2023 3:23:00 PM [facility]
--- OUTSIDE RECORDS SUMMARY | 2023-03-07 16:40 | XMS_ITS | Continuity of Care Document ---
Author Name Unknown Address [address] [place], [place] [id number] Organization [facility] Phone Care Team Providers Care Elephant Tamer Name Role Phone AVINASH HUSTON Unavailable AVINASH HUSTON Admitting ROXANNE DEL VALLE Primary Care AVINASH HUSTON Primary Attending ALLERGIES AND ADVERSE REACTIONS ALLERGIES AND ADVERSE REACTIONS Code System Allergy Substance Adverse Reaction Date Reaction (Severity) Comment Status Reported By Updated By No Known Allergies FAMILY HISTORY RELATION: Father Status: Cause of : Myocardial infarction Age at : Unknown SNOMED-CT Diagnosis Age At Onset Information not available RELATION: Mother Status: LIVING SNOMED-CT Diagnosis Age At Onset [id number] Diabetes mellitus [id number] Hypertensive disorder RELATION: Sister Status: LIVING SNOMED-CT Diagnosis Age At Onset [id number] Chronic depression 996990569 Hypoglycemia RELATION: Sister Status: LIVING SNOMED-CT Diagnosis Age At Onset [id number] Hypoglycemia RESULTS Patient: BRITTANY Camarillo Date of : [birth year] LABORATORY RESULTS Information is not available LABORATORY NARRATIVE RESULTS Information is not available RADIOLOGY RESULTS ORDER 100: US RENAL BILATERA L (LOINC: 16480-4) ORDER DATE: November 15, 2022 1:49:00 PM [facility] PATHOLOGY NARRATIVE RESULTS Information is [...] Description Effective Dates Offered Cessation Comment UpdatedBy [id number] Historical Tobacco smoking status Never Smoked Not Applicable [id number] on December 25, 2014 6:36:25 PM [facility] [...] ULS Admission November 15, 2022 1:36:[address] [address] Discharge November 15, 2022 1:36:00 PM [facility] DISCHARGED TO HOME OR SELF CARE ENCOUNTER DIAGNOSES Notes information is not gris ilable. Code System Diagnosis Onset Date Diagnosis information is not available. ABSTRACT DIAGNOSES Code System Diagnosis Updated By R79.89 ICD10 OTHER SPECIFIED ABNORMAL FINDINGS OF BLOOD CHEMISTRY [id number] on November 16, 2022 12:40:34 PM [facility] R79.89 ICD10 OTHER SPECIFIED ABNORMAL FINDINGS OF BLOOD CHEMISTRY [id number] on November 16, 2022 12:40:34 PM [facility] CARE TEAM Care Elephant Tamer Role AVINASH HUSTON Referring AVINASH HUSTON Admitting ROXANNE DEL VALLE Primary Care AVINASH HUSTON Primary Attending CARE TEAM CARE deck engine operator Role on Team Status Start Date End Date Update d By IVON OLIVEIRA MD PCP normal November 06, 2022 1:49:37 PM [facility] November 15, 2022 4:00:00 AM [facility] [id number] on November 06, 2022 1:49:37 PM [facility] BETZAIDA Pike APRN Referring normal November 06, 2022 1:49:37 PM [facility] November 15, 2022 4:00:00 AM [facility] [id number] on November 06, 2022 1:49:37 PM [facility] BETZAIDA Pike APRN Attending normal November 06, 2022 1:49:37 PM [facility] November 15, 2022 4:00:00 AM [facility] [id number] on November 06, 2022 1:49:37 PM [facility] BETZAIDA Pike APRN Admitting normal November 06, 2022 1:49:37 PM [facility] November 15, 2022 4:00:00 AM [facility] [id number] on November 06, 2022 1:49:37 PM [facility]
--- OUTSIDE RECORDS SUMMARY | 2023-03-07 16:40 | XMS_ITS | Continuity of Care Document ---
Author Name Unknown Address [address] [place], [place] [id number] Organization [facility] Phone Care Team Providers Care Burlap Worker Name Role Phone AVINASH HUSTON Unavailable ROXANNE DEL VALLE Primary Care AVINASH HUSTON Primary Attending AVINASH HUSTON Admitting ALLERGIES AND ADVERSE REACTIONS ALLERGIES AND ADVERSE REACTIONS Code System Allergy Substance Adverse Reaction Date Reaction (Severity) Comment Status Reported By Updated By No Known Allergies [email or web address] on January 25, 2023 1:34:01 PM [facility] FAMILY HISTORY RELATION: Father Status: Cause of : Myocardial infarction Age at : Unknown SNOMED-CT Diagnosis Age At Onset Information not available RELATION: Mother Status: LIVING SNOMED-CT Diagnosis Age At Onset [id number] Diabetes mellitus [id number] Hypertensive disorder RELATION: Sister Status: LIVING SNOMED-CT Diagnosis Age At Onset [id number] Chronic depression 076222314 Hypoglycemia RELATION: Sister Status: LIVING SNOMED-CT Diagnosis Age At Onset [id number] Hypoglycemia RESULTS Patient: BRITTANY Camarillo Date of : June [birth year] LABORATORY RESULTS ORDER 200: CBC AUTO W DIFF ( LOINC: 52794-6) ORDER DATE: February 07, 2023 3:36:00 PM [place] Specimen Source: Whole Blood PERFORMING LAB: [address] [id number] Result Comment: Final Result Date: February 07, [...] 07, 2023 3:51:00 PM UTC (TECH: MRB) 29453-5 Hematocrit [Volume Fraction] of Blood L 35.9 % 36.0 % - 47.0 % February 07, 2023 3:51:00 PM UTC (TECH: MRB) 787-2 Erythrocyte mean corpuscular volume [Entitic volume] by Automated count N 86.7 fl 80 fl - 95 fl February 07, 2023 3:51:00 PM UTC (TECH: MRB) 38668-1 Erythrocyte mean corpuscular hemoglobin [Entitic mass] in Blood from Fetus by Automated count N 27.8 pg 27.0 pg - 34.0 pg February 07, 2023 3:51:00 PM UTC (TECH: MRB) 17589-5 Erythrocyte mean corpuscular hemoglobin concentration [Mass/volume] in Blood from Fetus by Automated count N 32.0 g/dL 32.0 g/dL - 36.0 g/dL February 07, 2023 3:51:00 PM UTC (TECH: MRB) 05632-3 Platelets [#/volume] in Blood L 148 10^3/uL 150 10^3/uL - 450 10^3/uL February 07, 2023 3:51:00 PM UTC (TECH: MRB) 73158-7 Erythrocyte distribution width [Ratio] N 14.1 % 12.3 % - 15.1 % February 07, 2023 3:51:00 PM UTC (TECH: MRB) 28742-2 Platelet mean volume [Entitic volume] in Blood by Automated count N 10.0 fl 7.4 fl - 10.4 fl February 07, 2023 3:51:00 PM UTC (TECH: MRB) 12244-9 Granulocytes/100 leukocytes in Blood by Automated count [...] 07, 2023 3:51:00 PM UTC (TECH: MRB) 10787-5 Immature granulocytes [#/volume] in Blood N 0.2 % 0.0 % - 0.8 % February 07, 2023 3:51:00 PM UTC (TECH: MRB) 43022-9 Granulocytes [#/volume] in Blood by Automated count [...] 07, 2023 3:51:00 PM UTC (TECH: MRB) 94192-8 Immature granulocytes [#/volume] in Blood N 0.01 10^3/uL February 07, 2023 3:51:00 PM UTC (TECH: MRB) 97880-5 Manual differential performed [Presence] in Blood N NO February 07, 2023 3:51:00 PM UTC (TECH: MRB) ORDER 300: HEMOGLOBIN A1C (L OINC: 4548-4) ORDER DATE: February 07, 2023 3:36:00 PM UTC Specimen Source: Whole Blood PERFORMING LAB: [address] [id number] Result Comment: Final Result Date: February 07, 2023 4:12:00 PM UTC (TECH: MRB) LOINC TEST FLAG RESULT REFERENCE RANGE UPDA SNEHAL BY 4548-4 Hemoglobin A1c/Hemoglobin.tot al in Blood H 6.8 % 4.5 % - 6.2 % February 07, 2023 4:12:00 PM [place] (TECH: MRB) 33963-7 Glucose mean value [Mass/volume] in Blood Estimated from glycated hemoglobin H 148 mg/dl 82 mg/dl - 131 mg/dl February 07, 2023 4:12:00 PM UT (TECH: MRB) ORDER 400: COMP METABOLIC PA CLARISSA (LOINC: 36865-1) ORDER DATE: February 07, 2023 3:36:00 PM UTC Specimen Source: Serum/Plasm a PERFORMING LAB: [address] [id number] Result Comment: Final Result Date: February 07, [...] 32 mmol/L February 07, 2023 4:04:00 PM [facility] (TECH: MRB) 54768-6 Anion gap 3 in Serum or Plasma N 8.0 February 07 4:04:00 PM [facility] (TECH: MRB) 2345-7 Glucose [Mass/volume ] in Serum or Plasma H 122 mg/dL 70 mg/dL - 110 mg/dL February 07, 2023 4:04:00 PM [facility] (TECH: MRB) 3094-0 Urea nitrogen [Mass/volume] in Serum or Plasma H 21 mg/dL 7 mg/dL - 18 mg/dL February 07, 2023 4:04:00 PM [place] (TECH: MRB) 2160-0 Creatinine [Mass/vol ume] in Serum or Plasma H 1.1 mg/dL 0.6 mg/dL - 1.0 mg/dL February 07, 2023 4:04:00 PM [facility] (TECH: MRB) 3097-3 Urea nitrogen/Creati nine [Mass Ratio] in Serum or Plasma N 19.1 Ratio 9 Ratio - 21 Ratio February 07, 2023 4:04:00 PM [facility] (TECH: MRB) 24669-0 Glomerular filtratio n rate/1.73 sq M.predicted by Creatinine-based formula (MDRD) L 53 mL/min >60 February 07 4:04:00 PM [facility] (TECH: MRB) 2885-2 Protein [Mass/volume ] in Serum or Plasma N 7.9 g/dL 6.4 g/dL - 8.2 g/dL February 07, 2023 4:04:00 PM [facility] (TECH: MRB) 1751-7 Albumin [Mass/volume ] in Serum or Plasma N 3.7 g/dL 3.4 g/dL - 5.0 g/dL February 07, 2023 4:04:00 PM [place] (TECH: MRB) 91774-3 Calcium [Mass/volume ] in Serum or Plasma N 9.4 mg/dL 8.5 mg/dL - 10.1 mg/dL February 07, 2023 4:04:00 PM [facility] (TECH: MRB) 07859-4 Calcium [Mass/volume ] corrected for total protein in Serum or Plasma N 9.6 mg/dL 8.5 mg/dL - 1 0.1 mg/dL February 07, 2023 4:04:00 PM [facility] (TECH: [employer]) 1975-2 Bilirubin.total [Mass/volume] in Serum or Plasma L 0.3 mg/dL 0.4 mg/dL - 1.5 mg/dL February 07, 2023 4:04:00 PM [facility] (TECH: [employer]) 1920-8 Aspartate aminotrans ferase [Enzymatic activity/volume] in Serum or Plasma N 24 U/L 15 U/L - 37 U/L February 07 3 4:04:00 PM [facility] (TECH: [employer]) 1742-6 Alanine aminotransfe rase [Enzymatic activity/volume] in Serum or Plasma N 24 U/L 12 U/L - 78 U/L February 07 4:04:00 PM [facility] (TECH: [employer]) 6768-6 Alkaline phosphatase [Enzymatic activity/volume] in Serum or Plasma N 140 U/L 53 U/L - 141 U/L February 07 4:04:00 PM [facility] (TECH: [employer]) LABORATORY NARRATIVE RESULTS Information is not available [...] Priority [place] [address] [facility] Collection method - Specimen ONE TIME 0 Routine February 07, 2023 3:36:00 PM [facility] BETZAIDA Pike [employer] [id number] on February 07, 2023 3:36:00 PM [facility] SCHEDULED PROCEDURES Code System Description Status Scheduled [...] Description Effective Dates Offered Cessation Comment UpdatedBy [id number] Historical Tobacco smoking status Never Smoked Not Applicable [id number] on December 25, 2014 6:36:25 PM [facility] [...] E11.42 Admission February 07, 2023 3:20:[address] [address] Discharge February 07, 2023 3:20:00 PM [facility] DISCHARGED TO HOME OR SELF CARE ENCOUNTER DIAGNOSES Notes information is not gris ilable. Code System Diagnosis Onset Date Diagnosis information is not available. ABSTRACT DIAGNOSES Code System Diagnosis Updated By Abstract Diagnosis informati on is not available. CARE TEAM Care Burlap Worker Role AVINASH HUSTON Referring ROXANNE DEL VALLE Primary Care AVINASH HUSTON Primary Attending AVINASH HUSTON Admitting CARE TEAM CARE park activities coordinator Role on Team Status Start Date End Date Update d By BETZAIDA Pike APRN Referring normal February 07, 2023 5:00:00 AM [facility] February 07, 2023 3:20:00 PM [facility] [id number] on February 07, 2023 3:23:00 PM [facility] BETZAIDA Pike APRN Attending normal February 07, 2023 5:00:00 AM [facility] February 07, 2023 3:20:00 PM [facility] [id number] on February 07, 2023 3:23:00 PM [facility] BETZAIDA Pike APRN Admitting normal February 07, 2023 5:00:00 AM [facility] February 07, 2023 3:20:00 PM [facility] [id number] on February 07, 2023 3:23:00 PM [facility] IVON OLIVEIRA MD PCP normal January [id number] 5:00:00 AM [facility] February 07, 2023 3:20:00 PM [facility] [id number] on February 07, 2023 3:23:00 PM [facility]
--- OUTSIDE RECORDS SUMMARY | 2023-03-07 16:41 | XMS_ITS | Continuity of Care Document ---
Author Name Unknown Address [address], [place] [id number] Organization [facility] Phone Care Team Providers Care Marketing Programs Specialist Name Role Phone AVINASH HUSTON Unavailable ROXANNE DEL VALLE Primary Care AVINASH HUSTON Primary Attending [phone] AVINASH HUSTON Admitting ALLERGIES AND ADVERSE REACTIONS ALLERGIES AND ADVERSE REACTIONS Code System Allergy Substance Adverse Reaction Date Reaction (Severity) Comment Status Reported By Updated By No Known Allergies [email or web address] on January 25, 2023 1:34:01 PM [facility] FAMILY HISTORY RELATION: Father Status: Cause of : Myocardial infarction Age at : Unknown SNOMED-CT Diagnosis Age At Onset Information not available RELATION: Mother Status: LIVING SNOMED-CT Diagnosis Age At Onset [id number] Diabetes mellitus [id number] Hypertensive disorder RELATION: Sister Status: LIVING SNOMED-CT Diagnosis Age At Onset [id number] Chronic depression [id number] Hypoglycemia RELATION: Sister Status: LIVING SNOMED-CT Diagnosis Age At Onset [id number] Hypoglycemia RESULTS Patient: BRITTANY Camarillo Date of : [birth year] LABORATORY RESULTS ORDER 200: CBC AUTO W DIFF ( LOINC: 65201-9) ORDER DATE: February 07, 2023 3:36:00 PM [place] Specimen Source: Whole Blood PERFORMING LAB: [address] [id number] Result Comment: Final Result Date: February 07, [...] 07, 2023 3:51:00 PM UTC (TECH: MRB) 36969-3 Hematocrit [Volume Fraction] of Blood L 35.9 % 36.0 % - 47.0 % February 07, 2023 3:51:00 PM UTC (TECH: MRB) 787-2 Erythrocyte mean corpuscular volume [Entitic volume] by Automated count N 86.7 fl 80 fl - 95 fl February 07, 2023 3:51:00 PM UTC (TECH: MRB) 90802-4 Erythrocyte mean corpuscular hemoglobin [Entitic mass] in Blood from Fetus by Automated count N 27.8 pg 27.0 pg - 34.0 pg February 07, 2023 3:51:00 PM UTC (TECH: MRB) 25707-2 Erythrocyte mean corpuscular hemoglobin concentration [Mass/volume] in Blood from Fetus by Automated count N 32.0 g/dL 32.0 g/dL - 36.0 g/dL February 07, 2023 3:51:00 PM UTC (TECH: MRB) 56851-5 Platelets [#/volume] in Blood L 148 10^3/uL 150 10^3/uL - 450 10^3/uL February 07, 2023 3:51:00 PM UTC (TECH: MRB) 82081-5 Erythrocyte distribution width [Ratio] N 14.1 % 12.3 % - 15.1 % February 07, 2023 3:51:00 PM UTC (TECH: MRB) 11330-8 Platelet mean volume [Entitic volume] in Blood by Automated count N 10.0 fl 7.4 fl - 10.4 fl February 07, 2023 3:51:00 PM UTC (TECH: MRB) 70618-9 Granulocytes/100 leukocytes in Blood by Automated count [...] 07, 2023 3:51:00 PM UTC (TECH: MRB) 58782-5 Immature granulocytes [#/volume] in Blood N 0.2 % 0.0 % - 0.8 % February 07, 2023 3:51:00 PM UTC (TECH: MRB) 82910-7 Granulocytes [#/volume] in Blood by Automated count [...] 07, 2023 3:51:00 PM UTC (TECH: MRB) 62350-3 Immature granulocytes [#/volume] in Blood N 0.01 10^3/uL February 07, 2023 3:51:00 PM UTC (TECH: MRB) 58433-6 Manual differential performed [Presence] in Blood N NO February 07, 2023 3:51:00 PM UTC (TECH: MRB) ORDER 300: HEMOGLOBIN A1C (L OINC: 4548-4) ORDER DATE: February 07, 2023 3:36:00 PM UTC Specimen Source: Whole Blood PERFORMING LAB: [address] [id number] Result Comment: Final Result Date: February 07, 2023 4:12:00 PM UTC (TECH: MRB) LOINC TEST FLAG RESULT REFERENCE RANGE UPDA SNEHAL BY 4548-4 Hemoglobin A1c/Hemoglobin.tot al in Blood H 6.8 % 4.5 % - 6.2 % February 07, 2023 4:12:00 PM UT (TECH: MRB) 91656-0 Glucose mean value [Mass/volume] in Blood Estimated from glycated hemoglobin H 148 mg/dl 82 mg/dl - 131 mg/dl February 07, 2023 4:12:00 PM UT (TECH: MRB) ORDER 400: COMP METABOLIC PA CLARISSA (LOINC: 36378-2) ORDER DATE: February 07, 2023 3:36:00 PM UTC Specimen Source: Serum/Plasm a PERFORMING LAB: [address] [id number] Result Comment: Final Result Date: February 07, [...] 32 mmol/L February 07, 2023 4:04:00 PM [facility] (TECH: MRB) 90051-2 Anion gap 3 in Serum or Plasma N 8.0 February 07 4:04:00 PM [facility] (TECH: MRB) 2345-7 Glucose [Mass/volume ] in Serum or Plasma H 122 mg/dL 70 mg/dL - 110 mg/dL February 07, 2023 4:04:00 PM [facility] (TECH: MRB) 3094-0 Urea nitrogen [Mass/volume] in Serum or Plasma H 21 mg/dL 7 mg/dL - 18 mg/dL February 07, 2023 4:04:00 PM UT (TECH: MRB) 2160-0 Creatinine [Mass/vol ume] in Serum or Plasma H 1.1 mg/dL 0.6 mg/dL - 1.0 mg/dL February 07, 2023 4:04:00 PM [facility] (TECH: MRB) 3097-3 Urea nitrogen/Creati nine [Mass Ratio] in Serum or Plasma N 19.1 Ratio 9 Ratio - 21 Ratio February 07, 2023 4:04:00 PM [facility] (TECH: MRB) 92363-6 Glomerular filtratio n rate/1.73 sq M.predicted by Creatinine-based formula (MDRD) L 53 mL/min >60 February 07 4:04:00 PM [facility] (TECH: MRB) 2885-2 Protein [Mass/volume ] in Serum or Plasma N 7.9 g/dL 6.4 g/dL - 8.2 g/dL February 07, 2023 4:04:00 PM [place] (TECH: MRB) 1751-7 Albumin [Mass/volume ] in Serum or Plasma N 3.7 g/dL 3.4 g/dL - 5.0 g/dL February 07, 2023 4:04:00 PM [place] (TECH: MRB) 54928-8 Calcium [Mass/volume ] in Serum or Plasma N 9.4 mg/dL 8.5 mg/dL - 10.1 mg/dL February 07, 2023 4:04:00 PM [facility] (TECH: MRB) 49859-2 Calcium [Mass/volume ] corrected for total protein in Serum or Plasma N 9.6 mg/dL 8.5 mg/dL - 1 0.1 mg/dL February 07, 2023 4:04:00 PM [facility] (TECH: Appifier) 1975-2 Bilirubin.total [Mass/volume] in Serum or Plasma L 0.3 mg/dL 0.4 mg/dL - 1.5 mg/dL February 07, 2023 4:04:00 PM [facility] (TECH: Appifier) 1920-8 Aspartate aminotrans ferase [Enzymatic activity/volume] in Serum or Plasma N 24 U/L 15 U/L - 37 U/L February 07 3 4:04:00 PM [facility] (TECH: Appifier) 1742-6 Alanine aminotransfe rase [Enzymatic activity/volume] in Serum or Plasma N 24 U/L 12 U/L - 78 U/L February 07 4:04:00 PM [facility] (TECH: Appifier) 6768-6 Alkaline phosphatase [Enzymatic activity/volume] in Serum or Plasma N 140 U/L 53 U/L - 141 U/L February 07 4:04:00 PM [facility] (TECH: [facility]) LABORATORY NARRATIVE RESULTS Information is not available [...] Priority [place] [address] [facility] Collection method - Specimen ONE TIME 0 Routine February 07, 2023 3:36:00 PM [facility] BETZAIDA Pike PRESCHOOL ADVISER [id number] on February 07, 2023 3:36:00 PM [facility] SCHEDULED PROCEDURES [...] Description Effective Dates Offered Cessation Comment UpdatedBy [id number] Historical Tobacco smoking status Never Smoked Not Applicable [id number] on December 25, 2014 6:36:25 PM [place] [...] E11.42 Admission February 07, 2023 3:20:[address] [id number] Discharge February 07, 2023 3:20:00 PM [facility] DISCHARGED TO HOME OR SELF CARE ENCOUNTER DIAGNOSES Notes information is not gris ilable. Code System Diagnosis Onset Date Diagnosis information is not available. 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 [id number] on February 08, 2023 5:42:51 PM [facility] E11.42 ICD10 TYPE 2 DIABETES MELLITUS WITH DIABETIC POLYNEUROPATHY [id number] on February 08, 2023 5:42:51 PM [facility] D50.9 ICD10 IRON DEFICIENCY ANEMIA, UNSP ECIFIED [id number] on February 08, 2023 5:42:51 PM [facility] R79.89 ICD10 OTHER SPECIFIED ABNORMAL FINDINGS OF BLOOD CHEMISTRY [id number] on February 08, 2023 5:42:51 PM [facility] CARE TEAM Care Marketing Programs Specialist Role AVINASH HUSTON Referring ROXANNE DEL VALLE Primary Care AVINASH HUSTON Primary Attending AVINASH HUSTON 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 Role on Team Status Start Date End Date Update d By BETZAIDA Pike APRN Referring normal February 07, 2023 5:00:00 AM [facility] February 07, 2023 5:00:00 AM [facility] [id number] on February 07, 2023 3:23:00 PM [facility] BETZAIDA Pike APRN Attending normal February 07, 2023 5:00:00 AM [facility] February 07, 2023 5:00:00 AM [facility] [id number] on February 07, 2023 3:23:00 PM [facility] BETZAIDA Pike APRN Admitting normal February 07, 2023 5:00:00 AM [facility] February 07, 2023 5:00:00 AM [facility] [id number] on February 07, 2023 3:23:00 PM [facility] IVON OLIVEIRA MD PCP normal January [id number] 5:00:00 AM [facility] February 07, 2023 5:00:00 AM [facility] [id number] on February 07, 2023 3:23:00 PM [facility]
--- NOTE | 2023-03-07 16:42 | PC.NURSE ---
arrived by fabien from [facility]
[2023-03-07 17:00] VITALS: O2SAT 91
[2023-03-07 17:06] LABS: POC Glucose,Bedside 416 (70-110)
[2023-03-07 17:15] LABS: Coronavirus 19, PCR Not Detected (NotDetected); Influenza A, PCR Not Detected (NotDetected); Influenza B, PCR Not Detected (NotDetected)
[2023-03-07] MEDS: ACETAMINOPHEN 325MG TAB 650 MG PO (17:15)
[2023-03-07] MEDS: LEVOFLOXACIN/D5W 750 MG/150 ML 750 MG/150 ML PIGGYBACK 100 MG IV (17:15)
--- NOTE | 2023-03-07 18:09 | P.HP_ITS ---
History of Present Illness *Admission Date: 03/07/23 *Reason for visit:: sepsis, uti *History of present illness: 62 yo F with Hx of obesity, DM, HTN, neuropathy who present to [facility] with complaint of nausea, vomiting, diarrhea and dysuria for a few days. She reports she has been feeling weak and sick for a few days and decided to seek help. Upon arrival to [facility] her labs were remarkable for grossly abnormal UA, mildly detectable troponin, tachycardia, and florian. ER initially contacted cardiology due to detectable troponin. Medicine spoke to the ER physician. After vigorous discusion patient was accepted for FLORIAN, UTI, thrombocytopenia, and further work-up. Upon arrival patient in moderate distress. Noted to have rigors, complaining of feeling cold on arrival. Tachycardic >130. complaining of increased urinary frequency, foul smelling urine for a few days. She appears significantly ill. No CP on arrival to [facility]. lips mildly cyanotic and patient was initiated on 2L NC O2 for comfort. Repeat labs obtained. Alert and oriented to person, place and situation. [facility] Disclaimer: The information contained in this section may have been updated after the patient was seen, as this information can be updated by other users. Medical History (Updated 03/07/23 @ 22:42 by Alberto Diehl MD) Diabetes mellitus, type 2 Hyperlipidemia Hypertension Kidney stone Migraine Osteoarthritis Sleep apnea Surgical History History of section Family History Family history of stroke Family history of hypertension Family history of diabetes mellitus type II Family history of hyperlipidemia Social History Smoking Status: Never smoker alcohol intake: never substance use type: denies use current occupational status: retired Travel in the last 8 weeks: None household members: none housing: house caffeine: Yes Review of Systems Review of Systems Review of systems (narrative): 14 point review of systems performed, pertinent positives and negatives as per HPI Meds Home Medications and Allergies Home Medications Medication Instructions Recorded Confirmed Type amlodipine 5 mg tablet 5 mg PO DAILY Hypertension 09/14/20 03/07/23 History carvedilol 12.5 mg tablet 12.5 mg PO DAILY Hypertension 09/14/20 03/07/23 History hydrocodone 7.5 mg-acetaminophen 1 tab PO Q6H PRN Pain 09/14/20 03/07/23 History 325 mg tablet insulin aspar prot-insulin aspart 20 unit SQ DAILY Diabetes 09/14/20 03/07/23 History 100 unit/mL (70-30) subcutaneous pen insulin glargine 100 unit/mL (3 80 units SQ DAILY Diabetes 09/14/20 03/07/23 History mL) subcutaneous pen lisinopril 40 mg tablet 40 mg PO HS Hypertension 09/14/20 03/07/23 History olanzapine 10 mg tablet 10 mg PO HS MOOD 09/14/20 03/07/23 History pantoprazole 40 mg tablet,delayed 40 mg PO BID GERD 11/06/21 03/07/23 History release New Prescriptions to Start Prescriptions: Allergies Allergy/AdvReac Type Severity Reaction Status Date / Time daptomycin [DAPTOMYCIN] AdvReac Mild I-RASH Verified 10/08/20 09:10 Exam Data for Last 24 hours Vital signs and Labs for Last 24 Hours: Laboratory Results - last 24 hr 03/07/23 16:58: POC Glucose 416 H* Constitutional Constitutional: moderate distress, morbidly obese and chronically ill appearing Comments: Rigors *Routine HEENT Exam Head: Present normocephalic Eye: Present EOMI and PERRL ENT: Present mucous membranes moist *Routine Neck Exam Neck: Present supple; Absent lymphadenopathy *Routine Respiratory Exam Respiratory: Absent rhonchi, wheezes or normal respiratory effort Comments: tachypneic *Routine Cardiovascular Exam Cardiovascular: Present tachycardia; Absent murmur *Routine Abdominal Exam Abdominal: Present soft, normoactive bowel sounds and tenderness (mild diffuse); Absent distended *Routine Rectal Exam Rectal:: deferred *Routine Genitalia Exam Genitalia:: deferred *Routine Extremities Exam Extremities: Present pallor; Absent cyanosis, clubbing or edema Comments: tremors and rigors Routine Back/Spine/Pelvis Exam Back/Spine: Present paraspinal tenderness (Left > Right); Absent CVA tenderness *Routine Skin Exam Skin: Present warm; Absent rash Comments: clammy, cool extremities *Routine Neurological Exam Neurological: Present alert, oriented X3, moving all extremities and tremors; Absent altered mental status Assessment and Plan *Assessment and plan (1) Septic shock: Status: Acute Category: Medical Code(s): A41.9 - Sepsis, unspecified organism; R65.21 - Severe sepsis with septic shock (2) Pyelonephritis: Status: Acute Category: Medical Code(s): N12 - Tubulo-interstitial nephritis, not specified as acute or chronic (3) FLORIAN (acute kidney injury): Status: Acute Category: Medical Code(s): N17.9 - Acute kidney failure, unspecified (4) Hyperglycemia due to type 2 diabetes mellitus: Status: Acute Qualifiers: Diabetes mellitus assisted insulin use: with terminal carman use Qualified Code(s): E11.65 - Type 2 diabetes mellitus with hyperglycemia; 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 Category: Medical Code(s): E11.65 - Type 2 diabetes mellitus with hyperglycemia (5) Class 3 obesity: Status: Acute Category: Medical Code(s): E66.01 - Morbid (severe) obesity due to excess calories (6) Neuropathy: Status: Acute Category: Medical Code(s): G62.9 - Polyneuropathy, unspecified (7) Depression: Status: Acute Qualifiers: Depression Type: major depressive disorder Category: Medical Code(s): F32.A - Depression, unspecified (8) Sleep apnea: Status: Acute Qualifiers: Sleep apnea type: obstructive Qualified Code(s): G47.33 - Obstructive sleep apnea (adult) (pediatric) Category: Medical Code(s): G47.30 - Sleep apnea, unspecified Plan 62 yo female with multiple co-morbidities who presented to [facility] with worsening nausea, weakness, vomiting and dysuria. Found to have a UTI, detectable troponin, and FLORIAN. ER at [place] consulted Medicine for adm ission due to complexity of patient. Discussion with ER physician, concern for detectable troponin and UTI. Medicine agreed to admit. Upon arrival, patient found to be in septic chock with tachycardia, leukopenia, UTI/pyelonephritis, and lactate of 4. Received Ceftriaxone and blood cultures and UC obtained at [facility]. Administered levofloxacin upon arrival. Admitted to step down level of care. Necessitates inpatient admission. Problems as follows: Septic Shock Pyelonephritis Elevated tropoonin - UC, BC obdainted at outside hospital. repeat BC obtained on admission due to rigors and septic shock. - Levofloxacin 750mg IV x1, re-evaluate dosage tomorrow pending improvement in kidney function. - Lactate 4 on admission, repeat 6hr level pending - received 2L IVF at [facility] per report, administered additional 1L bolus for total of 3L IVF - monitor for need for vasopressor support, goal Map > 65. BP acceptable at this time - HR improving with IVF - Tylenol 650mg q6hp for fever >100.4 or rigors - low threshold for CT Abd/Pelvis pending improvement in clinical stability of patient and given Hx of kidney stones - serial troponins due to elevated HS troponin of 95 at [facility]; chest pain free at this time Thrombocytopenia - unclear etiology, DDx concerning for cirrhosis, DIC, sepsis - monitor with morning labs - 70 at [facility], 50 on arrival to [facility] - repeat labs with CBC in morning, will obtain peripheral smear in morning - monitor for spontaneous bleeding FLORIAN - Cr 1.9 at [facility], 1.3 upon arrival here. repeat CMP ordered for morning, Baseline normal <1 - caution with nephrotoxins - 2/2 sepsis Diabetes 2 Hyperglycemia - reactive to sepsis and due to her diabetes - resume partial dose of home glargine 50units HS - SSI with fingersticks ACHS - A1C pending Neuropatthy/Chronic pain - resume Hydrocodone 7.5mg Q6HP Mood disorder/Depression - resume olanzapine 10mg HS HTN - Holding Amlodipine, Coreg, lisinopril in setting of sepsis and florian Continue Pantoprazole 40mg PO BID for gerd Full code Diabetic diet Holding DVT prophy in setting of thrombocytopenia
[2023-03-07 18:14] LABS: Basophils % 0.5 % (0.1-2.0); Eosinophils % 0.2 % (0.1-12.0); Hematocrit 32.7 % (37.0-47.0); Hemoglobin 11.2 g/dL (12.2-16.2); Lymphocytes # 0.5 K/mm3 (0.7-4.5); Lymphocytes % 21.6 % (10-50); Mean Corpuscular HGB Conc 34.4 g/dL (31.8-35.4); Mean Corpuscular Hemoglobin 28.9 pg (27.0-31.2); Mean Platelet Volume 11.3 fl (7.4-10.4); Monocytes # 0.1 K/mm3 (0.1-1.0); Monocytes % 5.2 % (1.7-9.3); Neutrophils # 1.7 K/mm3 (1.8-7.8); Neutrophils % 72.6 % (37.0-80.0); Platelet Count 55 K/mm3 (142-424); Red Blood Count 3.89 M/mm3 (4.20-5.40); Red Cell Distribution Width 14.5 % (11.5-17.5); White Blood Count 2.3 K/mm3 (4.8-10.8)
[2023-03-07 18:20] LABS: Alanine Aminotransferase 39 U/L (12-78); Albumin Level 3.4 g/dl (3.5-5.0); Albumin/Globulin Ratio 1.1 (1.1-1.8); Alkaline Phosphatase 110 U/L (38-126); Anion Gap 15.9 mEq/L (5-15); Aspartate Amino Transferase 50 U/L (14-36); Bilirubin,Total 0.6 mg/dl (0.2-1.3); Blood Urea Nitrogen 21 mg/dl (7-17); Calcium 8.9 mg/dl (8.4-10.2); Carbon Dioxide 21 mmol/L (22.0-30.0); Chloride 95 mmol/L (98-107); Estimated Glomerular Filt Rate 42 ml/min (>60); GFR (African American) 50 ML/MIN (>60); Globulin 3.2 g/dL (1.3-3.2); Glucose 389 mg/dl (74-100); Potassium 3.9 mmoL/L (3.5-5.1); Sodium 128 mmol/L (136-145); Total Protein,Serum 6.6 g/dl (6.3-8.2)
[2023-03-07] MEDS: MAGNESIUM SULFATE IN WATER 2 GM/50 ML PIGGYBACK IV (18:20)
[2023-03-07] MEDS: LACTATED RINGERS 1000ML 1,000 ML 250 ML IV (18:20)
[2023-03-07 18:32] LABS: Troponin I 0.07 ng/ml (0.00-0.034)
--- NOTE | 2023-03-07 18:40 | EXP.SEPSISRE ---
[facility] Tissue Perfusion Eval Sepsis Re-Evaluation Performed: Yes Date Performed: 03/07/23 Time Performed: 18:40
[2023-03-07 19:00] VITALS: TEMP 37.4
[2023-03-07 19:15] VITALS: TEMP 37.5
[2023-03-07 19:31] VITALS: PULSE 111; O2SAT 98
[2023-03-07 19:38] LABS: Thyroid Stimulating Hormone 1.08 uIU/mL (0.465-4.68)
[2023-03-07 20:00] VITALS: BP 110/46; PULSE 106; RESP 18; TEMP 37.5; O2SAT 98
[2023-03-07] MEDS: PANTOPRAZOLE 40MG TABLET 40 MG PO (20:36)
[2023-03-07] MEDS: OLANZapine 5 MG ODT TABLET 10 MG SL (20:41)
[2023-03-07] MEDS: humaLOG 100 UNITS/ML 3ML VIAL (SSI) SQ (20:41)
[2023-03-07] MEDS: INSULIN GLARGINE 100 UNITS/ML 3ML FLEXPEN 50 UNIT SQ (20:43)
[2023-03-07 20:54] LABS: POC Glucose,Bedside 282 (70-110)
[2023-03-07 21:57] LABS: Reflex Lactic Add Lactic Reflex
[2023-03-07 22:05] VITALS: BP 114/56; PULSE 97; RESP 15; O2SAT 99
[2023-03-07 22:06] LABS: Lactic Acid Follow Up (RFLX 1) 1.6 mmol/L (0.7-2.1)
[2023-03-07 22:19] LABS: Troponin I 0.08 ng/ml (0.00-0.034)
[2023-03-07 22:28] VITALS: BMI 41.0
[2023-03-07 23:31] LABS: Hemoglobin A1C 8.5 % (4.0-6.0)
[2023-03-07 23:34] LABS: Troponin I 0.08 ng/ml (0.00-0.034)
[2023-03-08] VITALS (12 sets, daily range): BP systolic 114–150; BP diastolic 59–91; PULSE 89–104; RESP 16–20; TEMP 36.4–37.1; O2SAT 95–100; BMI 41.0
[2023-03-08] MEDS: PROMETHAZINE HCL 25MG/ML 1ML VIAL 25 MG IV ×2 (05:16→10:48)
[2023-03-08] MEDS: humaLOG 100 UNITS/ML 3ML VIAL (SSI) SQ ×3 (05:16→20:49)
[2023-03-08] MEDS: SODIUM CHLORIDE 0.9% 25ML BAG 25 ML IV (05:16)
--- NOTE | 2023-03-08 07:00 | CT_ITS ---
FINAL REPORT TECHNIQUE: Axial images through the abdomen and pelvis were performed without contrast. This study was performed with techniques to keep radiation doses as low as reasonably achievable, (ALARA). Individualized dose reduction techniques using automated exposure control or adjustment of mA and/or kV according to the patient's size were employed. CLINICAL HISTORY: eval kidneys, clinically septic from pyelo COMPARISON: 09/14/2020 FINDINGS: Abdomen: Atelectasis is present in the left lung base. There is mild fatty infiltration of the liver. There is a small amount of debris present in the dependent portion of the gallbladder, likely sludge. The spleen measures 13 cm in craniocaudal dimension, consistent with mild splenomegaly also noted on the previous exam. The pancreas and adrenals are unremarkable. There is mild left perinephric stranding identified, greater than seen on the right side. Lack of intravenous contrast makes evaluation of possible pyelonephritis difficult. No evidence of hydronephrosis is present. There is degenerative change present in the lower lumbar spine, with disc space narrowing and neural foraminal narrowing on the right side at the L4-5 and L5-S1 levels. Pelvis: There is a tiny amount of air in the antidependent portion of the bladder that may be iatrogenic. The appendix is not visualized. There is no pelvic mass or inflammation. IMPRESSION: There is mild left perinephric stranding, but without administration of intravenous contrast is difficult to assess for pyelonephritis. No evidence of stones or hydronephrosis is seen. Would suggest contrast-enhanced CT examination to evaluate for pyelonephritis if clinically indicated. Tiny amount of air in the bladder, likely iatrogenic. Small amount of debris in the dependent portion of the gallbladder, likely sludge. Reviewed, Interpreted and Dictated by Tobi Mendoza MD Transcribed by Gabby Sr Authenticated and [facility]
[2023-03-08 07:45] LABS: Chloride 98 mmol/L (98-107)
[2023-03-08 07:46] LABS: Potassium 4.1 mmoL/L (3.5-5.1); Sodium 132 mmol/L (136-145)
[2023-03-08 07:48] LABS: Alanine Aminotransferase 31 U/L (12-78); Aspartate Amino Transferase 56 U/L (14-36); Blood Urea Nitrogen 25 mg/dl (7-17); Creatinine Clearance Estimated 42 mL/min (50-200); Estimated Glomerular Filt Rate 42 ml/min (>60); GFR (African American) 50 ML/MIN (>60)
[2023-03-08 07:49] LABS: Albumin Level 3.2 g/dl (3.5-5.0); Alkaline Phosphatase 93 U/L (38-126); Anion Gap 15.1 mEq/L (5-15); Bilirubin,Total 0.5 mg/dl (0.2-1.3); Calcium 8.8 mg/dl (8.4-10.2); Carbon Dioxide 23 mmol/L (22.0-30.0); Globulin 3.1 g/dL (1.3-3.2); Glucose 261 mg/dl (74-100); Magnesium 1.6 mg/dl (1.6-2.3); Total Protein,Serum 6.3 g/dl (6.3-8.2)
--- NOTE | 2023-03-08 08:11 | HMH.PHAINT1 ---
Pharmacy Intervention Comments: Home med list verified with patient at bedside and with external pharmacy list.
[2023-03-08 08:18] LABS: Basophils % 0.1 % (0.1-2.0); Eosinophils % 0.5 % (0.1-12.0); Hematocrit 32.5 % (37.0-47.0); Hemoglobin 11.1 g/dL (12.2-16.2); Lymphocytes % 16.5 % (10-50); Mean Corpuscular HGB Conc 34.1 g/dL (31.8-35.4); Mean Corpuscular Hemoglobin 28.8 pg (27.0-31.2); Mean Corpuscular Volume 84.5 fl (81-99); Monocytes # 0.4 K/mm3 (0.1-1.0); Monocytes % 6.7 % (1.7-9.3); Neutrophils # 4.6 K/mm3 (1.8-7.8); Neutrophils % 76.2 % (37.0-80.0); Platelet Count 58 K/mm3 (142-424); Red Blood Count 3.85 M/mm3 (4.20-5.40); Red Cell Distribution Width 14.6 % (11.5-17.5)
[2023-03-08] MEDS: POLYETHYLENE GLYCOL 3350 17 GM PACKET PO ×2 (08:44→20:49)
[2023-03-08] MEDS: PANTOPRAZOLE 40MG TABLET 40 MG PO ×2 (08:45→20:49)
[2023-03-08] MEDS: ONDANSETRON 4MG/2ML VIAL 4 MG IV (08:45)
--- NOTE | 2023-03-08 10:07 | PC.NURSE ---
pt back from ct scan.
--- NOTE | 2023-03-08 10:09 | HMH.OTEV ---
OT Inpatient Evaluation Rehab OT IP Evaluation Start: 03/08/23 08:54 Freq: ONCE Status: Active Protocol: Document 03/08/23 10:03 [facility] (Rec: 03/08/23 10:09 [facility] [id number]) Rehab OT IP Assessment Subjective History Pt oriented x 3 on arrival. Pt agreeable to engage in therapy evaluation. Pt admitted on 03/07/23 due to sepsis and UTI. Prior to being in the hospital, pt lived at home alone. Pt claims normally she is independent with all ADLs and IADLs. Pt does use a cane during ambulation. Pt was also still driving. History and Physical note: 62 yo F with Hx of obesity, DM , HTN, neuropathy who present [facility] with complaint of nausea, vomiting, diarrhea and dysuria for a few days. She reports she has been feeling weak and sick for a few days and decided to seek help. Upon arrival to [facility] her labs were remarkable for grossly abnormal UA, mildly detectable troponin, tachycardia, and florian. ER initially contacted cardiology due to detectable troponin. Medicine spoke to the ER physician. After vigorous discusion patient was accepted for FLORIAN, UTI, thrombocytopenia, and further work-up. Upon arrival patient in moderate distress. Noted to have rigors, complaining of feeling cold on arrival. Tachycardic >130. complaining of increased urinary frequency , foul smelling urine for a few days. She appears significantly ill. No CP on arrival to [facility]. lips mildly cyanotic and patient was initiated on 2L NC O2 for comfort. Repeat labs obtained. Alert and oriented to person, place and situation. Subjective I just still feel weak. Pt resting in bed on arrival. Assessed patient with bed mobility and supine to sit; pt required cga and re-education to use bed rails to assist self in sitting up. Pt sat at eob with sba and demonstrated fair static sitting balance. Pt engaged in functional mobility task of ~15 feet with cga/min assist. Mod verbal cues required to improve safety during transfer. Pt sat back down at eob with cga. Bed mobility from sititng to supine with cga. Pt was left resting in bed with call reis and all other needs inr each. Objective Patient Orientation Person,Place,Birthday Right Upper Extremity Gross ROM WFL Left Upper Extremity Gross ROM WFL Bed Mobility bed mobility-scooting,bed mobility - supine/sit Assist Level Contact Guard/Hand Hold Transfer Training Sit/Stand Transfer Assist Level Minimal x 1 (25% assist) Rehab OT IP prob,goals,plan Problems Date of Evaluation: 03/08/23 OT IP Problems Bed Mobility,Transfers,Balance ,Self care,Safety Rehab Potential Rehab Potential Good Equipment Needs Assistive Devices Straight Cane,Rolling / Wheeled Walker Plan OT intervention Plan Bed Mobility,Transfers,Balance ,Self care,Safety,Therapeutic Exercise OT Plan Frequency BID Duration LOS Discharge Goals Bed Mobility Ability Standby Assistance Sit to Stand Chair Transfer Ability Contact Guard/Hand Hold Chair Transfer Ability Contact Guard/Hand Hold Chair Transfer Technique Sit to/from Ambulatory Chair Transfer Assistive Devices Rolling Walker Feeding Ability Assist with Tray Set Up Lower Body Dressing Ability Minimal Assistance Upper Body Dressing Ability Contact Guard Bathing Ability Minimal Assistance Performing Toilet Hygiene Ability Minimal Assistance Overall Commode/Toilet Transfer Ability Minimal Assistance Commode/Toilet Transfer Technique Sit to/from Ambulatory Commode/Toilet Transfer Assistive Grab Bars Devices Oral Care Assist Standby Assistance Decrease in Endurance Yes Discharge Plan OT Discharge Plan Pt will continue to be seen for OT services while at [facility]. Pt can return home once she is medically stable per physician. Therapist recommends HHOT evaluation upon returning home for continued skilled therapy services. Pt agreeable with this plan. Eval Complexity Eval Charge Codes 72783 - Moderate Complexity PHYSICIAN CERTIFICATION: I certify the specified therapy services for Angy Colon are required, authorized, and reviewed every 30 days.
[2023-03-08] MEDS: APAP/HYDROCODONE 325MG/7.5MG TAB 1 TAB PO ×3 (10:13→22:26)
--- NOTE | 2023-03-08 10:16 | HMH.PTEV ---
Physical Therapy Evaluation Rehab PT IP Evaluation Start: 03/08/23 08:54 Freq: ONCE Status: Active Protocol: Document 03/08/23 10:11 MILI (Rec: 03/08/23 10:16 MILI [id number]) Subjective/History History History Pt oriented x 3 on arrival. Pt agreeable to engage in therapy evaluation. Pt admitted on 03/07/23 due to sepsis and UTI. Prior to being in the hospital, pt lived at home alone. Pt claims normally she is independent with all ADLs and IADLs. Pt does use a cane during ambulation. Pt was also still driving. Subjective Subjective I just feel like I've gotten weak. New diagnosis of cancer in past 12 No months? Rehab PT IP Eval Objective Appearance Patient Behavior Appropriate,Cooperative Patient Orientation Person,Place,Birthday Difficulty following instructions none Speech Pattern Clear,Appropriate Ambulation Patient Able to Ambulate Yes Ambulation Observation IP General Gait Pattern Observation Wide Based Gait Ambulation Distance (feet) 20 Ambulation Assistive Device None Ambulation Ability Contact Guard/Hand Hold Balance Ability to Arise Able, w/o using arms Sitting Balance Steady, safe Standing Balance Steady, wide stance Transfers Bed Transfer Ability Contact Guard/Hand Hold Sit to Stand Bed Transfer Ability Minimal x 1 (25% assist) ROM All Extremities PT ROM Status WFL MMT All Extremities PT MMT WFL Rehab PT IP prob,goals,plan Problems Date of Evaluation: 03/08/23 PT IP Problems Bed Mobility,Transfers,Gait, Balance,Self care,Safety Rehab Potential Rehab Potential Good Plan PT Intervention Plan Bed Mobility,Transfers,Gait, Balance,Self care,Safety, Therapeutic Exercise PT Plan Frequency BID Duration LOS Discharge Goals Bed Transfer Ability Supervision/Stand by Sit to Stand Chair Transfer Ability Supervision/Stand by Ambulation Assistive Device Rolling Walker Ambulation Distance (feet) 50 Discharge Plan PT Discharge Plan Patient will continue to be seen by PT LOS. PT suggests that patient is a good candidate to return to home with HHPT consult in order to continue with rehab. Patient stated that she does not want short-term placement. Eval Complexity Eval Charge Codes 61484 - High Complexity PHYSICIAN CERTIFICATION: I certify the specified therapy services for Angy D Yantis are required, authorized, and reviewed every 30 days.
[2023-03-08 10:24] LABS: POC Glucose,Bedside 214 (70-110)
[2023-03-08] MEDS: TAMSULOSIN 0.4MG CAPSULE 0.400000000000000022 MG PO (10:45)
[2023-03-08] MEDS: KETOROLAC 30MG/ML VIAL 15 MG IV (10:45)
[2023-03-08 11:40] LABS: POC Glucose,Bedside 248 (70-110)
--- NOTE | 2023-03-08 14:43 | EXP.ACUTE.PN ---
Subjective *Date: 03/08/23 *Time: 14:43 Interval history: Patient stating she still feels poorly this morning. Clinically appears better however. Heart rate is improved. BP stable. Wanting to try something for breakfast. Has not had bowel movement since admission and states she has not pooped in the past 48 hours. Does complain of some mild abdominal pain, worse in the left upper abdomen. No nausea or vomiting today. Afebrile. Medical Exam Vital signs and Labs for Last 24 Hours: Vital Signs Temp Pulse Pulse Resp BP Pulse Ox O2 Del Method 03/08/23 14:00 90 18 127/69 98 Room Air 03/08/23 12:00 95 H 03/08/23 08:00 90 03/08/23 12:37 Room Air 03/08/23 11:47 94 H 18 141/75 H 95 Room Air 03/08/23 11:37 98.8 F 03/08/23 11:00 Room Air 03/08/23 09:50 94 H 18 147/81 H 96 Room Air 03/08/23 09:00 Room Air 03/08/23 08:00 98.1 F 03/08/23 08:00 90 20 145/91 H 96 Room Air 03/08/23 08:00 100 Room Air 03/08/23 06:38 Room Air 03/08/23 06:00 92 H 16 150/77 H 100 Room Air 03/08/23 05:00 Room Air 03/08/23 04:00 99 Room Air 03/08/23 04:00 96 H 03/08/23 04:00 97.7 F 96 H 18 145/75 H 100 Room Air 03/08/23 03:00 Room Air 03/08/23 02:00 91 H 18 130/60 100 Room Air 03/08/23 00:00 90 03/08/23 00:46 Room Air 03/08/23 00:00 97.6 F 89 16 123/66 100 Room Air 03/07/23 22:32 Room Air 03/07/23 22:05 97 H 15 114/56 L 99 Room Air 03/07/23 20:00 106 H 03/07/23 20:51 Room Air 03/07/23 20:00 99.5 F 106 H 18 110/46 L 98 Room Air 03/07/23 19:15 99.5 F 03/07/23 19:31 111 H 98 Room Air 03/07/23 19:00 99.3 F 03/07/23 17:00 91 L Nasal Cannula 03/07/23 18:29 Room Air 03/07/23 17:00 Nasal Cannula O2 Flow Rate 03/08/23 14:00 03/08/23 12:00 03/08/23 08:00 03/08/23 12:37 03/08/23 11:47 03/08/23 11:37 03/08/23 11:00 03/08/23 09:50 03/08/23 09:00 03/08/23 08:00 03/08/23 08:00 03/08/23 08:00 03/08/23 06:38 03/08/23 06:00 03/08/23 05:00 03/08/23 04:00 03/08/23 04:00 03/08/23 04:00 03/08/23 03:00 03/08/23 02:00 03/08/23 00:00 03/08/23 00:46 03/08/23 00:00 03/07/23 22:32 03/07/23 22:05 03/07/23 20:00 03/07/23 20:51 03/07/23 20:00 03/07/23 19:15 03/07/23 19:31 03/07/23 19:00 03/07/23 17:00 2 03/07/23 18:29 03/07/23 17:00 2 Intake and Output 03/07/23 03/08/23 03/08/23 23:59 07:59 15:59 Intake Total 1136 / 1136 Output Total 250 / 250 350 / 350 Balance 886 / 886 -350 / -350 Intake: Intake, Total IV Amount 1136 / 1136 Lactated Ringers 1000ML 1,000 950 / 950 ml @ 250 mls/hr IV .Q4H ONE Rx# :[id number] Levofloxacin/D5w 750 mg/150 ml 146 / 146 750 mg In 150 ml @ 100 mls/hr IV ONCE ONE Rx#:[id number] Magnesium Sulfate in Water 2 gm 40 / 40 In 50 ml @ 50 mls/hr IV ONCE ONE Rx#:[id number] Output: Output, Urine Amount 250 / 250 350 / 350 Other: Weight 118.87 kg 118.569 kg Patient Weight 03/08/23 23:59 Weight 118.569 kg Laboratory Results - last 24 hr 03/07/23 16:58: POC Glucose 416 H* 03/07/23 17:05: SARS-CoV-2 (PCR) Not detected, Influenza A Untype (PCR) Not detected, Influenza Type B (PCR) Not detected 03/07/23 17:42: WBC 2.3 L, RBC 3.89 L, Hgb 11.2 L, Hct 32.7 L, MCV 84.0, MCH 28.9, MCHC 34.4, RDW 14.5, Plt Count 55 L, MPV 11.3 H, Neut % (Auto) 72.6, Lymph % (Auto) 21.6, [place] % (Auto) 5.2, Eos % (Auto) 0.2, Baso % (Auto) 0.5, Neut # (Auto) 1.7 L, Lymph # (Auto) 0.5 L, [place] # (Auto) 0.1, Eos # (Auto) 0.0, Baso # (Auto) 0.0, Sodium 128 L, Potassium 3.9, Chloride 95 L, Carbon Dioxide 21 L, Anion Gap 15.9 H, BUN 21 H, Creatinine 1.30 H, Estimated GFR 42 L, Est GFR ( Amer) 50 L, Glucose 389 H, Lactate 4.0 H, Calcium 8.9, Total Bilirubin 0.6, AST 50 H, ALT 39, Alkaline Phosphatase 110, Troponin I 0.07 H, Total Protein 6.6, Albumin 3.4 L, Globulin 3.2, Albumin/Globulin Ratio 1.1, TSH 1.08 03/07/23 20:34: POC Glucose 282 H 03/07/23 21:30: Hemoglobin A1c 8.5 H, Troponin I 0.08 H 03/07/23 21:40: Lactate 1.6 03/07/23 23:00: Troponin I 0.08 H 03/08/23 04:58: POC Glucose 248 H 03/08/23 07:10: Sodium 132 L, Potassium 4.1, Chloride 98, Carbon Dioxide 23, Anion Gap 15.1 H, BUN 25 H, Creatinine 1.30 H, Estimated Creat Clear 42, Estimated GFR 42 L, Est GFR ( Amer) 50 L, Glucose 261 H D, Calcium 8.8, Magnesium 1.6, Total Bilirubin 0.5, AST 56 H, ALT 31, Alkaline Phosphatase 93, Total Protein 6.3, Albumin 3.2 L, Globulin 3.1, Albumin/Globulin Ratio 1.0 L 03/08/23 08:05: WBC 6.0 D, RBC 3.85 L, Hgb 11.1 L, Hct 32.5 L, MCV 84.5, MCH 28.8, MCHC 34.1, RDW 14.6, Plt Count 58 L, MPV 10.0, Neut % (Auto) 76.2, Lymph % (Auto) 16.5, [place] % (Auto) 6.7, Eos % (Auto) 0.5, Baso % (Auto) 0.1, Neut # (Auto) 4.6, Lymph # (Auto) 1.0, [place] # (Auto) 0.4, Eos # (Auto) 0.0, Baso # (Auto) 0.0 03/08/23 10:16: POC Glucose 214 H I & O for Labs for Last 24 Hours: Intake & Output 03/05/23 03/06/23 03/07/23 03/08/23 23:59 23:59 23:59 23:59 Intake Total 1136 / 1136 Output Total 250 / 250 350 / 350 Balance 886 / 886 -350 / -350 Weight 118.87 kg 118.569 kg Constitutional: Present no acute distress, morbidly obese, chronically ill appearing and cooperative Head: Present atraumatic and normocephalic ENT: Present normal exam and mucous membranes dry Neck: Present normal inspection Respiratory: Present normal respiratory effort; Absent rhonchi, wheezes or crackles Cardiac: Present Reg Rate and Rhythm GI: Present soft, tenderness (Diffuse) and normal bowel sounds; Absent distention Extremities: Present normal inspection and full ROM Skin: Present intact and dry; Absent erythema Comment:: Warm Neuro: Present Grossly Intact, alert, awake, oriented x 3 and moves all extremities Assessment and Plan *Assessment and plan (1) Septic shock: Status: Acute Category: Medical Code(s): A41.9 - Sepsis, unspecified organism; R65.21 - Severe sepsis with septic shock (2) Pyelonephritis: Status: Acute Category: Medical Code(s): N12 - Tubulo-interstitial nephritis, not specified as acute or chronic (3) FLORIAN (acute kidney injury): Status: Acute Category: Medical Code(s): N17.9 - Acute kidney failure, unspecified (4) Hyperglycemia due to type 2 diabetes mellitus: Status: Acute Qualifiers: Diabetes mellitus prison insulin use: with prison use Qualified Code(s): E11.65 - Type 2 diabetes mellitus with hyperglycemia; Z79.4 - long-term (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 Category: Medical Code(s): E11.65 - Type 2 diabetes mellitus with hyperglycemia (5) Class 3 obesity: Status: Acute Category: Medical Code(s): E66.01 - Morbid (severe) obesity due to excess calories (6) Neuropathy: Status: Acute Category: Medical Code(s): G62.9 - Polyneuropathy, unspecified (7) Depression: Status: Acute Qualifiers: Depression Type: major depressive disorder Category: Medical Code(s): F32.A - Depression, unspecified (8) Sleep apnea: Status: Acute Qualifiers: Sleep apnea type: obstructive Qualified Code(s): G47.33 - Obstructive sleep apnea (adult) (pediatric) Category: Medical Code(s): G47.30 - Sleep apnea, unspecified Plan 62 yo female with multiple co-morbidities who presented to [facility] with worsening nausea, weakness, vomiting and dysuria. Found to have a UTI, detectable troponin, and FLORIAN. ER at [facility] consulted Medicine for admission due to complexity of patient. Discussion with ER physician, concern for detectable troponin and UTI. Medicine agreed to admit. Upon arrival, patient found to be in septic chock with tachycardia, leukopenia, UTI/pyelonephritis, and lactate of 4. Received Ceftriaxone and blood cultures and UC obtained at [facility]. Administered levofloxacin upon arrival. Admitted to step down level of care. Continues to necessitate inpatient management and IV antibiotics. Problems addressed as follows: Septic Shock Pyelonephritis Elevated troponin - UC, BC obtained at outside hospital. repeat BC obtained on admission due to rigors and septic shock. -Continue levofloxacin 750 mg IV daily -White cell count low at 2.3 on admission yesterday, improved to 6 today. -Holding on IV fluids, tolerating p.o. intake. - Tylenol 650mg q6hp for fever >100.4 or rigors -CT of the abdomen obtained this morning. Shows some perinephric stranding. In the setting of her clinical symptoms, consistent with pyelonephritis. - serial troponins due to elevated HS troponin of 95 at [facility]; chest pain free at this time. Troponin mildly elevated 0.07-0.09. Cardiology consulted to facilitate recommendations for further management, likely outpatient eval Thrombocytopenia - unclear etiology, DDx concerning for cirrhosis, DIC, sepsis - 70 at [facility], improved to 58 this morning. Repeat CBC ordered for the morning. -Peripheral smear pending - monitor for spontaneous bleeding FLORIAN - Cr 1.9 at [facility], 1.3 upon arrival here. Baseline 1.0. Creatinine 1.3 this morning. BUN 25. Electrolytes with improvement with sodium 132, magnesium 1.6, potassium 4.1. - caution with nephrotoxins -Repeat CMP and magnesium ordered the morning. - 2/2 sepsis Diabetes 2 Hyperglycemia - reactive to sepsis and due to her diabetes -Morning glucose greater than 200, increase glargine to 70 units tonight. Continue high intensity sliding scale insulin - fingersticks ACHS - A1C elevated 8.5 Neuropatthy/Chronic pain - resume Hydrocodone 7.5mg Q6HP Mood disorder/Depression - resume olanzapine 10mg HS HTN - Holding Amlodipine, Coreg, lisinopril in setting of sepsis and florian; consider resuming tomorrow if blood pressure elevates. Continue Pantoprazole 40mg PO BID for gerd Full code Diabetic diet Holding DVT prophy in setting of thrombocytopenia ICU/Critical care attestation This patient is critically ill with 30 minutes devoted solely to this patient managing life/organ supporting interventions that required physician assessment. This includes time spent making adjustments in ventilator settings, IV fluid administration, titration of medications, discussion of patient with consultants and other care providers as well as updating patient and/or family (if patient by virtue of his/her condition is unable to participate in decision making). This does not include time spent performing separately billed procedures. Time is not concurrent with that of other providers.
--- NOTE | 2023-03-08 15:07 | P.CONCA_ITS ---
History of Present Illness History of Present Illness Consult date: 03/08/23 Requesting physician: Alberto Diehl Chief complaint: sepsis, UTI History of present illness: 62 year old white female with Hx of obesity, DM, HTN, neuropathy who presented to [facility] with complaint of nausea, vomiting, diarrhea and dysuria for a few days. She reports she had been feeling weak and sick for a few days and decided to seek help. Upon arrival to [facility] her labs were remarkable for grossly abnormal UA, mildly detectable troponin, tachycardia, and florian. ER initially contacted cardiology due to detectable troponin. Medicine spoke to the ER physician. After vigorous discussion patient was accepted for FLORIAN, UTI, thrombocytopenia, and further work-up. Upon arrival to [facility] patient was in moderate distress. Noted to have rigors, complaining of feeling cold on arrival. Tachycardic >130. Complaining of increased urinary frequency, foul smelling urine for a few days. No CP on arrival to [facility]. Patient met sepsis criteria and has been treated for septic shock and pyelonephritis. Today patient appears clinically better with heart rate and blood pressure improving and stabilizing. Cardiology was asked to consult for elevated troponin. Patient denies chest pain or shortness of breath. [facility] Disclaimer: The information contained in this section may have been updated after the patient was seen, as this information can be updated by other users. Medical History (Updated 03/08/23 @ 15:19 by Concetta Rodriguez APRN) Diabetes mellitus, type 2 Hyperlipidemia Hypertension Kidney stone Migraine Osteoarthritis Sleep apnea Surgical History History of section Family History Family history of stroke Family history of hypertension Family history of diabetes mellitus type II Family history of hyperlipidemia Social History Smoking Status: Never smoker alcohol intake: never substance use type: denies use current occupational status: retired Travel in the last 8 weeks: None household members: none housing: house caffeine: Yes Review of Systems Review of Systems Review of systems:: pertinent systems reviewed and negative unless documented below *Cardiovascular Cardiovascular: Denies chest pain and Denies dyspnea *Respiratory Respiratory: Denies dyspnea Exam Data for Last 24 hours Vital signs and Labs for Last 24 Hours: Temp Pulse Resp BP Pulse Ox O2 Del Method O2 Flow Rate 98.8 F 90 18 127/69 98 Room Air 2 03/08/23 11:37 03/08/23 14:00 03/08/23 14:00 03/08/23 14:00 03/08/23 14:00 03/08/23 14:00 03/07/23 17:00 Laboratory Results - last 24 hr 03/07/23 16:58: POC Glucose 416 H* 03/07/23 17:05: SARS-CoV-2 (PCR) Not detected, Influenza A Untype (PCR) Not detected, Influenza Type B (PCR) Not detected 03/07/23 17:42: WBC 2.3 L, RBC 3.89 L, Hgb 11.2 L, Hct 32.7 L, MCV 84.0, MCH 28.9, MCHC 34.4, RDW 14.5, Plt Count 55 L, MPV 11.3 H, Neut % (Auto) 72.6, Lymph % (Auto) 21.6, [place] % (Auto) 5.2, Eos % (Auto) 0.2, Baso % (Auto) 0.5, Neut # (Auto) 1.7 L, Lymph # (Auto) 0.5 L, [place] # (Auto) 0.1, Eos # (Auto) 0.0, Baso # (Auto) 0.0, Sodium 128 L, Potassium 3.9, Chloride 95 L, Carbon Dioxide 21 L, Anion Gap 15.9 H, BUN 21 H, Creatinine 1.30 H, Estimated GFR 42 L, Est GFR ( Amer) 50 L, Glucose 389 H, Lactate 4.0 H, Calcium 8.9, Total Bilirubin 0.6, AST 50 H, ALT 39, Alkaline Phosphatase 110, Troponin I 0.07 H, Total Protein 6.6, Albumin 3.4 L, Globulin 3.2, Albumin/Globulin Ratio 1.1, TSH 1.08 03/07/23 20:34: POC Glucose 282 H 03/07/23 21:30: Hemoglobin A1c 8.5 H, Troponin I 0.08 H 03/07/23 21:40: Lactate 1.6 03/07/23 23:00: Troponin I 0.08 H 03/08/23 04:58: POC Glucose 248 H 03/08/23 07:10: Sodium 132 L, Potassium 4.1, Chloride 98, Carbon Dioxide 23, Anion Gap 15.1 H, BUN 25 H, Creatinine 1.30 H, Estimated Creat Clear 42, Estimated GFR 42 L, Est GFR ( Amer) 50 L, Glucose 261 H D, Calcium 8.8, Magnesium 1.6, Total Bilirubin 0.5, AST 56 H, ALT 31, Alkaline Phosphatase 93, Total Protein 6.3, Albumin 3.2 L, Globulin 3.1, Albumin/Globulin Ratio 1.0 L 03/08/23 08:05: WBC 6.0 D, RBC 3.85 L, Hgb 11.1 L, Hct 32.5 L, MCV 84.5, MCH 28.8, MCHC 34.1, RDW 14.6, Plt Count 58 L, MPV 10.0, Neut % (Auto) 76.2, Lymph % (Auto) 16.5, [place] % (Auto) 6.7, Eos % (Auto) 0.5, Baso % (Auto) 0.1, Neut # (Auto) 4.6, Lymph # (Auto) 1.0, [place] # (Auto) 0.4, Eos # (Auto) 0.0, Baso # (Auto) 0.0 03/08/23 10:16: POC Glucose 214 H I & O for Last 24 hours: Intake & Output 03/05/23 03/06/23 03/07/23 03/08/23 23:59 23:59 23:59 23:59 Intake Total 1136 / 1136 Output Total 250 / 250 350 / 350 Balance 886 / 886 -350 / -350 Weight 262 lb 1 oz 261 lb 6.4 oz Constitutional Constitutional: no acute distress *Routine Respiratory Exam Respiratory: Present CTA bilaterally and symmetric chest movement *Routine Cardiovascular Exam Cardiovascular: Present RRR, Normal S1 and Normal S2 *Routine Abdominal Exam Abdominal: Present soft and normoactive bowel sounds; Absent tenderness *Routine Extremities Exam Extremities: Present full ROM and normal capillary refill; Absent edema *Routine Skin Exam Skin: Present intact, dry and warm Detailed Neck Exam: Thyroids Thyroid: Absent bruit Meds Home Medications and Allergies Home Medications Medication Instructions Recorded Confirmed Type amlodipine 5 mg tablet 5 mg PO DAILY Hypertension 09/14/20 03/07/23 History hydrocodone 7.5 mg-acetaminophen 1 tab PO Q6H PRN Pain 09/14/20 03/07/23 History 325 mg tablet insulin aspar prot-insulin aspart 20 unit SQ DAILY Diabetes 09/14/20 03/07/23 History 100 unit/mL (70-30) subcutaneous pen lisinopril 40 mg tablet 40 mg PO HS Hypertension 09/14/20 03/07/23 History olanzapine 10 mg tablet 10 mg PO HS MOOD 09/14/20 03/07/23 History pantoprazole 40 mg tablet,delayed 40 mg PO BID GERD 11/06/21 03/07/23 History release carvedilol 25 mg tablet 25 mg PO BID 03/08/23 03/08/23 History doxepin 100 mg capsule 100 mg PO DAILY 03/08/23 03/08/23 History insulin glargine 100 unit/mL (3 80 unit SQ DAILY 03/08/23 03/08/23 History mL) subcutaneous pen (Basaglar KwikPen U-100 Insulin) semaglutide 1 mg/dose (4 mg/3 mL) 1 mg SQ WEEKLY 03/08/23 03/08/23 History subcutaneous pen injector (Ozempic) New Prescriptions to Start Prescriptions: Allergies Allergy/AdvReac Type Severity Reaction Status Date / Time daptomycin [DAPTOMYCIN] AdvReac Mild I-RASH Verified 10/08/20 09:10 Assessment and Plan *Assessment and plan (1) Pyelonephritis: Status: Acute Category: Medical Code(s): N12 - Tubulo-interstitial nephritis, not specified as acute or chronic (2) Septic shock: Status: Acute Category: Medical Code(s): A41.9 - Sepsis, unspecified organism; R65.21 - Severe sepsis with septic shock (3) FLORIAN (acute kidney injury): Status: Acute Category: Medical Code(s): N17.9 - Acute kidney failure, unspecified (4) Myocardial injury: Status: Acute Category: Medical Code(s): I5A - Non-ischemic myocardial injury (non-traumatic) Plan Acute Myocardial injury -Slightly elevated troponin in the setting of acute septic shock and pyelonephritis. -serial troponins due to elevated HS troponin of 95 at [facility]; chest pain free at this time. Troponin mildly elevated 0.07-0.09. -Echocardiogram pending -No planned intervention at this time. Elevated troponin likely secondary to acute septic shock and pyelonephritis. Recommend outpatient further evaluation. Septic Shock Pyelonephritis -UC, BC obtained at outside hospital. repeat BC obtained on admission due to rigors and septic shock. -Continue levofloxacin 750 mg IV daily -White cell count low at 2.3 on admission yesterday, improved to 6 today. -Holding on IV fluids, tolerating p.o. intake. -Tylenol 650mg q6hp for fever >100.4 or rigors -CT of the abdomen obtained this morning. Shows some perinephric stranding. In the setting of her clinical symptoms, consistent with pyelonephritis. Thrombocytopenia - unclear etiology, DDx concerning for cirrhosis, DIC, sepsis -70 at [facility], improved to 58 this morning. Repeat CBC ordered for the morning. -Peripheral smear pending -monitor for spontaneous bleeding FLORIAN - Cr 1.9 at [facility], 1.3 upon arrival here. Baseline 1.0. Creatinine 1.3 this morning. BUN 25. Electrolytes with improvement with sodium 132, magnesium 1.6, potassium 4.1. - caution with nephrotoxins -Repeat CMP and magnesium ordered the morning. - 2/2 sepsis Diabetes 2 Hyperglycemia -reactive to sepsis and due to her diabetes -Morning glucose greater than 200, increase glargine to 70 units tonight. Continue high intensity sliding scale insulin -fingersticks ACHS -A1C elevated 8.5 HTN -BP stable -Holding Amlodipine, Coreg, lisinopril in setting of sepsis and florian; consider resuming tomorrow if blood pressure elevates. CV summary 02/28/2023: Echocardiogram is pending. Elevated troponins likely secondary to acute sepsis and pyelonephritis. No planned intervention at this time. Addendum: Echo- Conclusion Technically difficult study due to poor acoustic windows. Normal biventricular systolic function. Mild hypokinesis of the basal inferior and inferoseptal LV matos. Borderline increase of LVOT gradient at rest. Calcified mitral valve annulus and MV leaflets. Mild MR. Further evaluation of the etiology of the borderline increased LVOT gradient is recommended with cardiac MRI (HCM protocol + aortic valve in-plane view) on an outpatient basis. Please have patient follow-up in cardiology clinic after discharge from hospital to further evaluate valve via cardiac MRI. Patient also needs an outpatient ischemic evaluation.
--- NOTE | 2023-03-08 15:33 | CA_ITS ---
APPROVED REPORT EXAM: Comprehensive 2D, Doppler, and color-flow Echocardiogram Replenishment Merchandising Associate: Iram Morejon RVT Ht: 5 ft 6 in Wt: 261lbs BSA: 2.24 BP: 127/69 mmHg Indications: ELEVATED TROP,DM,SEPTIC,UTI,WES,HTN TDS-PT BODY HABITUS 2D Dimensions LA Volume 50.20 mL LA Volume Index 22.41 mL/m2 (M/F) 16-34 M-Mode Dimensions RVDd 2.21 cm (0.9-2.6) LA Diam 3.66 cm (1.9-4.0) LVDd 4.95 cm (3.5-5.7) LVDs 3.69 cm (3.5-5.7) IVSd 1.45 cm (0.6-1.1) PWd 0.65 cm (0.6-1.1) EF (Teich) 50.00% FS 25.50% EDV (Teich) 115.50 mL TAPSE 1.87 (<1.7) ESV (Teich) 57.80 mL LV Diastology E Decel Time 283 (160-240 msec) E/A Ratio 0.6 Aortic Valve NIMA Index 1.21 cm2/m2 AoV Peak Solo. 256.0 (50-130 cm/s) AO Peak GR. 26.30 mmHg AO Mean GR. 15.90 (<5 mmHg) AO VTI 46.7 (18-25 cm) NIMA (VTI) 2.78 (2.5-4.5 cm2) Mitral Valve MV E Max Solo. 91.0 (40-130 cm/s) MV A Velocity 152.0 (40-130 cm/s) E/A Ratio 0.60 MV Mean Gr. 4.00 (<2mmHg) MV PHT 83.0 ms Pulmonary Valve PV Peak Velocity 93.0 (50-150 cm/s) Tricuspid Valve TR P. Velocity 218.00 cm/s RAP Estimate 10.00 mmHg RVSP 29.00 mmHg Left Ventricle The left ventricle is normal size. The left ventricular systolic function is normal. The left ventricular ejection fraction is within the normal range. There is increased LV wall thickness. There is borderline increase of LVOT gradient at rest (Doppler envelope suggestive of dynamic obstruction). There is mild hypokinesis of the basal inferior and inferoseptal LV matos. Transmitral Doppler flow pattern suggests impaired LV relaxation. LVEF is 60%. Right Ventricle The right ventricle is normal size. The right ventricular systolic function is normal. Atria The left atrium size is normal. The right atrium size is normal. There is no Doppler evidence of interatrial shunt. Aortic Valve The aortic valve leaflets are mildly thickened. The aortic valve opens well. There is no aortic valvular stenosis. Trace aortic regurgitation. Mitral Valve Moderate mitral annular calcification. The mitral valve leaflets are mildly thickened. The mitral valve chordae are also thickened. No evidence of mitral valve stenosis. Mild mitral regurgitation. Tricuspid Valve The tricuspid valve leaflets are thin and pliable. Trace tricuspid regurgitation. RVSP is normal. Pulmonic Valve The pulmonary valve is normal in structure. Mild pulmonic regurgitation. Great Vessels The aortic root is normal in size. The ascending aorta is normal in size. IVC is normal in size and collapses >50% with inspiration. Pericardium There is no pericardial effusion. Other Information Study Quality: Technically Difficult Conclusion Technically difficult study due to poor acoustic windows. Normal biventricular systolic function. Mild hypokinesis of the basal inferior and inferoseptal LV matos. Borderline increase of LVOT gradient at rest. Calcified mitral valve annulus and MV leaflets. Mild MR. Further evaluation of the etiology of the borderline increased LVOT gradient is recommended with cardiac MRI (HCM protocol + aortic valve in-plane view) on an outpatient basis. Electronically signed by : Tamiko Mccloud MD 03/08/2023 22:32:05
--- NOTE | 2023-03-08 15:43 | PC.NURSE ---
Crystal with echo at bedside.
[2023-03-08 16:14] LABS: POC Glucose,Bedside 191 (70-110)
[2023-03-08 20:48] LABS: POC Glucose,Bedside 295 (70-110)
[2023-03-08] MEDS: INSULIN GLARGINE 100 UNITS/ML 3ML FLEXPEN 70 UNIT SQ (20:48)
[2023-03-08] MEDS: OLANZapine 5 MG ODT TABLET 10 MG SL (20:49)
[2023-03-09] VITALS (7 sets, daily range): BP systolic 101–140; BP diastolic 39–80; PULSE 91–105; RESP 16–22; TEMP 36.4–36.6; O2SAT 94–97; BMI 40.7
[2023-03-09] MEDS: APAP/HYDROCODONE 325MG/7.5MG TAB 1 TAB PO ×4 (05:37→22:30)
[2023-03-09] MEDS: humaLOG 100 UNITS/ML 3ML VIAL (SSI) SQ ×4 (05:37→20:41)
[2023-03-09 05:41] LABS: POC Glucose,Bedside 210 (70-110)
[2023-03-09 06:52] LABS: Basophils % 0.3 % (0.1-2.0); Eosinophils % 0.5 % (0.1-12.0); Hematocrit 29.4 % (37.0-47.0); Lymphocytes # 0.9 K/mm3 (0.7-4.5); Lymphocytes % 17.6 % (10-50); Mean Corpuscular HGB Conc 34.2 g/dL (31.8-35.4); Mean Corpuscular Hemoglobin 28.5 pg (27.0-31.2); Mean Corpuscular Volume 83.4 fl (81-99); Mean Platelet Volume 10.2 fl (7.4-10.4); Monocytes # 0.3 K/mm3 (0.1-1.0); Monocytes % 5.1 % (1.7-9.3); Neutrophils # 3.8 K/mm3 (1.8-7.8); Neutrophils % 76.5 % (37.0-80.0); Platelet Count 88 K/mm3 (142-424); Red Blood Count 3.52 M/mm3 (4.20-5.40); Red Cell Distribution Width 14.7 % (11.5-17.5); White Blood Count 4.9 K/mm3 (4.8-10.8)
[2023-03-09 07:07] LABS: Chloride 102 mmol/L (98-107)
[2023-03-09 07:08] LABS: Potassium 4.7 mmoL/L (3.5-5.1); Sodium 132 mmol/L (136-145)
[2023-03-09 07:10] LABS: Alanine Aminotransferase 36 U/L (12-78); Aspartate Amino Transferase 92 U/L (14-36); Blood Urea Nitrogen 31 mg/dl (7-17); Creatinine Clearance Estimated 42 mL/min (50-200); Estimated Glomerular Filt Rate 42 ml/min (>60); GFR (African American) 50 ML/MIN (>60)
[2023-03-09 07:11] LABS: Albumin Level 2.6 g/dl (3.5-5.0); Albumin/Globulin Ratio 0.9 (1.1-1.8); Alkaline Phosphatase 81 U/L (38-126); Anion Gap 10.7 mEq/L (5-15); Bilirubin,Total 0.5 mg/dl (0.2-1.3); Calcium 7.8 mg/dl (8.4-10.2); Carbon Dioxide 24 mmol/L (22.0-30.0); Globulin 2.8 g/dL (1.3-3.2); Glucose 195 mg/dl (74-100); Magnesium 1.7 mg/dl (1.6-2.3); Total Protein,Serum 5.4 g/dl (6.3-8.2)
[2023-03-09] MEDS: PANTOPRAZOLE 40MG TABLET 40 MG PO ×2 (08:23→20:41)
[2023-03-09] MEDS: MAGNESIUM OXIDE 400MG TABLET 400 MG PO ×2 (08:23→20:40)
[2023-03-09] MEDS: POLYETHYLENE GLYCOL 3350 17 GM PACKET PO ×2 (08:23→20:41)
[2023-03-09] MEDS: TAMSULOSIN 0.4MG CAPSULE 0.400000000000000022 MG PO (08:23)
[2023-03-09] MEDS: SODIUM PHOS/BIPHOSPHATE FLEET 133ML ENEMA 133 ML RC (09:08)
[2023-03-09 10:47] LABS: POC Glucose,Bedside 217 (70-110)
--- NOTE | 2023-03-09 11:48 | P.PN_ITS ---
Subjective *Date: 03/09/23 *Time: 14:06 Interval history: Patient feeling somewhat better today, still weak. Abdominal pain doing better but still has not had a bowel movement. No nausea or vomiting. Afebrile. Heart rate improving. On room air. Medical Exam Vital signs and Labs for Last 24 Hours: Vital Signs Temp Pulse Pulse Resp BP Pulse Ox O2 Del Method 03/09/23 10:50 Room Air 03/09/23 08:00 100 H 03/09/23 08:45 Room Air 03/09/23 08:00 Room Air 03/09/23 07:57 97.6 F 105 H 22 116/41 L 95 Room Air 03/09/23 04:00 91 H 03/09/23 06:55 Room Air 03/09/23 05:00 Room Air 03/09/23 04:00 97.6 F 93 H 20 120/71 94 L Room Air 03/09/23 03:00 Room Air 03/09/23 00:00 94 H 03/09/23 01:00 Room Air 03/09/23 00:00 98 F 97 H 20 104/62 L 94 L Room Air 03/08/23 23:00 Room Air 03/08/23 21:00 Room Air 03/08/23 20:00 Room Air 03/08/23 20:00 104 H 03/08/23 20:00 98 F 94 H 20 122/59 L 97 Room Air 03/08/23 18:24 Room Air 03/08/23 16:56 Room Air 03/08/23 16:00 98.5 F 95 H 20 114/64 97 Room Air 03/08/23 15:00 Room Air 03/08/23 14:00 90 18 127/69 98 Room Air 03/08/23 12:00 95 H 03/08/23 12:37 Room Air Intake and Output 03/08/23 03/09/23 03/09/23 23:59 07:59 15:59 Intake Total 270 / 510 360 / 360 Output Total 0 / 350 0 / 0 Balance 270 / 160 360 / 360 Intake: Intake, Oral Amount 270 / 510 360 / 360 Output: Output, Urine Amount 0 / 350 0 / 0 Other: Number of Unmeasured Voids 1 1 Number of Bowel Movements 1 Weight 117.707 kg Patient Weight 03/09/23 23:59 Weight 117.707 kg Laboratory Results - last 24 hr 03/08/23 16:05: POC Glucose 191 H 03/08/23 20:41: POC Glucose 295 H 03/09/23 05:33: POC Glucose 210 H 03/09/23 06:34: WBC 4.9, RBC 3.52 L, Hgb 10.0 L, Hct 29.4 L, MCV 83.4, MCH 28.5, MCHC 34.2, RDW 14.7, Plt Count 88 L D, MPV 10.2, Neut % (Auto) 76.5, Lymph % (Auto) 17.6, [place] % (Auto) 5.1, Eos % (Auto) 0.5, Baso % (Auto) 0.3, Neut # (Auto) 3.8, Lymph # (Auto) 0.9, [place] # (Auto) 0.3, Eos # (Auto) 0.0, Baso # (Auto) 0.0, Sodium 132 L, Potassium 4.7, Chloride 102, Carbon Dioxide 24, Anion Gap 10.7, BUN 31 H, Creatinine 1.30 H, Estimated Creat Clear 42, Estimated GFR 42 L, Est GFR ( Amer) 50 L, Glucose 195 H D, Calcium 7.8 L, Magnesium 1.7, Total Bilirubin 0.5, AST 92 H D, ALT 36, Alkaline Phosphatase 81, Total Protein 5.4 L, Albumin 2.6 L D, Globulin 2.8, Albumin/Globulin Ratio 0.9 L 03/09/23 10:41: POC Glucose 217 H I & O for Labs for Last 24 Hours: Intake & Output 03/06/23 03/07/23 03/08/23 03/09/23 23:59 23:59 23:59 23:59 Intake Total 1136 / 1136 510 / 510 360 / 360 Output Total 250 / 250 350 / 350 0 / 0 Balance 886 / 886 160 / 160 360 / 360 Weight 118.87 kg 118.569 kg 117.707 kg Constitutional: Present no acute distress, morbidly obese, chronically ill appearing and cooperative Head: Present atraumatic and normocephalic ENT: Present normal exam and mucous membranes dry Neck: Present normal inspection Respiratory: Present normal respiratory effort; Absent rhonchi, wheezes or crackles Cardiac: Present Reg Rate and Rhythm GI: Present soft, tenderness (Diffuse, interval improvement) and normal bowel sounds; Absent distention Extremities: Present normal inspection and full ROM Skin: Present intact and dry; Absent erythema Comment:: Warm Neuro: Present Grossly Intact, alert, awake, oriented x 3 and moves all extremities Assessment and Plan *Assessment and plan (1) Pyelonephritis: Status: Acute Category: Medical Code(s): N12 - Tubulo-interstitial nephritis, not specified as acute or chronic (2) Septic shock: Status: Acute Category: Medical Code(s): A41.9 - Sepsis, unspecified organism; R65.21 - Severe sepsis with septic shock (3) FLORIAN (acute kidney injury): Status: Acute Category: Medical Code(s): N17.9 - Acute kidney failure, unspecified (4) Hyperglycemia due to type 2 diabetes mellitus: Status: Acute Qualifiers: Diabetes mellitus manager terminal insulin use: with manager terminal use Qualified Code(s): E11.65 - Type 2 diabetes mellitus with hyperglycemia; Z79.4 - longterm (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 Category: Medical Code(s): E11.65 - Type 2 diabetes mellitus with hyperglycemia (5) Class 3 obesity: Status: Acute Category: Medical Code(s): E66.01 - Morbid (severe) obesity due to excess calories (6) Neuropathy: Status: Acute Category: Medical Code(s): G62.9 - Polyneuropathy, unspecified (7) Depression: Status: Acute Qualifiers: Depression Type: major depressive disorder Category: Medical Code(s): F32.A - Depression, unspecified (8) Sleep apnea: Status: Acute Qualifiers: Sleep apnea type: obstructive Qualified Code(s): G47.33 - Obstructive sleep apnea (adult) (pediatric) Category: Medical Code(s): G47.30 - Sleep apnea, unspecified Plan 62 yo female with multiple co-morbidities who presented to [facility] with worsening nausea, weakness, vomiting and dysuria. Found to have a UTI, detectable troponin, and FLORIAN. ER at [place] consulted Medicine for admission due to complexity of patient. Discussion with ER physician, concern for detectable troponin and UTI. Medicine agreed to admit. Upon arrival, patient found to be in septic chock with tachycardia, leukopenia, UTI/pyelonephritis, and lactate of 4. Received Ceftriaxone and blood cultures and UC obtained at [facility]. Administered levofloxacin upon arrival. Admitted to step down level of care. Continues to necessitate inpatient management and IV antibiotics. Nasima wing some gradual improvement. Anticipate discharge in the next 24 hours. Problems addressed as follows: Septic Shock, resolved Pyelonephritis Elevated troponin - UC, BC obtained at outside hospital. repeat BC obtained on admission due to rigors and septic shock. Culture still pending, no results as of yet. -Continue levofloxacin 750 mg IV daily -White cell count at 4.9. Repeat CBC ordered for the morning. - Tylenol 650mg q6hp for fever >100.4 or rigors - serial troponins due to elevated HS troponin of 95 at [facility]; chest pain free at this time. Troponin mildly elevated 0.07-0.09. Cardiology consulted to facilitate recommendations for further management as outpatient. Thrombocytopenia - unclear etiology, DDx concerning for cirrhosis, DIC, sepsis; appears to be improving. Platelets 88 this morning. - Peripheral smear pending - monitor for spontaneous bleeding FLORIAN - Cr 1.9 at [facility], 1.3 upon arrival here. Baseline 1.0. Creatinine 1.3 this morning. BUN 31. Electrolytes with improvement with sodium 132, magnesium 1.7, potassium 4.7 -Magnesium p.o. 400 mg twice daily given low magnesium and constipation - caution with nephrotoxins -Repeat CMP and magnesium ordered the morning. - 2/2 sepsis Diabetes 2 Hyperglycemia - reactive to sepsis and due to her diabetes -Morning glucose greater than 190, increase glargine to 85 units tonight. Continue high intensity sliding scale insulin - fingersticks ACHS - A1C elevated 8.5 Neuropatthy/Chronic pain - resume Hydrocodone 7.5mg Q6HP Mood disorder/Depression - resume olanzapine 10mg HS HTN - Holding Amlodipine, lisinopril in setting of sepsis and florian -Blood pressures improving, resume carvedilol 25 mg twice daily. Continue Pantoprazole 40mg PO BID for gerd Full code Diabetic diet Holding DVT prophy in setting of thrombocytopenia
[2023-03-09] MEDS: LEVOFLOXACIN/D5W 750 MG/150 ML 750 MG/150 ML PIGGYBACK 100 MG IV (14:26)
[2023-03-09 16:57] LABS: POC Glucose,Bedside 278 (70-110)
--- NOTE | 2023-03-09 17:44 | PC.NURSE ---
Pt alert and oriented x4. Pt has used the bedside throughout shift with standby assist. Pt complained of constipation, treated per mar, enema administered with good results. Pt has been treated per mar for pain. Pt lung sounds clear. Abdomen soft, bowel sounds active. No other complaints from pt. Bed in lowest position, call light in reach.
[2023-03-09 20:09] LABS: POC Glucose,Bedside 213 (70-110)
[2023-03-09] MEDS: OLANZapine 5 MG ODT TABLET 10 MG SL (20:40)
[2023-03-09] MEDS: CARVEDILOL 25MG TABLET 25 MG PO (20:41)
[2023-03-09] MEDS: INSULIN GLARGINE 100 UNITS/ML 3ML FLEXPEN 85 UNIT SQ (20:41)
[2023-03-10] VITALS: BP 115/61; PULSE 84; PULSE 88; RESP 16; TEMP 36.7; O2SAT 96
[2023-03-10 04:00] VITALS: BP 102/63; PULSE 80; PULSE 82; TEMP 36.7; O2SAT 96; BMI 40.7
--- NOTE | 2023-03-10 05:21 | PC.NURSE ---
Patient has had a great night. Has been able to sleep most of the shift. Patient has been up to bathroom multiple times. Patient has remained sinus on the monitor. Patient has complained of abd pain see MAR. no other issues this shift
[2023-03-10] MEDS: APAP/HYDROCODONE 325MG/7.5MG TAB 1 TAB PO (05:57)
[2023-03-10] MEDS: humaLOG 100 UNITS/ML 3ML VIAL (SSI) SQ (05:58)
[2023-03-10 06:02] LABS: POC Glucose,Bedside 156 (70-110)
[2023-03-10 06:49] LABS: Basophils % 0.5 % (0.1-2.0); Eosinophils % 0.6 % (0.1-12.0); Hematocrit 29.7 % (37.0-47.0); Hemoglobin 10.1 g/dL (12.2-16.2); Lymphocytes # 1.1 K/mm3 (0.7-4.5); Lymphocytes % 20.7 % (10-50); Mean Corpuscular HGB Conc 33.9 g/dL (31.8-35.4); Mean Corpuscular Hemoglobin 28.8 pg (27.0-31.2); Mean Corpuscular Volume 84.8 fl (81-99); Monocytes # 0.3 K/mm3 (0.1-1.0); Monocytes % 6.2 % (1.7-9.3); Neutrophils # 3.9 K/mm3 (1.8-7.8); Platelet Count 105 K/mm3 (142-424); Red Cell Distribution Width 14.8 % (11.5-17.5); White Blood Count 5.5 K/mm3 (4.8-10.8)
[2023-03-10 06:59] LABS: Chloride 103 mmol/L (98-107); Sodium 133 mmol/L (136-145)
[2023-03-10 07:00] LABS: Potassium 4.4 mmoL/L (3.5-5.1)
[2023-03-10 07:02] LABS: Alanine Aminotransferase 41 U/L (12-78); Albumin Level 2.6 g/dl (3.5-5.0); Albumin/Globulin Ratio 0.9 (1.1-1.8); Alkaline Phosphatase 119 U/L (38-126); Anion Gap 9.4 mEq/L (5-15); Aspartate Amino Transferase 73 U/L (14-36); Bilirubin,Total 0.4 mg/dl (0.2-1.3); Blood Urea Nitrogen 26 mg/dl (7-17); Calcium 7.2 mg/dl (8.4-10.2); Carbon Dioxide 25 mmol/L (22.0-30.0); Creatinine Clearance Estimated 50 mL/min (50-200); Estimated Glomerular Filt Rate 50 ml/min (>60); GFR (African American) 61 ML/MIN (>60); Glucose 189 mg/dl (74-100); Total Protein,Serum 5.6 g/dl (6.3-8.2)
[2023-03-10 07:03] LABS: Magnesium 1.8 mg/dl (1.6-2.3)
--- NOTE | 2023-03-10 07:15 | P.DS_ITS ---
General Admission date:: 03/07/23 Discharge date: 03/10/23 HPI HPI HPI: 62 yo F with Hx of obesity, DM, HTN, neuropathy who [facility] with complaint of nausea, vomiting, diarrhea and dysuria for a few days. She reports she has been feeling weak and sick for a few days and decided to seek help. Upon arrival to [facility] her labs were remarkable for grossly abnormal UA, mildly detectable troponin, tachycardia, and florian. ER initially contacted cardiology due to detectable troponin. Medicine spoke to the ER physician. After vigorous discusion patient was accepted for FLORIAN, UTI, thrombocytopenia, and further work-up. Upon arrival patient in moderate distress. Noted to have rigors, complaining of feeling cold on arrival. Tachycardic >130. complaining of increased urinary frequency, foul smelling urine for a few days. She appears significantly ill. No CP on arrival to [facility]. lips mildly cyanotic and patient was initiated on 2L NC O2 for comfort. Repeat labs obtained. Alert and oriented to person, place and situation. Hospital Course Hospital Course Hospital Course: 62 yo female with multiple co-morbidities who presented to [facility] with worsening nausea, weakness, vomiting and dysuria. Found to have a UTI, detectable troponin, and FLORIAN. ER at [place] consulted Medicine for admission due to complexity of patient. Discussion with ER physician, concern for detectable troponin and UTI. Medicine agreed to admit. Upon arrival, patient found to be in septic chock with tachycardia, leukopenia, UTI/pyelonephritis, and lactate of 4. Received Ceftriaxone and blood cultures and UC obtained at [facility]. Administered levofloxacin upon arrival. Admitted to step down level of c are. Patient is shown improvement. Was transitioned to levofloxacin. Plan to complete 7-day course of antibiotics. Urine culture positive for E. coli. Stable on room air and tolerating p.o. intake. Meeting criteria for discharge home. Problems addressed as follows: Septic Shock, resolved Pyelonephritis Elevated troponin -On initial presentation to outside hospital, there was concern for urinary tract infection and elevated troponin. This triggered her transfer to our institution for further care. On arrival, patient was found to be in septic shock with rigors, tachycardia, grossly abnormal urine, and elevated lactate of 4.4. Initiated on levofloxacin 750 mg IV daily. Cultures were obtained. Patient's urine culture from [place] returned positive for E. coli that was pansensitive. Blood cultures were obtained at our institution but unfortunately this was after she had already received a dose of ceftriaxone. Culture still pending at time of discharge. Given the setting of bacteremia, given her clinical improvement on current antibiotics would still recommend 7 days total of therapy. Discharged home on oral Levaquin 750 mg every 48 hours due to renal function. Serial troponins due to elevated HS troponin of 95 at [facility]; chest pain free at this time. Troponin mildly elevated 0.07-0.09. Cardiology consulted to facilitate recommendations for further management as outpatient. Thrombocytopenia - unclear etiology, DDx concerning for cirrhosis, DIC, sepsis; appears to be improving. Platelets 105 on day of discharge. Thrombocytopenia most consistent with DIC in the setting of sepsis. Peripheral smear was unremarkable. No signs of spontaneous bleeding. Recommend repeat CBC at follow-up. FLORIAN: - Cr 1.9 at [facility], 1.3 upon arrival here. Baseline 1.0. Improved to 1.1 on day of discharge, BUN 26. Electrolytes normalizing. Recommend repeat CMP and magnesium at follow-up. FLORIAN appears to be resolved. Diabetes 2 Hyperglycemia - reactive to sepsis and due to her diabetes. When appropriate was resumed on her home regimen of glargine, continue Basaglar 80 units nightly. Recommend increasing her mealtime insulin by 5 units to 25 once daily. A1c 8.5 on admis joe. Recommend further adjustment as an outpatient. Neuropatthy/Chronic pain: resume Hydrocodone 7.5mg Q6HP Mood disorder/Depression: resume olanzapine 10mg HS HTN: During admission, blood pressure was soft. Resumed her carvedilol prior to discharge and was tolerated well. Continue at this time. Continue to hold however her amlodipine and lisinopril. Discussed resumption at follow-up pe nding normalization of blood pressure or development of hypertension. Continue Pantoprazole 40mg PO BID for gerd Patient overall doing well, tolerating p.o. intake, weak but ambulatory. Recommended family stay with her for a few days while she regains her strength. Stable to discharge home. Was evaluated by therapy during admission, patient requiring no therapy services at this time. Spent 30 minutes in discharge counseling, documentation, and direct care with patient. Exam Data for Last 24 hours Vital signs and Labs for Last 24 Hours: Temp Pulse Resp BP Pulse Ox O2 Del Method O2 Flow Rate 98.1 F 82 16 102/63 L 96 Room Air 2 03/10/23 04:00 03/10/23 04:00 03/10/23 00:00 03/10/23 04:00 03/10/23 04:00 03/10/23 06:57 03/07/23 17:00 Laboratory Results - last 24 hr 03/09/23 10:41: POC Glucose 217 H 03/09/23 16:50: POC Glucose 278 H 03/09/23 20:02: POC Glucose 213 H 03/10/23 05:54: POC Glucose 156 H 03/10/23 06:19: WBC 5.5, RBC 3.50 L, Hgb 10.1 L, Hct 29.7 L, MCV 84.8, MCH 28.8, MCHC 33.9, RDW 14.8, Plt Count 105 L, MPV 11.0 H, Neut % (Auto) 72.0, Lymph % (Auto) 20.7, [place] % (Auto) 6.2, Eos % (Auto) 0.6, Baso % (Auto) 0.5, Neut # (Auto) 3.9, Lymph # (Auto) 1.1, [place] # (Auto) 0.3, Eos # (Auto) 0.0, Baso # (Auto) 0.0, Sodium 133 L, Potassium 4.4, Chloride 103, Carbon Dioxide 25, Anion Gap 9.4, BUN 26 H, Creatinine 1.10 H, Estimated Creat Clear 50, Estimated GFR 50 L, Est GFR ( Amer) 61 D, Glucose 189 H, Calcium 7.2 L, Magnesium 1.8, Total Bilirubin 0.4, AST 73 H, ALT 41, Alkaline Phosphatase 119, Total Protein 5.6 L, Albumin 2.6 L, Globulin 3.0, Albumin/Globulin Ratio 0.9 L I & O for Last 24 hours: Intake & Output 03/07/23 03/08/23 03/09/23 03/10/23 23:59 23:59 23:59 23:59 Intake Total 1136 / 1136 510 / 510 1470 / 1820 350 / 350 Output Total 250 / 250 350 / 350 0 / 0 300 / 300 Balance 886 / 886 160 / 160 1470 / 1820 50 / 50 Weight 118.87 kg 118.569 kg 117.7 kg 117.7 kg Constitutional Constitutional: no acute distress, morbidly obese, chronically ill appearing and cooperative *Routine HEENT Exam Head: Present normocephalic Eye: Present EOMI and PERRL ENT: Present mucous membranes moist *Routine Neck Exam Neck: Present supple; Absent lymphadenopathy *Routine Respiratory Exam Respiratory: Present CTA bilaterally; Absent rhonchi, wheezes or crackles *Routine Cardiovascular Exam Cardiovascular: Present RRR *Routine Abdominal Exam Abdominal: Present soft and normoactive bowel sounds; Absent tenderness *Routine Extremities Exam Extremities: Absent cyanosis, clubbing or edema *Routine Skin Exam Skin: Present warm; Absent rash *Routine Neurological Exam Neurological: Present alert, oriented X3 and moving all extremities; Absent altered mental status Results Data Completed and Pending Labs on day of discharge: Labs from last 24 hours 03/10/23 03/10/23 03/09/23 06:19 05:54 20:02 WBC 5.5 RBC 3.50 L Hgb 10.1 L Hct 29.7 L MCV 84.8 MCH 28.8 MCHC 33.9 RDW 14.8 Plt Count 105 L MPV 11.0 H Neut % (Auto) 72.0 Lymph % (Auto) 20.7 [place] % (Auto) 6.2 Eos % (Auto) 0.6 Baso % (Auto) 0.5 Neut # (Auto) 3.9 Lymph # (Auto) 1.1 [place] # (Auto) 0.3 Eos # (Auto) 0.0 Baso # (Auto) 0.0 Sodium 133 L Potassium 4.4 Chloride 103 Carbon Dioxide 25 Anion Gap 9.4 BUN 26 H Creatinine 1.10 H Estimated Creat Clear 50 Estimated GFR 50 L Est GFR ( Amer) 61 D Glucose 189 H POC Glucose 156 H 213 H Calcium 7.2 L Magnesium 1.8 Total Bilirubin 0.4 AST 73 H ALT 41 Alkaline Phosphatase 119 Total Protein 5.6 L Albumin 2.6 L Globulin 3.0 Albumin/Globulin Ratio 0.9 L 03/09/23 03/09/23 16:50 10:41 WBC RBC Hgb Hct MCV MCH MCHC RDW Plt Count MPV Neut % (Auto) Lymph % (Auto) [place] % (Auto) Eos % (Auto) Baso % (Auto) Neut # (Auto) Lymph # (Auto) [place] # (Auto) Eos # (Auto) Baso # (Auto) Sodium Potassium Chloride Carbon Dioxide Anion Gap BUN Creatinine Estimated Creat Clear Estimated GFR Est GFR ( Amer) Glucose POC Glucose 278 H 217 H Calcium Magnesium Total Bilirubin AST ALT Alkaline Phosphatase Total Protein Albumin Globulin Albumin/Globulin Ratio DS: Diagnosis Discharge Diagnosis (1) Pyelonephritis: Status: Acute Code(s): N12 - Tubulo-interstitial nephritis, not specified as acute or chronic (2) Septic shock: Status: Acute Code(s): A41.9 - Sepsis, unspecified organism; R65.21 - Severe sepsis with septic shock (3) FLORIAN (acute kidney injury): Status: Acute Code(s): N17.9 - Acute kidney failure, unspecified (4) Hyperglycemia due to type 2 diabetes mellitus: Status: Acute Code(s): E11.65 - Type 2 diabetes mellitus with hyperglycemia Qualifiers: Diabetes mellitus buttermaker helper insulin use: with jail use Qualified Code(s): E11.65 - Type 2 diabetes mellitus with hyperglycemia; Z79.4 - senior care (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 (5) Class 3 obesity: Status: Acute Code(s): E66.01 - Morbid (severe) obesity due to excess calories (6) Neuropathy: Status: Acute Code(s): G62.9 - Polyneuropathy, unspecified (7) Depression: Status: Acute Code(s): F32.A - Depression, unspecified Qualifiers: Depression Type: major depressive disorder (8) Sleep apnea: Status: Acute Code(s): G47.30 - Sleep apnea, unspecified Qualifiers: Sleep apnea type: obstructive Qualified Code(s): G47.33 - Obstructive sleep apnea (adult) (pediatric) Meds Home Medications and Allergies Home Medications Medication Instructions Recorded Confirmed Type amlodipine 5 mg tablet 5 mg PO DAILY Hypertension 09/14/20 03/07/23 History hydrocodone 7.5 mg-acetaminophen 1 tab PO Q6H PRN Pain 09/14/20 03/07/23 History 325 mg tablet lisinopril 40 mg tablet 40 mg PO HS Hypertension 09/14/20 03/07/23 History olanzapine 10 mg tablet 10 mg PO HS MOOD 09/14/20 03/07/23 History pantoprazole 40 mg tablet,delayed 40 mg PO BID GERD 11/06/21 03/07/23 History release carvedilol 25 mg tablet 25 mg PO BID 03/08/23 03/08/23 History doxepin 100 mg capsule 100 mg PO DAILY 03/08/23 03/08/23 History insulin glargine 100 unit/mL (3 80 unit SQ DAILY 03/08/23 03/08/23 History mL) subcutaneous pen (Basaglar KwikPen U-100 Insulin) semaglutide 1 mg/dose (4 mg/3 mL) 1 mg SQ WEEKLY 03/08/23 03/08/23 History subcutaneous pen injector (Ozempic) levofloxacin 750 mg tablet 750 mg PO Q48H 4 days #2 tabs 03/09/23 Rx insulin aspar prot-insulin aspart 25 unit (0.25 mL) SQ DAILY 03/10/23 03/07/23 Rx 100 unit/mL (70-30) subcutaneous Diabetes 30 days #0 mL pen New Prescriptions to Start Prescriptions: levofloxacin Alberto Diehl Allergies Allergy/AdvReac Type Severity Reaction Status Date / Time daptomycin [DAPTOMYCIN] AdvReac Mild I-RASH Verified 10/08/20 09:10 Discharge Plan Disposition Patient Disposition: Home, Self-Care Condition: Fair Discharge Order Discharge Orders: Discharge Order (Routine); Ordered 03/10/23 Ordered By: Alberto Diehl Follow up Plan Follow up with: Buddy Blanton MD [Primary Care Provider] - 03/15/23 12:30 pm Joel Mccloud MD [Staff Physician] - Enter time for follow up Prescriptions/Medication Reconciliation: New levofloxacin 750 mg tablet 750 mg PO Q48H 4 Days Qty: 2 0RF Rx Instructions: first dose due Sunday04/11/22 Continued pantoprazole 40 MG tablet,delayed release (DR/EC) 40 mg PO BID olanzapine 10 MG tablet 10 mg PO HS hydrocodone-acetaminophen 1 EACH tablet 1 tab PO Q6H PRN (Reason: Pain) carvedilol 25 mg tablet 25 mg PO BID doxepin 100 mg capsule 100 mg PO DAILY insulin glargine [Basaglar KwikPen U-100 Insulin] 100 unit/mL (3 mL) insulin pen 80 unit SQ DAILY Ozempic 1 mg/dose (4 mg/3 mL) pen injector 1 mg SQ WEEKLY Changed insulin asp prt-insulin aspart 100 UNIT/ML insulin pen 25 unit SQ DAILY 30 Days Qty: 0 0RF Held amlodipine 5 MG tablet 5 mg PO DAILY Hold Instructions: pending follow-up with PCP lisinopril 40 MG tablet 40 mg PO HS Hold Instructions: pending follow-up with PCP Problem Reconciliation Problems Reviewed?: Yes Patient Discharge Instructions ACTIVITY: Continue current activity DIET: continue same diet Patient Instructions: DI for Urinary Tract Infection (UTI), DI for Hyperglycemia -- Adult, DI for Sepsis -- Adult, DI for Acute Kidney Injury Providers Primary Care Provider: Buddy Blanton Admit Provider: Alberto Diehl Attending Provider: Alberto Diehl
[2023-03-10 07:56] VITALS: BP 111/64; PULSE 91; RESP 18; TEMP 36.7; O2SAT 95
[2023-03-10 08:00] VITALS: PULSE 100
[2023-03-10 08:10] LABS: Peripheral Smear Review Scanned Result
[2023-03-10] MEDS: POLYETHYLENE GLYCOL 3350 17 GM PACKET PO (08:56)
[2023-03-10] MEDS: PANTOPRAZOLE 40MG TABLET 40 MG PO (08:56)
[2023-03-10] MEDS: MAGNESIUM OXIDE 400MG TABLET 400 MG PO (08:56)
[2023-03-10] MEDS: CARVEDILOL 25MG TABLET 25 MG PO (08:56)
[2023-03-10] MEDS: TAMSULOSIN 0.4MG CAPSULE 0.400000000000000022 MG PO (08:57)
--- NOTE | 2023-03-10 10:17 | HMH.PHAINT1 ---
Pharmacy Intervention Comments: DISCHARGE MEDICATION COUNSELING PROVIDED. DISCUSSED HOLDING THE AMLODIPINE AND LISINOPRIL UNTIL FOLLOW-UP WITH PRIMARY CARE DOCTOR, INCREASE ON THE NOVOLOG FROM 20 UNITS TO 25 UNITS DAILY AND START LEVAQUIN (ANTIBIOTIC, TAKE EVERY 2 DAYS (48 HRS), TAKE WITH FOOD, N/V/D POSSIBLE, START TOMORROW). PATIENT ASKED ME TO GO THROUGH HER LIST ITEM BY ITEM AND EACH MEDICATION WAS REVIEWED. NO FURTHER QUESTIONS AT THIS TIME.
--- NOTE | 2023-03-13 15:18 | CARE MANAGER ---
Addendum entered by Laurie Peck 03/15/23 07:40: Jailyn nielsen/ [facility] now stated that she can accept this patient for services. I will update Jess nielsen/ [facility]. Addendum entered by Laurie Peck 03/14/23 13:25: Jailyn Harris is unable to accept this patient due to insurance. Patient information/order has been faxed to Jess nielsen/ [facility]. Addendum entered by Laurie Peck 03/13/23 15:22: Patient information/order has been faxed to Jailyn nielsen/ [facility] [employer]. Original Note: Contacted patient patient related to hospital discharge. Patient complains of continuing to be weak. Therapy evals indicated home health would be indicated. She is agreeable to this and has no preference for agency. She is aware of follow up appointments and is taking medication. Denies other questions or concerns.
== END 2023-03-10 11:25 | disposition home or self-care (01) ==
PROVIDERS: Admitting Provider Internal Medicine Adolescent Medicine; PCP Internal Medicine Adolescent Medicine; Visit Provider Internal Medicine Adolescent Medicine
DX: N12 Tubulo-interstitial nephritis, not specified as acute or chronic (principal); E11.65 Type 2 diabetes mellitus with hyperglycemia; Z79.4 Long term (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; E66.01 Morbid (severe) obesity due to excess calories; G62.9 Polyneuropathy, unspecified; F32.A Depression, unspecified; G47.33 Obstructive sleep apnea (adult) (pediatric); Z68.41 Body mass index [BMI] 40.0-44.9, adult; A41.9 Sepsis, unspecified organism; R65.21 Severe sepsis with septic shock
CPT/HCPCS: 36415; 74176; 80053; 82962; 83036; 83605; 83735; 84443; 84484; 85025; 87040; 87636; 93306; 97116; 97163; 97166; 97530; G0378; J1956; J2405; J3475

== ENCOUNTER 2023-03-15 13:55 | Outpatient (CLI) | payer BC, SELFPAY ==
[2023-03-15 14:43] LABS: Basophils % 0.3 % (0.1-2.0); Eosinophils % 0.5 % (0.1-12.0); Hematocrit 35.8 % (37.0-47.0); Hemoglobin 11.4 g/dL (12.2-16.2); Lymphocytes # 1.5 K/mm3 (0.7-4.5); Lymphocytes % 20.9 % (10-50); Mean Corpuscular Hemoglobin 28.9 pg (27.0-31.2); Mean Corpuscular Volume 90.3 fl (81-99); Mean Platelet Volume 8.7 fl (7.4-10.4); Monocytes # 0.3 K/mm3 (0.1-1.0); Neutrophils # 5.4 K/mm3 (1.8-7.8); Neutrophils % 74.2 % (37.0-80.0); Platelet Count 153 K/mm3 (142-424); Red Blood Count 3.96 M/mm3 (4.20-5.40); Red Cell Distribution Width 15.4 % (11.5-17.5); White Blood Count 7.3 K/mm3 (4.8-10.8)
--- NOTE | 2023-03-15 15:04 | CA_ITS ---
FINAL REPORT TECHNIQUE: Color Doppler, duplex Doppler and compression sonography of the left lower extremity deep venous systems was performed. CLINICAL HISTORY: left leg pain, edema x 2weeks post hospitalization COMPARISON: None FINDINGS: Positive for DVT extending from the common femoral vein throughout the left leg with partial flow noted in the posterior tibial vein. IMPRESSION: Positive deep venous thrombosis left lower extremity. Reviewed, Interpreted and Dictated by Geoffrey Rowland III, MD Transcribed by Lori Hinkle Authenticated and . [facility]
[2023-03-15 15:06] LABS: Alanine Aminotransferase 33 U/L (12-78); Albumin Level 3.4 g/dl (3.5-5.0); Alkaline Phosphatase 143 U/L (38-126); Aspartate Amino Transferase 53 U/L (14-36); Bilirubin,Direct 0.2 mg/dl (0.0-0.4); Bilirubin,Indirect 0.5 mg/dL (0.0-0.9); Bilirubin,Total 0.7 mg/dl (0.2-1.3); Bilirubin,Unconjugated 0.5 mg/dL (0.0-1.1); Cholesterol 163 mg/dl (140-200); Magnesium 1.6 mg/dl (1.6-2.3); Total Protein,Serum 6.9 g/dl (6.3-8.2); Triglycerides 211 mg/dl (30-150); VLDL Cholesterol 42 mg/dL (0-40)
[2023-03-15 15:07] LABS: Chol/HDL Ratio 5.4 (1-3.5); HDL Cholesterol 30 mg/dl (40-60)
[2023-03-15 15:17] LABS: Direct LDL Cholesterol 82.62 mg/dL (100-129)
[2023-03-15 15:18] LABS: Alanine Aminotransferase 34 U/L (12-78); Albumin Level 3.4 g/dl (3.5-5.0); Alkaline Phosphatase 129 U/L (38-126); Aspartate Amino Transferase 48 U/L (14-36); Bilirubin,Total 0.7 mg/dl (0.2-1.3); Blood Urea Nitrogen 10 mg/dl (7-17); Carbon Dioxide 18 mmol/L (22.0-30.0); Chloride 110 mmol/L (98-107); Estimated Glomerular Filt Rate 73 ml/min (>60); GFR (African American) 88 ML/MIN (>60); Globulin 3.4 g/dL (1.3-3.2); Glucose 180 mg/dl (74-100); Sodium 139 mmol/L (136-145); Total Protein,Serum 6.8 g/dl (6.3-8.2)
[2023-03-15 15:37] LABS: Thyroid Stimulating Hormone 0.81 uIU/mL (0.465-4.68)
[2023-03-15 15:42] LABS: Free T4 (Free Thyroxine) 1.47 ng/dl (0.78-2.19)
== END 2023-03-15 23:59 ==
PROVIDERS: PCP Internal Medicine Adolescent Medicine; Referring Provider Internal Medicine Adolescent Medicine; Visit Provider Nurse Practitioner
DX: R06.00 Dyspnea, unspecified (principal); R94.31 Abnormal electrocardiogram [ECG] [EKG]; Q20.8 Other congenital malformations of cardiac chambers and connections; R93.1 Abnormal findings on diagnostic imaging of heart and coronary circulation; M79.662 Pain in left lower leg; R53.1 Weakness
CPT/HCPCS: 36415; 80053; 80061; 80076; 83735; 84439; 84443; 85025; 93971

== ENCOUNTER 2023-03-15 15:55 | Observation (INO) | payer BC, SELFPAY ==
[2023-03-15 15:55] VITALS: BP 187/100; PULSE 98; RESP 17; TEMP 36.5; O2SAT 99; BMI 41.5
--- NOTE | 2023-03-15 16:10 | PC.NURSE ---
Dr. Gonsales at [facility] for pt eval
--- NOTE | 2023-03-15 16:19 | CT_ITS ---
PROCEDURE INFORMATION: Exam: CTA Chest With Contrast Exam date and time: 03/15/2023 5:01 PM Age: 62 years old Clinical indication: Dyspnea; Additional info: + dvt, dyspnea TECHNIQUE: Imaging protocol: Computed tomographic angiography of the chest with contrast. Exam focused on the arteries. 3D rendering (Not supervised by radiologist): MIP and/or 3D reconstructed images were created by the technologist. Radiation optimization: All CT scans at this facility use at least one of these dose optimization techniques: automated exposure control; mA and/or kV adjustment per patient size (includes targeted exams where dose is matched to clinical indication); or iterative reconstruction. Contrast material: ISOVUE 370; Contrast volume: 70 ml; Contrast route: INTRAVENOUS (IV); COMPARISON: DX ABD SERIES W CHEST 03/07/2023 1:45 PM FINDINGS: Pulmonary arteries: Pulmonary saddle embolus extending into the right and left pulmonary arteries where it is nonocclusive. Pulmonary emboli extends into multiple right upper, middle, lower lobe and left lower lobe pulmonary arteries. Main pulmonary artery is normal caliber. Aorta: No aortic aneurysm. No aortic dissection or evidence of acute aortic abnormality. Thyroid: Approximately 1.2 cm right thyroid nodule and small calcification, no specific follow-up imaging is indicated. Lungs: Mild dependent opacities. Small subpleural opacity in the left lower lobe. Right upper lobe calcified granuloma. Pleural spaces: No pneumothorax. No pleural effusion. Heart: Heart size is normal. Mitral annular calcifications. No pericardial effusion. Heart RV/LV ratio: 0.93. Coronary arteries: No coronary artery calcifications seen, evaluation limited. Lymph nodes: Calcified mediastinal/hilar lymph nodes compatible with remote granulomatous disease. Bones/joints: No acute osseous abnormality or suspicious osseous lesion. Soft tissues: Unremarkable. Other findings: No acute abnormality in the included upper abdomen. Splenomegaly. Spleen measures 14.7 cm on axial images.No acute osseous abnormality or suspicious osseous lesion. IMPRESSION: 1. Pulmonary saddle embolus extending into the right and left pulmonary arteries where it is nonocclusive. Pulmonary emboli extends into multiple right upper, middle, lower lobe and left lower lobe pulmonary arteries. RV/LV ratio: 0.93. Main pulmonary artery is normal caliber. 2. Small non-specific subpleural opacity in the left lower lobe, may represent atelectasis, infectious/inflammatory process, or in the setting of pulmonary embolus small pulmonary infarct. 3. Splenomegaly. 4. Other chronic and incidental findings as detailed above. COMMENTS: Consistent with the [employer]'s Incidental Findings Committee white paper (J Am Keerthi Radiol 2015): In patients aged 35 years and older with an incidental thyroid nodule equal to or greater than 1.[address], MRI or extrathyroidal US, further evaluation with dedicated thyroid US is recommended for patients with normal life expectancy and without comorbidities. For smaller nodules without suspicious features, no further evaluation or follow up is recommended.
--- NOTE | 2023-03-15 16:20 | ED_ITS ---
Discharge Plan Disposition Patient Disposition: Admitted Clinical Impressions Clinical Impression: Dyspnea Dvt femoral (deep venous thrombosis) Qualifiers: Chronicity: acute Laterality: left Qualified Code(s): I82.412 - Acute embolism and thrombosis of left femoral vein Acute saddle pulmonary embolus Qualifiers: Acute cor pulmonale presence: without acute cor pulmonale Qualified Code(s): I26.92 - Saddle embolus of pulmonary artery without acute cor pulmonale Discharge ED Provider: Denny Cox [facility] General Chief Complaint: Shortness of Breath/Dyspnea Stated Complaint: blood clot left leg Time Seen by Provider: 03/15/23 16:12 Mode of Arrival: Ambulatory Source of Information: Patient Limitations: No Limitations Description of Symptoms (Recalled from ER Triage Doc. by RN): pt presents to ED with further workup. pt was sent from [facility] office. pt was d/c on sunday from [facility]. pt reports not feeling well since prior to d/c from [facility]. pt reports pain in left leg, weakness, fatigue. pt reports shortness of breath as well. pt presents with swelling to left leg greater than right leg. pt reports this is not normal. no fever or cough or abd pain reported by pt. History of Present Illness HPI narrative: Is a 62-year-old female who presents today with a positive DVT ultrasound from cardiology clinic. She states that she was in the hospital last week diagnosed with urinary tract infection had some chest pain and shortness of breath at that time but it resolved upon being discharged. She states that starting 2 days ago she started having acute left lower extremity leg pain and swelling she saw Dr. 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 Patient still has some dyspnea denies any chest pain currently. Apparently an attempt was made for a direct admission with Dr. Dukes however he requested that the patient come to the emergency department for evaluation first. Related Data Home Medications Medication Instructions Recorded Confirmed hydrocodone 7.5 mg-acetaminophen 1 tab PO Q6H PRN Pain 09/14/20 03/15/23 325 mg tablet olanzapine 10 mg tablet 10 mg PO HS MOOD 09/14/20 03/15/23 pantoprazole 40 mg tablet,delayed 40 mg PO BID GERD 11/06/21 03/15/23 release carvedilol 25 mg tablet 25 mg PO BID 03/08/23 03/15/23 doxepin 100 mg capsule 100 mg PO DAILY 03/08/23 03/15/23 insulin glargine 100 unit/mL (3 80 unit SQ DAILY 03/08/23 03/15/23 mL) subcutaneous pen (Basaglar KwikPen U-100 Insulin) semaglutide 1 mg/dose (4 mg/3 mL) 1 mg SQ WEEKLY 03/08/23 03/15/23 subcutaneous pen injector (Ozempic) Previous Rx's Medication Instructions Recorded insulin aspar prot-insulin aspart 25 unit (0.25 mL) SQ DAILY 03/10/23 100 unit/mL (70-30) subcutaneous Diabetes 30 days #0 mL pen Allergies Allergy/AdvReac Type Severity Reaction Status Date / Time daptomycin [DAPTOMYCIN] AdvReac Mild I-RASH Verified 03/15/23 13:21 [facility] Disclaimer: The information contained in this section may have been updated after the patient was seen, as this information can be updated by other users. Medical History (Updated 03/16/23 @ 05:19 by Mc Christina APRN) Abnormal echocardiogram Abnormal electrocardiogram [ECG] [EKG] Abnormality of left ventricular outflow tract Diabetes mellitus, type 2 Hyperlipidemia Hypertension Kidney stone Migraine Osteoarthritis Sleep apnea Surgical History History of section Family History Other Family history of diabetes mellitus type II Family history of hyperlipidemia Family history of hypertension Family history of stroke Social History (Updated 03/15/23 @ 17:49 by Lavinia Bialey RN) Smoking Status: Never smoker alcohol intake: never substance use type: denies use current occupational status: retired Travel in the last 8 weeks: None household members: none housing: house caffeine: Yes ROS Obtained: Yes All systems reviewed & no additional complaints except as documented Physical Exam General General appearance: alert Respiratory Respiratory exam: Present normal lung sounds bilaterally; Absent respiratory distress Cardiovascular Cardiovascular exam: Present regular rate; Absent tachycardia Extremities Exam Extremities exam: Present other (Left lower extremity circumferential swelling normal pulses no evidence of phlegmasia cerulea dolens) Neurological Exam Neurological exam: Present alert and oriented X3 HEART Score HEART Score HEART Score assessment performed?: No Procedures Miscellaneous Procedure Procedure Performed: Limited cardiac ultrasound Indication: Saddle PE evaluation for right heart strain Identified structures: The heart was visualized in the parasternal long axis, parastenal short axis, apical four chamber and subxyphiod views. The IVC was visualized in the short axis and long axis at its entry into the right atrium. Findings: No Basurto sign septal deviation or RV LV ratio elevation therefore no evidence of severe right heart strain LVEF is normal as well no pericardial effusion noted Impression: No evidence of significant right heart strain on limited bedside echo Images are saved to permanent archive The study was technically adequate CPT: 00796-81 This study was performed by me, and I personally interpreted all images/videos. Based on my clinical judgement, these images were adequate and did not necessitate further imaging. Critical Care Critical Care Time Critical Care Time: Yes Attestation: On 03/15/23, the high probability of a clinically significant, sudden or life threatening deterioration of the following system(s) required my full and direct attention, intervention and personal management. The time I documented below is in addition to time spent performing reported procedures but includes the following listed in this critical care notation. Total Time Total Critical Care Time: 35 Medical Decision Making Eliseo Inquiry Pt receiving controlled substance: No Vital Signs Vital Signs: 03/15/23 15:55 03/15/23 17:30 03/15/23 19:49 Temperature 97.7 F 98.4 F Temperature Source Oral Pulse Rate 94 H 93 H Pulse Rate [Left Radial] 98 H Respiratory Rate 17 20 Blood Pressure 194/108 H 154/105 H Blood Pressure [Right Arm] 187/100 H Blood Pressure Mean 125 Blood Pressure Mean [Right Arm] 129 Blood Pressure Source Automatic Cuff Blood Pressure Position Sitting 02 Sat by Pulse Oximetry 99 99 Oxygen Delivery Method Room Air Room Air Room Air Lab Data 03/16/23 05:31 03/16/23 05:31 Response Orders (Tests/Meds): ED MEDICATIONS Generic Name Dose Route Start Last Admin Trade Name Freq PRN Reason Stop Dose Admin Acetaminophen 650 mg 03/15/23 20:31 Acetaminophen 325mg Tab PO 04/14/23 20:30 Q4HP PRN Fever or Mild Pain (1-3) Hydrocodone Bitart/Acetaminophen 1 tab 03/16/23 07:49 Apap/Hydrocodone 325mg/7.5mg Tab PO 04/14/23 20:32 Q6HP PRN Moderate Pain (4-6) Al Hydrox/Mg Hydrox/Simethicone 30 ml 03/15/23 20:31 Aluminum/Magnesium/Simethicone 30ml Udc PO 04/14/23 20:30 QIDP PRN Dyspepsia Carvedilol 25 mg 03/15/23 21:00 03/15/23 21:12 Carvedilol 25mg Tablet PO 04/14/23 20:59 25 mg BID MARTHA Administration Docusate Sodium 100 mg 03/15/23 20:45 03/15/23 21:12 Docusate Sodium 100 Mg Capsule PO 04/14/23 20:44 100 mg DAILY MARTHA Administration Doxepin HCl 100 mg 03/16/23 09:00 Doxepin Hcl 25 Mg Capsule PO 04/15/23 08:59 DAILY MARTHA Enoxaparin Sodium 120 mg 03/15/23 16:30 03/16/23 03:40 Enoxaparin 120mg/0.8ml Syringe SQ 04/14/23 16:29 120 mg Q12H MARTHA Administration Sodium Chloride 1,000 mls @ 50 mls/hr 03/15/23 20:45 03/15/23 21:14 Sod Chlor 0.9% 1000ml Bag IV 04/14/23 20:44 50 mls/hr .Q20H MARTHA Administration Insulin Glargine 80 unit 03/15/23 21:55 03/15/23 22:13 Insulin Glargine 100 Units/Ml 3ml Flexpen SQ 04/14/23 21:54 Not Given DAILY MARTHA Insulin Human Lispro 0 unit 03/16/23 06:00 03/16/23 05:37 Humalog 100 Units/Ml 3ml Vial (Ssi) SQ 04/15/23 05:59 Not Given ACHS [facility] Protocol Insulin Lispro Protam/Lispro Human 25 unit 03/15/23 22:00 03/15/23 22:12 Humalog Mix 75/25 3ml Flexpen SQ 04/14/23 21:59 25 units DAILY MARTHA Administration Lisinopril 40 mg 03/16/23 09:00 Lisinopril 20mg Tablet PO 04/15/23 08:59 DAILY [facility] Morphine Sulfate 2 mg 03/15/23 20:31 Morphine 2mg/Ml Syringe IV 04/14/23 20:30 Q2HP PRN Severe Pain (7-10) Olanzapine 10 mg 03/16/23 21:00 Olanzapine 5 Mg Odt Tablet SL 04/15/23 20:59 HS MARTHA Pantoprazole Sodium 40 mg 03/15/23 20:45 03/15/23 21:12 Pantoprazole 40mg Tablet PO 04/14/23 20:44 40 mg DAILY MARTHA Administration Sodium Chloride 10 ml 03/15/23 20:31 Sodium Chloride 0.9% 10ml Flush Syringe IV 04/14/23 20:30 NEEDED PRN Maintain IV Site Discontinued Medications Generic Name Dose Route Start Last Admin Trade Name Freq PRN Reason Stop Dose Admin Hydrocodone Bitart/Acetaminophen 1 tab 03/15/23 20:33 03/16/23 05:39 Apap/Hydrocodone 325mg/7.5mg Tab PO 04/14/23 20:32 1 tab Q6H PRN Administration Pain Amlodipine Besylate 5 mg 03/15/23 20:45 03/15/23 21:13 Amlodipine 5mg Tablet PO 04/14/23 20:44 Not Given DAILY MARTHA Amlodipine Besylate 5 mg 03/15/23 22:27 03/15/23 23:05 Amlodipine 5mg Tablet PO 03/15/23 22:28 Not Given ONCE ONE Lactated Ringer's 1,000 mls @ 999 mls/hr 03/15/23 16:30 03/15/23 17:19 Lactated Ringer's 1000 Ml Bag IV 03/15/23 17:30 999 mls/hr .Q1H1M MARTHA Administration Insulin Glargine 80 unit 03/16/23 09:00 Insulin Glargine 100 Units/Ml 3ml Flexpen SQ 04/15/23 08:59 DAILY MARTHA Insulin Lispro Protam/Lispro Human 25 unit 03/16/23 09:00 Humalog Mix 75/25 3ml Flexpen SQ 04/15/23 08:59 DAILY MARTHA Iopamidol 100 ml 03/15/23 17:11 03/15/23 17:12 Iopamidol-370 (76%);100ml Bottle IV 03/15/23 17:12 100 ml ONCE ONE Administration Non-Formulary Medication 40 mg 03/15/23 21:00 03/15/23 21:13 Lisinopril PO 04/14/23 20:59 Not Given HS MARTHA Non-Formulary Medication 10 mg 03/15/23 21:00 03/15/23 21:14 Olanzapine PO 04/14/23 20:59 10 mg HS MARTHA Administration Sodium Chloride 50 ml 03/15/23 17:11 03/15/23 17:12 0.9 % Sodium Chloride 50 Ml Vial IV 03/15/23 17:12 50 ml ONCE ONE Administration Sodium Chloride 10 ml 03/15/23 17:11 03/15/23 17:13 Sodium Chloride 0.9% 10ml Syr (Rad Only) IV 04/14/23 17:10 10 ml NEEDED PRN Administration Maintain IV Site ORDERS Category Date Time Status CT angio chest PE protocol Stat Cat Scan 03/15/23 16:19 Completed POCUS Point of Care (ER Only) Stat Exams 03/15/23 17:12 Taken BNP [Brain Natriuretic Peptide] Stat Lab 03/15/23 18:38 Completed Trop I [Troponin I] Stat Lab 03/15/23 18:38 Completed Troponin I Q3H Lab 03/15/23 20:15 Completed Troponin I Q3H Lab 03/15/23 22:26 Completed MDM Narrative Medical Decision Narrative: Patient is a 62-year-old female with a positive DVT ultrasound just prior to arrival. She does have some dyspnea we will get a CT PE for further evaluation. Personally reviewed the patient's CBC and CMP which were done just prior to arrival and her creatinine is 0.8. Will add a BNP and a troponin onto this workup for possible restratification regarding clot burden if in fact there is a PE. Patient's oxygen saturations are 99% she is breathing very comfortably she does not seem to be in severe and extreme pain. Her preference would be to be admitted. I will discuss with her after her CT PE study was performed treatment options. 1 mg/kg Lovenox has been ordered while in the emergency department. I suspect that her preceding cause of this was immobilization during her recent hospitalization and she has no other significant risk factors to my knowledge. EKG performed which I first interpreted shows a ventricular rate of 95 no acute ischemic changes noted normal axis no significant conduction abnormality this is nondiagnostic from emergency standpoint. CT scan performed which I first interpreted which shows saddle pulmonary embolus and extensive clot burden not completely occlusive. No right heart strain on CT scan also on my bedside limited echo no obvious right heart strain. I discussed the case with Dr. Courtney patient is very well-appearing not tachycardic not hypoxic she is not hypotensive. No current indication for thrombectomy however if she has any biomarker elevation or evidence of right heart strain or hemodynamics that worsen he will consider this. I discussed this with the family also Dr. Dukes is aware and will admit the patient for further evaluation and treatment.
--- NOTE | 2023-03-15 16:38 | ECG_ITS ---
APPROVED REPORT Exam: Resting ECG HR:95 bpm ECG Measurements Heart Rate 95 AXES NE 141 P 65 QRSd 92 QRS 50 QT 346 T 61 QTc 398 Conclusion SINUS RHYTHM NORMAL ECG UNCONFIRMED REPORT Electronically signed by : Buddy Blanton MD 03/17/2023 10:09:37
--- NOTE | 2023-03-15 16:39 | HMH.ITSTN ---
not ready at this time; will call when ready
[2023-03-15] MEDS: IOPAMIDOL-370 (76%);100ML BOTTLE 100 ML IV (17:12)
[2023-03-15] MEDS: 0.9 % SODIUM CHLORIDE 50 ML VIAL IV (17:12)
[2023-03-15] MEDS: SODIUM CHLORIDE 0.9% 10ML SYR (RAD ONLY) 10 ML IV (17:13)
[2023-03-15] MEDS: ENOXAPARIN 120MG/0.8ML SYRINGE 120 MG SQ (17:19)
[2023-03-15] MEDS: LACTATED RINGERS 1000ML 1,000 ML 999 ML IV (17:19)
[2023-03-15 17:30] VITALS: BP 194/108; PULSE 94; O2SAT 99
--- NOTE | 2023-03-15 17:30 | PC.NURSE ---
DR PIMENTEL SPEAKING WITH DR HERRON
--- NOTE | 2023-03-15 17:34 | PC.NURSE ---
DR PIMENTEL SPEAKING WITH HOSPITALIST FOR ADMISSION
--- NOTE | 2023-03-15 17:36 | PC.NURSE ---
CERTIFIED NURSE NOTIFIED OF ADMISSION, PT ACCEPTED BY DR BILLY
--- NOTE | 2023-03-15 17:36 | PC.NURSE ---
call made to washhouse worker for bed placement
--- NOTE | 2023-03-15 18:32 | PC.NURSE ---
report called to luisa on second floor
[2023-03-15 19:08] LABS: NT Pro Brain Natriuretic Pep. 166 pg/mL (0-125)
--- NOTE | 2023-03-15 19:08 | PC.NURSE ---
pt assisted to bathroom
[2023-03-15 19:13] LABS: Troponin I < 0.01 ng/ml (0.00-0.034)
[2023-03-15 19:49] VITALS: BP 154/105; PULSE 93; RESP 20; TEMP 36.9; O2SAT 99
[2023-03-15 20:00] VITALS: BP 138/84; PULSE 98; RESP 18; TEMP 36.6; O2SAT 98; BMI 41.3
--- NOTE | 2023-03-15 20:19 | P.HP_ITS ---
History of Present Illness *Admission Date: 03/15/23 *Reason for visit:: CP and SOB *History of present illness: This is a 62-year-old female PMHX of IDDM, HTN, obesity currently admitted for sepsis and UTI, who presented today with a positive DVT ultrasound from cardiology clinic. Patient was in the hospital last week diagnosed with urinary tract infection had some chest pain and shortness of breath at that time but it resolved upon being discharged. She states that starting 2 days ago she started having acute left lower extremity leg pain and swelling she saw Dr. Blanton and then subsequently saw her agents' records clerk who ordered a DVT ultrasound which was positive for left common femoral vein DVT. Patient still has some dyspnea denies any chest pain currently. Admitted for further work up. [facility] Disclaimer: The information contained in this section may have been updated after the patient was seen, as this information can be updated by other users. Medical History (Updated 03/16/23 @ 08:42 by ALTAGRACIA Yancey) Abnormal echocardiogram Abnormal electrocardiogram [ECG] [EKG] Abnormality of left ventricular outflow tract Diabetes mellitus, type 2 Hyperlipidemia Hypertension Kidney stone Migraine Osteoarthritis Sleep apnea Surgical History History of section Family History Other Family history of diabetes mellitus type II Family history of hyperlipidemia Family history of hypertension Family history of stroke Social History (Updated 03/15/23 @ 17:49 by Lavinia Bailey RN) Smoking Status: Never smoker alcohol intake: never substance use type: denies use current occupational status: retired Travel in the last 8 weeks: None household members: none housing: house caffeine: Yes Review of Systems Review of Systems Review of systems:: pertinent systems reviewed and negative unless documented below Meds Home Medications and Allergies Home Medications Medication Instructions Recorded Confirmed Type olanzapine 10 mg tablet 10 mg PO HS 09/14/20 03/15/23 History pantoprazole 40 mg tablet,delayed 40 mg PO BID GERD 11/06/21 03/15/23 History release carvedilol 25 mg tablet 25 mg PO BID 03/08/23 03/15/23 History doxepin 100 mg capsule 100 mg PO DAILY 03/08/23 03/15/23 History insulin glargine 100 unit/mL (3 80 unit SQ HS 03/08/23 03/16/23 History mL) subcutaneous pen (Basaglar KwikPen U-100 Insulin) semaglutide 1 mg/dose (4 mg/3 mL) 1 mg SQ WEEKLY 03/08/23 03/16/23 History subcutaneous pen injector (Ozempic) insulin aspar prot-insulin aspart 25 unit (0.25 mL) SQ DAILY 03/10/23 03/15/23 Rx 100 unit/mL (70-30) subcutaneous Diabetes 30 days #0 mL pen hydrocodone 10 mg-acetaminophen 1 tab PO Q6HP PRN Pain 03/16/23 03/16/23 History 325 mg tablet lisinopril 40 mg tablet 40 mg PO DAILY 03/16/23 03/16/23 History New Prescriptions to Start Prescriptions: Allergies Allergy/AdvReac Type Severity Reaction Status Date / Time daptomycin [DAPTOMYCIN] AdvReac Mild I-RASH Verified 03/15/23 13:21 Exam Data for Last 24 hours Vital signs and Labs for Last 24 Hours: Temp Pulse Resp BP Pulse Ox O2 Del Method 98.4 F 93 H 20 154/105 H 99 Room Air 03/15/23 19:49 03/15/23 19:49 03/15/23 19:49 03/15/23 19:49 03/15/23 17:30 03/15/23 19:49 Laboratory Results - last 24 hr 03/15/23 18:38: Troponin I < 0.01, NT-Pro-B Natriuret Pep 166 H I & O for Last 24 hours: Intake & Output 03/12/23 03/13/23 03/14/23 03/15/23 23:59 23:59 23:59 23:59 Weight 120.202 kg Constitutional Constitutional: moderate distress, morbidly obese and chronically ill appearing Comments: Rigors *Routine HEENT Exam Head: Present normocephalic Eye: Present EOMI and PERRL ENT: Present mucous membranes moist *Routine Neck Exam Neck: Present supple; Absent lymphadenopathy *Routine Respiratory Exam Respiratory: Absent rhonchi, wheezes or normal respiratory effort Comments: tachypneic *Routine Cardiovascular Exam Cardiovascular: Present tachycardia; Absent murmur *Routine Abdominal Exam Abdominal: Present soft, normoactive bowel sounds and tenderness (mild diffuse); Absent distended *Routine Rectal Exam Rectal:: deferred *Routine Genitalia Exam Genitalia:: deferred *Routine Extremities Exam Extremities: Present pallor; Absent cyanosis, clubbing or edema Comments: tremors and rigors Routine Back/Spine/Pelvis Exam Back/Spine: Present paraspinal tenderness (Left > Right); Absent CVA tenderness *Routine Skin Exam Skin: Present warm; Absent rash Comments: clammy, cool extremities *Routine Neurological Exam Neurological: Present alert, oriented X3, moving all extremities and tremors; Absent altered mental status Assessment and Plan *Assessment and plan (1) Acute saddle pulmonary embolus: Status: Acute Qualifiers: Acute cor pulmonale presence: without acute cor pulmonale Qualified Code(s): I26.92 - Saddle embolus of pulmonary artery without acute cor pulmonale Category: Medical Code(s): I26.92 - Saddle embolus of pulmonary artery without acute cor pulmonale (2) Dvt femoral (deep venous thrombosis): Status: Acute Qualifiers: Chronicity: acute Laterality: left Qualified Code(s): I82.412 - Acute embolism and thrombosis of left femoral vein Category: Medical Code(s): I82.419 - Acute embolism and thrombosis of unspecified femoral vein (3) Hyperglycemia due to type 2 diabetes mellitus: Status: Acute Qualifiers: Diabetes mellitus long term care social worker insulin use: with long term care social worker use Qualified Code(s): E11.65 - Type 2 diabetes mellitus with hyperglycemia; Z79.4 - long term care social worker (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 Category: Medical Code(s): E11.65 - Type 2 diabetes mellitus with hyperglycemia (4) Hypertension: Status: Acute Qualifiers: Hypertension type: unspecified Qualified Code(s): I10 - Essential (primary) hypertension Category: Medical Code(s): I10 - Essential (primary) hypertension (5) Hyperlipidemia: Status: Acute Qualifiers: Hyperlipidemia type: unspecified Qualified Code(s): E78.5 - Hyperlipidemia, unspecified Category: Medical Code(s): E78.5 - Hyperlipidemia, unspecified (6) Class 3 obesity: Status: Acute Category: Medical Code(s): E66.01 - Morbid (severe) obesity due to excess calories Plan 62-year-old female PMHX of IDDM, HTN, obesity currently admitted for sepsis and UTI, who presented today with a positive DVT ultrasound from cardiology clinic. Patient was in the hospital last week diagnosed with urinary tract infection had some chest pain and shortness of breath at that time but it resolved upon being discharged. -Acute saddle pulmonary embolism and left femoral thrombosis: Patient currently hemodynamically stable on room air. Placed to [facility] Cardiology and pulmonology consult Therapeutic doses of Lovenox radiation monitor. Monitor for blood pressure and heart rate Monitor O2 saturation. Oxygen as needed Pain management. -Type 2 diabetes on long-term insulin: Resume home regimen Accu-Chek before meal Sliding scale Hypertension hyperlipidemia: Reconciled and resumed home meds. Patient on lisinopril carvedilol amlodipine -Morbid obesity: Will complicate all aspects of care patient currently on weight management On Ozempic weekly On Lovenox full dose. Protonix for GI bleed protection and GERD Full code Attending attestation Patient was seen and evaluated at the bedside myself, agree with SEARCH ENGINE OPTIMIZER note.
[2023-03-15] MEDS: CARVEDILOL 25MG TABLET 25 MG PO (21:12)
[2023-03-15] MEDS: DOCUSATE SODIUM 100 MG CAPSULE PO (21:12)
[2023-03-15] MEDS: PANTOPRAZOLE 40MG TABLET 40 MG PO (21:12)
[2023-03-15] MEDS: APAP/HYDROCODONE 325MG/7.5MG TAB 1 TAB PO (21:12)
[2023-03-15 21:13] LABS: Troponin I < 0.01 ng/ml (0.00-0.034)
[2023-03-15] MEDS: 0.9 % SODIUM CHLORIDE 1000ML 1,000 ML 50 ML IV (21:14)
[2023-03-15] MEDS: OLANZAPINE 10 MG 10 EACH PO (21:14)
[2023-03-15] MEDS: humaLOG MIX 75/25 3ML FLEXPEN 25 UNIT SQ (22:12)
[2023-03-15 22:37] LABS: POC Glucose,Bedside 166 (70-110)
[2023-03-15 22:57] LABS: Troponin I < 0.01 ng/ml (0.00-0.034)
[2023-03-16] VITALS (7 sets, daily range): BP systolic 114–144; BP diastolic 68–87; PULSE 71–96; RESP 16–18; TEMP 36.4–36.9; O2SAT 95–97; BMI 42.4; BMI 42.2
[2023-03-16] MEDS: ENOXAPARIN 120MG/0.8ML SYRINGE 120 MG SQ ×2 (03:40→16:14)
[2023-03-16] MEDS: APAP/HYDROCODONE 325MG/7.5MG TAB 1 TAB PO (05:39)
[2023-03-16 05:46] LABS: Basophils % 0.5 % (0.1-2.0); Eosinophils % 0.6 % (0.1-12.0); Hematocrit 31.8 % (37.0-47.0); Hemoglobin 10.3 g/dL (12.2-16.2); Lymphocytes # 1.8 K/mm3 (0.7-4.5); Lymphocytes % 26.5 % (10-50); Mean Corpuscular HGB Conc 32.3 g/dL (31.8-35.4); Mean Corpuscular Hemoglobin 28.5 pg (27.0-31.2); Mean Corpuscular Volume 88.3 fl (81-99); Mean Platelet Volume 8.3 fl (7.4-10.4); Monocytes # 0.3 K/mm3 (0.1-1.0); Monocytes % 4.3 % (1.7-9.3); Neutrophils # 4.5 K/mm3 (1.8-7.8); Neutrophils % 68.2 % (37.0-80.0); Platelet Count 171 K/mm3 (142-424); Red Cell Distribution Width 15.8 % (11.5-17.5); White Blood Count 6.7 K/mm3 (4.8-10.8)
[2023-03-16 05:55] LABS: Alanine Aminotransferase 29 U/L (12-78); Albumin Level 3.1 g/dl (3.5-5.0); Albumin/Globulin Ratio 0.9 (1.1-1.8); Alkaline Phosphatase 113 U/L (38-126); Anion Gap 6.2 mEq/L (5-15); Aspartate Amino Transferase 35 U/L (14-36); Bilirubin,Total 0.3 mg/dl (0.2-1.3); Blood Urea Nitrogen 10 mg/dl (7-17); Calcium 7.7 mg/dl (8.4-10.2); Carbon Dioxide 25 mmol/L (22.0-30.0); Chloride 109 mmol/L (98-107); Creatinine Clearance Estimated 55 mL/min (50-200); Estimated Glomerular Filt Rate 73 ml/min (>60); GFR (African American) 88 ML/MIN (>60); Globulin 3.3 g/dL (1.3-3.2); Glucose 148 mg/dl (74-100); Magnesium 1.6 mg/dl (1.6-2.3); Potassium 4.2 mmoL/L (3.5-5.1); Sodium 136 mmol/L (136-145); Total Protein,Serum 6.4 g/dl (6.3-8.2)
--- NOTE | 2023-03-16 07:38 | CA_ITS ---
APPROVED REPORT EXAM: Comprehensive 2D, Doppler, and color-flow Echocardiogram Event Security Officer: EVAN Elise, RVS Ht: 5 ft 6 in Wt: 263lbs BSA: 2.25 BP: 154/105 mmHg Indications: Saddle Pulmonary embolism, SOA, room O2, Obesity, DM, WES, DM, HTN, HLD 2D Dimensions IVSd 0.76 cm LVEF (Visual) 79.50 % PWd 0.83 cm LVEF (Rivas's) 54.00 % LVDd 4.70 cm LV Volume 85.70 mL LVDs 2.44 cm LV Volume Index 38.453612 mL/m2 F: 29 - 61 Aortic Root 3.06 cm LA Volume 59.10 mL Left Atrium 2.66 cm LA Volume Index 26.603923 mL/m2 (M/F) 16-34 RVID Base (AP4) 2.90 cm (M/F) 2.5-4.1 EF AP4 50.40 % LVOT 1.84 cm (M/F) 1.5-2.5 EF AP2 56.9 % EF BP 54.0 % GL Strain -17.8 % M-Mode Dimensions LVDd 4.70 cm (3.5-5.7) Ao Diam 3.40 cm (2.0-3.7) LVDs 2.44 cm (3.5-5.7) IVSd 0.76 cm (0.6-1.1) PWd 0.83 cm (0.6-1.1) EPSs 0.54 cm FS 48.10% TAPSE 2.86 (<1.7) LV Diastology E Decel Time 261 (160-240 msec) E/A Ratio 0.58 MED E' 5.4 (>= 7 cm/sec) MED A' 12.90 cm/s E'/MED E' Ratio 17.13 (<= 14) LAT E' 4.4 (>= 10 cm/sec) LAT A' 12.60 cm/s E/LAT E' Ratio 21.02 (<= 14) Aortic Valve LVOT Max 144.0 (70-110 cm/s) NIMA Index 0.71 cm2/m2 LVOT VTI 24.18 cm AoV Peak Solo. 222.0 (50-130 cm/s) AO Mean GR. 9.70 (<5 mmHg) AO VTI 40.5 (18-25 cm) NIMA (VTI) 1.59 (2.5-4.5 cm2) Mitral Valve MV E Max Solo. 93.0 (40-130 cm/s) MV A Velocity 160.0 (40-130 cm/s) E/A Ratio 0.58 MV Decel. Time 261 (160-240 ms) Pulmonary Valve NM End VMAX 207.0 cm/s Tricuspid Valve TR P. Velocity 268.00 cm/s RAP Estimate 10.00 mmHg RVSP 38.70 mmHg Left Ventricle The left ventricle is normal size. The left ventricular systolic function is normal. The left ventricular ejection fraction is within the normal range. There is increased LV wall thickness. There is mild hypokinesis of the basal septal and inferoseptal LV matos. Transmitral Doppler flow pattern suggests impaired LV relaxation. LVEF is 55%. Right Ventricle The right ventricle is normal size. The right ventricular systolic function is normal. Atria The left atrium size is normal. The right atrium size is normal. The interatrial septum is not well visualized. Aortic Valve The aortic valve is mildly thickened. There is aortic valve sclerosis, but no evidence of aortic stenosis. No aortic regurgitation is present. Mitral Valve Mild mitral annular calcification (MAC). The mitral valve leaflets are mildly thickened. No evidence of mitral valve stenosis. Mild mitral regurgitation. Tricuspid Valve The tricuspid valve leaflets are thin and pliable. Trace tricuspid regurgitation. There is insufficient TR jet to estimate RVSP. Pulmonic Valve The pulmonary valve is normal in structure. Mild pulmonic regurgitation. Great Vessels The aortic root is normal in size. The ascending aorta is normal in size. The IVC is not well visualized. Pericardium There is a small-sized posterior pericardial effusion. The largest pocket measures approximately 0.5 cm in diastole. There are no echo indications of tamponade, but the IVC is not visualized in this study. Other Information Study Quality: Fair Conclusion Normal LV systolic function. Mild hypokinesis of the basal septal and inferoseptal LV matos. The RV appears normal in size and function. No echo indication of RV strain in the setting of known acute PE. Insufficient TR jet to estimate RVSP in this study. Mild MR, mild TR. Small-sized posterior pericardial effusion. The largest pocket measures approximately 0.5 cm in diastole. There are no echo indications of tamponade, but the IVC is not visualized. Compared to the prior study from 03/08/2023, the LV/RV size and function are unchanged. The small pericardial effusion is new. Electronically signed by : Tamiko Mccloud MD 03/16/2023 13:09:31
--- NOTE | 2023-03-16 08:06 | HMH.PHAINT1 ---
Pharmacy Intervention Comments: Home med list verified with patient at bedside and with external pharmacy list.
--- NOTE | 2023-03-16 08:35 | P.CONCA_ITS ---
History of Present Illness History of Present Illness Consult date: 03/16/23 Requesting physician: Tere Dukes Consult reason: shortness of breath Chief complaint: SOA, left leg edema Additional Medical History:: 1. Hypertension 2. Thrombocytopenia, managed by PCP 3. Diabetes mellitus type 2, treated for about 15 years 4. Saddle pulmonary embolus, 03/15/2023 A. DVT of the left lower extremity 5. Hospitalization for urosepsis, 02/2023 6. Non-STEMI felt secondary to urosepsis, 02/2023 A. Echocardiogram 03/08/2023, technically difficult study. Normal biventricular systolic function. Mild hypokinesis in the basal inferior and inferoseptal LV matos. Borderline increase of LVOT gradient at rest. Mitral annular calcification with mild MR. Outpatient cardiac MRI recommended due to borderline increased LVOT gradient. B. Lexiscan Myoview, 2021, no ischemia with EF 62%. History of present illness: 62-year-old white female seen in the office yesterday for hospital follow-up with note of left lower extremity edema and shortness of breath. Suspected DVT and possible pulmonary embolus with recommendation for admission. Patient was sent to the emergency department for workup and found to have a left lower extremity DVT and a CT confirmed saddle pulmonary embolus that was hemodynamically stable. Patient was admitted for further evaluation. She denies any chest pain, pressure or tightness overnight but does relate shortness of breath when getting up to the bathroom. She is currently on room air oxygen with 97% saturation. Blood pressure is about 140 systolic with heart rate in the 90s. [facility] Disclaimer: The information contained in this section may have been updated after the patient was seen, as this information can be updated by other users. Medical History (Updated 03/16/23 @ 10:57 by Nilsa Rivero MD) Abnormal echocardiogram Abnormal electrocardiogram [ECG] [EKG] Abnormality of left ventricular outflow tract Diabetes mellitus, type 2 Hyperlipidemia Hypertension Kidney stone Migraine Osteoarthritis Saddle embolism of pulmonary artery Sleep apnea Surgical History History of section Family History Other Family history of diabetes mellitus type II Family history of hyperlipidemia Family history of hypertension Family history of stroke Social History (Updated 03/15/23 @ 17:49 by Lavinia Bailey RN) Smoking Status: Never smoker alcohol intake: never substance use type: denies use current occupational status: retired Travel in the last 8 weeks: None household members: none housing: house caffeine: Yes Review of Systems Review of Systems Review of systems:: pertinent systems reviewed and negative unless documented below *Cardiovascular Cardiovascular: Denies chest pain, Reports dyspnea, Reports dyspnea on exertion and Reports leg edema *Respiratory Respiratory: Reports dyspnea and Reports dyspnea on exertion Exam Data for Last 24 hours Vital signs and Labs for Last 24 Hours: Temp Pulse Resp BP Pulse Ox O2 Del Method 98.3 F 93 H 18 144/80 H 97 Room Air 03/16/23 04:00 03/16/23 04:00 03/16/23 04:00 03/16/23 04:00 03/16/23 04:00 03/16/23 08:15 Laboratory Results - last 24 hr 03/15/23 18:38: Troponin I < 0.01, NT-Pro-B Natriuret Pep 166 H 03/15/23 20:15: Troponin I < 0.01 03/15/23 21:51: POC Glucose 166 H 03/15/23 22:26: Troponin I < 0.01 03/16/23 05:31: WBC 6.7, RBC 3.60 L, Hgb 10.3 L, Hct 31.8 L, MCV 88.3, MCH 28.5, MCHC 32.3, RDW 15.8, Plt Count 171, MPV 8.3, Neut % (Auto) 68.2, Lymph % (Auto) 26.5, [place] % (Auto) 4.3, Eos % (Auto) 0.6, Baso % (Auto) 0.5, Neut # (Auto) 4.5, Lymph # (Auto) 1.8, [place] # (Auto) 0.3, Eos # (Auto) 0.0, Baso # (Auto) 0.0, Sodium 136, Potassium 4.2, Chloride 109 H, Carbon Dioxide 25, Anion Gap 6.2, BUN 10, Creatinine 0.80, Estimated Creat Clear 55, Estimated GFR 73, Est GFR ( Amer) 88, Glucose 148 H, Calcium 7.7 L, Magnesium 1.6, Total Bilirubin 0.3, AST 35 D, ALT 29, Alkaline Phosphatase 113, Total Protein 6.4, Albumin 3.1 L, Globulin 3.3 H, Albumin/Globulin Ratio 0.9 L I & O for Last 24 hours: Intake & Output 03/13/23 03/14/23 03/15/23 03/16/23 11:59 11:59 11:59 11:59 Intake Total 668 / 668 Output Total 0 / 0 Balance 668 / 668 Weight 270 lb 4 oz Constitutional Constitutional: no acute distress *Routine Respiratory Exam Respiratory: Present decreased breath sounds; Absent rhonchi or wheezes *Routine Cardiovascular Exam Cardiovascular: Present RRR *Routine Extremities Exam Extremities: Present edema Comments: Left lower extremity swollen compared to right. Good pulses bilaterally. *Routine Neurological Exam Neurological: Present alert, oriented X3 and CN II-XII intact Meds Home Medications and Allergies Home Medications Medication Instructions Recorded Confirmed Type olanzapine 10 mg tablet 10 mg PO HS 09/14/20 03/15/23 History pantoprazole 40 mg tablet,delayed 40 mg PO BID GERD 11/06/21 03/15/23 History release carvedilol 25 mg tablet 25 mg PO BID 03/08/23 03/15/23 History doxepin 100 mg capsule 100 mg PO DAILY 03/08/23 03/15/23 History insulin glargine 100 unit/mL (3 80 unit SQ HS 03/08/23 03/16/23 History mL) subcutaneous pen (Basaglar KwikPen U-100 Insulin) semaglutide 1 mg/dose (4 mg/3 mL) 1 mg SQ WEEKLY 03/08/23 03/16/23 History subcutaneous pen injector (Ozempic) insulin aspar prot-insulin aspart 25 unit (0.25 mL) SQ DAILY 03/10/23 03/15/23 Rx 100 unit/mL (70-30) subcutaneous Diabetes 30 days #0 mL pen hydrocodone 10 mg-acetaminophen 1 tab PO Q6HP PRN Pain 03/16/23 03/16/23 History 325 mg tablet lisinopril 40 mg tablet 40 mg PO DAILY 03/16/23 03/16/23 History New Prescriptions to Start Prescriptions: Allergies Allergy/AdvReac Type Severity Reaction Status Date / Time daptomycin [DAPTOMYCIN] AdvReac Mild I-RASH Verified 03/15/23 13:21 Assessment and Plan *Assessment and plan (1) Acute saddle pulmonary embolus: Status: Acute Qualifiers: Acute cor pulmonale presence: without acute cor pulmonale Qualified Code(s): I26.92 - Saddle embolus of pulmonary artery without acute cor pulmonale Category: Medical Code(s): I26.92 - Saddle embolus of pulmonary artery without acute cor pulmonale (2) Dyspnea: Status: Acute Qualifiers: Dyspnea type: dyspnea on exertion Qualified Code(s): R06.09 - Other forms of dyspnea Category: Medical Code(s): R06.00 - Dyspnea, unspecified (3) Dvt femoral (deep venous thrombosis): Status: Acute Qualifiers: Chronicity: acute Laterality: left Qualified Code(s): I82.412 - Acute embolism and thrombosis of left femoral vein Category: Medical Code(s): I82.419 - Acute embolism and thrombosis of unspecified femoral vein (4) Hypertension: Status: Acute Qualifiers: Hypertension type: unspecified Qualified Code(s): I10 - Essential (primary) hypertension Category: Medical Code(s): I10 - Essential (primary) hypertension (5) Hyperlipidemia: Status: Acute Qualifiers: Hyperlipidemia type: unspecified Qualified Code(s): E78.5 - Hyperlipidemia, unspecified Category: Medical Code(s): E78.5 - Hyperlipidemia, unspecified (6) Class 3 obesity: Status: Acute Category: Medical Code(s): E66.01 - Morbid (severe) obesity due to excess calories (7) Diabetes mellitus type 2 in obese: Status: Acute Category: Medical Code(s): E11.69 - Type 2 diabetes mellitus with other specified complication; E66.9 - Obesity, unspecified (8) Anemia: Status: Acute Qualifiers: Anemia type: unspecified type Qualified Code(s): D64.9 - Anemia, unspecified Category: Medical Code(s): D64.9 - Anemia, unspecified Plan 1. Saddle pulmonary emboli, hemodynamically stable -Left lower extremity DVT -On anticoagulation with Lovenox with plans to switch to oral anticoagulation prior to discharge -Echo today 2. Diabetes mellitus type 2 3. Hyperlipidemia 4. Hypertension 5. Obesity 6. Chronic anemia with hemoglobin around 10-11 Continue to monitor over the weekend. Case discussed with Dr. Courtney who discussed with Dr. Unger at and would recommend continued medical therapy and observation for now.
[2023-03-16] MEDS: DOCUSATE SODIUM 100 MG CAPSULE PO (08:54)
[2023-03-16] MEDS: LISINOPRIL 20MG TABLET 40 MG PO (08:54)
[2023-03-16] MEDS: DOXEPIN HCL 25 MG CAPSULE 100 MG PO (08:54)
[2023-03-16] MEDS: CARVEDILOL 25MG TABLET 25 MG PO ×2 (08:54→21:37)
[2023-03-16] MEDS: PANTOPRAZOLE 40MG TABLET 40 MG PO (08:55)
--- NOTE | 2023-03-16 09:21 | EXP.PULM.CON ---
History of Present Illness History of present illness: Ms. Colon is a 62-year-old female no significant smoking history, no prior respiratory complaints recently admitted to the hospital from late Feb 2023 2/2 sepsis from UTI discharge and has been relatively sedentary presented from cardiology clinic for positive DVT and had a CT performed that showed saddle embolus extending into the right and left main pulmonary artery. [facility] Disclaimer: The information contained in this section may have been updated after the patient was seen, as this information can be updated by other users. Medical History (Updated 03/16/23 @ 10:57 by Nilsa Rivero MD) Abnormal echocardiogram Abnormal electrocardiogram [ECG] [EKG] Abnormality of left ventricular outflow tract Diabetes mellitus, type 2 Hyperlipidemia Hypertension Kidney stone Migraine Osteoarthritis Saddle embolism of pulmonary artery Sleep apnea Surgical History History of section Family History Other Family history of diabetes mellitus type II Family history of hyperlipidemia Family history of hypertension Family history of stroke Social History (Updated 03/15/23 @ 17:49 by Lavinia Bailey, RN) Smoking Status: Never smoker alcohol intake: never substance use type: denies use current occupational status: retired Travel in the last 8 weeks: None household members: none housing: house caffeine: Yes Review of Systems Constitutional Constitutional: Reports body ache(s) and Reports fatigue Eyes Eyes: Denies eye discharge, Denies dry eyes, Denies irritation and Denies itchy eyes ENT Ears, Nose, Mouth, and Throat: Denies epistaxis, Denies facial pain, Denies lip swelling and Denies throat swelling *Cardiovascular Cardiovascular: Reports dyspnea and Reports dyspnea on exertion *Respiratory Respiratory: Reports chest congestion, Reports cough, Reports dyspnea, Reports dyspnea on exertion, Denies excessive phlegm production, Denies hemoptysis, Denies pain on inspiration, Denies pain with cough and Denies wheezing *Gastrointestinal Gastrointestinal: Denies abdominal pain, Denies belching and Denies cramping *Musculoskeletal Musculoskeletal: Reports back pain, Reports myalgias and Reports other (No small joint swelling or Pain) Psychiatric Psychiatric: Denies homicidal ideation and Denies suicidal ideation Endocrine Endocrine: Reports fatigue and Denies heat intolerance Hematologic/Lymphatic Hematologic/Lymphatic: Denies easy bleeding and Denies lymphadenopathy Allergic/Immunologic Allergic/Immunologic: Denies itchy eyes, Denies lip swelling, Denies throat swelling and Denies wheezing Pulmonology Exam Inpatient Vital signs and Labs for Last 24 Hours: Temp Pulse Resp BP Pulse Ox O2 Del Method 97.8 F 95 H 16 114/68 96 Room Air 03/16/23 08:00 03/16/23 08:00 03/16/23 08:00 03/16/23 08:00 03/16/23 08:00 03/16/23 08:15 Laboratory Results - last 24 hr 03/15/23 18:38: Troponin I < 0.01, NT-Pro-B Natriuret Pep 166 H 03/15/23 20:15: Troponin I < 0.01 03/15/23 21:51: POC Glucose 166 H 03/15/23 22:26: Troponin I < 0.01 03/16/23 05:31: WBC 6.7, RBC 3.60 L, Hgb 10.3 L, Hct 31.8 L, MCV 88.3, MCH 28.5, MCHC 32.3, RDW 15.8, Plt Count 171, MPV 8.3, Neut % (Auto) 68.2, Lymph % (Auto) 26.5, [place] % (Auto) 4.3, Eos % (Auto) 0.6, Baso % (Auto) 0.5, Neut # (Auto) 4.5, Lymph # (Auto) 1.8, [place] # (Auto) 0.3, Eos # (Auto) 0.0, Baso # (Auto) 0.0, Sodium 136, Potassium 4.2, Chloride 109 H, Carbon Dioxide 25, Anion Gap 6.2, BUN 10, Creatinine 0.80, Estimated Creat Clear 55, Estimated GFR 73, Est GFR ( Amer) 88, Glucose 148 H, Calcium 7.7 L, Magnesium 1.6, Total Bilirubin 0.3, AST 35 D, ALT 29, Alkaline Phosphatase 113, Total Protein 6.4, Albumin 3.1 L, Globulin 3.3 H, Albumin/Globulin Ratio 0.9 L I & O for Labs for Last 24 Hours: Intake & Output 03/13/23 03/14/23 03/15/23 03/16/23 23:59 23:59 23:59 23:59 Intake Total 908 / 908 Output Total 0 / 0 0 / 0 Balance 0 / 140 908 / 908 Weight 263 lb 8 oz 270 lb 4 oz Constitutional: Present mild distress Head: Present normocephalic and atraumatic ENT: Present normal exam, normal oropharynx and mucous membranes moist Neck: Present normal inspection and full ROM Respiratory: Present normal respiratory effort and able to speak in complete sentences; Absent respiratory distress, wheezes, crackles or diminished air movement Cardiac: Present S1/S2, Tachycardia and radial pulses present GI: Present soft and distention; Absent tenderness or guarding Rectal (female): Present deferred (female): Present deferred Skin: Present intact; Absent cyanosis or jaundice Neuro: Present alert, awake and oriented x 3 Extremities: Present normal inspection; Absent clubbing or cyanosis Psychiatric: Present normal affect and cooperative Meds Home Medications and Allergies Home Medications Medication Instructions Recorded Confirmed Type olanzapine 10 mg tablet 10 mg PO HS 09/14/20 03/15/23 History pantoprazole 40 mg tablet,delayed 40 mg PO BID GERD 11/06/21 03/15/23 History release carvedilol 25 mg tablet 25 mg PO BID 03/08/23 03/15/23 History doxepin 100 mg capsule 100 mg PO DAILY 03/08/23 03/15/23 History insulin glargine 100 unit/mL (3 80 unit SQ HS 03/08/23 03/16/23 History mL) subcutaneous pen (Basaglar KwikPen U-100 Insulin) semaglutide 1 mg/dose (4 mg/3 mL) 1 mg SQ WEEKLY 03/08/23 03/16/23 History subcutaneous pen injector (Ozempic) insulin aspar prot-insulin aspart 25 unit (0.25 mL) SQ DAILY 03/10/23 03/15/23 Rx 100 unit/mL (70-30) subcutaneous Diabetes 30 days #0 mL pen hydrocodone 10 mg-acetaminophen 1 tab PO Q6HP PRN Pain 03/16/23 03/16/23 History 325 mg tablet lisinopril 40 mg tablet 40 mg PO DAILY 03/16/23 03/16/23 History New Prescriptions to Start Prescriptions: Allergies Allergy/AdvReac Type Severity Reaction Status Date / Time daptomycin [DAPTOMYCIN] AdvReac Mild I-RASH Verified 03/15/23 13:21 Results Laboratory Findings 03/16/23 05:31 03/16/23 05:31 Abnormal lab findings: Abnormal Labs 03/15/23 03/15/23 03/16/23 18:38 21:51 05:31 RBC 3.60 L Hgb 10.3 L Hct 31.8 L Chloride 109 H Glucose 148 H POC Glucose 166 H Calcium 7.7 L NT-Pro-B Natriuret Pep 166 H Albumin 3.1 L Globulin 3.3 H Albumin/Globulin Ratio 0.9 L Assessment and Plan *Assessment and plan (1) Saddle embolism of pulmonary artery: Status: Acute Category: Medical Code(s): I26.92 - Saddle embolus of pulmonary artery without acute cor pulmonale Plan Ms. Colon is a 62-year-old female no significant smoking history, no prior respiratory complaints recently admitted to the hospital from late Feb 2023 2/2 sepsis from UTI discharge and has been relatively sedentary presented from cardiology clinic for positive DVT and had a CT performed that showed saddle embolus extending into the right and left main pulmonary artery. From extreme venous Doppler DVT extending from common femoral vein throughout the left leg with only partial flow noted in the posterior tibial Afebrile. No evidence of leukocytosis upon admission. Remains on room air. Hemodynamically stable troponins negative on admission. No evidence of right heart strain on CT. Discussed with cardiology who agreed with the recommendations on patient do not need thrombectomy at this point of time given her hemodynamic stability and no evidence of a right heart strain. Will closely monitor. PE likely provoked from her recent sepsis event and being sedentary. Plan: Continue Lovenox full dose twice daily scheduled No need for antibiotics from pulmonary standpoint for presumed Pneumonia at this point of time, will monitor clinically DuoNebs every 6 hours on as-needed basis Monitor clinically and repeat LE venous Doppler Sunday prior to discharge planing as patient having significant clot burden. # Thank you for involving pulmonary in this patient care. Will continue to follow.
--- NOTE | 2023-03-16 10:13 | EXP.PN ---
Subjective *Date: 03/16/23 *Time: 10:13 Interval history: patient was seen and evaluated at the bedside. No reported acute events overnight, denies chest pain, shortness of breath, nausea, vomiting, abdominal pain. Exam Data for Last 24 hours Vital signs and Labs for Last 24 Hours: Temp Pulse Resp BP Pulse Ox O2 Del Method 97.8 F 95 H 16 114/68 96 Room Air 03/16/23 08:00 03/16/23 08:00 03/16/23 08:00 03/16/23 08:00 03/16/23 08:00 03/16/23 08:15 Laboratory Results - last 24 hr 03/15/23 18:38: Troponin I < 0.01, NT-Pro-B Natriuret Pep 166 H 03/15/23 20:15: Troponin I < 0.01 03/15/23 21:51: POC Glucose 166 H 03/15/23 22:26: Troponin I < 0.01 03/16/23 05:31: WBC 6.7, RBC 3.60 L, Hgb 10.3 L, Hct 31.8 L, MCV 88.3, MCH 28.5, MCHC 32.3, RDW 15.8, Plt Count 171, MPV 8.3, Neut % (Auto) 68.2, Lymph % (Auto) 26.5, [place] % (Auto) 4.3, Eos % (Auto) 0.6, Baso % (Auto) 0.5, Neut # (Auto) 4.5, Lymph # (Auto) 1.8, [place] # (Auto) 0.3, Eos # (Auto) 0.0, Baso # (Auto) 0.0, Sodium 136, Potassium 4.2, Chloride 109 H, Carbon Dioxide 25, Anion Gap 6.2, BUN 10, Creatinine 0.80, Estimated Creat Clear 55, Estimated GFR 73, Est GFR ( Amer) 88, Glucose 148 H, Calcium 7.7 L, Magnesium 1.6, Total Bilirubin 0.3, AST 35 D, ALT 29, Alkaline Phosphatase 113, Total Protein 6.4, Albumin 3.1 L, Globulin 3.3 H, Albumin/Globulin Ratio 0.9 L I & O for Last 24 hours: Intake & Output 03/13/23 03/14/23 03/15/23 03/16/23 23:59 23:59 23:59 23:59 Intake Total 908 / 908 Output Total 0 / 0 0 / 0 Balance 0 / 140 908 / 908 Weight 119.522 kg 122.583 kg Constitutional Constitutional: no acute distress *Routine HEENT Exam Head: Present normocephalic Eye: Present EOMI and PERRL ENT: Present mucous membranes moist *Routine Neck Exam Neck: Present supple; Absent lymphadenopathy *Routine Respiratory Exam Respiratory: Present CTA bilaterally *Routine Cardiovascular Exam Cardiovascular: Present RRR *Routine Abdominal Exam Abdominal: Present soft and normoactive bowel sounds; Absent tenderness *Routine Extremities Exam Extremities: Absent cyanosis, clubbing or edema *Routine Skin Exam Skin: Present warm; Absent rash *Routine Neurological Exam Neurological: Present alert and oriented X3 Assessment and Plan *Assessment and plan (1) Acute saddle pulmonary embolus: Status: Acute Qualifiers: Acute cor pulmonale presence: without acute cor pulmonale Qualified Code(s): I26.92 - Saddle embolus of pulmonary artery without acute cor pulmonale Category: Medical Code(s): I26.92 - Saddle embolus of pulmonary artery without acute cor pulmonale (2) Dvt femoral (deep venous thrombosis): Status: Acute Qualifiers: Chronicity: acute Laterality: left Qualified Code(s): I82.412 - Acute embolism and thrombosis of left femoral vein Category: Medical Code(s): I82.419 - Acute embolism and thrombosis of unspecified femoral vein (3) Hyperglycemia due to type 2 diabetes mellitus: Status: Acute Qualifiers: Diabetes mellitus long-term insulin use: with long-term use Qualified Code(s): E11.65 - Type 2 diabetes mellitus with hyperglycemia; Z79.4 - termination clerk (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 Category: Medical Code(s): E11.65 - Type 2 diabetes mellitus with hyperglycemia (4) Hypertension: Status: Acute Qualifiers: Hypertension type: unspecified Qualified Code(s): I10 - Essential (primary) hypertension Category: Medical Code(s): I10 - Essential (primary) hypertension (5) Hyperlipidemia: Status: Acute Qualifiers: Hyperlipidemia type: unspecified Qualified Code(s): E78.5 - Hyperlipidemia, unspecified Category: Medical Code(s): E78.5 - Hyperlipidemia, unspecified (6) Class 3 obesity: Status: Acute Category: Medical Code(s): E66.01 - Morbid (severe) obesity due to excess calories Plan 62-year-old female PMHX of IDDM, HTN, obesity currently admitted for sepsis and UTI, who presented today with a positive DVT ultrasound from cardiology clinic. Patient was in the hospital last week diagnosed with urinary tract infection had some chest pain and shortness of breath at that time but it resolved upon being discharged. -Acute saddle pulmonary embolism and left femoral thrombosis: Cardiology and pulmonology consult plan for medical treatment for PE Therapeutic doses of Lovenox lunchroom monitor. Monitor for blood pressure and heart rate Monitor O2 saturation. Oxygen as needed Pain management. -Type 2 diabetes on long-term insulin: Resume home regimen Sliding scale Hypertension hyperlipidemia: Reconciled and resumed home meds. Patient on lisinopril carvedilol amlodipine -Morbid obesity: Will complicate all aspects of care patient currently on weight management On Ozempic weekly On Lovenox full dose. Protonix for GI bleed protection and GERD Full code continue to monitor over the weekend per cardiology
--- NOTE | 2023-03-16 11:27 | SW/DCPLANNER ---
Addendum entered by Laurie Peck 03/20/23 15:57: [facility]/ [facility] stated that services will resume this week for this patient. Addendum entered by Laurie Peck 03/20/23 12:56: Updated patient information has been faxed to [email or web address]/ [facility] that patient will discharge home today. Original Note: [facility] I have updated that patient is currently admitted at [facility].
[2023-03-16 11:49] LABS: POC Glucose,Bedside 146 (70-110)
[2023-03-16] MEDS: 0.9 % SODIUM CHLORIDE 1000ML 1,000 ML 50 ML IV (13:08)
[2023-03-16] MEDS: MORPHINE 2MG/ML SYRINGE 2 MG IV ×3 (13:08→21:54)
--- NOTE | 2023-03-16 14:06 | PC.NURSE ---
Aox 4, 97 on RA, 20g SYLVIA US guided with NS @ 50 ML/HR, PT up assist times one.
[2023-03-16] MEDS: humaLOG 100 UNITS/ML 3ML VIAL (SSI) SQ (16:14)
[2023-03-16 16:19] LABS: POC Glucose,Bedside 161 (70-110)
[2023-03-16] MEDS: OLANZapine 5 MG ODT TABLET 10 MG SL (21:37)
[2023-03-16 21:53] LABS: POC Glucose,Bedside 146 (70-110)
[2023-03-16 21:53] LABS: POC Glucose,Bedside 153 (70-110)
[2023-03-16] MEDS: INSULIN GLARGINE 100 UNITS/ML 3ML FLEXPEN 80 UNIT SQ (22:17)
[2023-03-17] VITALS (9 sets, daily range): BP systolic 112–131; BP diastolic 66–78; PULSE 72–90; RESP 17–20; TEMP 36.4–37; O2SAT 93–98; BMI 42.6
[2023-03-17] MEDS: MORPHINE 2MG/ML SYRINGE 2 MG IV ×5 (05:11→20:17)
[2023-03-17] MEDS: ENOXAPARIN 120MG/0.8ML SYRINGE 120 MG SQ ×2 (05:12→16:56)
[2023-03-17 05:28] LABS: POC Glucose,Bedside 139 (70-110)
[2023-03-17 09:12] LABS: Basophils % 0.3 % (0.1-2.0); Eosinophils % 0.6 % (0.1-12.0); Hematocrit 29.7 % (37.0-47.0); Hemoglobin 10.2 g/dL (12.2-16.2); Lymphocytes # 1.5 K/mm3 (0.7-4.5); Lymphocytes % 25.1 % (10-50); Mean Corpuscular HGB Conc 34.2 g/dL (31.8-35.4); Mean Corpuscular Hemoglobin 29.3 pg (27.0-31.2); Mean Corpuscular Volume 85.6 fl (81-99); Mean Platelet Volume 7.9 fl (7.4-10.4); Monocytes # 0.3 K/mm3 (0.1-1.0); Neutrophils # 4.1 K/mm3 (1.8-7.8); Platelet Count 141 K/mm3 (142-424); Red Blood Count 3.47 M/mm3 (4.20-5.40); Red Cell Distribution Width 15.4 % (11.5-17.5)
[2023-03-17 09:42] LABS: NT Pro Brain Natriuretic Pep. 72.4 pg/mL (0-125)
[2023-03-17] MEDS: LISINOPRIL 20MG TABLET 40 MG PO (09:47)
[2023-03-17] MEDS: DOCUSATE SODIUM 100 MG CAPSULE PO (09:47)
[2023-03-17] MEDS: CARVEDILOL 25MG TABLET 25 MG PO ×2 (09:48→20:15)
[2023-03-17] MEDS: PANTOPRAZOLE 40MG TABLET 40 MG PO (09:48)
[2023-03-17] MEDS: DOXEPIN HCL 25 MG CAPSULE 100 MG PO (09:48)
[2023-03-17] MEDS: 0.9 % SODIUM CHLORIDE 1000ML 1,000 ML 50 ML IV (09:55)
[2023-03-17 11:14] LABS: POC Glucose,Bedside 157 (70-110)
[2023-03-17 11:18] LABS: Chloride 107 mmol/L (98-107)
[2023-03-17 11:19] LABS: Potassium 4.2 mmoL/L (3.5-5.1); Sodium 138 mmol/L (136-145)
[2023-03-17 11:22] LABS: Anion Gap 10.2 mEq/L (5-15); Blood Urea Nitrogen 11 mg/dl (7-17); Calcium 7.6 mg/dl (8.4-10.2); Carbon Dioxide 25 mmol/L (22.0-30.0); Creatinine Clearance Estimated 55 mL/min (50-200); Estimated Glomerular Filt Rate 63 ml/min (>60); GFR (African American) 77 ML/MIN (>60); Glucose 162 mg/dl (74-100)
[2023-03-17] MEDS: APAP/HYDROCODONE 325MG/7.5MG TAB 1 TAB PO ×2 (12:39→23:21)
--- NOTE | 2023-03-17 15:53 | EXP.PN ---
Subjective *Date: 03/17/23 *Time: 15:53 Interval history: patient was seen and evaluated at the bedside. No reported acute events overnight, denies chest pain, shortness of breath, nausea, vomiting, abdominal pain. Exam Data for Last 24 hours Vital signs and Labs for Last 24 Hours: Temp Pulse Resp BP Pulse Ox O2 Del Method O2 Flow Rate 97.5 F L 83 18 118/75 94 L Room Air 1 03/17/23 15:26 03/17/23 15:03/17/23 15:03/17/23 15:03/17/23 15:03/17/23 15:03/16/23 14:35 Laboratory Results - last 24 hr 03/16/23 05:35: POC Glucose 146 H 03/16/23 16:10: POC Glucose 161 H 03/16/23 21:42: POC Glucose 153 H 03/17/23 05:17: POC Glucose 139 H 03/17/23 08:41: WBC 6.0, RBC 3.47 L, Hgb 10.2 L, Hct 29.7 L, MCV 85.6, MCH 29.3, MCHC 34.2, RDW 15.4, Plt Count 141 L, MPV 7.9, Neut % (Auto) 69.0, Lymph % (Auto) 25.1, [place] % (Auto) 5.0, Eos % (Auto) 0.6, Baso % (Auto) 0.3, Neut # (Auto) 4.1, Lymph # (Auto) 1.5, [place] # (Auto) 0.3, Eos # (Auto) 0.0, Baso # (Auto) 0.0, Sodium 138, Potassium 4.2, Chloride 107, Carbon Dioxide 25, Anion Gap 10.2, BUN 11, Creatinine 0.90, Estimated Creat Clear 55, Estimated GFR 63, Est GFR ( Amer) 77, Glucose 162 H, Calcium 7.6 L, NT-Pro-B Natriuret Pep 72.4 03/17/23 11:01: POC Glucose 157 H I & O for Last 24 hours: Intake & Output 03/14/23 03/15/23 03/16/23 03/17/23 23:59 23:59 23:59 23:59 Intake Total 2418 / 2658 600 / 600 Output Total 0 / 0 0 / 0 0 / 0 Balance 0 / 140 2418 / 2658 600 / 600 Weight 119.522 kg 122 kg 123.286 kg Constitutional Constitutional: no acute distress *Routine HEENT Exam Head: Present normocephalic Eye: Present EOMI and PERRL ENT: Present mucous membranes moist *Routine Neck Exam Neck: Present supple; Absent lymphadenopathy *Routine Respiratory Exam Respiratory: Present CTA bilaterally *Routine Cardiovascular Exam Cardiovascular: Present RRR *Routine Abdominal Exam Abdominal: Present soft and normoactive bowel sounds; Absent tenderness *Routine Extremities Exam Extremities: Present edema; Absent cyanosis or clubbing Comments: Edema noted on left leg *Routine Skin Exam Skin: Present warm; Absent rash *Routine Neurological Exam Neurological: Present alert and oriented X3 Assessment and Plan *Assessment and plan (1) Acute saddle pulmonary embolus: Status: Acute Qualifiers: Acute cor pulmonale presence: without acute cor pulmonale Qualified Code(s): I26.92 - Saddle embolus of pulmonary artery without acute cor pulmonale Category: Medical Code(s): I26.92 - Saddle embolus of pulmonary artery without acute cor pulmonale (2) Dvt femoral (deep venous thrombosis): Status: Acute Qualifiers: Chronicity: acute Laterality: left Qualified Code(s): I82.412 - Acute embolism and thrombosis of left femoral vein Category: Medical Code(s): I82.419 - Acute embolism and thrombosis of unspecified femoral vein (3) Hyperglycemia due to type 2 diabetes mellitus: Status: Acute Qualifiers: Diabetes mellitus mcfp insulin use: with computer terminal operator use Qualified Code(s): E11.65 - Type 2 diabetes mellitus with hyperglycemia; Z79.4 - assistant terminal manager (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 Category: Medical Code(s): E11.65 - Type 2 diabetes mellitus with hyperglycemia (4) Hypertension: Status: Acute Qualifiers: Hypertension type: unspecified Qualified Code(s): I10 - Essential (primary) hypertension Category: Medical Code(s): I10 - Essential (primary) hypertension (5) Hyperlipidemia: Status: Acute Qualifiers: Hyperlipidemia type: unspecified Qualified Code(s): E78.5 - Hyperlipidemia, unspecified Category: Medical Code(s): E78.5 - Hyperlipidemia, unspecified (6) Class 3 obesity: Status: Acute Category: Medical Code(s): E66.01 - Morbid (severe) obesity due to excess calories Plan 62-year-old female PMHX of IDDM, HTN, obesity currently admitted for sepsis and UTI, who presented today with a positive DVT ultrasound from cardiology clinic. Patient was in the hospital last week diagnosed with urinary tract infection had some chest pain and shortness of breath at that time but it resolved upon being discharged. -Acute saddle pulmonary embolism and left femoral thrombosis: Cardiology and pulmonology consult plan for medical treatment for PE Therapeutic doses of Lovenox - continue vehicle monitor technician. Monitor for blood pressure and heart rate Monitor O2 saturation. Oxygen as needed Pain management. -Type 2 diabetes on long-term insulin: Resume home regimen Sliding scale Hypertension hyperlipidemia Reconciled and resumed home meds. Patient on lisinopril carvedilol amlodipine -Morbid obesity: Will complicate all aspects of care patient currently on weight management On Ozempic weekly On Lovenox full dose. Protonix for GI bleed protection and GERD Full code continue to monitor over the weekend per cardiology
[2023-03-17 17:16] LABS: POC Glucose,Bedside 147 (70-110)
[2023-03-17] MEDS: OLANZapine 5 MG ODT TABLET 10 MG SL (20:15)
[2023-03-17] MEDS: INSULIN GLARGINE 100 UNITS/ML 3ML FLEXPEN 80 UNIT SQ (20:29)
[2023-03-17 21:53] LABS: POC Glucose,Bedside 137 (70-110)
[2023-03-18] VITALS (8 sets, daily range): BP systolic 125–138; BP diastolic 72–88; PULSE 67–90; RESP 17–20; TEMP 36.4–37.6; O2SAT 94–97; BMI 41.2
[2023-03-18] MEDS: MORPHINE 2MG/ML SYRINGE 2 MG IV ×5 (00:41→21:36)
[2023-03-18] MEDS: ENOXAPARIN 120MG/0.8ML SYRINGE 120 MG SQ ×2 (04:40→16:19)
[2023-03-18] MEDS: 0.9 % SODIUM CHLORIDE 1000ML 1,000 ML 50 ML IV (06:42)
[2023-03-18] MEDS: APAP/HYDROCODONE 325MG/7.5MG TAB 1 TAB PO (06:42)
[2023-03-18 07:13] LABS: POC Glucose,Bedside 119 (70-110)
[2023-03-18 08:18] LABS: Chloride 108 mmol/L (98-107); Potassium 3.8 mmoL/L (3.5-5.1); Sodium 139 mmol/L (136-145)
[2023-03-18 08:20] LABS: Basophils % 0.4 % (0.1-2.0); Eosinophils % 0.3 % (0.1-12.0); Hematocrit 29.1 % (37.0-47.0); Hemoglobin 9.7 g/dL (12.2-16.2); Lymphocytes # 1.3 K/mm3 (0.7-4.5); Lymphocytes % 28.3 % (10-50); Mean Corpuscular HGB Conc 33.4 g/dL (31.8-35.4); Mean Corpuscular Hemoglobin 28.8 pg (27.0-31.2); Mean Corpuscular Volume 86.2 fl (81-99); Mean Platelet Volume 8.3 fl (7.4-10.4); Monocytes # 0.3 K/mm3 (0.1-1.0); Monocytes % 5.4 % (1.7-9.3); Neutrophils # 3.1 K/mm3 (1.8-7.8); Neutrophils % 65.7 % (37.0-80.0); Platelet Count 134 K/mm3 (142-424); Red Blood Count 3.38 M/mm3 (4.20-5.40); Red Cell Distribution Width 15.7 % (11.5-17.5); White Blood Count 4.6 K/mm3 (4.8-10.8)
[2023-03-18 08:21] LABS: Alanine Aminotransferase 24 U/L (12-78); Albumin Level 2.8 g/dl (3.5-5.0); Albumin/Globulin Ratio 0.9 (1.1-1.8); Alkaline Phosphatase 110 U/L (38-126); Anion Gap 9.8 mEq/L (5-15); Aspartate Amino Transferase 35 U/L (14-36); Bilirubin,Total 0.4 mg/dl (0.2-1.3); Blood Urea Nitrogen 9 mg/dl (7-17); Calcium 7.7 mg/dl (8.4-10.2); Carbon Dioxide 25 mmol/L (22.0-30.0); Creatinine Clearance Estimated 55 mL/min (50-200); Estimated Glomerular Filt Rate 63 ml/min (>60); GFR (African American) 77 ML/MIN (>60); Globulin 3.1 g/dL (1.3-3.2); Glucose 118 mg/dl (74-100); Total Protein,Serum 5.9 g/dl (6.3-8.2)
[2023-03-18] MEDS: DOXEPIN HCL 25 MG CAPSULE 100 MG PO (08:38)
[2023-03-18] MEDS: PANTOPRAZOLE 40MG TABLET 40 MG PO (08:38)
[2023-03-18] MEDS: LISINOPRIL 20MG TABLET 40 MG PO (08:38)
[2023-03-18] MEDS: DOCUSATE SODIUM 100 MG CAPSULE PO (08:39)
[2023-03-18] MEDS: CARVEDILOL 25MG TABLET 25 MG PO ×2 (08:39→21:37)
[2023-03-18 12:03] LABS: POC Glucose,Bedside 111 (70-110)
[2023-03-18] MEDS: HYDROCODONE 10MG/APAP 325MG TAB 1 TAB PO (16:08)
[2023-03-18 16:38] LABS: POC Glucose,Bedside 130 (70-110)
--- NOTE | 2023-03-18 19:02 | PC.NURSE ---
pt called out at 185 with c/o soa. vss, o2 97% on RA. lungs cta t/o. pt stated pulling self up in bed then became soa. bernie notified. 1904 pt states its better now . will continue to monitor.
[2023-03-18] MEDS: OLANZapine 5 MG ODT TABLET 10 MG SL (21:36)
[2023-03-19] VITALS (8 sets, daily range): BP systolic 102–161; BP diastolic 61–86; PULSE 70–90; RESP 16–18; TEMP 36.6–36.8; O2SAT 93–98; BMI 41.7
[2023-03-19] MEDS: MORPHINE 2MG/ML SYRINGE 2 MG IV ×6 (00:13→20:18)
[2023-03-19] MEDS: HYDROCODONE 10MG/APAP 325MG TAB 1 TAB PO ×2 (01:24→11:52)
[2023-03-19] MEDS: ENOXAPARIN 120MG/0.8ML SYRINGE 120 MG SQ (05:15)
[2023-03-19] MEDS: 0.9 % SODIUM CHLORIDE 1000ML 1,000 ML 50 ML IV (06:33)
[2023-03-19 07:34] LABS: Basophils % 0.6 % (0.1-2.0); Eosinophils % 0.3 % (0.1-12.0); Hematocrit 29.8 % (37.0-47.0); Hemoglobin 9.6 g/dL (12.2-16.2); Lymphocytes # 1.1 K/mm3 (0.7-4.5); Lymphocytes % 28.4 % (10-50); Mean Corpuscular HGB Conc 32.3 g/dL (31.8-35.4); Mean Corpuscular Hemoglobin 28.3 pg (27.0-31.2); Mean Corpuscular Volume 87.6 fl (81-99); Mean Platelet Volume 8.3 fl (7.4-10.4); Monocytes # 0.2 K/mm3 (0.1-1.0); Monocytes % 4.8 % (1.7-9.3); Neutrophils # 2.6 K/mm3 (1.8-7.8); Neutrophils % 65.9 % (37.0-80.0); Platelet Count 141 K/mm3 (142-424); Red Blood Count 3.39 M/mm3 (4.20-5.40); Red Cell Distribution Width 15.8 % (11.5-17.5); White Blood Count 3.9 K/mm3 (4.8-10.8)
[2023-03-19 07:43] LABS: Alanine Aminotransferase 23 U/L (12-78); Albumin Level 2.8 g/dl (3.5-5.0); Albumin/Globulin Ratio 0.9 (1.1-1.8); Alkaline Phosphatase 118 U/L (38-126); Anion Gap 3.8 mEq/L (5-15); Aspartate Amino Transferase 38 U/L (14-36); Bilirubin,Total 0.3 mg/dl (0.2-1.3); Blood Urea Nitrogen 9 mg/dl (7-17); Calcium 7.7 mg/dl (8.4-10.2); Carbon Dioxide 28 mmol/L (22.0-30.0); Chloride 107 mmol/L (98-107); Creatinine Clearance Estimated 55 mL/min (50-200); Estimated Glomerular Filt Rate 56 ml/min (>60); GFR (African American) 68 ML/MIN (>60); Globulin 3.1 g/dL (1.3-3.2); Glucose 135 mg/dl (74-100); Potassium 3.8 mmoL/L (3.5-5.1); Sodium 135 mmol/L (136-145); Total Protein,Serum 5.9 g/dl (6.3-8.2)
--- NOTE | 2023-03-19 08:57 | CA_ITS ---
FINAL REPORT CLINICAL HISTORY: DVT/PE clot [place] COMPARISON: 03/15/2023 FINDINGS: Again seen is extensive DVT from the left common femoral vein, femoral vein, popliteal vein, posterior tibial, peroneal and gastrocnemius veins. Findings are unchanged from prior exam. IMPRESSION: No significant interval change in extensive left lower extremity DVT. Reviewed, Interpreted and Dictated by Geoffrey Rowland III, MD Transcribed by Renata Adrian Authenticated and [facility]
[2023-03-19] MEDS: DOCUSATE SODIUM 100 MG CAPSULE PO (09:38)
[2023-03-19] MEDS: CARVEDILOL 25MG TABLET 25 MG PO ×2 (09:38→20:12)
[2023-03-19] MEDS: LISINOPRIL 20MG TABLET 40 MG PO (09:39)
[2023-03-19] MEDS: PANTOPRAZOLE 40MG TABLET 40 MG PO ×2 (09:39→20:12)
[2023-03-19] MEDS: DOXEPIN HCL 25 MG CAPSULE 100 MG PO (09:39)
--- NOTE | 2023-03-19 09:47 | P.CONS_ITS ---
[facility] Disclaimer: The information contained in this section may have been updated after the patient was seen, as this information can be updated by other users. Medical History (Updated 03/16/23 @ 10:57 by Nilsa Rivero MD) Abnormal echocardiogram Abnormal electrocardiogram [ECG] [EKG] Abnormality of left ventricular outflow tract Diabetes mellitus, type 2 Hyperlipidemia Hypertension Kidney stone Migraine Osteoarthritis Saddle embolism of pulmonary artery Sleep apnea Surgical History History of section Family History Other Family history of diabetes mellitus type II Family history of hyperlipidemia Family history of hypertension Family history of stroke Social History (Updated 03/15/23 @ 17:49 by Lavinia Bailey, DERRICK) Smoking Status: Never smoker alcohol intake: never substance use type: denies use current occupational status: retired Travel in the last 8 weeks: None household members: none housing: house caffeine: Yes Pulmonology Exam Inpatient Vital signs and Labs for Last 24 Hours: Temp Pulse Resp BP Pulse Ox O2 Del Method O2 Flow Rate 98.2 F 89 16 161/86 H 96 Room Air 1 03/19/23 08:00 03/19/23 08:00 03/19/23 08:00 03/19/23 08:00 03/19/23 08:00 03/19/23 08:00 03/16/23 14:35 Laboratory Results - last 24 hr 03/18/23 11:31: POC Glucose 111 H 03/18/23 16:19: POC Glucose 130 H 03/19/23 06:39: WBC 3.9 L, RBC 3.39 L, Hgb 9.6 L, Hct 29.8 L, MCV 87.6, MCH 28.3, MCHC 32.3, RDW 15.8, Plt Count 141 L, MPV 8.3, Neut % (Auto) 65.9, Lymph % (Auto) 28.4, [place] % (Auto) 4.8, Eos % (Auto) 0.3, Baso % (Auto) 0.6, Neut # (Auto) 2.6, Lymph # (Auto) 1.1, [place] # (Auto) 0.2, Eos # (Auto) 0.0, Baso # (Auto) 0.0, Sodium 135 L, Potassium 3.8, Chloride 107, Carbon Dioxide 28, Anion Gap 3.8 L, BUN 9, Creatinine 1.00, Estimated Creat Clear 55, Estimated GFR 56 L, Est GFR ( Amer) 68, Glucose 135 H, Calcium 7.7 L, Total Bilirubin 0.3, AST 38 H, ALT 23, Alkaline Phosphatase 118, Total Protein 5.9 L, Albumin 2.8 L, Globulin 3.1, Albumin/Globulin Ratio 0.9 L I & O for Labs for Last 24 Hours: Intake & Output 03/16/23 03/17/23 03/18/23 03/19/23 23:59 23:59 23:59 23:59 Intake Total 2418 / 2658 2502 / 2502 1245 / 1905 780 / 780 Output Total 0 / 0 0 / 0 0 / 0 0 / 0 Balance 2418 / 2658 2502 / 2502 1245 / 1905 780 / 780 Weight 268 lb 15.423 oz 271 lb 12.8 oz 262 lb 9.6 oz 265 lb 12.8 oz Meds Home Medications and Allergies Home Medications Medication Instructions Recorded Confirmed Type olanzapine 10 mg tablet 10 mg PO HS 09/14/20 03/15/23 History pantoprazole 40 mg tablet,delayed 40 mg PO BID GERD 11/06/21 03/15/23 History release carvedilol 25 mg tablet 25 mg PO BID 03/08/23 03/15/23 History doxepin 100 mg capsule 100 mg PO DAILY 03/08/23 03/15/23 History insulin glargine 100 unit/mL (3 80 unit SQ HS 03/08/23 03/16/23 History mL) subcutaneous pen (Basaglar KwikPen U-100 Insulin) semaglutide 1 mg/dose (4 mg/3 mL) 1 mg SQ WEEKLY 03/08/23 03/16/23 History subcutaneous pen injector (Ozempic) insulin aspar prot-insulin aspart 25 unit (0.25 mL) SQ DAILY 03/10/23 03/15/23 Rx 100 unit/mL (70-30) subcutaneous Diabetes 30 days #0 mL pen hydrocodone 10 mg-acetaminophen 1 tab PO Q6HP PRN Pain 03/16/23 03/16/23 History 325 mg tablet lisinopril 40 mg tablet 40 mg PO DAILY 03/16/23 03/16/23 History New Prescriptions to Start Prescriptions: Allergies Allergy/AdvReac Type Severity Reaction Status Date / Time daptomycin [DAPTOMYCIN] AdvReac Mild I-RASH Verified 03/15/23 13:21 Results Laboratory Findings 03/19/23 06:39 03/19/23 06:39 Abnormal lab findings: Abnormal Labs 03/15/23 03/15/23 03/16/23 18:38 21:51 05:31 WBC RBC 3.60 L Hgb 10.3 L Hct 31.8 L Plt Count Sodium Chloride 109 H Anion Gap Estimated GFR Glucose 148 H POC Glucose 166 H Calcium 7.7 L AST NT-Pro-B Natriuret Pep 166 H Total Protein Albumin 3.1 L Globulin 3.3 H Albumin/Globulin Ratio 0.9 L 03/16/23 03/16/23 03/16/23 05:35 11:36 16:10 WBC RBC Hgb Hct Plt Count Sodium Chloride Anion Gap Estimated GFR Glucose POC Glucose 146 H 146 H 161 H Calcium AST NT-Pro-B Natriuret Pep Total Protein Albumin Globulin Albumin/Globulin Ratio 03/16/23 03/17/23 03/17/23 21:42 05:17 08:41 WBC RBC 3.47 L Hgb 10.2 L Hct 29.7 L Plt Count 141 L Sodium Chloride Anion Gap Estimated GFR Glucose 162 H POC Glucose 153 H 139 H Calcium 7.6 L AST NT-Pro-B Natriuret Pep Total Protein Albumin Globulin Albumin/Globulin Ratio 03/17/23 03/17/23 03/17/23 11:01 16:58 20:26 WBC RBC Hgb Hct Plt Count Sodium Chloride Anion Gap Estimated GFR Glucose POC Glucose 157 H 147 H 137 H Calcium AST NT-Pro-B Natriuret Pep Total Protein Albumin Globulin Albumin/Globulin Ratio 03/18/23 03/18/23 03/18/23 06:51 08:00 11:31 WBC 4.6 L RBC 3.38 L Hgb 9.7 L Hct 29.1 L Plt Count 134 L Sodium Chloride 108 H Anion Gap Estimated GFR Glucose 118 H D POC Glucose 119 H 111 H Calcium 7.7 L AST NT-Pro-B Natriuret Pep Total Protein 5.9 L Albumin 2.8 L Globulin Albumin/Globulin Ratio 0.9 L 03/18/23 03/19/23 16:19 06:39 WBC 3.9 L RBC 3.39 L Hgb 9.6 L Hct 29.8 L Plt Count 141 L Sodium 135 L Chloride Anion Gap 3.8 L Estimated GFR 56 L Glucose 135 H POC Glucose 130 H Calcium 7.7 L AST 38 H NT-Pro-B Natriuret Pep Total Protein 5.9 L Albumin 2.8 L Globulin Albumin/Globulin Ratio 0.9 L Assessment and Plan *Assessment and plan (1) Saddle embolism of pulmonary artery: Status: Acute Category: Medical Code(s): I26.92 - Saddle embolus of pulmonary artery without acute cor pulmonale Plan Ms. Colon is a 62-year-old female no significant smoking history, no prior respiratory complaints recently admitted to the hospital from late Feb 2023 2/2 sepsis from UTI discharge and has been relatively sedentary presented from cardiology clinic for positive DVT and had a CT performed that showed saddle embolus extending into the right and left main pulmonary artery. From extreme venous Doppler DVT extending from common femoral vein throughout the left leg with only partial flow noted in the posterior tibial Afebrile. No evidence of leukocytosis upon admission. Remains on room air. Hemodynamically stable troponins negative on admission. No evidence of right heart strain on CT. Discussed with cardiology who agreed with the recommendations on patient do not need thrombectomy at this point of time given her hemodynamic stability and no evidence of a right heart strain. Will closely monitor. PE likely provoked from her recent sepsis event and being sedentary. Interval update: No acute respiratory vents over the weekend. Continue to remain on room air. Lower extremity venous Doppler from this morning pending Plan: Continue Lovenox full dose twice daily scheduled, No need for antibiotics from pulmonary standpoint for presumed Pneumonia at this point of time, will monitor clinically DuoNebs every 6 hours on as-needed basis Monitor clinically and repeat LE venous Doppler Sunday prior to discharge planing as patient having significant clot burden. # Thank you for involving pulmonary in this patient care. Will continue to follow.
[2023-03-19] MEDS: humaLOG MIX 75/25 3ML FLEXPEN 25 UNIT SQ (09:51)
[2023-03-19 10:07] LABS: POC Glucose,Bedside 182 (70-110)
--- NOTE | 2023-03-19 11:23 | P.PN_ITS ---
Subjective *Date: 03/19/23 *Time: 11:23 Interval history: No acute respiratory vents overnight. Patient is any new respiratory complaints. Pulmonology Exam Inpatient Vital signs and Labs for Last 24 Hours: Temp Pulse Resp BP Pulse Ox O2 Del Method O2 Flow Rate 98.2 F 89 16 161/86 H 96 Room Air 1 03/19/23 08:00 03/19/23 08:00 03/19/23 08:00 03/19/23 08:00 03/19/23 08:00 03/19/23 09:00 03/16/23 14:35 Laboratory Results - last 24 hr 03/18/23 11:31: POC Glucose 111 H 03/18/23 16:19: POC Glucose 130 H 03/19/23 06:39: WBC 3.9 L, RBC 3.39 L, Hgb 9.6 L, Hct 29.8 L, MCV 87.6, MCH 28.3, MCHC 32.3, RDW 15.8, Plt Count 141 L, MPV 8.3, Neut % (Auto) 65.9, Lymph % (Auto) 28.4, [place] % (Auto) 4.8, Eos % (Auto) 0.3, Baso % (Auto) 0.6, Neut # (Auto) 2.6, Lymph # (Auto) 1.1, [place] # (Auto) 0.2, Eos # (Auto) 0.0, Baso # (Auto) 0.0, Sodium 135 L, Potassium 3.8, Chloride 107, Carbon Dioxide 28, Anion Gap 3.8 L, BUN 9, Creatinine 1.00, Estimated Creat Clear 55, Estimated GFR 56 L, Est GFR ( Amer) 68, Glucose 135 H, Calcium 7.7 L, Total Bilirubin 0.3, AST 38 H, ALT 23, Alkaline Phosphatase 118, Total Protein 5.9 L, Albumin 2.8 L, Globulin 3.1, Albumin/Globulin Ratio 0.9 L 03/19/23 09:50: POC Glucose 182 H I & O for Labs for Last 24 Hours: Intake & Output 03/16/23 03/17/23 03/18/23 03/19/23 23:59 23:59 23:59 23:59 Intake Total 2418 / 2658 2502 / 2502 1245 / 1905 780 / 780 Output Total 0 / 0 0 / 0 0 / 0 0 / 0 Balance 2418 / 2658 2502 / 2502 1245 / 1905 780 / 780 Weight 268 lb 15.423 oz 271 lb 12.8 oz 262 lb 9.6 oz 265 lb 12.8 oz Constitutional: Present mild distress Head: Present normocephalic and atraumatic ENT: Present normal exam, normal oropharynx and mucous membranes moist Neck: Present normal inspection and full ROM Respiratory: Present normal respiratory effort and able to speak in complete sentences; Absent respiratory distress, wheezes, crackles or diminished air movement Cardiac: Present S1/S2, Tachycardia and radial pulses present GI: Present soft and distention; Absent tenderness or guarding Rectal (female): Present deferred (female): Present deferred Skin: Present intact; Absent cyanosis or jaundice Neuro: Present alert, awake and oriented x 3 Extremities: Present normal inspection; Absent clubbing or cyanosis Psychiatric: Present normal affect and cooperative Assessment and Plan *Assessment and plan (1) Saddle embolism of pulmonary artery: Status: Acute Category: Medical Code(s): I26.92 - Saddle embolus of pulmonary artery without acute cor pulmonale Plan Ms. Colon is a 62-year-old female no significant smoking history, no prior respiratory complaints recently admitted to the hospital from late Feb 2023 2/2 sepsis from UTI discharge and has been relatively sedentary presented from cardiology clinic for positive DVT and had a CT performed that showed saddle embolus extending into the right and left main pulmonary artery. From extreme venous Doppler DVT extending from common femoral vein throughout the left leg with only partial flow noted in the posterior tibial Afebrile. No evidence of leukocytosis upon admission. Remains on room air. Hemodynamically stable troponins negative on admission. No evidence of right heart strain on CT. Discussed with cardiology who agreed with the recommendations on patient do not need thrombectomy at this point of time given her hemodynamic stability and no evidence of a right heart strain. Will closely monitor. PE likely provoked from her recent sepsis event and being sedentary. Interval update: No acute respiratory vents over the weekend. Patient denies any new respiratory complaints. Continued to remain on room air. Awaiting regarding for the venous Doppler. Plan: Continue Lovenox full dose twice daily scheduled, will plan to discharge patient on apixaban No need for antibiotics from pulmonary standpoint for presumed Pneumonia at this point of time, will monitor clinically DuoNebs every 6 hours on as-needed basis Monitor clinically and repeat LE venous Doppler Sunday prior to discharge planing as patient having significant clot burden. # Thank you for involving pulmonary in this patient care. Will continue to follow.
--- NOTE | 2023-03-19 11:55 | CA_ITS ---
APPROVED REPORT EXAM: Limited 2D and color flow Echocardiogram Annual Campaign Manager: RT Yaneth(R) Ht: 5 ft 7 in Wt: 265lbs BSA: 2.28 BP: 161/86 mmHg Indications: pericardial effusion, limited echo to reassess effusion, PE's, DVT, obesity, DM Other Information Study Quality: Fair Conclusion This is a limited TTE to evaluate for pericardial effusion. Limited windows were obtained. The left ventricle appears normal in size. There is increased LV wall thickness. There are no regional wall motion abnormalities. LVEF is 55%. The right ventricle is normal in size and systolic function. There is trivial posterior pericardial effusion present. No echo indications of tamponade. Compared to prior study from 03/16/2022, the effusion is now improved. Electronically signed by : Tamiko Mccloud MD 03/19/2023 15:21:13
--- NOTE | 2023-03-19 12:54 | PC.NURSE ---
Report given to Grabiel Dumont.
--- NOTE | 2023-03-19 13:54 | EXP.PN ---
Subjective *Date: 03/18/23 *Time: 13:54 Interval history: No acute events overnight., no CP, N/V, Left leg swelling is still there and associated with significant pain Exam Data for Last 24 hours Vital signs and Labs for Last 24 Hours: Temp Pulse Resp BP Pulse Ox O2 Del Method O2 Flow Rate 97.9 F 84 16 121/73 96 Room Air 1 03/19/23 12:00 03/19/23 12:00 03/19/23 12:00 03/19/23 12:00 03/19/23 12:00 03/19/23 12:53 03/16/23 14:35 Laboratory Results - last 24 hr 03/18/23 16:19: POC Glucose 130 H 03/19/23 06:39: WBC 3.9 L, RBC 3.39 L, Hgb 9.6 L, Hct 29.8 L, MCV 87.6, MCH 28.3, MCHC 32.3, RDW 15.8, Plt Count 141 L, MPV 8.3, Neut % (Auto) 65.9, Lymph % (Auto) 28.4, [place] % (Auto) 4.8, Eos % (Auto) 0.3, Baso % (Auto) 0.6, Neut # (Auto) 2.6, Lymph # (Auto) 1.1, [place] # (Auto) 0.2, Eos # (Auto) 0.0, Baso # (Auto) 0.0, Sodium 135 L, Potassium 3.8, Chloride 107, Carbon Dioxide 28, Anion Gap 3.8 L, BUN 9, Creatinine 1.00, Estimated Creat Clear 55, Estimated GFR 56 L, Est GFR ( Amer) 68, Glucose 135 H, Calcium 7.7 L, Total Bilirubin 0.3, AST 38 H, ALT 23, Alkaline Phosphatase 118, Total Protein 5.9 L, Albumin 2.8 L, Globulin 3.1, Albumin/Globulin Ratio 0.9 L 03/19/23 09:50: POC Glucose 182 H I & O for Last 24 hours: Intake & Output 03/16/23 03/17/23 03/18/23 03/19/23 23:59 23:59 23:59 23:59 Intake Total 2418 / 2658 2502 / 2502 1245 / 1905 1672 / 1672 Output Total 0 / 0 0 / 0 0 / 0 0 / 0 Balance 2418 / 2658 2502 / 2502 1245 / 1905 1672 / 1672 Weight 122 kg 123.286 kg 119.113 kg 120.565 kg Constitutional Constitutional: no acute distress *Routine HEENT Exam Head: Present normocephalic Eye: Present EOMI and PERRL ENT: Present mucous membranes moist *Routine Neck Exam Neck: Present supple; Absent lymphadenopathy *Routine Respiratory Exam Respiratory: Present CTA bilaterally *Routine Cardiovascular Exam Cardiovascular: Present RRR *Routine Abdominal Exam Abdominal: Present soft and normoactive bowel sounds; Absent tenderness *Routine Extremities Exam Extremities: Present edema; Absent cyanosis or clubbing Comments: Edema noted on left leg *Routine Skin Exam Skin: Present warm; Absent rash *Routine Neurological Exam Neurological: Present alert and oriented X3 Assessment and Plan *Assessment and plan (1) Acute saddle pulmonary embolus: Status: Acute Qualifiers: Acute cor pulmonale presence: without acute cor pulmonale Qualified Code(s): I26.92 - Saddle embolus of pulmonary artery without acute cor pulmonale Category: Medical Code(s): I26.92 - Saddle embolus of pulmonary artery without acute cor pulmonale (2) Dvt femoral (deep venous thrombosis): Status: Acute Qualifiers: Chronicity: acute Laterality: left Qualified Code(s): I82.412 - Acute embolism and thrombosis of left femoral vein Category: Medical Code(s): I82.419 - Acute embolism and thrombosis of unspecified femoral vein (3) Hyperglycemia due to type 2 diabetes mellitus: Status: Acute Qualifiers: 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 mellitus hvac technician insulin use: with hvac technician use Qualified Code(s): E11.65 - Type 2 diabetes mellitus with hyperglycemia; Z79.4 - skilled nursing (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 Category: Medical Code(s): E11.65 - Type 2 diabetes mellitus with hyperglycemia (4) Hypertension: Status: Acute Qualifiers: Hypertension type: unspecified Qualified Code(s): I10 - Essential (primary) hypertension Category: Medical Code(s): I10 - Essential (primary) hypertension (5) Hyperlipidemia: Status: Acute Qualifiers: Hyperlipidemia type: unspecified Qualified Code(s): E78.5 - Hyperlipidemia, unspecified Category: Medical Code(s): E78.5 - Hyperlipidemia, unspecified (6) Class 3 obesity: Status: Acute Category: Medical Code(s): E66.01 - Morbid (severe) obesity due to excess calories Plan 62-year-old female PMHX of IDDM, HTN, obesity currently admitted for sepsis and UTI, who presented today with a positive DVT ultrasound from cardiology clinic. Patient was in the hospital last week diagnosed with urinary tract infection had some chest pain and shortness of breath at that time but it resolved upon being discharged. -Acute saddle pulmonary embolism and left femoral thrombosis: Cardiology and pulmonology consult - recs noted, cont Lovenox at therapeutic dose plan for medical treatment for PE Therapeutic doses of Lovenox - continue electronic device monitor. Monitor for blood pressure and heart rate Monitor O2 saturation. Oxygen as needed Pain management. -Type 2 diabetes on long-term insulin Resume home regimen Sliding scale Hypertension Hyperlipidemia Reconciled and resumed home meds. Patient on lisinopril carvedilol amlodipine -Morbid obesity: Will complicate all aspects of care patient currently on weight management On Ozempic weekly On Lovenox full dose. Protonix for GI bleed protection and GERD Full code await cardiology plan
--- NOTE | 2023-03-19 14:00 | HMH.PTEV ---
Physical Therapy Evaluation Rehab PT IP Evaluation Start: 03/19/23 12:06 Freq: ONCE Status: Active Protocol: Document 03/19/23 13:52 CARMELITA (Rec: 03/19/23 14:00 NIVIAARIC [id number]) Subjective/History History History 62 yowf adm to [facility] with increased SOA and found to have PE and L LE DVT. She has PMH of IDDM, HTN, obesity. She reports she lives alone, no SHAYNE her apt, and she is independent with all mobility using a cane at baseline. Subjective Subjective Pt reports she feels tired, but better than the previous several days. New diagnosis of cancer in past 12 No months? Rehab PT IP Eval Objective Appearance Patient Behavior Appropriate Patient Orientation Person,Place,Time Difficulty following instructions none Speech Pattern Clear Ambulation Patient Able to Ambulate Yes Ambulation Observation IP General Gait Pattern Observation No Deviations/Normal Ambulation Distance (feet) 60 Ambulation Assistive Device Straight Cane Ambulation Ability Independent Balance Ability to Arise Able, uses arms to help Sitting Balance Steady, safe Standing Balance Steady, wide stance Dynamic Sitting Balance Ability Good Dynamic Standing Balance Ability Good Transfers Sit to Stand Chair Transfer Ability Independent ROM All Extremities PT ROM Status WFL MMT All Extremities PT MMT WFL Rehab PT IP prob,goals,plan Problems Date of Evaluation: 03/19/23 Discharge Plan PT Discharge Plan Pt is currently appropriate to return home once medically stable for d/c. She has no current inpatient therapy needs. Eval Complexity Eval Charge Codes 35202 - High Complexity PHYSICIAN CERTIFICATION: I certify the specified therapy services for Angy Colon are required, authorized, and reviewed every 30 days.
--- NOTE | 2023-03-19 14:25 | EXP.CARD.PN ---
Subjective Subjective Date: 03/19/23 Time: 09:30 Principal diagnosis: Saddle PE, SOB Interval history: This is a 62-year-old white female who was admitted to the hospital for left lower extremity DVT and saddle pulmonary emboli. The patient had no RV strain noted on CT or echocardiogram. She still complains of shortness of breath at times with exertion but it is better than it was when she was admitted to the hospital. She does state yesterday that she had 1 pretty bad episode of shortness of breath but today it has not been as bad. She denies any chest pain or pressure overnight. She denies any lower extremity edema. She denies any fever, chills, nausea, vomiting, diarrhea, PND or orthopnea. Exam Data for Last 24 hours Vital signs and Labs for Last 24 Hours: Temp Pulse Resp BP Pulse Ox O2 Del Method O2 Flow Rate 97.9 F 84 16 121/73 96 Room Air 1 03/19/23 12:00 03/19/23 12:00 03/19/23 12:00 03/19/23 12:00 03/19/23 12:00 03/19/23 12:53 03/16/23 14:35 Laboratory Results - last 24 hr 03/18/23 16:19: POC Glucose 130 H 03/19/23 06:39: WBC 3.9 L, RBC 3.39 L, Hgb 9.6 L, Hct 29.8 L, MCV 87.6, MCH 28.3, MCHC 32.3, RDW 15.8, Plt Count 141 L, MPV 8.3, Neut % (Auto) 65.9, Lymph % (Auto) 28.4, [place] % (Auto) 4.8, Eos % (Auto) 0.3, Baso % (Auto) 0.6, Neut # (Auto) 2.6, Lymph # (Auto) 1.1, [place] # (Auto) 0.2, Eos # (Auto) 0.0, Baso # (Auto) 0.0, Sodium 135 L, Potassium 3.8, Chloride 107, Carbon Dioxide 28, Anion Gap 3.8 L, BUN 9, Creatinine 1.00, Estimated Creat Clear 55, Estimated GFR 56 L, Est GFR ( Amer) 68, Glucose 135 H, Calcium 7.7 L, Total Bilirubin 0.3, AST 38 H, ALT 23, Alkaline Phosphatase 118, Total Protein 5.9 L, Albumin 2.8 L, Globulin 3.1, Albumin/Globulin Ratio 0.9 L 03/19/23 09:50: POC Glucose 182 H I & O for Last 24 hours: Intake & Output 03/16/23 03/17/23 03/18/23 03/19/23 23:59 23:59 23:59 23:59 Intake Total 2418 / 2658 2502 / 2502 1245 / 1905 167 / 1672 Output Total 0 / 0 0 / 0 0 / 0 0 / 0 Balance 2418 / 2658 2502 / 2502 1245 / 1905 167 / 1672 Weight 268 lb 15.423 oz 271 lb 12.8 oz 262 lb 9.6 oz 265 lb 12.8 oz Constitutional Constitutional: no acute distress and morbidly obese *Routine HEENT Exam Head: Present normocephalic and atraumatic ENT: Present mucous membranes moist *Routine Neck Exam Neck: Present supple, full ROM and normal carotid upstroke; Absent JVD, carotid bruit or lymphadenopathy *Routine Respiratory Exam Respiratory: Present CTA bilaterally, normal respiratory effort, able to speak in complete sentences and symmetric chest movement *Routine Cardiovascular Exam Cardiovascular: Present RRR, Normal S1 and Normal S2; Absent murmur or gallop *Routine Abdominal Exam Abdominal: Present soft and normoactive bowel sounds; Absent tenderness, distended or organomegaly *Routine Extremities Exam Extremities: Present full ROM, pulses intact and normal capillary refill; Absent cyanosis, clubbing or edema *Routine Skin Exam Skin: Present intact and warm; Absent erythema *Routine Neurological Exam Neurological: Present alert, oriented X3 and CN II-XII intact; Absent sensory deficit or motor deficit Routine Psychiatric Exam Psychiatric: Present normal affect Progress Note: A&P Assessment and plan (1) Acute saddle pulmonary embolus: Status: Acute (2) Dvt femoral (deep venous thrombosis): Status: Acute (3) Hyperglycemia due to type 2 diabetes mellitus: Status: Acute (4) Hypertension: Status: Acute (5) Hyperlipidemia: Status: Acute (6) Class 3 obesity: Status: Acute Assessment and Plan Assessment and Plan for All Diagnoses:: Plan: 1. The patient was admitted to the hospital with a left lower extremity DVT and saddle pulmonary emboli. The patient remains hemodynamically stable and has had no RV strain noted on CT or echocardiogram. She will continue Lovenox at this time for long-term anticoagulation. Prior to discharge home we will switch her over to oral anticoagulation. 2. The patient states that her shortness of breath has significantly improved but she did have an episode yesterday where she had a pretty bad episode of shortness of breath. It is better today. Will repeat a limited echocardiogram to reevaluate her pericardial effusion to make sure that this has not worsened. If her pericardial effusion is stable then we will switch her Lovenox over to oral anticoagulation. 3. Her blood pressure is well-controlled. 4. Her LDL goal is less than 100. Will get a lipid panel in the morning. 5. The patient is diabetic. She will need aggressive control of her diabetes. Will defer management of this to the hospitalist. 6. We do want the patient up with physical therapy today ambulating. 7. Further recommendations will be made pending the patient's response to treatment and the results of her limited echocardiogram today. Thank you for the opportunity to help participate in the care of this patient. All recommendations and orders are per Dr. Mccloud. Addendum: Repeat limited echocardiogram shows no worsening of the pericardial effusion, if anything this is slightly improved. No RV strain noted. Stop Lovenox Start Xarelto 15 mg p.o. twice daily for long-term anticoagulation secondary to pulmonary emboli.
[2023-03-19 16:43] LABS: POC Glucose,Bedside 115 (70-110)
[2023-03-19] MEDS: humaLOG 100 UNITS/ML 3ML VIAL (SSI) SQ ×2 (17:01→20:13)
[2023-03-19] MEDS: RIVAROXABAN 15MG TABLET 15 MG PO (17:01)
[2023-03-19 17:13] LABS: POC Glucose,Bedside 157 (70-110)
[2023-03-19] MEDS: INSULIN GLARGINE 100 UNITS/ML 3ML FLEXPEN 80 UNIT SQ (20:12)
[2023-03-19] MEDS: OLANZapine 5 MG ODT TABLET 10 MG SL (20:12)
[2023-03-19 21:36] LABS: POC Glucose,Bedside 162 (70-110)
[2023-03-20] VITALS: BP 108/61; PULSE 84; PULSE 87; RESP 20; TEMP 36.8; O2SAT 93
[2023-03-20 04:00] VITALS: BP 112/62; PULSE 72; PULSE 80; RESP 18; TEMP 36.4; O2SAT 94; BMI 41.8
[2023-03-20] MEDS: MORPHINE 2MG/ML SYRINGE 2 MG IV ×2 (06:11→09:28)
[2023-03-20] MEDS: RIVAROXABAN 15MG TABLET 15 MG PO (06:48)
[2023-03-20] MEDS: HYDROCODONE 10MG/APAP 325MG TAB 1 TAB PO (06:55)
[2023-03-20 07:04] LABS: Basophils % 0.5 % (0.1-2.0); Eosinophils % 0.2 % (0.1-12.0); Hematocrit 30.2 % (37.0-47.0); Hemoglobin 10.2 g/dL (12.2-16.2); Lymphocytes # 1.1 K/mm3 (0.7-4.5); Lymphocytes % 22.4 % (10-50); Mean Corpuscular HGB Conc 33.7 g/dL (31.8-35.4); Mean Corpuscular Hemoglobin 29.3 pg (27.0-31.2); Mean Corpuscular Volume 86.8 fl (81-99); Mean Platelet Volume 8.5 fl (7.4-10.4); Monocytes # 0.2 K/mm3 (0.1-1.0); Monocytes % 4.6 % (1.7-9.3); Neutrophils # 3.5 K/mm3 (1.8-7.8); Neutrophils % 72.3 % (37.0-80.0); Platelet Count 154 K/mm3 (142-424); Red Blood Count 3.47 M/mm3 (4.20-5.40); Red Cell Distribution Width 15.9 % (11.5-17.5); White Blood Count 4.9 K/mm3 (4.8-10.8)
[2023-03-20 07:11] LABS: POC Glucose,Bedside 133 (70-110)
[2023-03-20 07:12] LABS: Alanine Aminotransferase 24 U/L (12-78); Albumin Level 3.1 g/dl (3.5-5.0); Alkaline Phosphatase 115 U/L (38-126); Aspartate Amino Transferase 39 U/L (14-36); Bilirubin,Total 0.4 mg/dl (0.2-1.3); Blood Urea Nitrogen 9 mg/dl (7-17); Carbon Dioxide 26 mmol/L (22.0-30.0); Chloride 106 mmol/L (98-107); Creatinine Clearance Estimated 55 mL/min (50-200); Estimated Glomerular Filt Rate 73 ml/min (>60); GFR (African American) 88 ML/MIN (>60); Globulin 3.1 g/dL (1.3-3.2); Glucose 132 mg/dl (74-100); Sodium 134 mmol/L (136-145); Total Protein,Serum 6.2 g/dl (6.3-8.2)
[2023-03-20 07:41] LABS: Alanine Aminotransferase 23 U/L (12-78); Albumin Level 2.9 g/dl (3.5-5.0); Alkaline Phosphatase 117 U/L (38-126); Aspartate Amino Transferase 35 U/L (14-36); Bilirubin,Direct 0.1 mg/dl (0.0-0.4); Bilirubin,Indirect 0.2 mg/dL (0.0-0.9); Bilirubin,Total 0.3 mg/dl (0.2-1.3); Bilirubin,Unconjugated 0.2 mg/dL (0.0-1.1); Chol/HDL Ratio 5.5 (1-3.5); Cholesterol 149 mg/dl (140-200); HDL Cholesterol 27 mg/dl (40-60); Total Protein,Serum 5.8 g/dl (6.3-8.2); Triglycerides 210 mg/dl (30-150); VLDL Cholesterol 42 mg/dL (0-40)
[2023-03-20 07:52] LABS: Direct LDL Cholesterol 80.41 mg/dL (100-129)
[2023-03-20 08:00] VITALS: BP 130/75; PULSE 80; PULSE 82; RESP 14; TEMP 36.5; O2SAT 95
--- NOTE | 2023-03-20 08:04 | EXP.DC.SUM ---
General Admission date:: 03/15/23 Discharge date: 03/20/23 HPI HPI HPI: This is a 62-year-old female PMHX of IDDM, HTN, obesity currently admitted for sepsis and UTI, who presented today with a positive DVT ultrasound from cardiology clinic. Patient was in the hospital last week diagnosed with urinary tract infection had some chest pain and shortness of breath at that time but it resolved upon being discharged. She states that starting 2 days ago she started having acute left lower extremity leg pain and swelling she saw Dr. Blanton and then subsequently saw her oracle database developer who ordered a DVT ultrasound which was positive for left common femoral vein DVT. Patient still has some dyspnea denies any chest pain currently. Admitted for further work up. Hospital Course Hospital Course Hospital Course: 62-year-old female PMHX of IDDM, HTN, obesity currently admitted for sepsis and UTI, who presented today with a positive DVT ultrasound from cardiology clinic. Patient was in the hospital last week diagnosed with urinary tract infection had some chest pain and shortness of breath at that time but it resolved upon being discharged. Found to have acute saddle PE and left femoral thrombosis. Cardiology was consulted along with pulmonology. No thrombectomy performed as patient did not have cardiac instability. Tolerated therapeutic Lovenox. Transition to oral anticoagulation. Stable for discharge home with plan for follow-up. Problems addressed as follows: -Acute saddle pulmonary embolism and left femoral thrombosis: PE likely provoked from her recent sepsis event and being sedentary. Echo obtained showing no evidence of right heart strain. Did have an effusion that showed improvement on repeat echo. No invasive intervention. Was treated with Lovenox. Will transition to Eliquis pulmonology recommends 6-minute walk test, no oxygen requirement prior to discharge. No need for antibiotics at this time. DuoNebs as needed during hospitalization. Continue/resume home albuterol inhaler after discharge. -Type 2 diabetes on long-term insulin: Continued home regimen during hospitalization. Hypertension Hyperlipidemia Continued home regimen. Blood pressure controlled during admission. Close follow-up with pulmonology and cardiology. Pulmonology managing PE. Patient was started on Eliquis at discharge. Resume home health at discharge. Spent 30 minutes in discharge counseling, documentation, chart review, and direct care with patient. Exam Data for Last 24 hours Vital signs and Labs for Last 24 Hours: Temp Pulse Resp BP Pulse Ox O2 Del Method O2 Flow Rate 97.6 F 80 18 112/62 94 L Room Air 1 03/20/23 04:00 03/20/23 04:00 03/20/23 04:00 03/20/23 04:00 03/20/23 04:00 03/20/23 07:00 03/16/23 14:35 Laboratory Results - last 24 hr 03/19/23 09:50: POC Glucose 182 H 03/19/23 11:47: POC Glucose 115 H 03/19/23 17:01: POC Glucose 157 H 03/19/23 20:05: POC Glucose 162 H 03/20/23 05:58: POC Glucose 133 H 03/20/23 06:45: WBC 4.9 D, RBC 3.47 L, Hgb 10.2 L, Hct 30.2 L, MCV 86.8, MCH 29.3, MCHC 33.7, RDW 15.9, Plt Count 154, MPV 8.5, Neut % (Auto) 72.3, Lymph % (Auto) 22.4, Antelope % (Auto) 4.6, Eos % (Auto) 0.2, Baso % (Auto) 0.5, Neut # (Auto) 3.5, Lymph # (Auto) 1.1, [place]elope # (Auto) 0.2, Eos # (Auto) 0.0, Baso # (Auto) 0.0, Sodium 134 L, Potassium 4.0, Chloride 106, Carbon Dioxide 26, Anion Gap 6.0, BUN 9, Creatinine 0.80, Estimated Creat Clear 55, Estimated GFR 73, Est GFR ( Amer) 88 D, Glucose 132 H, Calcium 8.0 L, Total Bilirubin 0.4 03/20/23 06:45: Total Bilirubin 0.3, Direct Bilirubin 0.1, Conjugated Bilirubin 0.0, Indirect Bilirubin 0.2, Unconjugated Bilirubin 0.2, AST 39 H 03/20/23 06:45: AST 35, ALT 24 03/20/23 06:45: ALT 23, Alkaline Phosphatase 115 03/20/23 06:45: Alkaline Phosphatase 117, Total Protein 6.2 L 03/20/23 06:45: Total Protein 5.8 L, Albumin 3.1 L D 03/20/23 06:45: Albumin 2.9 L, Globulin 3.1, Albumin/Globulin Ratio 1.0 L, Triglycerides 210 H, Cholesterol 149, LDL Cholesterol Direct 80.41 L, VLDL Cholesterol 42 H, HDL Cholesterol 27 L, Cholesterol/HDL Ratio 5.5 H I & O for Last 24 hours: Intake & Output 03/17/23 03/18/23 03/19/23 03/20/23 23:59 23:59 23:59 23:59 Intake Total 2502 / 2502 1245 / 1905 2285 / 2285 Output Total 0 / 0 0 / 0 0 / 0 0 / 0 Balance 2502 / 2502 1245 / 1905 2285 / 2285 0 / 0 Weight 123.286 kg 119.113 kg 120.565 kg 120.797 kg Constitutional Constitutional: no acute distress, morbidly obese, chronically ill appearing and cooperative *Routine HEENT Exam Head: Present normocephalic Eye: Present EOMI and PERRL ENT: Present mucous membranes moist *Routine Neck Exam Neck: Present supple; Absent lymphadenopathy *Routine Respiratory Exam Respiratory: Present CTA bilaterally; Absent rhonchi, wheezes or crackles *Routine Cardiovascular Exam Cardiovascular: Present RRR *Routine Abdominal Exam Abdominal: Present soft and normoactive bowel sounds; Absent tenderness *Routine Extremities Exam Extremities: Absent cyanosis, clubbing or edema *Routine Skin Exam Skin: Present warm; Absent rash *Routine Neurological Exam Neurological: Present alert, oriented X3 and moving all extremities; Absent altered mental status Results Data Completed and Pending Labs on day of discharge: Labs from last 24 hours 03/20/23 03/20/23 03/20/23 06:45 06:45 06:45 WBC RBC Hgb Hct MCV MCH MCHC RDW Plt Count MPV Neut % (Auto) Lymph % (Auto) [place]elope % (Auto) Eos % (Auto) Baso % (Auto) Neut # (Auto) Lymph # (Auto) [place]elope # (Auto) Eos # (Auto) Baso # (Auto) Sodium Potassium Chloride Carbon Dioxide Anion Gap BUN Creatinine Estimated Creat Clear Estimated GFR Est GFR ( Amer) Glucose POC Glucose Calcium Total Bilirubin Direct Bilirubin Conjugated Bilirubin Indirect Bilirubin Unconjugated Bilirubin AST ALT Alkaline Phosphatase 117 Total Protein 5.8 L 6.2 L Albumin 2.9 L 3.1 L D Globulin 3.1 Albumin/Globulin Ratio 1.0 L Triglycerides 210 H Cholesterol 149 LDL Cholesterol Direct 80.41 L VLDL Cholesterol 42 H HDL Cholesterol 27 L Cholesterol/HDL Ratio 5.5 H 03/20/23 03/20/23 03/20/23 06:45 06:45 06:45 WBC RBC Hgb Hct MCV MCH MCHC RDW Plt Count MPV Neut % (Auto) Lymph % (Auto) [place]elope % (Auto) Eos % (Auto) Baso % (Auto) Neut # (Auto) Lymph # (Auto) [place] # (Auto) Eos # (Auto) Baso # (Auto) Sodium Potassium Chloride Carbon Dioxide Anion Gap BUN Creatinine Estimated Creat Clear Estimated GFR Est GFR ( Amer) Glucose POC Glucose Calcium Total Bilirubin 0.3 Direct Bilirubin 0.1 Conjugated Bilirubin 0.0 Indirect Bilirubin 0.2 Unconjugated Bilirubin 0.2 AST 35 39 H ALT 23 24 Alkaline Phosphatase 115 Total Protein Albumin Globulin Albumin/Globulin Ratio Triglycerides Cholesterol LDL Cholesterol Direct VLDL Cholesterol HDL Cholesterol Cholesterol/HDL Ratio 03/20/23 03/20/23 03/19/23 06:45 05:58 20:05 WBC 4.9 D RBC 3.47 L Hgb 10.2 L Hct 30.2 L MCV 86.8 MCH 29.3 MCHC 33.7 RDW 15.9 Plt Count 154 MPV 8.5 Neut % (Auto) 72.3 Lymph % (Auto) 22.4 Antelope % (Auto) 4.6 Eos % (Auto) 0.2 Baso % (Auto) 0.5 Neut # (Auto) 3.5 Lymph # (Auto) 1.1 [place]elope # (Auto) 0.2 Eos # (Auto) 0.0 Baso # (Auto) 0.0 Sodium 134 L Potassium 4.0 Chloride 106 Carbon Dioxide 26 Anion Gap 6.0 BUN 9 Creatinine 0.80 Estimated Creat Clear 55 Estimated GFR 73 Est GFR ( Amer) 88 D Glucose 132 H POC Glucose 133 H 162 H Calcium 8.0 L Total Bilirubin 0.4 Direct Bilirubin Conjugated Bilirubin Indirect Bilirubin Unconjugated Bilirubin AST ALT Alkaline Phosphatase Total Protein Albumin Globulin Albumin/Globulin Ratio Triglycerides Cholesterol LDL Cholesterol Direct VLDL Cholesterol HDL Cholesterol Cholesterol/HDL Ratio 03/19/23 03/19/23 03/19/23 17:01 11:47 09:50 WBC RBC Hgb Hct MCV MCH MCHC RDW Plt Count MPV Neut % (Auto) Lymph % (Auto) [place]elope % (Auto) Eos % (Auto) Baso % (Auto) Neut # (Auto) Lymph # (Auto) [place] # (Auto) Eos # (Auto) Baso # (Auto) Sodium Potassium Chloride Carbon Dioxide Anion Gap BUN Creatinine Estimated Creat Clear Estimated GFR Est GFR ( Amer) Glucose POC Glucose 157 H 115 H 182 H Calcium Total Bilirubin Direct Bilirubin Conjugated Bilirubin Indirect Bilirubin Unconjugated Bilirubin AST ALT Alkaline Phosphatase Total Protein Albumin Globulin Albumin/Globulin Ratio Triglycerides Cholesterol LDL Cholesterol Direct VLDL Cholesterol HDL Cholesterol Cholesterol/HDL Ratio DS: Diagnosis Discharge Diagnosis (1) Acute saddle pulmonary embolus: Status: Acute Code(s): I26.92 - Saddle embolus of pulmonary artery without acute cor pulmonale Qualifiers: Acute cor pulmonale presence: without acute cor pulmonale Qualified Code(s): I26.92 - Saddle embolus of pulmonary artery without acute cor pulmonale (2) Dvt femoral (deep venous thrombosis): Status: Acute Code(s): I82.419 - Acute embolism and thrombosis of unspecified femoral vein Qualifiers: Chronicity: acute Laterality: left Qualified Code(s): I82.412 - Acute embolism and thrombosis of left femoral vein (3) Hyperglycemia due to type 2 diabetes mellitus: Status: Acute Code(s): E11.65 - Type 2 diabetes mellitus with hyperglycemia Qualifiers: Diabetes mellitus senior living insulin use: with marine oil terminal 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 use Qualified Code(s): E11.65 - Type 2 diabetes mellitus with hyperglycemia; Z79.4 - shelter (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 (4) Hypertension: Status: Acute Code(s): I10 - Essential (primary) hypertension Qualifiers: Hypertension type: unspecified Qualified Code(s): I10 - Essential (primary) hypertension (5) Hyperlipidemia: Status: Acute Code(s): E78.5 - Hyperlipidemia, unspecified Qualifiers: Hyperlipidemia type: unspecified Qualified Code(s): E78.5 - Hyperlipidemia, unspecified (6) Class 3 obesity: Status: Acute Code(s): E66.01 - Morbid (severe) obesity due to excess calories Meds Home Medications and Allergies Home Medications Medication Instructions Recorded Confirmed Type olanzapine 10 mg tablet 10 mg PO HS 09/14/20 03/15/23 History pantoprazole 40 mg tablet,delayed 40 mg PO BID GERD 11/06/21 03/15/23 History release carvedilol 25 mg tablet 25 mg PO BID 03/08/23 03/15/23 History doxepin 100 mg capsule 100 mg PO DAILY 03/08/23 03/15/23 History insulin glargine 100 unit/mL (3 80 unit SQ HS 03/08/23 03/16/23 History mL) subcutaneous pen (Basaglar KwikPen U-100 Insulin) semaglutide 1 mg/dose (4 mg/3 mL) 1 mg SQ WEEKLY 03/08/23 03/16/23 History subcutaneous pen injector (Ozempic) insulin aspar prot-insulin aspart 25 unit (0.25 mL) SQ DAILY 03/10/23 03/15/23 Rx 100 unit/mL (70-30) subcutaneous Diabetes 30 days #0 mL pen hydrocodone 10 mg-acetaminophen 1 tab PO Q6HP PRN Pain 03/16/23 03/16/23 History 325 mg tablet lisinopril 40 mg tablet 40 mg PO DAILY 03/16/23 03/16/23 History apixaban 5 mg (74 tabs) tablets in 5 mg PO BID #74 tabs 03/20/23 Rx a dose pack (Eliquis DVT-PE Treat 30D Start) New Prescriptions to Start Prescriptions: apixaban [Eliquis DVT-PE Treat 30D Start] Alberto Diehl Allergies Allergy/AdvReac Type Severity Reaction Status Date / Time daptomycin [DAPTOMYCIN] AdvReac Mild I-RASH Verified 03/15/23 13:21 Discharge Plan Disposition Patient Disposition: Home Health Service Condition: Fair Discharge Order Discharge Orders: Discharge Order (Routine); Ordered 03/20/23 Ordered By: Alberto Diehl Follow up Plan Follow up with: Nilsa Rivero MD [Physician] - 04/02/23 11:00 am Buddy Blanton MD [Primary Care Provider] - 03/26/23 10:00 am Joel Mcclodu MD [Staff Physician] - 04/03/23 1:15 pm Prescriptions/Medication Reconciliation: New Eliquis DVT-PE Treat 30D Start 5 mg (74 tabs) tablets,dose pack 5 mg PO BID Qty: 74 0RF Continued pantoprazole 40 MG tablet,delayed release (DR/EC) 40 mg PO BID olanzapine 10 MG tablet 10 mg PO HS carvedilol 25 mg tablet 25 mg PO BID doxepin 100 mg capsule 100 mg PO DAILY insulin glargine [Basaglar KwikPen U-100 Insulin] 100 unit/mL (3 mL) insulin pen 80 unit SQ HS Ozempic 1 mg/dose (4 mg/3 mL) pen injector 1 mg SQ WEEKLY insulin asp prt-insulin aspart 100 UNIT/ML insulin pen 25 unit SQ DAILY 30 Days Qty: 0 0RF hydrocodone-acetaminophen 10-325 mg tablet 1 tab PO Q6HP PRN (Reason: Pain) lisinopril 40 mg tablet 40 mg PO DAILY Problem Reconciliation Problems Reviewed?: Yes Patient Discharge Instructions ACTIVITY: Continue current activity DIET: continue same diet Patient Instructions: DI for Deep Vein Thrombosis, DI for Pulmonary Embolism Providers Primary Care Provider: Buddy Blanton Admjuan manuel Provider: Tere Dukes Attending Provider: Tere Dukes
[2023-03-20] MEDS: DOCUSATE SODIUM 100 MG CAPSULE PO (09:07)
[2023-03-20] MEDS: DOXEPIN HCL 25 MG CAPSULE 100 MG PO (09:07)
[2023-03-20] MEDS: LISINOPRIL 20MG TABLET 40 MG PO (09:08)
[2023-03-20] MEDS: CARVEDILOL 25MG TABLET 25 MG PO (09:22)
[2023-03-20] MEDS: humaLOG MIX 75/25 3ML FLEXPEN 25 UNIT SQ (09:24)
[2023-03-20 09:41] LABS: POC Glucose,Bedside 194 (70-110)
--- NOTE | 2023-03-20 09:48 | P.PN_ITS ---
Subjective *Date: 03/20/23 *Time: 10:47 Interval history: No acute respiratory events overnight Pulmonology Exam Inpatient Vital signs and Labs for Last 24 Hours: Temp Pulse Resp BP Pulse Ox O2 Del Method O2 Flow Rate 97.7 F 82 14 130/75 95 Room Air 1 03/20/23 08:00 03/20/23 08:00 03/20/23 08:00 03/20/23 08:00 03/20/23 08:00 03/20/23 08:00 03/16/23 14:35 Laboratory Results - last 24 hr 03/19/23 09:50: POC Glucose 182 H 03/19/23 11:47: POC Glucose 115 H 03/19/23 17:01: POC Glucose 157 H 03/19/23 20:05: POC Glucose 162 H 03/20/23 05:58: POC Glucose 133 H 03/20/23 06:45: WBC 4.9 D, RBC 3.47 L, Hgb 10.2 L, Hct 30.2 L, MCV 86.8, MCH 29.3, MCHC 33.7, RDW 15.9, Plt Count 154, MPV 8.5, Neut % (Auto) 72.3, Lymph % (Auto) 22.4, [place] % (Auto) 4.6, Eos % (Auto) 0.2, Baso % (Auto) 0.5, Neut # (Auto) 3.5, Lymph # (Auto) 1.1, [place] # (Auto) 0.2, Eos # (Auto) 0.0, Baso # (Auto) 0.0, Sodium 134 L, Potassium 4.0, Chloride 106, Carbon Dioxide 26, Anion Gap 6.0, BUN 9, Creatinine 0.80, Estimated Creat Clear 55, Estimated GFR 73, Est GFR ( Amer) 88 D, Glucose 132 H, Calcium 8.0 L, Total Bilirubin 0.4 03/20/23 06:45: Total Bilirubin 0.3, Direct Bilirubin 0.1, Conjugated Bilirubin 0.0, Indirect Bilirubin 0.2, Unconjugated Bilirubin 0.2, AST 39 H 03/20/23 06:45: AST 35, ALT 24 03/20/23 06:45: ALT 23, Alkaline Phosphatase 115 03/20/23 06:45: Alkaline Phosphatase 117, Total Protein 6.2 L 03/20/23 06:45: Total Protein 5.8 L, Albumin 3.1 L D 03/20/23 06:45: Albumin 2.9 L, Globulin 3.1, Albumin/Globulin Ratio 1.0 L, Triglycerides 210 H, Cholesterol 149, LDL Cholesterol Direct 80.41 L, VLDL Cholesterol 42 H, HDL Cholesterol 27 L, Cholesterol/HDL Ratio 5.5 H 03/20/23 09:17: POC Glucose 194 H I & O for Labs for Last 24 Hours: Intake & Output 03/17/23 03/18/23 03/19/23 03/20/23 23:59 23:59 23:59 23:59 Intake Total 2502 / 2502 1245 / 1905 2285 / 2285 400 / 400 Output Total 0 / 0 0 / 0 0 / 0 0 / 0 Balance 2502 / 2502 1245 / 1905 2285 / 2285 400 / 400 Weight 271 lb 12.8 oz 262 lb 9.6 oz 265 lb 12.8 oz 266 lb 5 oz Constitutional: Present mild distress Head: Present normocephalic and atraumatic ENT: Present normal exam, normal oropharynx and mucous membranes moist Neck: Present normal inspection and full ROM Respiratory: Present normal respiratory effort and able to speak in complete sentences; Absent respiratory distress, wheezes, crackles or diminished air movement Cardiac: Present S1/S2, Tachycardia and radial pulses present GI: Present soft and distention; Absent tenderness or guarding Rectal (female): Present deferred (female): Present deferred Skin: Present intact; Absent cyanosis or jaundice Neuro: Present alert, awake and oriented x 3 Extremities: Present normal inspection; Absent clubbing or cyanosis Psychiatric: Present normal affect and cooperative Assessment and Plan *Assessment and plan (1) Saddle embolism of pulmonary artery: Status: Acute Category: Medical Code(s): I26.92 - Saddle embolus of pulmonary artery without acute cor pulmonale Plan Ms. Colon is a 62-year-old female no significant smoking history, no prior re spiratory complaints recently admitted to the hospital from late Feb 2023 2/2 sepsis from UTI discharge and has been relatively sedentary presented from cardiology clinic for positive DVT and had a CT performed that showed saddle embolus extending into the right and left main pulmonary artery. From extreme venous Doppler DVT extending from common femoral vein throughout the left leg with only partial flow noted in the posterior tibial Afebrile. No evidence of leukocytosis upon admission. Remains on room air. Hemodynamically stable troponins negative on admission. No evidence of right heart strain on CT. Discussed with cardiology who agreed with the recommendations on patient do not need thrombectomy at this point of time given her hemodynamic stability and no evidence of a right heart strain. Will closely monitor. PE likely provoked from her recent sepsis event and being sedentary. Interval update: Repeat echo no evidence of RV strain. Doppler stable. No acute respiratory vents overnight. Patient remains on room air. Saturation is 98% on room air this morning. Plan: -6-minute walk testing prior to discharge -Recommend to change anticoagulation to apixaban twice daily -10mg twice daily for 7 days followed by 5 mg twice daily. -No need for antibiotics from pulmonary standpoint for presumed Pneumonia at this point of time, will monitor clinically -DuoNebs every 6 hours on as-needed basis. Can be discharged home on albuterol inhaler every 6 hours on as-needed basis # Thank you for involving pulmonary in this patient care. Will follow the patient in pulmonary clinic in 7 days post discharge. Will consider repeating CT PE as an outpatient basis.
[2023-03-20 11:12] LABS: POC Glucose,Bedside 132 (70-110)
[2023-03-20 12:00] VITALS: BP 140/74; PULSE 86; RESP 16; TEMP 36.4; O2SAT 97
--- NOTE | 2023-03-20 13:33 | EXP.CARD.PN ---
Subjective Subjective Date: 03/20/23 Time: 09:30 Principal diagnosis: Saddle PE, SOB Interval history: This is a 62-year-old female who was admitted to the hospital for a left lower extremity DVT and saddle pulmonary emboli. The patient has been anticoagulated with Lovenox and is now switched over to oral Xarelto. She is tolerating this well and denies any bleeding. This morning she states that her shortness of breath has improved. She states that she did get up and ambulate with physical therapy and has been walking around the room. She states that her strength is continuing to improve. She denies any chest pain or pressure. She denies any lower extremity edema. She denies any fever, chills, nausea, vomiting, diarrhea, PND or orthopnea. Exam Data for Last 24 hours Vital signs and Labs for Last 24 Hours: Temp Pulse Resp BP Pulse Ox O2 Del Method O2 Flow Rate 97.6 F 86 16 140/74 97 Room Air 1 03/20/23 12:00 03/20/23 12:00 03/20/23 12:00 03/20/23 12:00 03/20/23 12:00 03/20/23 12:39 03/16/23 14:35 Laboratory Results - last 24 hr 03/19/23 11:47: POC Glucose 115 H 03/19/23 17:01: POC Glucose 157 H 03/19/23 20:05: POC Glucose 162 H 03/20/23 05:58: POC Glucose 133 H 03/20/23 06:45: WBC 4.9 D, RBC 3.47 L, Hgb 10.2 L, Hct 30.2 L, MCV 86.8, MCH 29.3, MCHC 33.7, RDW 15.9, Plt Count 154, MPV 8.5, Neut % (Auto) 72.3, Lymph % (Auto) 22.4, [place] % (Auto) 4.6, Eos % (Auto) 0.2, Baso % (Auto) 0.5, Neut # (Auto) 3.5, Lymph # (Auto) 1.1, [place] # (Auto) 0.2, Eos # (Auto) 0.0, Baso # (Auto) 0.0, Sodium 134 L, Potassium 4.0, Chloride 106, Carbon Dioxide 26, Anion Gap 6.0, BUN 9, Creatinine 0.80, Estimated Creat Clear 55, Estimated GFR 73, Est GFR ( Amer) 88 D, Glucose 132 H, Calcium 8.0 L, Total Bilirubin 0.4 03/20/23 06:45: Total Bilirubin 0.3, Direct Bilirubin 0.1, Conjugated Bilirubin 0.0, Indirect Bilirubin 0.2, Unconjugated Bilirubin 0.2, AST 39 H 03/20/23 06:45: AST 35, ALT 24 03/20/23 06:45: ALT 23, Alkaline Phosphatase 115 03/20/23 06:45: Alkaline Phosphatase 117, Total Protein 6.2 L 03/20/23 06:45: Total Protein 5.8 L, Albumin 3.1 L D 03/20/23 06:45: Albumin 2.9 L, Globulin 3.1, Albumin/Globulin Ratio 1.0 L, Triglycerides 210 H, Cholesterol 149, LDL Cholesterol Direct 80.41 L, VLDL Cholesterol 42 H, HDL Cholesterol 27 L, Cholesterol/HDL Ratio 5.5 H 03/20/23 09:17: POC Glucose 194 H 03/20/23 11:00: POC Glucose 132 H I & O for Last 24 hours: Intake & Output 03/17/23 03/18/23 03/19/23 03/20/23 23:59 23:59 23:59 23:59 Intake Total 2502 / 2502 1245 / 1905 2285 / 2285 400 / 400 Output Total 0 / 0 0 / 0 0 / 0 0 / 0 Balance 2502 / 2502 1245 / 1905 2285 / 2285 400 / 400 Weight 271 lb 12.8 oz 262 lb 9.6 oz 265 lb 12.8 oz 266 lb 5 oz Constitutional Constitutional: no acute distress and morbidly obese *Routine HEENT Exam Head: Present normocephalic and atraumatic ENT: Present mucous membranes moist *Routine Neck Exam Neck: Present supple, full ROM and normal carotid upstroke; Absent JVD, carotid bruit or lymphadenopathy *Routine Respiratory Exam Respiratory: Present CTA bilaterally, normal respiratory effort, able to speak in complete sentences and symmetric chest movement *Routine Cardiovascular Exam Cardiovascular: Present RRR, Normal S1 and Normal S2; Absent murmur or gallop *Routine Abdominal Exam Abdominal: Present soft and normoactive bowel sounds; Absent tenderness, distended or organomegaly *Routine Extremities Exam Extremities: Present full ROM, pulses intact and normal capillary refill; Absent cyanosis, clubbing or edema *Routine Skin Exam Skin: Present intact and warm; Absent erythema *Routine Neurological Exam Neurological: Present alert, oriented X3 and CN II-XII intact; Absent sensory deficit or motor deficit Routine Psychiatric Exam Psychiatric: Present normal affect Progress Note: A&P Assessment and plan (1) Acute saddle pulmonary embolus: Status: Acute (2) Dvt femoral (deep venous thrombosis): Status: Acute (3) Hyperglycemia due to type 2 diabetes mellitus: Status: Acute (4) Hypertension: Status: Acute (5) Hyperlipidemia: Status: Acute (6) Class 3 obesity: Status: Acute Assessment and Plan Assessment and Plan for All Diagnoses:: Plan: 1. The patient was admitted to the hospital for lower extremity DVT. She was also found to have a saddle pulmonary embolus. The patient has remained hemodynamically stable and has no RV strain noted on CT or echocardiogram. The patient will remain on Xarelto 15 twice daily for 3 weeks for oral anticoagulation then after 3 weeks she will convert over to Xarelto 20 mg daily thereafter. 2. The patient had a repeat limited echocardiogram yesterday. Her EF remains stable. No RV strain noted. There has been improvement in the pericardial effusion which is now trivial. 3. Her blood pressure is well-controlled. 4. Her LDL goal is less than 100. Her LDL is 80. 5. The patient is diabetic. She needs aggressive control of her diabetes. Will defer management of this to the hospitalist. 6. No further recommendations at this time from a cardiac standpoint. The patient is stable for discharge home today from a cardiac standpoint. She will need to follow-up in cardiology clinic next week. Thank you for the opportunity to help participate in the care of this patient. All recommendations and orders are per Dr. Mccloud.
== END 2023-03-20 01:50 | disposition home health service (06) ==
LOC: ER 17:36 → 2ND 17:44
PROVIDERS: Nurse Practitioner Family; Student in an Organized Health Care Education/Training Program; Admitting Provider Internal Medicine; Emergency Provider Emergency Medicine; PCP Internal Medicine Adolescent Medicine; Visit Provider Internal Medicine
DX: I26.92 Saddle embolus of pulmonary artery without acute cor pulmonale (principal); I82.412 Acute embolism and thrombosis of left femoral vein; E11.65 Type 2 diabetes mellitus with hyperglycemia; Z79.4 Long term (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; I10 Essential (primary) hypertension; E78.5 Hyperlipidemia, unspecified; E66.01 Morbid (severe) obesity due to excess calories; Z68.41 Body mass index [BMI] 40.0-44.9, adult; E11.69 Type 2 diabetes mellitus with other specified complication; D64.9 Anemia, unspecified; I21.4 Non-ST elevation (NSTEMI) myocardial infarction
CPT/HCPCS: 36415; 71275; 80048; 80053; 80061; 80076; 82962; 83735; 83880; 84484; 85025; 93005; 93306; 93308; 93970; 93971; 97163; 99291; G0378; Q9967

== ENCOUNTER 2023-04-09 09:30 | Outpatient (CLI) | payer BC, SELFPAY ==
--- NOTE | 2023-04-09 09:30 | MR_ITS ---
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 HCM evaluation. TECHNIQUE Image Acquisition: Cardiac magnetic resonance (CMR) was performed on Siemens Espree MRI 1.5T scanner. Software platform sequences were performed using the Siemens Sportgenic MR B19 platform. A set of three-plane, low-resolution, large [id number] localizers were initially acquired. Then axial, coronal, sagittal TrueFISP, as well as axial HASTE images, were obtained. These were followed by gated TrueFISP breathold cinematic sequences obtained in the short axis with 8 mm slices and 2 mm gaps, 2-chamber (vertical long axis), 3-chamber, 4-chamber (horizontal long axis). A bolus of contrast was injected intravenously with first-pass sequences obtained in the short axis and four-chamber planes. After approximately 10 minutes, a TI manager of allied health services sequence was performed to determine the optimal TI time. Using the optimized TI time, delayed contrast enhancement segmented inversion???recovery TurboFLASH sequences were obtained in the short axis, 2-chamber, 3-chamber, and 4-chamber projections. 2D-velocity phase mapping was performed. Functional parameters were calculated by offline analysis on an independent workstation ([employer], [employer]). Contrast: ProHance??? (Gadoteridol) FINDINGS MORPHOLOGY AND FUNCTION Left ventricle: The left ventricle is normal in size. The indexed left ventricular end-diastolic volume (LVEDVi) is 72 ml/m2 (reference range 57-105 ml/m2 in males, 56-96 ml/m2 in females). Normal left ventricular systolic function is present. There is normal left ventricular wall thickness. There are no regional wall motion abnormalities noted. LVEF is calculated at 74.2% (reference range 57-77%). Right ventricle: The right ventricle is normal in size. The indexed right ventricular end-diastolic volume (RVEDVi) is 58 ml/m2 (reference range 61-121 ml/m2 in males, 48-112 ml/m2 in females). Normal right ventricular systolic function is present. RVEF is calculated at 61.9% (reference range 52-72% in males, 51-71% in females). Atria: The left atrium is normal in size. The maximum indexed left atrial volume is 27 ml/m2 (reference range 26-52 ml/m2 in males, 27-53 ml/m2 in females). The right atrium is normal in size. The maximum indexed right atrial volume is 18 ml/m2 (reference range 18-90 ml/m2). Aorta: The diameter of the aortic annulus is normal, measuring 25 mm (coronal view reference range 21-30 mm in males, 19-27 mm in females). The diameter of the aortic sinus is normal, measuring 34 mm (coronal view reference range 25-42 mm in males, 24-36 mm in females). The diameter of the sinotubular junction is normal, measuring 28 mm (coronal view reference range 18-32 mm in males, 18-28 mm in females). The diameters of the ascending and descending thoracic aorta are normal. Main pulmonary artery: The main pulmonary artery diameter is normal. Pericardium: The pericardial thickness is normal. The pericardial thickness measures 1.3 cm (normal < 4.0 cm). There is no pericardial effusion. VALVES The valvular morphologies in the visualized sequences appear normal. There is no significant valvular stenosis or regurgitation of the mitral, aortic, tricuspid, or pulmonic valve noted visually. Systolic anterior motion of the mitral valve is not visualized. Ratio of pulmonary to systemic flow, Qp:Qs ratio = 1.1 (normal < or = 1.2), demonstrating no evidence of hemodynamically significant shunt. TISSUE CHARACTERIZATION Resting Perfusion: Normal myocardial blood flow at rest. No evidence of resting hypoperfusion. Myocardial Fibrosis and/or edema: Normal gadolinium kinetics are present. No evidence of late gadolinium enhancement is noted, consistent with absence of myocardial scarring, infarction, or necrosis. T2-weighted imaging demonstrates no evidence of myocardial edema or inflammation. OTHER No other significant findings are noted. However, this exam is focused on the cardiac structure and function. IMPRESSION Normal LV size with normal LV systolic function. LVEDVi= 72ml/m2 and LVEF= 74.2%. Normal LV wall thickness Normal RV size with normal RV systolic function. RVEDVi= 58 ml/m2 and RVEF= 61.9%. No atrial enlargement. No evidence of LVOT obstruction No CMR evidence of myocardial scarring, infarction, or necrosis. No evidence of myocardial edema or inflammation. Perfusion analysis demonstrates normal blood flow at rest with no evidence of resting hypoperfusion. Ratio of pulmonary to systemic flow, Qp:Qs ratio = 1.1 (normal < or = 1.2), demonstrating no evidence of hemodynamically significant shunt. COMPARISON None CRITICAL RESULT None COMMUNICATION Per this written report The findings of this cardiac MR were reviewed, reported, and signed by Joel Mccloud MD (Pattern Keeper). Conclusion Electronically signed by : Tamiko Mccloud MD 04/10/2023 16:31:21
[2023-04-09] MEDS: SODIUM CHLORIDE 0.9% 10ML SYR (RAD ONLY) 10 ML IV (10:58)
[2023-04-09] MEDS: SODIUM CHLORIDE 0.9% 50ML BAG 25 ML IV (10:58)
[2023-04-09] MEDS: GADOTERIDOL INJ 17ML SYRINGE 26 ML IV (10:58)
== END 2023-04-09 23:59 ==
LOC: RAD 09:30
PROVIDERS: PCP Internal Medicine Adolescent Medicine; Visit Provider Internal Medicine
DX: R06.00 Dyspnea, unspecified (principal); R94.31 Abnormal electrocardiogram [ECG] [EKG]; R93.1 Abnormal findings on diagnostic imaging of heart and coronary circulation; Q20.8 Other congenital malformations of cardiac chambers and connections
CPT/HCPCS: 75561; A9576

== ENCOUNTER 2023-04-30 12:30 | Outpatient (CLI) | payer BC, SELFPAY ==
--- NOTE | 2023-04-30 12:31 | CT_ITS ---
PROCEDURE INFORMATION: Exam: CTA Chest With Contrast Exam date and time: 04/30/2023 2:23 PM Age: 62 years old Clinical indication: Other: Pe; Additional info: HX of pe, chest pain, pain in left leg TECHNIQUE: Imaging protocol: Computed tomographic angiography of the chest with contrast. Exam focused on the arteries. 3D rendering (Not supervised by radiologist): MIP and/or 3D reconstructed images were created by the technologist. Radiation optimization: All CT scans at this facility use at least one of these dose optimization techniques: automated exposure control; mA and/or kV adjustment per patient size (includes targeted exams where dose is matched to clinical indication); or iterative reconstruction. Contrast material: ISOVUE; Contrast volume: 70 ml; Contrast route: INTRAVENOUS (IV); COMPARISON: CT ANGIO CHEST PE PROTOCOL 03/15/2023 5:01 PM FINDINGS: Pulmonary arteries: Non occluding thrombi in segmental pulmonary arteries of the lingula and left lower lobe. Thrombus burden is light. Aorta: No aortic aneurysm. No aortic dissection. Lungs: Pleural based, 5 mm, right lower lobe lung nodule along the dome of the hemidiaphragm no other lung nodules or airspace consolidation. Calcified granuloma in the anterior right upper lobe. Pleural spaces: No effusions. No pneumothorax. Heart: No inversion of the interventricular septum. No cardiomegaly. No pericardial effusion. Heart RV/LV ratio: 0.9 Coronary arteries: No coronary artery calcifications. Lymph nodes: No enlarged lymph nodes. Bones/joints: No acute fracture. Soft tissues: No soft tissue masses. IMPRESSION: 1. Acute, non occluding, pulmonary emboli in the lingula and left lower lobe segmental pulmonary arteries. Thrombus burden is light. No evidence of right heart strain. 2. Right lower lobe 5 mm lung nodule. For patients at low risk (minimal or absent history of smoking and of other known risk factors), no routine follow-up is indicated. For patients at high risk (history of smoking or of other known risk factors), consider optional CT Chest at 12 months. (Reference: Aj) 3. No other acute findings in the chest. REFERENCES: Aj Sosa et al. Guidelines for Management of Incidental Pulmonary Nodules Detected on CT Images: From the Fleischner Society 2017. Radiology. 2017;284(1):228-243.
[2023-04-30 13:04] LABS: Chloride 106 mmol/L (98-107); Potassium 4.3 mmoL/L (3.5-5.1); Sodium 137 mmol/L (136-145)
[2023-04-30 13:07] LABS: Anion Gap 9.3 mEq/L (5-15); Blood Urea Nitrogen 9 mg/dl (7-17); Calcium 9.9 mg/dl (8.4-10.2); Carbon Dioxide 26 mmol/L (22.0-30.0); Estimated Glomerular Filt Rate 73 ml/min (>60); GFR (African American) 88 ML/MIN (>60); Glucose 131 mg/dl (74-100)
--- NOTE | 2023-04-30 13:25 | CA_ITS ---
FINAL REPORT CLINICAL HISTORY: 03/15/23 03/19/23, + DVT CFV, FV, POP V, PTV, PER V, GASTROC Pt on Eliquis 5 mg BID COMPARISON: 03/19/2023 FINDINGS: LEFT LEG VENOUS DOPPLER: There is partially occluding thrombus present in the common femoral vein, with incomplete compression. This was present on the prior ultrasound of March 19. There is also partially occluding thrombus present in the thigh. The popliteal vein is compressible, with no definite flow seen in the posterior tibial vein. No images were sent that labeled the superficial femoral vein or the other calf veins. IMPRESSION: Extensive DVT with partially occluding thrombus in the common femoral vein as seen on the prior ultrasound of March 19. Reviewed, Interpreted and Dictated by Tobi Mendoza MD Transcribed by Gabby Sr Authenticated and [facility]
[2023-04-30] MEDS: 0.9 % SODIUM CHLORIDE 50 ML VIAL IV (15:04)
[2023-04-30] MEDS: IOPAMIDOL-370 (76%);100ML BOTTLE 70 ML IV (15:04)
[2023-04-30] MEDS: SODIUM CHLORIDE 0.9% 10ML SYR (RAD ONLY) 10 ML IV (15:04)
[2023-04-30 16:08] LABS: D-Dimer 0.63 ug/mL (0.0-0.5)
== END 2023-04-30 23:59 ==
LOC: RAD 12:30
PROVIDERS: Nurse Practitioner; PCP Internal Medicine Adolescent Medicine; Visit Provider Internal Medicine Pulmonary Disease
DX: I26.92 Saddle embolus of pulmonary artery without acute cor pulmonale (principal); Q20.8 Other congenital malformations of cardiac chambers and connections; R07.9 Chest pain, unspecified; R06.00 Dyspnea, unspecified; R93.1 Abnormal findings on diagnostic imaging of heart and coronary circulation; R94.31 Abnormal electrocardiogram [ECG] [EKG]
CPT/HCPCS: 36415; 71275; 80048; 85378; 93971; Q9967

== ENCOUNTER 2023-05-01 11:13 | Outpatient (CLI) | payer BC, SELFPAY ==
--- NOTE | 2023-05-01 11:13 | NM_ITS ---
APPROVED REPORT Exam: Nuclear Stress Test Indication: Chest pain, SOB, HTN, DM, Family history Patient Location: Outpatient Stress Tech: Angelique Melissa [place] Tech:Nu Moyer, ARRT, RT (R)(N) Ht: 5 ft 7 in Wt: 265 lbs Bra Size: 46C HR: 83 bpm BP: 165/88 mmHg BSA: 2.28 m2 Rhythm: NSR TID: 1.17 BMI: 41.5 History: Chest pain, SOB, HTN, DM, Family history Procedure: Patient received 0.4 mg of intravenous Lexiscan, resting heart rate 83 bpm, resting blood pressure 165/88 mmHg, with Lexiscan maximum heart rate achieved was 97 bpm which is % of the maximum predicted heart rate and blood pressure was 165/88 mmHg. With Lexiscan, patient denied any complaint of chest pain. Cardiac Stress and Resting SPECT Images: Cardiac Stress and Resting SPECT images were obtained using technetium 99m Myoview 32.8 mCi stress and 10.34 mCi at rest. The patient could not lie on her abdomen. Therefore, prone stress imaging could not be performed. There is also significant radiotracer GI uptake in close proximity to the inferior border of the LV wall. This may affect the diagnostic interpretation of the study findings. Resting and stress imaging in supine positions demonstrate no definite evidence of fixed or reversible perfusion defects. Gated imaging demonstrates normal global and regional LV systolic function. LVEF is calculated at 73%. Conclusion: No definite evidence of fixed or reversible perfusion defects. Gated imaging demonstrates normal global and regional LV systolic function. LVEF is calculated at 73%. Electronically signed by : Tamiko Mccloud MD 05/02/2023 11:23:09
[2023-05-01] MEDS: REGADENOSON 0.4MG/5ML SYRINGE 0.400000000000000022 MG IV (12:56)
[2023-05-01] MEDS: ISOTOPE MYOVIEW (PER STUDY) 1 DOSE IV (12:57)
[2023-05-01] MEDS: SODIUM CHLORIDE 0.9% 10ML SYR (RAD ONLY) 10 ML IV ×2 (12:57)
--- NOTE | 2023-05-01 13:20 | CA_ITS ---
APPROVED REPORT Exam: Pharmacologic Technologist: Angelique Melissa Ht: 5 ft 7 in Wt: 269 lbs BSA: 2.29 m2 HR: 83 bpm BP: 165/88 mmHg Indications: Dyspnea Medical History Medications: Lisinopril,,,,, Carvedilol,,,,, INSULIN,,,,, Albuterol,,,,, Olanzapine,,,,, DOxepin,,,,, Glargine,,,,, Apixaban,,,,, Hydrocodone Acetaminophen,,,,, Ozempic,,,,, Stress Test Details Test: LEXISCAN HR Resting HR: 83 bpm Max Heart Rate (APMHR): 158 bpm Max HR Achieved: 97 bpm Target HR (85% APMHR): 134 bpm % of APMHR: 61 Recovery HR: 90 bpm BP Resting BP: 165.0/88.0 mmHg Max BP: 165.0/88.0 mmHg Recovery BP: 146.0/83.0 mmHg ECG Resting ECG: Sinus rhythm Stress ECG: No significant ST changes Arrhythmia: None Clinical Exercise duration: 04:04 min Highest Stage Achieved: Exercise capacity: 1.0 METs Stress ECG Conclusion Symptoms: None Arrhythmias/Ectopy: None ST-T Changes: No significant ST changes Conclusion: EKG portion unremarkable due to Lexiscan infusion. Myoview images are reported separately. Test Summary REST . . . . . . . Resting REST 03:51 . . 83 . 165/ 88 . . Stage 1 01:00 . . 90 . . . . Stage 2 01:00 . . 84 . . . . Stage 3 01:00 . . 84 . . . . Stage 4 01:00 . . 92 . 102/ 63 . . Stage 4 01:04 . . 91 . 102/ 63 . Stop exercise at 04:04 RECOVERY 01:00 . . 94 . 134/ 75 . . RECOVERY 02:00 . . 91 . 144/ 81 . . RECOVERY 03:00 . . 91 . 147/ 83 . . RECOVERY 04:00 . . 91 . 152/ 79 . . RECOVERY 04:40 . . 91 . 146/ 83 . . Electronically signed by : Tamiko Mccloud MD 05/02/2023 11:21:19
== END 2023-05-01 23:59 ==
LOC: RAD 11:13
PROVIDERS: PCP Internal Medicine Adolescent Medicine; Visit Provider Nurse Practitioner
DX: R06.00 Dyspnea, unspecified (principal); Q20.8 Other congenital malformations of cardiac chambers and connections; R93.1 Abnormal findings on diagnostic imaging of heart and coronary circulation; R94.31 Abnormal electrocardiogram [ECG] [EKG]
CPT/HCPCS: 78452; 93017; 93018; A9502; J2785

== ENCOUNTER 2023-05-15 13:27 | Outpatient (CLI) | payer BC, SELFPAY ==
[2023-05-15 14:04] LABS: Basophils % 0.6 % (0.1-2.0); Eosinophils # 0.1 K/mm3 (0.0-0.4); Eosinophils % 1.6 % (0.1-12.0); Hemoglobin 12.1 g/dL (12.2-16.2); Lymphocytes # 1.4 K/mm3 (0.7-4.5); Lymphocytes % 29.7 % (10-50); Mean Corpuscular HGB Conc 31.9 g/dL (31.8-35.4); Mean Corpuscular Hemoglobin 28.5 pg (27.0-31.2); Mean Corpuscular Volume 89.3 fl (81-99); Mean Platelet Volume 8.3 fl (7.4-10.4); Monocytes # 0.3 K/mm3 (0.1-1.0); Monocytes % 6.8 % (1.7-9.3); Neutrophils # 2.9 K/mm3 (1.8-7.8); Neutrophils % 61.3 % (37.0-80.0); Platelet Count 158 K/mm3 (142-424); Red Blood Count 4.26 M/mm3 (4.20-5.40); Red Cell Distribution Width 15.9 % (11.5-17.5); White Blood Count 4.7 K/mm3 (4.8-10.8)
[2023-05-15 14:49] LABS: Anion Gap 11.7 mEq/L (5-15); Blood Urea Nitrogen 16 mg/dl (7-17); Calcium 8.7 mg/dl (8.4-10.2); Carbon Dioxide 24 mmol/L (22.0-30.0); Chloride 108 mmol/L (98-107); Estimated Glomerular Filt Rate 56 ml/min (>60); GFR (African American) 68 ML/MIN (>60); Glucose 128 mg/dl (74-100); Potassium 3.7 mmoL/L (3.5-5.1); Sodium 140 mmol/L (136-145)
[2023-05-15 14:50] LABS: Blood Urea Nitrogen 15 mg/dl (7-17); Estimated Glomerular Filt Rate 56 ml/min (>60); GFR (African American) 68 ML/MIN (>60)
== END 2023-05-15 23:59 ==
LOC: LAB 13:28
PROVIDERS: Internal Medicine Pulmonary Disease; PCP Internal Medicine Adolescent Medicine; Visit Provider Internal Medicine
DX: I26.92 Saddle embolus of pulmonary artery without acute cor pulmonale (principal); I82.412 Acute embolism and thrombosis of left femoral vein; E78.5 Hyperlipidemia, unspecified; I10 Essential (primary) hypertension
CPT/HCPCS: 80048; 82565; 84520; 85025

== ENCOUNTER 2023-07-05 11:28 | Outpatient (CLI) | payer BC, SELFPAY ==
--- NOTE | 2023-07-05 11:28 | CA_ITS ---
FINAL REPORT TECHNIQUE: Ultrasound images of the deep venous system were obtained from the left groin to the calf veins. CLINICAL HISTORY: Acute deep vein thrombosis (DVT) of LLE 03/15/23, 03/19/23, 04/30/23 Eliquis 5 mg FINDINGS: There is partial compression within the common femoral vein and superficial femoral vein. The remaining deep venous system are compressible with normal flow identified. IMPRESSION: Partially compressible common femoral and superficial femoral veins. Reviewed, Interpreted and Dictated by Tobi Mendoza MD Transcribed by ALTAGRACIA Hahn Authenticated and [facility]
[2023-07-05 11:57] LABS: Basophils % 0.7 % (0.1-2.0); Eosinophils # 0.1 K/mm3 (0.0-0.4); Eosinophils % 1.1 % (0.1-12.0); Hematocrit 38.9 % (37.0-47.0); Hemoglobin 12.4 g/dL (12.2-16.2); Lymphocytes % 22.8 % (10-50); Mean Corpuscular HGB Conc 31.8 g/dL (31.8-35.4); Mean Corpuscular Hemoglobin 26.9 pg (27.0-31.2); Mean Corpuscular Volume 84.7 fl (81-99); Mean Platelet Volume 8.2 fl (7.4-10.4); Monocytes # 0.2 K/mm3 (0.1-1.0); Monocytes % 4.7 % (1.7-9.3); Neutrophils # 3.2 K/mm3 (1.8-7.8); Neutrophils % 70.7 % (37.0-80.0); Platelet Count 138 K/mm3 (142-424); Red Blood Count 4.59 M/mm3 (4.20-5.40); Red Cell Distribution Width 15.2 % (11.5-17.5); White Blood Count 4.6 K/mm3 (4.8-10.8)
[2023-07-05 12:24] LABS: Hemoglobin A1C 6.3 % (4.0-6.0)
[2023-07-05 12:32] LABS: Alanine Aminotransferase 22 U/L (12-78); Albumin/Globulin Ratio 1.4 (1.1-1.8); Alkaline Phosphatase 111 U/L (38-126); Aspartate Amino Transferase 31 U/L (14-36); Bilirubin,Total 0.4 mg/dl (0.2-1.3); Blood Urea Nitrogen 13 mg/dl (7-17); Calcium 9.1 mg/dl (8.4-10.2); Carbon Dioxide 27 mmol/L (22.0-30.0); Chloride 108 mmol/L (98-107); Estimated Glomerular Filt Rate 50 ml/min (>60); GFR (African American) 61 ML/MIN (>60); Globulin 2.9 g/dL (1.3-3.2); Glucose 151 mg/dl (74-100); Sodium 141 mmol/L (136-145); Total Protein,Serum 6.9 g/dl (6.3-8.2)
[2023-07-05 12:43] LABS: Amphetamine/Metha Screen,Urine Negative ng/ml (<1000); Benzodiazepines Screen,Urine Negative ng/ml (<200)
[2023-07-05 12:44] LABS: Barbiturates Screen,Urine Negative ng/ml (<200)
[2023-07-05 12:46] LABS: Cannabinoid Screen,Urine Negative ng/ml (<50); Cocaine Screen,Urine Negative ng/ml (<300)
[2023-07-05 12:47] LABS: Methadone Screen,Urine Negative ng/ml (<300)
[2023-07-05 12:48] LABS: Opiate Screen,Urine Positive ng/ml (<300); Phencyclidine Screen,Urine Negative ng/ml (<25)
== END 2023-07-05 23:59 | disposition home or self-care (01) ==
LOC: RT 11:28
PROVIDERS: PCP Nurse Practitioner Family; Visit Provider Internal Medicine Pulmonary Disease
DX: E11.42 Type 2 diabetes mellitus with diabetic polyneuropathy (principal); I26.92 Saddle embolus of pulmonary artery without acute cor pulmonale; I82.412 Acute embolism and thrombosis of left femoral vein; Z79.891 Long term (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 opiate analgesic; G89.29 Other chronic pain; M19.072 Primary osteoarthritis, left ankle and foot
CPT/HCPCS: 36415; 80053; 80307; 83036; 85025; 93971

== ENCOUNTER 2023-09-10 08:03 | Outpatient (CLI) | payer BC, SELFPAY ==
[2023-09-10 08:54] LABS: D-Dimer 0.38 ug/mL (0.0-0.5)
== END 2023-09-10 23:59 | disposition home or self-care (01) ==
LOC: LAB 08:03
PROVIDERS: PCP Internal Medicine Adolescent Medicine; Visit Provider Internal Medicine Pulmonary Disease
DX: I26.92 Saddle embolus of pulmonary artery without acute cor pulmonale (principal); I82.412 Acute embolism and thrombosis of left femoral vein
CPT/HCPCS: 36415; 85378

== ENCOUNTER 2024-01-16 08:12 | Outpatient (CLI) | payer BC, SELFPAY ==
--- NOTE | 2024-01-16 08:15 | MM_ITS ---
PROCEDURE INFORMATION: Exam: Bilateral Screening 3D Mammography Exam date and time: 01/16/2024 8:13 AM Age: 63 years old Clinical indication: Screening examination TECHNIQUE: Imaging protocol: Bilateral Screening tomosynthesis and 2D mammography including computer-aided detection (CAD) when performed. COMPARISON: SCREEN MAMMO W CAD BILAT 03/01/2022 8:11 AM FINDINGS: MAMMOGRAPHY: Breast composition: The breasts are almost entirely fatty. Mass: None. Architectural distortion: None. Calcifications: No suspicious calcifications. Asymmetric density: None. Skin thickening: None. Axillary adenopathy: None. IMPRESSION: No mammographic evidence of malignancy. Annual screening is recommended unless otherwise clinically indicated. ASSESSMENT: BI-RADS Category 1: Negative.
--- NOTE | 2024-01-16 08:15 | XR_ITS ---
FINAL REPORT CLINICAL HISTORY: screening COMPARISON: None FINDINGS: Using L1-4, the bone mineral density of the spine is 1.113 g/cm2, corresponding to T-score of 0.6, within normal limits. Using the left hip, the bone mineral density of the total hip is 0.884 g/cm2, corresponding to a T-score of -0.5, within normal limits. Using the right hip, the bone mineral density of the femoral neck is 0.693 g/cm2, corresponding to a T-score of -1.4 which is consistent with low bone density. FRAX 10 year fracture risk is 0.6% for a hip fracture and 7.5% for a major osteoporotic fracture. NOTE: T-score: Standard deviation compared with peak bone mass of young adult mean. *Following the recommendations of the International Society of Bone densitometry, classification of hip BMD is based on the lower of two T-scores; total hip or femoral neck. IMPRESSION: Diminished bone mineral density consistent with low bone density. Reviewed, Interpreted and Dictated by Geoffrey Rowland III, MD Transcribed by Lori Hinkle Authenticated and [facility]
== END 2024-01-16 23:59 | disposition home or self-care (01) ==
LOC: RAD 08:13
PROVIDERS: PCP Internal Medicine Adolescent Medicine; Visit Provider Nurse Practitioner Family
DX: Z78.0 Asymptomatic menopausal state (principal); Z12.31 Encounter for screening mammogram for malignant neoplasm of breast
CPT/HCPCS: 77063; 77067; 77080

== ENCOUNTER 2024-04-21 08:00 | Outpatient (CLI) | payer BC, SELFPAY ==
[2024-04-21 08:44] LABS: Chloride 106 mmol/L (98-107); Potassium 5.3 mmoL/L (3.5-5.1); Sodium 139 mmol/L (136-145)
[2024-04-21 08:47] LABS: Anion Gap 13.3 mEq/L (5-15); Blood Urea Nitrogen 15 mg/dl (7-17); Calcium 9.4 mg/dl (8.4-10.2); Carbon Dioxide 25 mmol/L (22.0-30.0); Estimated Glomerular Filt Rate 50 ml/min (>60); GFR (African American) 61 ML/MIN (>60); Glucose 99 mg/dl (74-100)
== END 2024-04-21 23:59 | disposition home or self-care (01) ==
LOC: LAB 08:01
PROVIDERS: PCP Internal Medicine Adolescent Medicine; Visit Provider Nurse Practitioner Family
DX: N18.31 Chronic kidney disease, stage 3a (principal)
CPT/HCPCS: 36415; 80048

== ENCOUNTER 2024-05-20 12:35 | Outpatient (CLI) | payer BC, SELFPAY ==
[2024-05-20 13:40] VITALS: PULSE 89; PULSE 91
[2024-05-20] MEDS: ALBUTEROL 0.083% 2.5 MG/3 ML NEB IH (13:40)
== END 2024-05-20 23:59 | disposition home or self-care (01) ==
LOC: RT 12:35
PROVIDERS: PCP Internal Medicine Adolescent Medicine; Visit Provider Internal Medicine Pulmonary Disease
DX: R06.09 Other forms of dyspnea (principal)
CPT/HCPCS: 94060; 94618; 94640; 94726; 94729; J7613

== ENCOUNTER 2024-06-27 07:12 | Outpatient (CLI) | payer BC, SELFPAY ==
[2024-06-27 07:45] LABS: Basophils % 0.8 % (0.1-2.0); Eosinophils # 0.1 K/mm3 (0.0-0.4); Eosinophils % 1.8 % (0.1-12.0); Hematocrit 33.9 % (37.0-47.0); Hemoglobin 10.7 g/dL (12.2-16.2); Lymphocytes # 1.3 K/mm3 (0.7-4.5); Lymphocytes % 33.6 % (10-50); Mean Corpuscular HGB Conc 31.6 g/dL (31.8-35.4); Mean Corpuscular Hemoglobin 28.8 pg (27.0-31.2); Mean Corpuscular Volume 91.1 fl (81-99); Mean Platelet Volume 10.2 fl (7.4-10.4); Monocytes # 0.4 K/mm3 (0.1-1.0); Neutrophils # 2.1 K/mm3 (1.8-7.8); Neutrophils % 54.3 % (37.0-80.0); Nucleated Red Blood Cells # 0 10^3/uL; Nucleated Red Blood Cells % 0 %; Platelet Count 113 K/mm3 (142-424); Red Blood Count 3.72 M/mm3 (4.20-5.40); Red Cell Distribution Width 16.1 % (11.5-17.5); Red Cell Distribution Width-SD 54.2 fL; White Blood Count 3.9 K/mm3 (4.8-10.8)
[2024-06-27 07:56] LABS: Creatinine,Urine Random 119 mg/dL (Not Estab.)
[2024-06-27 08:00] LABS: Microalbumin/Creatinine Ratio 6.7
[2024-06-27 08:02] LABS: Hemoglobin A1C 5.7 % (4.0-6.0)
[2024-06-27 08:18] LABS: Albumin Level 3.6 g/dl (3.5-5.0); Chloride 107 mmol/L (98-107); Potassium 4.7 mmoL/L (3.5-5.1); Sodium 141 mmol/L (136-145)
[2024-06-27 08:21] LABS: Alanine Aminotransferase 22 U/L (12-78); Albumin/Globulin Ratio 1.3 (1.1-1.8); Alkaline Phosphatase 126 U/L (38-126); Anion Gap 13.7 mEq/L (5-15); Aspartate Amino Transferase 31 U/L (14-36); Bilirubin,Total 0.4 mg/dl (0.2-1.3); Blood Urea Nitrogen 20 mg/dl (7-17); Carbon Dioxide 25 mmol/L (22.0-30.0); Cholesterol 209 mg/dl (140-200); Estimated Glomerular Filt Rate 56 ml/min (>60); GFR (African American) 68 ML/MIN (>60); Globulin 2.8 g/dL (1.3-3.2); Total Protein,Serum 6.4 g/dl (6.3-8.2); Triglycerides 196 mg/dl (30-150); VLDL Cholesterol 39 mg/dL (0-40)
[2024-06-27 08:22] LABS: Calcium 8.6 mg/dl (8.4-10.2); Chol/HDL Ratio 4.2 (1-3.5); Glucose 139 mg/dl (74-100); HDL Cholesterol 50 mg/dl (40-60)
[2024-06-27 08:33] LABS: Direct LDL Cholesterol 109.99 mg/dL (100-129)
== END 2024-06-27 23:59 | disposition home or self-care (01) ==
LOC: LAB 07:14
PROVIDERS: PCP Nurse Practitioner Family; Visit Provider Nurse Practitioner Family
DX: E11.42 Type 2 diabetes mellitus with diabetic polyneuropathy (principal); E11.22 Type 2 diabetes mellitus with diabetic chronic kidney disease; I12.9 Hypertensive chronic kidney disease with stage 1 through stage 4 chronic kidney disease, or unspecified chronic kidney disease; N18.31 Chronic kidney disease, stage 3a
CPT/HCPCS: 36415; 80053; 80061; 82043; 82570; 83036; 85025

== ENCOUNTER 2024-08-25 16:33 | Outpatient (CLI) | payer BC, SELFPAY ==
--- OUTSIDE RECORDS SUMMARY | 2024-08-08 06:00 | XMS_ITS ---
Author Organization [facility] Address [address] [place] [address] Care Team Providers Care Manager Privacy Name Role Phone AVINASH ALEGRE Primary Care Provider Un available Avinash Alegre Unavailable [phone] Avinash Rodriguez Unavailable [phone] Allergies Allergen (clinical drug ingredient) Drug/Non Drug [...] UNITS DAILY WITH LARGEST MEAL SUBCUTANEOUSLY subcutaneously for 30 days Active Pen [place] DIRECTED SUBCUTANEOUSLY ULTRA SHORT for 30 DAYS *Please review and pick correct strength-formulat ion from [employer] options. If intended option is not shown, discontinue and re-order from Quick Search* Active Lisinopril 20 MG 1 tab(s) orally once a day for 30 days 04/22/2024 Active Ciprofloxacin-dexAME THasone 0.3-0.1 % 4 drops into affected ear Otic Twice a day for 7 days 08/08/2024 Active OLANZapine 10 MG 1 tab(s) orally once a day for 30 day(s) Active Doxepin HCl 100 MG 1 cap(s) orally once a day (at bedtime) for 30 days Active Furosemide 20 MG 1 tab(s) orally once a day as needed for 30 days prn 10/25/2022 Active GLUCOMETER NA USE FOR TWICE A DAY FSBS TESTING NA TWICE DAILY for 30 DAYS DX: E11.9 *Please review for potential replacement for e-prescription and drug interaction check* 06/06/2023 Active C-PAP MASK AND SUPPLIES DIRECTED for 30 DAYS *Please review for potential replacement for e-prescription and drug interaction check* 04/15/2015 Active HYDROcodone-Acetamin ophen 10-325 MG 1 tab(s) orally every 8 hours PRN pain for 30 days 07/15/2024 Active Lantus SoloStar 100 UNIT/ML Inject 80 units subcutaneously once daily at bedtime for 30 days Active Methocarbamol 500 MG as directed Orally every 8 hours for 30 days As needed jaw tightness, 1-2 tablets every 8 hours as needed. Do NOT drive while taking. 08/08/2024 Active MiraLax - 17 GRAM ORALLY ONCE A DAY for 30 DAYS *Please review and pick correct strength-formulat ion from [employer] options. If intended option is not shown, discontinue and re-order from Quick Search* 02/07/2023 Active Ozempic (2 MG/DOSE) 8 MG/3ML 2 MG SUBCUTANEOUSLY ONCE A WEEK 28 DAYS for 28 Active Carvedilol 25 MG 1 tab(s) orally 2 times a day for 30 days Active Vital Signs Temperature 98 degrees Fahrenheit 08/08/2024 Heart Rate 78 /min 08/08/2024 Blood pressure systolic 124 mm Hg 08/09/19 25 Blood pressure diastolic 90 mm Hg 025 Height 5 ft 7 in in 08/08/2024 Weight 263 lbs 08/08/2024 BMI 41.19 kg/m2 08/08/2024 Encounters Encounter Location Date Provider Diagnosis [address] [address] 08/08/2024 Avinash Rodriguez Acute otitis externa of left ear, [...] drops into affected ear Otic Twice a day for 7 days 08/08/2024 Methocarbamol 500 MG as directed Orally every 8 hours for 30 days 08/08/2024 Treatment Notes Assessment Notes [...] Appt Details Follow Up: prn, Reason: Provider Name:Avinash limon, 08/27/2024 12:00:00 PM, [address], [address], Provider Name:Avinash limon, 09/24/2024 09:45:00 AM, [address] [place] [address], [id number], Progress Notes * Angy COLON DDOB:[birth year] (64 yo F)Acc No.[id number]:08/08/2024 Progress Notes Patient: Kim HAL Angy Camarillo Provider: ALTAGRACIA Ledezma :1960 A ge:64 Y S ex:Female Date:08/08/2024 Address:[address], [place], [id number] Pcp:AVINASH LAEGRE Subjective: * Chief Complaints: * 1 . [...] *Please review and pick correct strength-formulation from [employer] options. If intended option is not shown, [...] LARGEST MEAL SUBCUTANEOUSLY subcutaneously , Taking Pen [place] DIRECTED SUBCUTANEOUSLY ULTRA SHORT , Notes to [...] ALTAGRACIA Ledezma Date: 0 08/08/2024 Generated for Ruthy brower/Barney/Hipolitoitting on: 0 08/25/2024 04:35 PM EDT History and Physical Notes * HPI [...]
--- OUTSIDE RECORDS SUMMARY | 2024-08-25 16:36 | XMS_ITS | Patient Health Record ---
Author Organization [facility] Address [address] [place] [address] Care Team Providers Care Bpo Specialist Name Role Phone AVINASH ALEGRE Primary Care Provider Un available Avinash Alegre Unavailable [phone] Buddy Blanton Unavailable [phone] Parul Keenan Unavailable [phone] Avinash Rodriguez Unavailable [phone] Migration, Provider Unavailable Unavailable Allergies Allergen (clinical drug ingredient) Drug/Non Drug Allergy documented on EMR Reaction Allergy Type Onset Date Status daptomycin DAPTOmycin whelps Drug Allergy Activ e Results Component Value Reference Range Notes M-Basic Metabolic Panel Reviewed date:04/22/2024 03:33:16 PM Interpretation: Performing Lab: Notes/Report: NA 139 136-145 mmol/L K 5.3 3.5-5.1 mmoL/L CL 106 98-107 mmol/L CO2 25 22.0-30.0 mmol/L GAP 13.3 5-15 mEq/L BUN 15 7-17 mg/dl CREATT 1.10 0.52-1.04 mg/dl GFRAA 61 >60 ML/MIN EGFR 50 >60 ml/min GLU 99 74-100 mg/dl CA 9.4 8.4-10.2 mg/dl M-Complete Blood Count Auto Diff Reviewed date:06/30/2024 09:31:27 AM Interpretation: Performing Lab: Notes/Report: WBC 3.9 4.8-10.8 K/mm3 RBC 3.72 4.20-5.40 M/mm3 HGB 10.7 12.2-16.2 g/dL HCT 33.9 37.0-47.0 % MCV 91.1 81-99 fl MCH 28.8 27.0-31.2 pg MCHC 31.6 31.8-35.4 g/dL RDW 16.1 11.5-17.5 % PLT 113 142-424 K/mm3 MPV 10.2 7.4-10.4 fl NE% 54.3 37.0-80.0 % LY% 33.6 10-50 % MO% 9.0 1.7-9.3 % EO% 1.8 0.1-12.0 % BA% 0.8 0.1-2.0 % NE# 2.1 1.8-7.8 K/mm3 LY# 1.3 0.7-4.5 K/mm3 MO# 0.4 0.1-1.0 K/mm3 EO# 0.1 0.0-0.4 K/mm3 BA# 0.0 0-0.2 K/mm3 RDW-SD 54.2 NRBC% 0 NRBC# 0 URINE DRUG SCREEN - SYVA Reviewed date:12/26/2023 01:24:17 PM Interpretation: Performing Lab: Notes/Report: AMPHETAMINE/METAMPHETAMINE NEGATIVE NEGATIVE BARBITURATES NEGATIVE NEGATIVE BENZODIAZEPHINES NEGATIVE NEGATIVE BUPRENOPHINE NEGATIVE NEGATIVE COCAINE METABOLITE NEGATIVE NEGATIVE METHADONE NEGATIVE NEGATIVE OPIATES POSITIVE NEGATIVE OXYCODONE NEGATIVE NEGATIVE CANNABINOIDS NEGATIVE NEGATIVE PCP NEGATIVE NEGATIVE FENTANYL, URINE NEGATIVE NEGATIVE TRICYCLIC ANTIDEPRESSANTS POSITIVE NEGATIVE INTERNAL CONTROL PASS PASS Note Unless otherwise noted testing performed at: [address] [address] Timi Davis MD CLIA: [id number] CREATININE URINE Reviewed date:12/26/2023 06:09:53 PM Interpretation: Performing Lab: Notes/Report: CREATININE URINE 390.0 30-125 mg/dL Note Unless otherwise noted testing performed at: [address] [address] Timi Davis MD CLIA: [id number] MICROALBUMIN RANDOM URINE Reviewed date:12/26/2023 06:09:53 PM Interpretation: Performing Lab: Notes/Report: MICROALBUMIN RANDOM 34.5 1.3-17.0 mcg/mL Note Unless otherwise noted testing performed at: [address] [address] Timi Davis MD CLIA: [id number] H-MALBCREA Reviewed date:06/27/2024 12:54:27 PM Interpretation: Performing Lab: Notes/Report: Severely Increased: >300 Moderately Increased: 30 - 300 Units: mg/g creat Normal: 0 - 29 UCREAT 119 Not Estab. mg/dL Random urine reference range not established. 24 hour urine samples recommended. MICROALB 8.000 0-16.7 mg/L MALBCREAT 6.7 COMP METABOLIC PANEL Reviewed date:12/27/2023 03:05:37 PM Interpretation: Performing Lab: Notes/Report: SODIUM 142 136-145 mmol/L POTASSIUM 4.8 3.5-5.1 mmol/L CHLORIDE 105 98-107 mmol/L CARBON DIOXIDE 24 21-32 mmol/L ANION GAP 13.0 GLUCOSE 122 70-110 mg/dL BLOOD UREA NITROGEN 20 7-18 mg/dL CREATININE 1.5 0.6-1.0 mg/dL BUN/CREATININE RATIO 13.3 9-21 Ratio ESTIMATED GLOM FILTRATION RATE 39 >60- mL/mi n GFR LIMITATION: The eGFR equation CKD-EPI 2020 is not applicable for pediatric patients or greater than 90 years of age. The following conditions may alter the GFR result: extremes in body size, malnutrition or obesity, skeletal muscle disease, paraplegia or quadriplegia, vegetarian diet or rapidly changing kiney function. TOTAL PROTEIN 7.5 6.4-8.2 g/dL ALBUMIN 3.8 3.4-5.0 g/dL CALCIUM 9.0 8.5-10.1 mg/dL CORRECTED CALCIUM 9.2 8.5-10.1 mg/dL BILIRUBIN TOTAL 0.5 0.4-1.5 mg/dL AST (SGOT) 15 15-37 U/L ALT (SGPT) 22 12-78 U/L ALK PHOSPHATASE 104 53-141 U/L Note Unless otherwise noted testing performed at: [address] [address] Timi Davis MD CLIA: [id number] HEMOGLOBIN A1C Reviewed date:12/27/2023 03:05:38 PM Interpretation: Performing Lab: Notes/Report: GLYCOSYLATED HEMOGLOBIN A1C 6.2 4.5-6.2 % ESTIMATED AVERAGE GLUCOSE 131 82-131 mg/dl Note Unless otherwise noted testing performed at: [address] [address] Timi Davis MD CLIA: [id number] LIPID PANEL Reviewed date:12/27/2023 03:05:38 PM Interpretation: Performing Lab: Notes/Report: FASTING ?: UNKNOWN TRIGLYCERIDE 188 20-200 mg/dL The National Cholesterol Education Program (NCEP) has set the following guidelines for Fasting Triglycerides: NORMAL: <150 mg/dL BORDERLINE HIGH: 150 - 199 mg/dL HIGH: 200 - 499 mg/dL VERY HIGH: > or =500 mg/dL CHOLESTEROL 191 0-200 mg/dL The National Cholesterol Education Program (NCEP) has set the following guidelines for Fasting Cholesterol: DESIRABLE: <200 mg/dL BORDERLINE HIGH: 200 - 239 mg/dL HIGH: > or =240 mg/dL HDL CHOLESTEROL 54 60- mg/dL The National Cholesterol Education Program (NCEP) has set the following guidelines for Fasting HDL Cholesterol: LOW HDL: <40 mg/dL NORMAL: 40 - 60 mg/dL DESIRABLE: >60 mg/dL LDL CALCULATED 99 100- mg/dL The National Cholesterol Education Program (NCEP) has set the following guidelines for Fasting LDL Cholesterol: OPTIMAL: < 100 mg/dL LOW RISK: 100 - 129 mg/dL BORDERLINE HIGH: 130 - 159 mg/dL HIGH: 160 - 189 mg/dL VERY HIGH: > or = 190 mg/dL CHOL/HDL RATIO 4 -5 Ratio Note Unless otherwise noted testing performed at: [address] [address] Timi Davis MD CLIA: [id number] M-Comprehensive Metabolic Pa selene Reviewed date:06/30/2024 09:31:27 AM Interpretation: Performing Lab: Notes/Report: NA 141 136-145 mmol/L K 4.7 3.5-5.1 mmoL/L CL 107 98-107 mmol/L CO2 25 22.0-30.0 mmol/L GAP 13.7 5-15 mEq/L BUN 20 7-17 mg/dl CREATT 1.00 0.52-1.04 mg/dl GFRAA 68 >60 ML/MIN EGFR 56 >60 ml/min GLU 139 74-100 mg/dl CA 8.6 8.4-10.2 mg/dl BILIT 0.4 0.2-1.3 mg/dl AST 31 14-36 U/L ALT 22 12-78 U/L TP 6.4 6.3-8.2 g/dl ALB 3.6 3.5-5.0 g/dl GLOB 2.8 1.3-3.2 g/dL AGRATIO 1.3 1.1-1.8 ALP 126 38-126 U/L M-Hemoglobin A1C Reviewed date:06/30/2024 09:31:27 AM Interpretation: Performing Lab: Notes/Report: HGBA1C 5.7 4.0-6.0 % < 6% Non-Diabetic Level < 7% Controlled Diabetic Level > 8% Poorly Controlled Diabetic Level M-Lipid Panel Reviewed date:06/30/2024 09:31:27 AM Interpretation: Performing Lab: Notes/Report: Patient Fasting? Y TRIG 196 30-150 mg/dl CHOL 209 140-200 mg/dl DLDL 109.99 100-129 mg/dL VLDL 39 0-40 mg/dL HDL 50 40-60 mg/dl CHLHDL 4.2 1-3.5 CULTURE, URINE, ROUTINE (395 ) Reviewed date:01/30/2024 03:48:44 PM Interpretation: Performing Lab:[facility], [facility] [facility], [facility] [place] Brodie Prakash Notes/Report: NON-FASTING CULTURE, URINE, ROUTINE SEE NOTE CULTURE, URINE, ROUTINE Micro Number: [id number] Test Status: Final Specimen Source: Urine, clean catch Specimen Quality: Adequate Result: Mixed genital debby isolated. These superficial bacteria are not indicative of a urinary tract infection. No further organism identification is warranted on this specimen. If clinically indicated, recollect clean-catch, mid-stream urine and transfer immediately to Urine Culture Transport Tube. Mammogram: Screening Reviewed date:01/22/2024 11:04:12 AM Interpretation: Performing Lab: Notes/Report: Urinalysis Reviewed date:01/25/2024 04:39:56 PM Interpretation: Performing Lab: Notes/Report: Color/Clarity yellow Leuk small Nitrite neg Urobili 0.2 Protein 30mg pH 7.0 Blood neg Sp. Gr. 1.025 Ketone neg Bili neg Glucose neg DEXA Hip and Spine - Screeni ng Reviewed date:01/22/2024 11:04:38 AM Interpretation: Performing Lab: Notes/Report: Reason For Referral Reason screening c scope, D r Fontana Diagnosis 1 Routine medical exam (Z00.00) Referral Organization [facility] Referring Provider First Name Avinash Referring Provider Last Name Sis Referring Provider Speciality Family [facility] General Notes Evy Velazquez 08:59:53 AM > faxed and they will call her to schedule Referral Priority Routine Medications Medication SIG (Take, Route, Frequency, Duration) Notes Start Date End Date Status C-PAP MASK AND SUPPLIES DIRECTED for 30 DAYS 04/15/2015 Active MiraLax - 17 GRAM ORALLY ONCE A DAY for 30 DAYS prn 02/07/2023 Active Lantus SoloStar 100 UNIT/ML Inject 80 units subcutaneously once daily at bedtime for 30 days Active Ozempic (2 MG/DOSE) 8 MG/3ML 2 MG SUBCUTANEOUSLY ONCE A WEEK 28 DAYS for 28 Active Carvedilol 25 MG 1 tab(s) orally 2 times a day for 30 days Active Pen Smith DIRECTED SUBCUTANEOUSLY ULTRA SHORT for 30 DAYS *Please review and pick correct strength-formulati on from Local Magnet options. If intended option is not shown, discontinue and re-order from Quick Search* Active NovoLOG FlexPen 100 UNIT/ML INJECT 14 UNITS DAILY WITH LARGEST MEAL SUBCUTANEOUSLY subcutaneously for 30 days Active TEST STRIPS AND LANCETS NA TWICE A DAY NA TWICE DAILY DX: E11.9 *Please review for potential replacement for e-prescription and drug interaction check* 06/06/2023 Active GLUCOMETER NA USE FOR TWICE A DAY FSBS TESTING NA TWICE DAILY for 30 DAYS DX: E11.9 *Please review for potential replacement for e-prescription and drug interaction check* 06/06/2023 Active Furosemide 20 MG 1 tab(s) orally once a day as needed for 30 days prn 10/25/2022 Active Lisinopril 20 MG 1 tab(s) orally once a day for 30 days 04/22/2024 Active Doxepin HCl 100 MG 1 cap(s) orally once a day (at bedtime) for 30 days Active HYDROcodone-Acetam inophen 10-325 MG 1 tab(s) orally every 8 hours PRN pain for 30 days 08/12/2024 Active OLANZapine 10 MG 1 tab(s) orally once a day for 30 day(s) Active Immunizations Vaccine Route Administration Date Status Comme nts Arexvy IM Intramuscular 02/07/2023 Administered Flublok IM Intramuscular 01/11/2022 Administered FLUZONE 6MO - OLDER IM Intramuscular 12/30/2018 Administer ed FLUZONE 6MO - OLDER IM Intramuscular 02/07/2023 Administer ed FLUZONE 6MO - OLDER IM Intramuscular 12/26/2023 Administer ed Influenza-Fluzone 3+years (NON-MEDICARE) IM Intramuscular 12/12/2016 Administered Influenza-Fluzone 3+years (NON-MEDICARE) IM Intramuscular 12/20/2017 Administered Prevnar PCV-13 (Pneumococcal conjugate 13) IM Intramuscular 01/05/2020 Administered Prevnar PCV-20 (Pneumococcal conjugate 20) IM Intramuscular 12/26/2023 Administered SHINGRIX IM Intramuscular 10/13/2021 Administered SHINGRIX IM Intramuscular 01/11/2022 Administered Problems Problem Type SNOMED Code ICD Code Onset Dates Problem Status W/U Status Risk Notes Problem Hypothyroidism (37808131) Hypothyroidism, unspecified (E03.9) Active confirmed Problem 62206713 Type 2 diabetes mellitus with unspecified diabetic retinopathy with macular edema (E11.311) Active confirmed Problem 22453216 Type 2 diabetes mellitus with diabetic polyneuropathy (E11.42) Active confirmed Problem 061153112710667 Type 2 diabetes mellitus with hyperglycemia (E11.65) Active confirmed Problem 484992942 Morbid (severe) obesity due to excess calories (E66.01) Active confirmed Problem 08001135 Obstructive slee p apnea (adult) (pediatric) (G47.33) Active confirmed Problem 84315424 Essential (primary) hypertension (I10) Active confirmed Problem 061241523454453 Saddle embolus o f pulmonary artery without acute cor pulmonale (I26.92) Active confirmed Problem 287348463799382 Chronic pulmonar y embolism (I27.82) Active confirmed Problem 218245646 Dependence on other enabling machines and devices (Z99.89) Active confirmed Problem Diabetes mellitus (25144791) Diabetes mellitus (E11.9) Active confirmed Problem 20655150 Vitamin D deficiency (E55.9) Active confirmed Problem Migraine variant with headache (disorder) (163833647) Migraine headache (G43.909) Active confirmed Problem 600689797 Neuropathy (G62.9) Active confirmed Problem 640944008 BMI 40.0-44.9, adult (Z68.41) Active confirmed Problem 61075809 Other chronic pain (G89.29) Active confirmed Problem 260190170 BMI 39.0-39.9,adult (Z68.39) Active confirmed Problem 016127902 Hx pulmonary embolism (Z86.711) Active confirmed Problem 89490028 Hyperglycemia du e to type 2 diabetes mellitus (E11.65) Active confirmed Problem 294035329 Abnormal mammogram (R92.8) Active confirmed Problem 105361069 termite renewal inspector 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 t 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 (Z79.4) Active confirmed Problem 54709775 DDD (degenerativ e disc disease), lumbosacral (M51.37) Active confirmed Problem Esophageal stricture (97358348) Esophageal stricture (K22.2) Active confirmed Problem 848293165 Intractable migraine without aura and with status migrainosus (G43.011) Active confirmed Problem 11111323 Osteomyelitis of foot, left, acute (M86.172) Active confirmed Problem 032672182 Microcytic anemi a (D50.9) Active confirmed Problem Long-term current 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 (193370171) Long-term insulin use (Z79.4) Active confirmed Problem 571247756 Paresthesia of lower extremity (R20.2) Active confirmed Problem Psychophysical visual disturbance (67005432) Hallucination, visual (R44.1) Active confirmed Problem Type II diabetes mellitus without complication (296071885) Controlled type 2 diabetes mellitus without complication, without long-term current 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 (E11.9) Active confirmed Problem 80792743 Hyperlipidemia LDL goal <100 (E78.5) Active confirmed Problem Recurrent falls (092970897) Falling (R29.6) Active confirmed Problem 293260703 Major depressive disorder, remission status unspecified, unspecified whether recurrent (F32.9) Active confirmed Problem 137665049 Diabetic retinopathy associated with controlled type 2 diabetes mellitus (E11.319) Active confirmed Problem 844169259 Chronic kidney disease, stage 3a (N18.31) Active confirmed Problem Localized, primary osteoarthritis of the ankle and/or foot (345650425) Foot arthropathy (M19.079) Active confirmed Vital Signs Heart Rate 104 /min 08/25/2024 Temperature 97.8 degrees Fahrenheit 08/25/2024 Blood pressure diastolic 80 mm Hg 08/25/2024 Height 5 ft 7 in in 08/25/2024 Blood pressure systolic 154 mm Hg 08/25/2024 Weight 268.6 lbs 08/25/2024 BMI 42.06 kg/m2 08/25/2024 Encounters Encounter Location Date Provider Diagnosis [facility] [address] [facility] [address] [place] [address] 06/14/2024 Provider Migration Other chronic pain G89.29 [facility] [address] [facility] [address] [place] [address] 08/25/2024 Avinash Alegre Cellulitis of right foot L03.115 ; snf current 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 Z79.4 ; Type 2 diabetes mellitus with diabetic polyneuropathy E11.42 and History of osteomyelitis Z87.[address] [address] 09/12/2023 Avinash Alegre Type 2 diabetes mellitus with diabetic polyneuropathy E11.42 ; termite renewal inspector prescription opiate use Z79.891 ; Paresthesia of lower extremity R20.2 ; Other chronic pain G89.29 ; Foot arthropathy M19.079 ; DDD (degenerative disc disease), lumbosacral M51.37 ; Leg DVT (deep venous thromboembolism), chronic, left I82.502 ; Hx pulmonary embolism Z86.711 and Pain in left knee M25.[address] [address] 12/26/2023 Avinash Alegre Type 2 diabetes mellitus with diabetic polyneuropathy E11.42 ; Routine medical exam Z00.00 ; snf prescription opiate use Z79.891 ; Paresthesia of lower extremity R20.2 ; Other chronic pain G89.29 ; Foot arthropathy M19.079 ; Hx pulmonary embolism Z86.711 ; Hx pulmonary embolism Z86.711 ; Pain in left knee M25.562 ; Pain in left knee M25.562 ; BMI 39.0-39.9,adult Z68.39 ; Visit for screening mammogram Z12.31 ; Asymptomatic postmenopausal state Z78.0 and Encounter for immunization Z23 [facility] [address] [address] 01/25/2024 Parul Keenan Left flank pain R10. 9 and Gastroenteritis K52.9 [facility] [address] [address] 04/02/2024 Avinash Alegre Type 2 diabetes mellitus with diabetic polyneuropathy E11.42 ; termite renewal inspector prescription opiate use Z79.891 ; Paresthesia of lower extremity R20.2 ; Other chronic pain G89.29 ; Foot arthropathy M19.079 ; Chronic kidney disease, stage 3a N18.31 ; Essential (primary) hypertension I10 and Dizziness R42 [facility] [address] [address] 06/25/2024 Avinash Alegre Type 2 diabetes mellitus with diabetic polyneuropathy E11.42 ; snf prescription opiate use Z79.891 ; Paresthesia of lower extremity R20.2 ; Other chronic pain G89.29 ; Foot arthropathy M19.079 ; Chronic kidney disease, stage 3a N18.31 ; Essential (primary) hypertension I10 and Hyperkalemia E87.5 [facility] [address] [address] 08/08/2024 Avinash Jennifer Acute otitis externa of left ear, unspecified type H60.502 and TMJ (temporomandibular joint disorder) M26.609 [facility] [address] [address] 09/11/2023 Buddy Blanton Other chronic pain G89.29 [facility] [address] [address] 10/08/2023 Buddy Blanton Other chronic pain G89.29 [facility] [address] [address] 11/06/2023 Buddy Blanton Other chronic pain G89.29 [facility] [address] [address] 11/09/2023 Avinash Alegre Type 2 diabetes mellitus with diabetic polyneuropathy E11.42 [facility] [address] [place] [address] 12/04/2023 Buddy Bessawyer Other chronic pain G89.29 [facility] [address] [place] [address] 12/07/2023 Avinash Sis [facility] [address] [place] [address] 01/01/2024 Buddydeepika Blanton Other chronic pain G89.29 [facility] [address] [place] [address] 01/31/2024 Buddy Besson Other chronic pain G89.29 [facility] [address] [place] [address] 02/05/2024 Avinash Alegre Type 2 diabetes mellitus with diabetic polyneuropathy E11.42 [facility] [address] [place] [address] 02/26/2024 Buddy Franny Other chronic pain G89.29 [facility] [address] [place] [address] 03/26/2024 Buddy Besson Other chronic pain G89.29 [facility] [address] [place] [address] 03/26/2024 Avinash Sis Other chronic pain G89.29 [facility] [address] [place] [address] 04/08/2024 Avinash Sis [facility] [address] [place] [address] 04/15/2024 Avinash Sis [facility] [address] [place] [address] 04/22/2024 Buddy Besson Other chronic pain G89.29 [facility] [address] [place] [address] 04/22/2024 Avinash Sis [facility] [address] [place] [address] 05/07/2024 Avinash Sis [facility] [address] [place] [address] 05/20/2024 Buddy Besson Other chronic pain G89.29 [facility] [address] [place] [address] 06/17/2024 Buddy Besson Other chronic pain G89.29 [facility] [address] [place], [place] [address] 07/15/2024 Buddydeepika Blanton Other chronic pain G89.29 [facility] [place] [address] [address] 07/16/2024 Buddy Blanton Other chronic pain G89.29 [facility] [address] [address] 08/06/2024 Avinash Alegre Type 2 diabetes mellitus with diabetic polyneuropathy E11.42 [facility] [place] [address] [address] 08/12/2024 Buddydeepika Bl[place] Other chronic pain G89.29 [facility] [address] [address] 08/19/2024 Avinash Alegre Assessments Encounter Date Diagnosis (ICD Code) Assessment Notes Treatment Notes Treatment Clinical Notes Section Notes 09/11/2023 Other chronic pain (ICD-10 - G89.29) 09/12/2023 Type 2 diabetes mellitus with diabetic polyneuropathy (ICD-10 - E11.42) reports good readings at home, A1C < 8 in June. Encouraged annual eye exam and daily foot exams. 09/12/2023 termite renewal inspector prescription opiate use (ICD-10 - Z79.891) No changes made today...continue orthopedic FU as well as current medication regimen 10/08/2023 Other chronic pain (ICD-10 - G89.29) 11/06/2023 Other chronic pain (ICD-10 - G89.29) 11/09/2023 Type 2 diabetes mellitus with diabetic polyneuropathy (ICD-10 - E11.42) 12/04/2023 Other chronic pain (ICD-10 - G89.29) 12/26/2023 Type 2 diabetes mellitus with diabetic polyneuropathy (ICD-10 - E11.42) reports good readings at home, A1C < 8 in June. Encouraged annual eye exam and daily foot exams. reports good readings at home, A1C < 8 in June. Encouraged annual eye exam and daily foot exams. 12/26/2023 Routine medical exam (ICD-10 - Z00.00) 01/01/2024 Other chronic pain (ICD-10 - G89.29) 01/25/2024 Gastroenteritis (ICD-10 - K52.9) Discussed usual viral etiology and self-limiting condition. Encouraged BRAT diet and clear fluids, avoid caffeine, Monitor for evidence of significant dehydration with fewer than 3 voids per 24 hours. Notify of any blood or mucous in stool. Use tylenol as needed for fevers. 01/25/2024 Left flank pain (ICD-10 - R10.9) 01/31/2024 Other chronic pain (ICD-10 - G89.29) 02/05/2024 Type 2 diabetes mellitus with diabetic polyneuropathy (ICD-10 - E11.42) 02/26/2024 Other chronic pain (ICD-10 - G89.29) 03/26/2024 Other chronic pain (ICD-10 - G89.29) 03/26/2024 Other chronic pain (ICD-10 - G89.29) 04/02/2024 Type 2 diabetes mellitus with diabetic polyneuropathy (ICD-10 - E11.42) reports good readings at home, A1C < 7. Encouraged annual eye exam and daily foot exams. 04/02/2024 snf prescription opiate use (ICD-10 - Z79.891) No changes made today...continue orthopedic FU as well as current medication regimen No changes made today...continue orthopedic FU as well as current medication regimen 04/22/2024 Other chronic pain (ICD-10 - G89.29) 05/20/2024 Other chronic pain (ICD-10 - G89.29) 06/14/2024 Other chronic pain (ICD-10 - G89.29) 06/17/2024 Other chronic pain (ICD-10 - G89.29) 06/25/2024 Type 2 diabetes mellitus with diabetic polyneuropathy (ICD-10 - E11.42) reports good readings at home, A1C < 7. Encouraged annual eye exam and daily foot exams. 06/25/2024 snf prescription opiate use (ICD-10 - Z79.891) No changes made today...continue orthopedic FU as well as current medication regimen No changes made today...continue orthopedic FU as well as current medication regimen 07/15/2024 Other chronic pain (ICD-10 - G89.29) 07/16/2024 Other chronic pain (ICD-10 - G89.29) 08/06/2024 Type 2 diabetes mellitus with diabetic polyneuropathy (ICD-10 - E11.42) 08/08/2024 Acute otitis externa of left ear, unspecified type (ICD-10 - H60.502) Determined to have otitis externa from physical examination findings above. Prescription written for antibiotic above. Warm bottle in hands before putting drops into ear. Return precautions discussed. All questions answered. 08/08/2024 TMJ (temporomandibular joint disorder) (ICD-10 - M26.609) Discussed with patient the pathophysiology of TMJ syndrome. Warm compresses discussed. Recommended NSAIDs/Tylenol and warm compress. Discussed risks and benefits of muscle relaxer. If no better in 2 weeks, patient will come back or contact their dentist. 08/12/2024 Other chronic pain (ICD-10 - G89.29) 08/25/2024 termite renewal inspector current 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 (ICD-10 - Z79.4) 08/25/2024 Cellulitis of right foot (ICD-10 - L03.115) 06/25/2024 Paresthesia of lower extremity (ICD-10 - R20.2) 08/25/2024 Type 2 diabetes mellitus with diabetic polyneuropathy (ICD-10 - E11.42) 04/02/2024 Paresthesia of lower extremity (ICD-10 - R20.2) 12/26/2023 snf prescription opiate use (ICD-10 - Z79.891) No changes made today...continue orthopedic FU as well as current medication regimen No changes made today...continue orthopedic FU as well as current medication regimen 09/12/2023 Paresthesia of lower extremity (ICD-10 - R20.2) 09/12/2023 Other chronic pain (ICD-10 - G89.29) 04/02/2024 Other chronic pain (ICD-10 - G89.29) 06/25/2024 Other chronic pain (ICD-10 - G89.29) 12/26/2023 Paresthesia of lower extremity (ICD-10 - R20.2) 08/25/2024 History of osteomyelitis (ICD-10 - Z87.39) 06/25/2024 Foot arthropathy (ICD-10 - M19.079) evaluated by podiatry in the past, injections not significantly effective for pain relief evaluated by podiatry in the past, injections not significantly effective for pain relief 12/26/2023 Other chronic pain (ICD-10 - G89.29) 04/02/2024 Foot arthropathy (ICD-10 - M19.079) evaluated by podiatry in the past, injections not significantly effective for pain relief evaluated by podiatry in the past, injections not significantly effective for pain relief 09/12/2023 Foot arthropathy (ICD-10 - M19.079) evaluated by podiatry in the past, injections not significantly effective for pain relief 09/12/2023 DDD (degenerative disc disease), lumbosacral (ICD-10 - M51.37) 04/02/2024 Chronic kidney disease, stage 3a (ICD-10 - N18.31) discussed diagnosis and goals of management. continue ACEI, encouraged better water intake and avoidance of NSAIDS. glucose well controlled 12/26/2023 Foot arthropathy (ICD-10 - M19.079) evaluated by podiatry in the past, injections not significantly effective for pain relief evaluated by podiatry in the past, injections not significantly effective for pain relief 06/25/2024 Chronic kidney disease, stage 3a (ICD-10 - N18.31) discussed diagnosis and goals of management. continue ACEI, encouraged better water intake and avoidance of NSAIDS. glucose well controlled 06/25/2024 Essential (primary) hypertension (ICD-10 - I10) reasonable control. encouraged to check periodically at home 12/26/2023 Hx pulmonary embolism (ICD-10 - Z86.711) 04/02/2024 Essential (primary) hypertension (ICD-10 - I10) reasonable control. encouraged to check periodically at home and during episodes of dizziness to see if this correlates with symptoms 09/12/2023 Leg DVT (deep venous thromboembolism), chronic, left (ICD-10 - I82.502) Continue eliquis and FU with pulmonology at [facility] 09/12/2023 Hx pulmonary embolism (ICD-10 - Z86.711) 12/26/2023 Hx pulmonary embolism (ICD-10 - Z86.711) 06/25/2024 Hyperkalemia (ICD-10 - E87.5) 04/02/2024 Dizziness (ICD-10 - R42) 09/12/2023 Pain in left knee (ICD-10 - M25.562) 12/26/2023 Pain in left knee (ICD-10 - M25.562) 12/26/2023 Pain in left knee (ICD-10 - M25.562) 12/26/2023 BMI 39.0-39.9,adult (ICD-10 - Z68.39) 12/26/2023 Visit for screening mammogram (ICD-10 - Z12.31) 12/26/2023 Asymptomatic postmenopausal state (ICD-10 - Z78.0) 12/26/2023 Encounter for immunization (ICD-10 - Z23) Plan Of Treatment Pending Test Test Name Order Date MRI : Foot, Right 06/06/2017 X ray : Ankle, Right 08/25/2024 X ray : Foot, Left 09/26/2016 X ray : Foot, Right 08/25/2024 Mammogram : Right Breast 12/29/2016 Physical Therapy 09/27/2022 Physical Therapy : Wound Care 01/28/2018 H-CBC with AUTO DIFF 08/27/2014 H-VITAMIN B12 08/27/2014 H-CMP 08/27/2014 H-LIPID PANEL 08/27/2014 H-HGBA1C 08/27/2014 H-TSH 08/27/2014 H-VIT D, 25-HYDROXY 08/27/2014 H-MICROALBUMIN URINE 08/27/2014 C-CBC 02/28/2018 C-CBC 10/27/2019 C-CMP 10/27/2019 C-CMP 02/28/2018 C-CMP 01/13/2016 C-LIPID PANEL 02/28/2018 C-LIPID PANEL 10/27/2019 C-HGBA1C 02/28/2018 C-HGBA1C 01/13/2016 C-HGBA1C 10/27/2019 Urine Culture, Routine 05/29/2017 VENIPUNCT, ROUTINE* 04/24/2016 VENIPUNCT, ROUTINE* 10/05/2015 VENIPUNCT, ROUTINE* 03/30/2015 M-Complete Blood Count Auto Diff 019 M-Complete Blood Count Auto Diff 020 M-Complete Blood Count Auto Diff 023 M-Complete Blood Count Auto Diff 025 M-Erythrocyte Sedimentation Rate 025 M-Comprehensive Metabolic Panel 08/26/19 25 M-Comprehensive Metabolic Panel 05/03/19 23 M-Comprehensive Metabolic Panel 12/31/19 19 M-Comprehensive Metabolic Panel 04/21/19 20 M-Comprehensive Metabolic Panel 01/05/20 20 M-Comprehensive Metabolic Panel 03/29/19 M-Basic Metabolic Panel 04/02/2024 M-Hemoglobin A1C 10/25/2022 M-Hemoglobin A1C 08/25/2024 M-Hemoglobin A1C 05/03/2022 M-Hemoglobin A1C 04/21/2019 M-Hemoglobin A1C 03/29/2020 M-Hemoglobin A1C 01/05/2020 M-Hemoglobin A1C 12/30/2018 H-N-Ldrkwkjl Protein 08/25/2024 M-Lipid Panel 10/25/2022 M-Lipid Panel 05/03/2022 M-Lipid Panel 12/30/2018 M-Lipid Panel 01/05/2020 M-Thyroid Stimulating Hormone 04/21/2019 M-Thyroid Stimulating Hormone 10/25/2022 M-Drug Screen,Urine 05/03/2022 M-Vitamin B12 10/25/2022 M-Vitamin D 25 Hydroxy 10/25/2022 M-Folate 10/25/2022 M-Microalb/Creat Ratio, Randm Ur 023 M-Microalb/Creat Ratio, Randm Ur 025 COMPREHENSIVE METABOLIC PANEL (40704) CBC (INCLUDES DIFF/PLT) (6399) HEMOGLOBIN A1C 02/07/2023 DRUG SCREEN 10 W/CONF, WB 12/26/2023 MICROALBUMIN/CREATININE URINE 12/26/2023 Future Test Test Name Order Date H-CMP 01/22/2017 H-LIPID PANEL 01/22/2017 H-HGBA1C 01/22/2017 Next Appt Details Provider Name:Avinash limon, 08/27/2024 12:00:00 PM, [address], [address], Provider Name:Avinash limon, 09/24/2024 09:45:00 AM, [address], [address], Insurance Providers Payer Name Payer Address Payer Phone Subscriber Number Group Number Insured Name Patient Relationship to Insured Coverage Start Date Coverage End Date [facility] [address] [place] [id number] Angy Colon Self - patient is the insured Medications Administered Medication Instructions Date of Administration Dosage Notes Dexamethasone 4mg Injection 09/20/2022 4 mg Dexamethasone 4mg Injection 12/25/2022 4 mg Kenalog 40mg 08/21/2016 40 mg Medical (General) History Medical History History ICD Code HTN IDDM Major Depression Right Humeral head fracture Diabetic Neuropathy Insomnia Iron Deficiency Anemia WES Obesity Diabetic Retinopathy LEFT femoral DVT and saddle PE following episode of sepsis 03/2023 Surgical History Surgery Date(Month/Year) Sebaceous cyst 2009 Left fifth toe amputated 10/06/2016 left cataract 09/2018 Hospitalization History Reason Date(Month/Year) [facility] - PE 03/22- [facility] - UTI , chest pain 03/07- [facility]- foot infection- toe amputation 10/02-10/09/2016 [facility] - Major Depression Dehydration 12/2014 - Uncontrolled DM 2012
--- NOTE | 2024-08-25 16:37 | XR_ITS ---
PROCEDURE INFORMATION: Exam: XR Right Ankle Exam date and time: 08/25/2024 4:39 PM Age: 64 years old Clinical indication: Cellulitis; Foot; Right; Additional info: Cellulitis right foot TECHNIQUE: Imaging protocol: Radiologic exam of the right ankle. Views: 3 or more views. COMPARISON: CR [id number] XR ankle wt bearing RT min 3V 09/19/2017 11:06 AM FINDINGS: Bones/joints: Normal. Soft tissues: Soft tissue swelling over the lateral malleolus. IMPRESSION: Soft tissue swelling over the lateral malleolus.
--- NOTE | 2024-08-25 16:37 | XR_ITS ---
PROCEDURE INFORMATION: Exam: XR Right Foot Exam date and time: 08/25/2024 4:39 PM Age: 64 years old Clinical indication: Cellulitis; Foot; Right; Additional info: Cellulitis right foot TECHNIQUE: Imaging protocol: Radiologic exam of the right foot. Views: 3 or more views. COMPARISON: CR [id number] XR foot wt bearing RT 3V 10/04/2017 8:03 AM FINDINGS: Bones/joints: Normal. Soft tissues: Soft tissue swelling of the dorsum of the right foot. IMPRESSION: Soft tissue swelling of the dorsum of the right foot.
[2024-08-25 17:27] LABS: Basophils % 0.3 % (0.1-2.0); Eosinophils # 0.1 Kmm3 (0.0-0.4); Eosinophils % 1.4 % (0.1-12.0); Hematocrit 36.9 % (37.0-47.0); Hemoglobin 11.9 g/dL (12.2-16.2); Immature Granulocytes # 0.02 10^3uL; Immature Granulocytes % 0.3 %; Lymphocytes # 1.2 K/mm3 (0.7-4.5); Lymphocytes % 21.3 % (10-50); Mean Corpuscular HGB Conc 32.2 g/dL (31.8-35.4); Mean Corpuscular Hemoglobin 28.4 pg (27.0-31.2); Mean Corpuscular Volume 88.1 fl (81-99); Monocytes # 0.5 K/mm3 (0.1-1.0); Monocytes % 7.7 % (1.7-9.3); Nucleated Red Blood Cells # 0 10^3/uL; Nucleated Red Blood Cells % 0 %; Platelet Count 132 K/mm3 (142-424); Red Blood Count 4.19 M/mm3 (4.20-5.40); Red Cell Distribution Width 13.5 % (11.5-17.5); Red Cell Distribution Width-SD 43.8 fL; White Blood Count 5.8 K/mm3 (4.8-10.8)
[2024-08-25 17:41] LABS: Hemoglobin A1C 6.1 % (4.0-6.0)
[2024-08-25 17:51] LABS: Erythrocyte Sedimentation Rate 55 mm/hr (0-30)
[2024-08-25 18:22] LABS: Alanine Aminotransferase 15 U/L (12-78); Albumin Level 3.8 g/dl (3.5-5.0); Albumin/Globulin Ratio 1.3 (1.1-1.8); Alkaline Phosphatase 100 U/L (38-126); Anion Gap 9.1 mEq/L (5-15); Aspartate Amino Transferase 25 U/L (14-36); Bilirubin,Total 0.5 mg/dl (0.2-1.3); Blood Urea Nitrogen 12 mg/dl (7-17); Calcium 9.1 mg/dl (8.4-10.2); Carbon Dioxide 24 mmol/L (22.0-30.0); Chloride 108 mmol/L (98-107); Estimated Glomerular Filt Rate 63 ml/min (>60); GFR (African American) 76 ML/MIN (>60); Globulin 2.9 g/dL (1.3-3.2); Glucose 132 mg/dl (74-100); Potassium 4.1 mmoL/L (3.5-5.1); Sodium 137 mmol/L (136-145); Total Protein,Serum 6.7 g/dl (6.3-8.2)
[2024-08-25 18:27] LABS: C-Reactive Protein 12.9 mg/L (0-4)
== END 2024-08-25 23:59 | disposition home or self-care (01) ==
LOC: RAD 16:34
PROVIDERS: PCP Nurse Practitioner Family; Visit Provider Nurse Practitioner Family
DX: M79.89 Other specified soft tissue disorders (principal); E11.42 Type 2 diabetes mellitus with diabetic polyneuropathy; L03.115 Cellulitis of right lower limb; Z87.39 Personal history of other diseases of the musculoskeletal system and connective tissue
CPT/HCPCS: 36415; 73610; 73630; 80053; 83036; 85025; 85651; 86140

== ENCOUNTER 2024-09-03 09:20 | Outpatient (CLI) | payer BC, SELFPAY ==
--- OUTSIDE RECORDS SUMMARY | 2024-08-08 06:00 | XMS_ITS ---
Author Organization [facility] Address [address] [place] [address] Care Team Providers Care Pharmacy Services Representative Name Role Phone MISSY ALEGRE Primary Care Provider Un available Missy Alegre Unavailable [phone] Missy Rodriguez Unavailable [phone] Allergies Allergen (clinical drug ingredient) Drug/Non Drug Allergy documented on EMR Reaction Allergy Type Onset Date Status daptomycin DAPTOmycin whelps Drug Allergy Activ e REASON FOR VISIT ear pain when moving jaw Medications Medication SIG (Take, Route, Frequency, Duration) Notes Start Date End Date Status TEST STRIPS AND LANCETS NA TWICE A DAY NA TWICE DAILY DX: E11.9 *Please review for potential replacement for e-prescription and drug interaction check* 06/06/2023 Active NovoLOG FlexPen 100 UNIT/ML INJECT 14 UNITS DAILY WITH LARGEST MEAL SUBCUTANEOUSLY subcutaneously; Duration: 30 days Active Pen [place] DIRECTED SUBCUTANEOUSLY ULTRA SHORT; Duration: 30 DAYS *Please review and pick correct strength-formulat ion from [employer] options. If intended option is not shown, discontinue and re-order from Quick Search* Active Lisinopril 20 MG 1 tab(s) orally once a day; Duration: 30 days 04/22/2024 Active Ciprofloxacin-dexAME THasone 0.3-0.1 % 4 drops into affected ear Otic Twice a day; Duration: 7 days 08/08/2024 Active OLANZapine 10 MG 1 tab(s) orally once a day; Duration: 30 day(s) Active Doxepin HCl 100 MG 1 cap(s) orally once a day (at bedtime); Duration: 30 days Active Furosemide 20 MG 1 tab(s) orally once a day as needed; Duration: 30 days prn 10/25/2022 Active GLUCOMETER NA USE FOR TWICE A DAY FSBS TESTING NA TWICE DAILY; Duration: 30 DAYS DX: E11.9 *Please review for potential replacement for e-prescription and drug interaction check* 06/06/2023 Active C-PAP MASK AND SUPPLIES DIRECTED; Duration: 30 DAYS *Please review for potential replacement for e-prescription and drug interaction check* 04/15/2015 Active HYDROcodone-Acetamin ophen 10-325 MG 1 tab(s) orally every 8 hours PRN pain; Duration: 30 days 07/15/2024 Active Lantus SoloStar 100 UNIT/ML Inject 80 units subcutaneously once daily at bedtime; Duration: 30 days Active Methocarbamol 500 MG as directed Orally every 8 hours; Duration: 30 days As needed jaw tightness, 1-2 tablets every 8 hours as needed. Do NOT drive while taking. 08/08/2024 Active MiraLax - 17 GRAM ORALLY ONCE A DAY; Duration: 30 DAYS *Please review and pick correct strength-formulat ion from [employer] options. If intended option is not shown, discontinue and re-order from Quick Search* 02/07/2023 Active Ozempic (2 MG/DOSE) 8 MG/3ML 2 MG SUBCUTANEOUSLY ONCE A WEEK 28 DAYS; Duration: 28 Active Carvedilol 25 MG 1 tab(s) orally 2 times a day; Duration: 30 days Active Vital Signs Temperature 98 degrees Fahrenheit 08/08/2024 Heart Rate 78 /min 08/08/2024 Blood pressure systolic 124 mm Hg 08/09/19 25 Blood pressure diastolic 90 mm Hg 025 Height 5 ft 7 in in 08/08/2024 Weight 263 lbs 08/08/2024 BMI 41.19 kg/m2 08/08/2024 Encounters Encounter Location Date Provider Diagnosis [facility] [address] [address] 08/08/2024 Missy Rodriguez Acute otitis externa of left ear, unspecified type H60.502 and TMJ (temporomandibular joint disorder) M26.609 Assessments Encounter Date Diagnosis (ICD Code) Assessment Notes Treatment Notes Treatment Clinical Notes Section Notes 08/08/2024 Acute otitis externa of left ear, unspecified type (ICD-10 - H60.502) Determined to have otitis externa from physical examination findings above. Prescription written for antibiotic above. Warm bottle in hands before putting drops into ear. Return precautions discussed. All questions answered. 08/08/2024 TMJ (temporomandibu lar joint disorder) (ICD-10 - M26.609) Discussed with patient the pathophysiology of TMJ syndrome. Warm compresses discussed. Recommended NSAIDs/Tylenol and warm compress. Discussed risks and benefits of muscle relaxer. If no better in 2 weeks, patient will come back or contact their dentist. Plan Of Treatment Medication Medication Name Sig Start Date Stop Date Notes Ciprofloxacin-dexAMETHasone 0.3-0.1 % 4 drops into affected ear Otic Twice a day; Duration: 7 days 08/08/2024 Methocarbamol 500 MG as directed Orally every 8 hours; Duration: 30 days 08/08/2024 Treatment Notes Assessment Notes Acute otitis externa of left ear, unspecified type Determined to have otitis externa from physical examination findings above. Prescription written for antibiotic above. Warm bottle in hands before putting drops into ear. Return precautions discussed. All questions answered. TMJ (temporomandibular joint disorder) D iscussed with patient the pathophysiology of TMJ syndrome. Warm compresses discussed. Recommended NSAIDs/Tylenol and warm compress. Discussed risks and benefits of muscle relaxer. If no better in 2 weeks, patient will come back or contact their dentist. Next Appt Details Follow Up: prn, Reason: Provider Name:Missy Sen ce, 09/24/2024 09:45:00 AM, [address] [place] [address], [id number], Progress Notes * Angy COLON DDOB:[birth year] (64 yo F)Acc No.[id number]:08/08/2024 Progress Notes Patient: Angy COLE Provider: ALTAGRACIA Ledezma :1960 A ge:64 Y S ex:Female Date:08/08/2024 Address:[address] [place] [address], [address], [place], [id number] Pcp:MISSY ALEGRE Subjective: * Chief Complaints: * 1 . Ear pain when moving jaw. * HPI: g en: Patient presents with left jaw pain starting a week ago. She denies having any teeth or oral infections. She reports having left maxillary, TMJ pain with moving her left jaw which radiates to her left ear. She denies any trauma, masses, fevers, ear drainage, rhinorrhea, cough. She is eating and drinking normally. * ROS: A LLERGY: no R unny nose. R ESPIRATORY: no S hortness of breath. n o C ough. ? C ONSTITUTIONAL: no L oss of appetite. n o F ever. D ERMATOLOGY: no R jose. E NT: no C ough. * Medical History: H TN, IDDM, Major Depression, Right Humeral head fracture, Diabetic Neuropathy, Insomnia, Iron Deficiency Anemia, WES, Obesity, Diabetic Retinopathy, LEFT femoral DVT and saddle PE following episode of sepsis 03/2023. * Medications: T aking MiraLax - POWDER FOR RECONSTITUTION 17 GRAM ORALLY ONCE A DAY , Notes to Pharmacist: *Please review and pick correct strength-formulation from [employer] options. If intended option is not shown, discontinue and re-order from Quick Search*, Taking C-PAP MASK AND SUPPLIES DIRECTED , Notes to Pharmacist: *Please review for potential replacement for e-prescription and drug interaction check*, Taking OLANZapine 10 MG Tablet 1 tab(s) orally once a day , Taking Doxepin HCl 100 MG Capsule 1 cap(s) orally once a day (at bedtime) , Taking Furosemide 20 MG Tablet 1 tab(s) orally once a day as needed , Notes to Pharmacist: prn, Taking GLUCOMETER NA PER INSURANCE COVERAGE USE FOR TWICE A DAY FSBS TESTING NA TWICE DAILY , Notes to Pharmacist: DX: E11.9 *Please review for potential replacement for e- prescription and drug interaction check*, Taking TEST STRIPS AND LANCETS NA PER INSURANCE COVERAGE WITH GLUCOMETER TWICE A DAY NA TWICE DAILY , Notes to Pharmacist: DX: E11.9 *Please review for potential replacement for e-prescription and drug interaction check*, Taking NovoLOG FlexPen 100 UNIT/ML Solution Pen-injector INJECT 14 UNITS DAILY WITH LARGEST MEAL SUBCUTANEOUSLY subcutaneously , Taking Pen [place] DIRECTED SUBCUTANEOUSLY ULTRA SHORT , Notes to Pharmacist: *Please review and pick correct strength-formulation from [employer] options. If intended option is not shown, discontinue and re-order from Quick Search*, Taking Lisinopril 20 MG Tablet 1 tab(s) orally once a day , Taking Carvedilol 25 MG Tablet 1 tab(s) orally 2 times a day , Taking Ozempic (2 MG/DOSE) 8 MG/3ML Solution Pen-injector 2 MG SUBCUTANEOUSLY ONCE A WEEK 28 DAYS , Taking HYDROcodone-Acetaminophen 10-325 MG Tablet 1 tab(s) orally every 8 hours PRN pain , Taking Lantus SoloStar 100 UNIT/ML Solution Pen- injector Inject 80 units subcutaneously once daily at bedtime , Medication List reviewed and reconciled with the patient * Allergies: D APTOmycin: whelps. Objective: * Vitals: N urse: dw, Pain: 7, Temp: 98, RR: 20, HR: 78, BP: 124/90, Ht: 5 ft 7 in, Wt: 263, BMI:41.19. * Examination: G eneral Examination: General P leasant and Cooperative, NAD on RA,. Oral cavity: M oist membranes. Chest: n ormal shape and expansion. Heart: R RR, No m/r/g, No edema,. HEENT: l eft ear canal is edematous and erythematous, no discharge, normal right tm, normal oropharynx, TM's normal, no masses on left tmj region or jaw clicks, normal gums on left side. Lungs: L ungs clear, No wheezes, crackles or rhonchi, Good air movement,. Abdomen: S oft, non-tender, No organomegaly or peritoneal signs.. Neurologic Exam: n o focal signs neurological deficits.? Skin: w ithout acute rashes. Back: n ormal,. neck s upple, n o lymphadenopathy,. Psych N ormal Mood/Affect. Assessment: * Assessment: 1. A cute otitis externa of left ear, unspecified type - H60.502 (Primary) 2 .?TMJ (temporomandibular joint disorder) - M26.609 Plan: * Treatment: 2. T MJ (temporomandibular joint disorder) Start Methocarbamol Tablet, 500 MG, as directed, Orally, every 8 hours As needed jaw tightness, 1-2 tablets every 8 hours as needed. Do NOT drive while taking., 30 days, 30, Refills 0. Notes: Discussed with patient the pathophysiology of TMJ syndrome. Warm compresses discussed. Recommended NSAIDs/Tylenol and warm compress. Discussed risks and benefits of muscle relaxer. If no better in 2 weeks, patient will come back or contact their dentist. * Follow Up: p rn * * Sign off status: Completed true * Provider: ALTAGRACIA Ledezma Date: 0 08/08/2024 Generated for V[employer]arch[employer] inocente/Barney/Arsmitting on: 0 09/05/2024 09:25 AM EDT History and Physical Notes * HPI (History of Present Illness) Category Sub-Category Detail Notes Category Not es gen Patient present s with left jaw pain starting a week ago. She denies having any teeth or oral infections. She reports having left maxillary, TMJ pain with moving her left jaw which radiates to her left ear. She denies any trauma, masses, fevers, ear drainage, rhinorrhea, cough. She is eating and drinking normally. Examination Category Sub-Category Detail Notes Category Not es General Examination HEENT: left ear can al is edematous and erythematous, no discharge, normal right tm, normal oropharynx, TM's normal, no masses on left tmj region or jaw clicks, normal gums on left side Heart: RRR, No m/r/g, No ed vero, Lungs: Lungs clear, No whee zes, crackles or rhonchi, Good air movement, Abdomen: Soft, non-tender, No organomegaly or peritoneal signs. Skin: without acute rashes Neurologic Exam: no focal signs neuro logical deficits Oral cavity: Moist membranes Back: normal, Chest: normal shape and exp ansion neck supple, no lymphaden opathy, General Pleasant and Coopera tive, NAD on RA, Psych Normal Mood/Affect
--- OUTSIDE RECORDS SUMMARY | 2024-08-25 11:45 | XMS_ITS ---
Author Organization [facility] Address [address] [place] [address] Care Team Providers Care Trimming Operator Name Role Phone AVINASH ALEGRE Primary Care Provider Un available Avinash Alegre Unavailable [phone] Allergies Allergen (clinical drug ingredient) Drug/Non Drug Allergy documented on EMR Reaction Allergy Type Onset Date Status daptomycin DAPTOmycin whelps Drug Allergy Activ e Results Component Value Reference Range Notes M-Complete Blood Count Auto Diff Reviewed date:08/26/2024 11:20:30 AM Interpretation: Performing Lab: Notes/Report: WBC 5.8 4.8-10.8 K/mm3 RBC 4.19 4.20-5.40 M/mm3 HGB 11.9 12.2-16.2 g/dL HCT 36.9 37.0-47.0 % MCV 88.1 81-99 fl MCH 28.4 27.0-31.2 pg MCHC 32.2 31.8-35.4 g/dL RDW 13.5 11.5-17.5 % PLT 132 142-424 K/mm3 MPV 10.0 7.4-10.4 fl NE% 69.0 37.0-80.0 % LY% 21.3 10-50 % MO% 7.7 1.7-9.3 % EO% 1.4 0.1-12.0 % BA% 0.3 0.1-2.0 % NE# 4.0 1.8-7.8 K/mm3 LY# 1.2 0.7-4.5 K/mm3 MO# 0.5 0.1-1.0 K/mm3 EO# 0.1 0.0-0.4 Kmm3 BA# 0.0 0-0.2 K/mm3 RDW-SD 43.8 NRBC% 0 IG% 0.3 NRBC# 0 IG# 0.02 M-Erythrocyte Sedimentation Rate Reviewed date:08/26/2024 11:20:30 AM Interpretation: Performing Lab: Notes/Report: ESR 55 0-30 mm/hr M-Comprehensive Metabolic Pa selene Reviewed date:08/26/2024 11:20:30 AM Interpretation: Performing Lab: Notes/Report: NA 137 136-145 mmol/L K 4.1 3.5-5.1 mmoL/L CL 108 98-107 mmol/L CO2 24 22.0-30.0 mmol/L GAP 9.1 5-15 mEq/L BUN 12 7-17 mg/dl CREATT 0.90 0.52-1.04 mg/dl GFRAA 76 >60 ML/MIN EGFR 63 >60 ml/min GLU 132 74-100 mg/dl CA 9.1 8.4-10.2 mg/dl BILIT 0.5 0.2-1.3 mg/dl AST 25 14-36 U/L ALT 15 12-78 U/L TP 6.7 6.3-8.2 g/dl ALB 3.8 3.5-5.0 g/dl GLOB 2.9 1.3-3.2 g/dL AGRATIO 1.3 1.1-1.8 ALP 100 38-126 U/L M-Hemoglobin A1C Reviewed date:08/26/2024 11:20:30 AM Interpretation: Performing Lab: Notes/Report: HGBA1C 6.1 4.0-6.0 % < 6% Non-Diabetic Level < 7% Controlled Diabetic Level > 8% Poorly Controlled Diabetic Level M-L-Hhhevxdd Protein Reviewed date:08/26/2024 11:20:30 AM Interpretation: Performing Lab: Notes/Report: CRP 12.9 0-4 mg/L X ray : Ankle, Right Reviewed date:08/26/2024 09:53:17 PM Interpretation: Performing Lab: Notes/Report: Reason For Referral Reason [facility] podiatry Diagnosis 1 Cellulitis of right foot (L03.115) Referral Organization [facility] DOMINIK Referring Provider First Name Avinash Referring Provider Last Name Sis Referring Provider Speciality Family Ben william Referred Organization [facility] Referred Address [address] [facility] [address], [place],[address],[place] Referred Provider Specialty Podiatry - S urgical Chiropody General Notes She Villarreal 2024 09:55:55 AM >sent to Podiatry Referral Priority Urgent REASON FOR VISIT rt toe/foot is bruised and swollen-hurts when she walks Medications Medication SIG (Take, Route, Frequency, Duration) Notes Start Date End Date Status Lantus SoloStar 100 UNIT/ML Inject 80 units subcutaneously once daily at bedtime; Duration: 30 days Active Lisinopril 20 MG 1 tab(s) orally once a day; Duration: 30 days 04/22/2024 Active HYDROcodone-Acetami nophen 10-325 MG 1 tab(s) orally every 8 hours PRN pain; Duration: 30 days 08/12/2024 Active Ozempic (2 MG/DOSE) 8 MG/3ML 2 MG SUBCUTANEOUSLY ONCE A WEEK 28 DAYS; Duration: 28 Active Carvedilol 25 MG 1 tab(s) orally 2 times a day; Duration: 30 days Active Pen [place] DIRECTED SUBCUTANEOUSLY ULTRA SHORT; Duration: 30 DAYS *Please review and pick correct strength-formulati on from [employer]onne[employer] options. If intended option is not shown, discontinue and re-order from Quick Search* Active NovoLOG FlexPen 100 UNIT/ML INJECT 14 UNITS DAILY WITH LARGEST MEAL SUBCUTANEOUSLY subcutaneously; Duration: 30 days Active TEST STRIPS AND LANCETS NA TWICE A DAY NA TWICE DAILY DX: E11.9 *Please review for potential replacement for e-prescription and drug interaction check* 06/06/2023 Active C-PAP MASK AND SUPPLIES DIRECTED; Duration: 30 DAYS 04/15/2015 Active GLUCOMETER NA USE FOR TWICE A DAY FSBS TESTING NA TWICE DAILY; Duration: 30 DAYS DX: E11.9 *Please review for potential replacement for e-prescription and drug interaction check* 06/06/2023 Active Furosemide 20 MG 1 tab(s) orally once a day as needed; Duration: 30 days prn 10/25/2022 Active Doxepin HCl 100 MG 1 cap(s) orally once a day (at bedtime); Duration: 30 days Active OLANZapine 10 MG 1 tab(s) orally once a day; Duration: 30 day(s) Active MiraLax - 17 GRAM ORALLY ONCE A DAY; Duration: 30 DAYS prn 02/07/2023 Active Clindamycin HCl 300 MG 1 capsule Orally 3 times a day; Duration: 7 days 08/25/2024 Active Doxycycline Hyclate 100 MG 1 capsule Orally twice a day; Duration: 7 days 08/25/2024 Active Vital Signs Temperature 97.8 degrees Fahrenheit 08/26/19 25 Heart Rate 104 /min 08/25/2024 Blood pressure systolic 154 mm Hg 08/26/19 25 Blood pressure diastolic 80 mm Hg 025 Height 5 ft 7 in in 08/25/2024 Weight 268.6 lbs 08/25/2024 BMI 42.06 kg/m2 08/25/2024 Encounters Encounter Location Date Provider Diagnosis 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 imaging and labs today. 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 (ICD-10 - Z79.4) 08/25/2024 Type 2 diabetes mellitus with diabetic polyneuropathy (ICD-10 - E11.42) 08/25/2024 History of osteomyelitis (ICD-10 - Z87.39) Plan Of Treatment Medication Medication Name Sig Start Date Stop Date Notes Clindamycin HCl 300 MG 1 capsule Orally 3 times a day; Duration: 7 days 08/25/2024 Doxycycline Hyclate 100 MG 1 capsule Ora lly twice a day; Duration: 7 days 08/25/2024 Pending Test Test Name Order Date X ray : Foot, Right 08/25/2024 Referrals Referral Date Details 08/25/2024 08/25/2024, [facility] podi martay, [address], [place], [address], Next Appt Details Follow Up: 2 - 3 Days, Reaso n: Provider Name:Avinash Lovetejinder ce, 09/24/2024 09:45:00 AM, [address] [place] [address], [phone], Progress Notes * Angy COLON DDOB:[birth year] (64 yo F)Acc No.[id number]:08/25/2024 Progress Notes Patient: Angy COLE Provider: MONI Smith :1960 A ge:64 Y S ex:Female Date:08/25/2024 Address:[address] [place] [address], [address], [id number] Pcp:AVINASH ALEGRE Subjective: * Chief Complaints: * 1 . Rt toe/foot is bruised and swollen-hurts when she walks. * HPI: g en: 64-year-old female with insulin-dependent diabetes and lower extremity neuropathy, prior toe amputations presents with complaints of erythema and bruising on the right foot. She noted bruising and discoloration of her right great toe yesterday when she took her shoes off and just today noticed erythema and abrasion on the lateral aspect of her right foot. She has no idea what she could have done to this foot, does not recall any specific trauma. Really does not have any associated pain because of her neuropathy but does have a little bit of stiffness in the ankle when she walks. * ROS: R ESPIRATORY: no S hortness of breath. n o C ough. ? C ARDIOLOGY: no C hest pain. C ONSTITUTIONAL: no F ever. G ASTROENTEROLOGY: no V omiting. n o D iarrhea. N EUROLOGY: Tingling numbness y es. U ROLOGY: no D ifficulty urinating. * Medical History: H [place], IDDM, Major Depression, Right Humeral head fracture, Diabetic Neuropathy, Insomnia, Iron Deficiency Anemia, WES, Obesity, Diabetic Retinopathy, LEFT femoral DVT and saddle PE following episode of sepsis 03/2023. * Social History: S moking A re you a:: nonsmoker. R ecreational drug use: no. Exercise: no. Home smoke detector use: yes. Caffeine: no. Living Will: No. Alcohol: no. Sexually active: no. Travel outside [place]: no. 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 Occup. exposure: none. Lives alone. . * Medications: T aking MiraLax - POWDER FOR RECONSTITUTION 17 GRAM ORALLY ONCE A DAY , Notes to Pharmacist: prn, Taking C-PAP MASK AND SUPPLIES DIRECTED , Taking OLANZapine 10 MG Tablet 1 tab(s) [...] for e-prescription and drug interaction check*, Taking TEST STRIPS AND LANCETS NA PER INSURANCE COVERAGE WITH GLUCOMETER TWICE A DAY NA TWICE DAILY , Notes to Pharmacist: DX: E11.9 *Please review for potential replacement for e-prescription and drug interaction check*, Taking NovoLOG FlexPen 100 UNIT/ML Solution Pen-injector INJECT 14 UNITS DAILY WITH LARGEST MEAL SUBCUTANEOUSLY subcutaneously , Taking Pen [place] DIRECTED SUBCUTANEOUSLY ULTRA SHORT , Notes to Pharmacist: *Please review and pick correct strength- formulation from [employer] options. If intended option is not shown, discontinue and re-order from Quick Search*, Taking Carvedilol 25 MG Tablet 1 tab(s) orally 2 times a day , Taking Ozempic (2 MG/DOSE) 8 MG/3ML Solution Pen-injector 2 MG SUBCUTANEOUSLY ONCE A WEEK 28 DAYS , Taking Lantus SoloStar 100 UNIT/ML Solution Pen-injector Inject 80 units subcutaneously once daily at bedtime , Taking HYDROcodone-Acetaminophen 10-325 MG Tablet 1 tab(s) orally every 8 hours PRN pain , Taking Lisinopril 20 MG Tablet 1 tab(s) orally once a day , Discontinued Ciprofloxacin-dexAMETHasone 0.3-0.1 % Suspension 4 drops into affected ear Otic Twice a day , Discontinued Methocarbamol 500 MG Tablet as directed Orally every 8 hours As needed jaw tightness, 1-2 tablets every 8 hours as needed. Do NOT drive while taking., Medication List reviewed and reconciled with the patient * Allergies: D APTOmycin: whelps. Objective: * Vitals: N urse: jl, Pain: 6-rt foot, Temp: 97.8, RR: 20, HR: 104, BP: 154/80, Ht: 5 ft 7 in, Wt: 268.6, BMI:42.06. * Examination: G eneral Examination: General P leasant and Cooperative, NAD on RA,. Heart: R egular Rate and Rhythm,. Lungs: c lear to auscultation,. Extremities: r ight foot is mildly edematous with erythema surrounding an abrasion on the dorsal aspect, lateral of midline. right great toe is ecchymotic but well perfused, warm, without erythema and with normal ROM. Psych N ormal Mood/Affect. Assessment: * Assessment: 1. C ellulitis of right foot - L03.115 (Primary) 2 . L robby term current 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 - Z79.4 3 . T ype 2 diabetes mellitus with diabetic polyneuropathy - E11.42 4 . H istory of osteomyelitis - Z87.39 Plan: * Treatment: Value Reference Range W sarwat Blood Count 5.8 4.8-10.8 - K/mm3 * R ed Blood Count 4.19 L 4.20-5.40 - M/mm3 * H emoglobin 11.9 L 12.2-16.2 - g/dL * H ematocrit 36.9 L 37.0-47.0 - % * M jessica Corpuscular Volume 88.1 81-99 - fl * M jessica Corpuscular Hemoglobin 28.4 27.0-31.2 - p g * M jessica Corpuscular HGB Conc 32.2 31.8-35.4 - g/d L * R ed Cell Distribution Width 13.5 11.5-17.5 - % * P latelet Count 132 L 142-424 - K/mm3 * M jessica Platelet Volume 10.0 7.4-10.4 - fl * N eutrophils % 69.0 37.0-80.0 - % * L ymphocytes % 21.3 10-50 - % * M onocytes % 7.7 1.7-9.3 - % * E osinophils % 1.4 0.1-12.0 - % * B asophils % 0.3 0.1-2.0 - % * N eutrophils # 4.0 1.8-7.8 - K/mm3 * L ymphocytes # 1.2 0.7-4.5 - K/mm3 * M onocytes # 0.5 0.1-1.0 - K/mm3 * E osinophils # 0.1 0.0-0.4 - Kmm3 * B asophils # 0.0 0-0.2 - K/mm3 * Caitlin Thomas 08/26/2024 11:20:22 AM EDT > Patient informedThis lab was reviewed by Caitlin Thomas on 08/26/2024 at 11:20 AM EDT ?LAB: M-Erythrocyte Sedimentation Rate* Value Reference Range E rythrocyte Sedimentation Rate 55 H 0-30 - mm/ hr * Caitlin Thomas 08/26/2024 11:20:22 AM EDT > Patient informedThis lab was reviewed by Caitlin Thomas on 08/26/2024 at 11:20 AM EDT ?LAB: M-Comprehensive Metabolic Panel* Value Reference Range S odium 137 136-145 - mmol/L * P otassium 4.1 3.5-5.1 - mmoL/L * C hloride 108 H 98-107 - mmol/L * C arbon Dioxide 24 22.0-30.0 - mmol/L * A nion Gap 9.1 5-15 - mEq/L * B lood Urea Nitrogen 12 7-17 - mg/dl * C reatinine,Serum 0.90 0.52-1.04 - mg/dl * G FR () 76 >60 - ML/MIN * E stimated Glomerular Filt Rate 63 >60 - ml/m in * G lucose 132 H 74-100 - mg/dl * C alcium 9.1 8.4-10.2 - mg/dl * B ilirubin,Total 0.5 0.2-1.3 - mg/dl * A spartate Amino Transferase 25 14-36 - U/L * A lanine Aminotransferase 15 12-78 - U/L * T otal Protein,Serum 6.7 6.3-8.2 - g/dl * A lbumin Level 3.8 3.5-5.0 - g/dl * G lobulin 2.9 1.3-3.2 - g/dL * A lbumin/Globulin Ratio 1.3 1.1-1.8 - * A lkaline Phosphatase 100 38-126 - U/L * Caitlin Thomas 08/26/2024 11:20:22 AM EDT > Patient informedThis lab was reviewed by Caitlin Thomas on 08/26/2024 at 11:20 AM EDT ?LAB: M-Hemoglobin A1C* Value Reference Range H emoglobin A1C 6.1 H 4.0-6.0 - % * Caitlin Thomas 08/26/2024 11:20:22 AM EDT > Patient informedThis lab was reviewed by Caitlin Thomas on 08/26/2024 at 11:20 AM EDT ?LAB: P-S-Ilauzinq Protein* Value Reference Range C -Reactive Protein 12.9 H 0-4 - mg/L * Caitlin Thomas 08/26/2024 11:20:22 AM EDT > Patient informedThis lab was reviewed by Caitlin Thomas on 08/26/2024 at 11:20 AM EDT ?Imaging: X ray : Ankle, Right* SemajJose F R 08/26/2024 0 4:34:26 PM EDT >This DI was reviewed by Avinash Alegre on 08/26/2024 at 21:53 PM EDT * ?Imaging: X ray : Foot, Right* Clinical Notes: rec dual coverage with oral doxycycline and clindamycin as noted, close FU in 48 hours but will also arrange for eval with podiatry. imaging and labs today. rec clean with warm soapy water and apply betadine daily to the abrasion? Referral To: ?Reason:[facility] podiatry 2.?correction current 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?LAB: M-Complete Blood Count Auto Diff* Value Reference Range W sarwat Blood Count 5.8 4.8-10.8 - K/mm3 * R ed Blood Count 4.19 L 4.20-5.40 - M/mm3 * H emoglobin 11.9 L 12.2-16.2 - g/dL * H ematocrit 36.9 L 37.0-47.0 - % * M jessica Corpuscular Volume 88.1 81-99 - fl * M jessica Corpuscular Hemoglobin 28.4 27.0-31.2 - p g * M jessica Corpuscular HGB Conc 32.2 31.8-35.4 - g/d L * R ed Cell Distribution Width 13.5 11.5-17.5 - % * P latelet Count 132 L 142-424 - K/mm3 * M jessica Platelet Volume 10.0 7.4-10.4 - fl * N eutrophils % 69.0 37.0-80.0 - % * L ymphocytes % 21.3 10-50 - % * M onocytes % 7.7 1.7-9.3 - % * E osinophils % 1.4 0.1-12.0 - % * B asophils % 0.3 0.1-2.0 - % * N eutrophils # 4.0 1.8-7.8 - K/mm3 * L ymphocytes # 1.2 0.7-4.5 - K/mm3 * M onocytes # 0.5 0.1-1.0 - K/mm3 * E osinophils # 0.1 0.0-0.4 - Kmm3 * B asophils # 0.0 0-0.2 - K/mm3 * Caitlin Thomas 08/26/2024 11:20:22 AM EDT > Patient informedThis lab was reviewed by Caitlin Thomas on 08/26/2024 at 11:20 AM EDT ?LAB: M-Erythrocyte Sedimentation Rate* Value Reference Range E rythrocyte Sedimentation Rate 55 H 0-30 - mm/ hr * Caitlin Thomas 08/26/2024 11:20:22 AM EDT > Patient informedThis lab was reviewed by Caitlin Thomas on 08/26/2024 at 11:20 AM EDT ?LAB: M-Comprehensive Metabolic Panel* Value Reference Range S odium 137 136-145 - mmol/L * P otassium 4.1 3.5-5.1 - mmoL/L * C hloride 108 H 98-107 - mmol/L * C arbon Dioxide 24 22.0-30.0 - mmol/L * A nion Gap 9.1 5-15 - mEq/L * B lood Urea Nitrogen 12 7-17 - mg/dl * C reatinine,Serum 0.90 0.52-1.04 - mg/dl * G FR () 76 >60 - ML/MIN * E stimated Glomerular Filt Rate 63 >60 - ml/m in * G lucose 132 H 74-100 - mg/dl * C alcium 9.1 8.4-10.2 - mg/dl * B ilirubin,Total 0.5 0.2-1.3 - mg/dl * A spartate Amino Transferase 25 14-36 - U/L * A lanine Aminotransferase 15 12-78 - U/L * T otal Protein,Serum 6.7 6.3-8.2 - g/dl * A lbumin Level 3.8 3.5-5.0 - g/dl * G lobulin 2.9 1.3-3.2 - g/dL * A lbumin/Globulin Ratio 1.3 1.1-1.8 - * A lkaline Phosphatase 100 38-126 - U/L * Caitlin Thomas 08/26/2024 11:20:22 AM EDT > Patient informedThis lab was reviewed by Caitlin Thomas on 08/26/2024 at 11:20 AM EDT ?LAB: M-Hemoglobin A1C* Value Reference Range H emoglobin A1C 6.1 H 4.0-6.0 - % * Caitlin Thomas 08/26/2024 11:20:22 AM EDT > Patient informedThis lab was reviewed by Caitlin Thomas on 08/26/2024 at 11:20 AM EDT ?LAB: Q-G-Fzmqyylh Protein* Value Reference Range C -Reactive Protein 12.9 H 0-4 - mg/L * Caitlin Thomas 08/26/2024 11:20:22 AM EDT > Patient informedThis lab was reviewed by Caitlin Thomas on 08/26/2024 at 11:20 AM EDT 3.?Type 2 diabetes mellitus with diabetic polyneuropathy?LAB: M-Complete Blood Count Auto Diff* Value Reference Range W sarwat Blood Count 5.8 4.8-10.8 - K/mm3 * R ed Blood Count 4.19 L 4.20-5.40 - M/mm3 * H emoglobin 11.9 L 12.2-16.2 - g/dL * H ematocrit 36.9 L 37.0-47.0 - % * M jessica Corpuscular Volume 88.1 81-99 - fl * M jessica Corpuscular Hemoglobin 28.4 27.0-31.2 - p g * M jessica Corpuscular HGB Conc 32.2 31.8-35.4 - g/d L * R ed Cell Distribution Width 13.5 11.5-17.5 - % * P latelet Count 132 L 142-424 - K/mm3 * M jessica Platelet Volume 10.0 7.4-10.4 - fl * N eutrophils % 69.0 37.0-80.0 - % * L ymphocytes % 21.3 10-50 - % * M onocytes % 7.7 1.7-9.3 - % * E osinophils % 1.4 0.1-12.0 - % * B asophils % 0.3 0.1-2.0 - % * N eutrophils # 4.0 1.8-7.8 - K/mm3 * L ymphocytes # 1.2 0.7-4.5 - K/mm3 * M onocytes # 0.5 0.1-1.0 - K/mm3 * E osinophils # 0.1 0.0-0.4 - Kmm3 * B asophils # 0.0 0-0.2 - K/mm3 * Caitlin Thomas 08/26/2024 11:20:22 AM EDT > Patient informedThis lab was reviewed by Caitlin Thomas on 08/26/2024 at 11:20 AM EDT ?LAB: M-Erythrocyte Sedimentation Rate* Value Reference Range E rythrocyte Sedimentation Rate 55 H 0-30 - mm/ hr * Caitlin Thomas 08/26/2024 11:20:22 AM EDT > Patient informedThis lab was reviewed by Caitlin Thomas on 08/26/2024 at 11:20 AM EDT ?LAB: M-Comprehensive Metabolic Panel* Value Reference Range S odium 137 136-145 - mmol/L * P otassium 4.1 3.5-5.1 - mmoL/L * C hloride 108 H 98-107 - mmol/L * C arbon Dioxide 24 22.0-30.0 - mmol/L * A nion Gap 9.1 5-15 - mEq/L * B lood Urea Nitrogen 12 7-17 - mg/dl * C reatinine,Serum 0.90 0.52-1.04 - mg/dl * G FR () 76 >60 - ML/MIN * E stimated Glomerular Filt Rate 63 >60 - ml/m in * G lucose 132 H 74-100 - mg/dl * C alcium 9.1 8.4-10.2 - mg/dl * B ilirubin,Total 0.5 0.2-1.3 - mg/dl * A spartate Amino Transferase 25 14-36 - U/L * A lanine Aminotransferase 15 12-78 - U/L * T otal Protein,Serum 6.7 6.3-8.2 - g/dl * A lbumin Level 3.8 3.5-5.0 - g/dl * G lobulin 2.9 1.3-3.2 - g/dL * A lbumin/Globulin Ratio 1.3 1.1-1.8 - * A lkaline Phosphatase 100 38-126 - U/L * Caitlin Thomas 08/26/2024 11:20:22 AM EDT > Patient informedThis lab was reviewed by Caitlin Thomas on 08/26/2024 at 11:20 AM EDT ?LAB: M-Hemoglobin A1C* Value Reference Range H emoglobin A1C 6.1 H 4.0-6.0 - % * Caitlin Thomas 08/26/2024 11:20:22 AM EDT > Patient informedThis lab was reviewed by Caitlin Thomas on 08/26/2024 at 11:20 AM EDT ?LAB: M-Z-Uzkykern Protein* Value Reference Range C -Reactive Protein 12.9 H 0-4 - mg/L * Caitlin Thomas 08/26/2024 11:20:22 AM EDT > Patient informedThis lab was reviewed by Caitlin Thomas on 08/26/2024 at 11:20 AM EDT ?Imaging: X ray : Ankle, Right* Jose F Cha R 08/26/2024 0 4:34:26 PM EDT >This DI was reviewed by Avinash Alegre on 08/26/2024 at 21:53 PM EDT * ?Imaging: X ray : Foot, Right* 4.?History of osteomyelitis?LAB: M-Complete Blood Count Auto Diff* Value Reference Range W sarwat Blood Count 5.8 4.8-10.8 - K/mm3 * R ed Blood Count 4.19 L 4.20-5.40 - M/mm3 * H emoglobin 11.9 L 12.2-16.2 - g/dL * H ematocrit 36.9 L 37.0-47.0 - % * M jessica Corpuscular Volume 88.1 81-99 - fl * M jessica Corpuscular Hemoglobin 28.4 27.0-31.2 - p g * M jessica Corpuscular HGB Conc 32.2 31.8-35.4 - g/d L * R ed Cell Distribution Width 13.5 11.5-17.5 - % * P latelet Count 132 L 142-424 - K/mm3 * M jessica Platelet Volume 10.0 7.4-10.4 - fl * N eutrophils % 69.0 37.0-80.0 - % * L ymphocytes % 21.3 10-50 - % * M onocytes % 7.7 1.7-9.3 - % * E osinophils % 1.4 0.1-12.0 - % * B asophils % 0.3 0.1-2.0 - % * N eutrophils # 4.0 1.8-7.8 - K/mm3 * L ymphocytes # 1.2 0.7-4.5 - K/mm3 * M onocytes # 0.5 0.1-1.0 - K/mm3 * E osinophils # 0.1 0.0-0.4 - Kmm3 * B asophils # 0.0 0-0.2 - K/mm3 * Caitlin Thomas 08/26/2024 11:20:22 AM EDT > Patient informedThis lab was reviewed by Caitlin Thomas on 08/26/2024 at 11:20 AM EDT ?LAB: M-Erythrocyte Sedimentation Rate* Value Reference Range E rythrocyte Sedimentation Rate 55 H 0-30 - mm/ hr * Caitlin Thomas 08/26/2024 11:20:22 AM EDT > Patient informedThis lab was reviewed by Caitlin Thomas on 08/26/2024 at 11:20 AM EDT ?LAB: M-Comprehensive Metabolic Panel* Value Reference Range S odium 137 136-145 - mmol/L * P otassium 4.1 3.5-5.1 - mmoL/L * C hloride 108 H 98-107 - mmol/L * C arbon Dioxide 24 22.0-30.0 - mmol/L * A nion Gap 9.1 5-15 - mEq/L * B lood Urea Nitrogen 12 7-17 - mg/dl * C reatinine,Serum 0.90 0.52-1.04 - mg/dl * G FR () 76 >60 - ML/MIN * E stimated Glomerular Filt Rate 63 >60 - ml/m in * G lucose 132 H 74-100 - mg/dl * C alcium 9.1 8.4-10.2 - mg/dl * B ilirubin,Total 0.5 0.2-1.3 - mg/dl * A spartate Amino Transferase 25 14-36 - U/L * A lanine Aminotransferase 15 12-78 - U/L * T otal Protein,Serum 6.7 6.3-8.2 - g/dl * A lbumin Level 3.8 3.5-5.0 - g/dl * G lobulin 2.9 1.3-3.2 - g/dL * A lbumin/Globulin Ratio 1.3 1.1-1.8 - * A lkaline Phosphatase 100 38-126 - U/L * Caitlin Thomas 08/26/2024 11:20:22 AM EDT > Patient informedThis lab was reviewed by Caitlin Thomas on 08/26/2024 at 11:20 AM EDT ?LAB: M-Hemoglobin A1C* Value Reference Range H emoglobin A1C 6.1 H 4.0-6.0 - % * Caitlin Thomas 08/26/2024 11:20:22 AM EDT > Patient informedThis lab was reviewed by Caitlin Thomas on 08/26/2024 at 11:20 AM EDT ?LAB: R-U-Irbtywkv Protein* Value Reference Range C -Reactive Protein 12.9 H 0-4 - mg/L * Caitlin Thomas 08/26/2024 11:20:22 AM EDT > Patient informedThis lab was reviewed by Caitlin Thomas on 08/26/2024 at 11:20 AM EDT ?Imaging: X ray : Ankle, Right* White, Jose F R 08/26/2024 0 4:34:26 PM EDT >This DI was reviewed by Avinash Alegre on 08/26/2024 at 21:53 PM EDT * ?Imaging: X ray : Foot, Right* * Follow Up: 2 - 3 Days * * Sign off status: Completed true * Provider: MONI Smith Date: 0 08/25/2024 Generated for Ruthy ng/Elierg/eTransmitting on: 0 09/05/2024 09:25 AM EDT History and Physical Notes * Examination Category Sub-Category Detail Notes Category Not es General Examination Heart: Regular Rate and Rhyt , Lungs: clear to auscultatio n, Extremities: right foot is mildly edematous with erythema surrounding an abrasion on the dorsal aspect, lateral of midline. right great toe is ecchymotic but well perfused, warm, without erythema and with normal ROM General Pleasant and [place] t[place], NAD on RA, Psych Normal Mood/Affect Consultation Request Notes Referral Date Referring Provider Referred Provider Not es 08/25/2024 Avinash Alegre , [facility] podiatry
--- OUTSIDE RECORDS SUMMARY | 2024-08-27 08:00 | XMS_ITS ---
Author Organization [facility] Address [address] [place] [address] Care Team Providers Care Solar Sales Manager Name Role Phone AVINASH ALEGRE Primary Care Provider Un available Avinash Alegre Unavailable [phone] Allergies Allergen (clinical drug ingredient) Drug/Non Drug Allergy documented on EMR Reaction Allergy Type Onset Date Status daptomycin DAPTOmycin whelps Drug Allergy Activ e REASON FOR VISIT f/u rt foot Medications Medication SIG (Take, Route, Frequency, Duration) Notes Start Date End Date Status NovoLOG FlexPen 100 UNIT/ML INJECT 14 UNITS DAILY WITH LARGEST MEAL SUBCUTANEOUSLY subcutaneously; Duration: 30 days Active Pen [place] DIRECTED SUBCUTANEOUSLY ULTRA SHORT; Duration: 30 DAYS *Please review and pick correct strength-formulati on from Fantasy Shopperan options. If intended option is not shown, discontinue and re-order from Quick Search* Active Carvedilol 25 MG 1 tab(s) orally 2 times a day; Duration: 30 days Active Ozempic (2 MG/DOSE) 8 MG/3ML 2 MG SUBCUTANEOUSLY ONCE A WEEK 28 DAYS; Duration: 28 Active Lantus SoloStar 100 UNIT/ML Inject 80 units subcutaneously once daily at bedtime; Duration: 30 days Active OLANZapine 10 MG [...] e-prescription and drug interaction check* 06/06/2023 Active TEST STRIPS AND LANCETS NA TWICE A DAY NA TWICE DAILY DX: E11.9 *Please review for potential replacement for e-prescription and drug interaction check* 06/06/2023 Active Clindamycin HCl 300 MG 1 capsule Orally 3 times a day; Duration: 7 days Active Doxycycline Hyclate 100 MG 1 capsule Orally twice a day; Duration: 7 days Active MiraLax - 17 GRAM ORALLY ONCE A DAY; Duration: 30 DAYS prn 02/07/2023 Active C-PAP MASK AND SUPPLIES DIRECTED; Duration: 30 DAYS 04/15/2015 Active Lisinopril 20 MG 1 tab(s) orally once a day; Duration: 30 days 04/22/2024 Active HYDROcodone-Acetami nophen 10-325 MG 1 tab(s) orally every 8 hours PRN pain; Duration: 30 days 08/12/2024 Active Vital Signs Temperature 98.2 degrees Fahrenheit 08/28/19 25 Heart Rate 84 /min 08/27/2024 Blood pressure systolic 128 mm Hg 08/28/19 25 Blood pressure diastolic 82 mm Hg 025 Height 5 ft 7 in in 08/27/2024 Weight 267 lbs 08/27/2024 BMI 41.81 kg/m2 08/27/2024 Encounters Encounter Location Date Provider Diagnosis [address] [address] 08/27/2024 Avinash Alegre Type 2 diabetes mellitus with diabetic polyneuropathy E11.42 ; 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 Encouraged annual eye exam and daily foot exams. 08/27/2024 predatory animal exterminator prescription opiate use (ICD-10 - Z79.891) No changes made today...continue orthopedic FU as well as current medication regimen 08/27/2024 Paresthesia of lower extremity (ICD-10 - R20.2) increased risk for injury, encouraged her to discuss diabetic shoes with podiatry 08/27/2024 Other chronic pain (ICD-10 - G89.29) 08/27/2024 Foot arthropathy (ICD-10 - M19.079) evaluated by podiatry in the past, injections not significantly effective for pain relief 08/27/2024 Chronic kidney disease, stage 3a (ICD-10 - N18.31) discussed diagnosis and goals of management. continue ACEI, encouraged better water intake and avoidance of NSAIDS. glucose well controlled 08/27/2024 Essential (primary) hypertension (ICD-10 - I10) reasonable control. encouraged to check periodically at home 08/27/2024 Cellulitis of right foot (ICD-10 - L03.115) appearance today is improved with less erythema, no drainage. xrays with soft tissue swelling, mildly elevated inflammatory markers and normal WBC. Complete antibiotics orally, topical betadine and keep appt with podiatry Plan Of Treatment Medication Medication Name Sig Start Date Stop Date Notes Clindamycin HCl 300 MG 1 capsule Orally 3 times a day; Duration: 7 days Doxycycline Hyclate 100 MG 1 capsule Ora lly twice a day; Duration: 7 days Treatment Notes Assessment Notes Type 2 diabetes mellitus wit h diabetic polyneuropathy reports good readings at home, A1C < 7. Encouraged annual eye exam and daily foot exams. predatory animal exterminator prescription opiate use No alejandrina nges made today...continue orthopedic FU as well as current medication regimen Foot arthropathy evaluated by podiatr y in the past, injections not significantly effective for pain relief Next Appt Details Follow Up: 3 Months, Reason: Provider Name:Avinash limon, 09/24/2024 09:45:00 AM, [address], [address], Progress Notes * Angy COLON DDOB:[birth year] (64 yo F)Acc No.[id number]:08/27/2024 Progress Notes Patient: Angy COLE Provider: MONI Smith :1960 A ge:64 Y S ex:Female Date:08/27/2024 Address:[address], [place], [id number] Pcp:AVINASH ALEGRE Subjective: * Chief Complaints: * 1 . F/u rt foot. * HPI: g en: Presents [facility] Following with cardiology and pulmonology as well. Remains off of Eliquis and following with pulmonology at [facility]. Denies persistent swelling or SOA. No new CP or palpitations She is still following with orthopedics, has steroid injection most recently, has FU arranged and they are discussing surgical options at this point. Pain 5/10 during exam today, sharp, achey. Burning in feet. Glucose control has been good Currently on dual antibiotic therapy for right foot wound with cellulitis. Has had some obvious trauma with abrasin and bruising but she isn't sure what she did...wears open-toe slides most of the time. C hronic Pain Follow-up: Pain Scale 5 -8/10. I maging x ray and MRI feet, s/p partial amputation, left 5th metatarsal x ray LS spine, moderate degenerative changes.? 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 A CE inhibitor??yes. S tatin therapy m ultiple intolerances in the past. C omplications R etinopathy, Neuropathy, CKD. * ROS: R ESPIRATORY: no S hortness [...] PE following episode of sepsis 03/2023. * Surgical History: c -section , Sebaceous cyst 2009, Left fifth toe amputated 10/06/2016, left cataract 09/2018. * Hospitalization/Major Diagno stic Procedure: 2 013 - Uncontrolled DM 2012, Dehydration 12/2014, [facility] - Major Depression 12/2014, [facility]- foot infection- toe amputation 10/02/2016-10/09/2016, [facility] - UTI , chest pain 03/07-, [facility] - PE 03/22-. * Family History: F ather: , diagnosed with Heart Disease. M other: , diagnosed with Hypertension, Heart Disease, Diabetes. P aternal Grand Father: , diagnosed with Heart Disease. Paternal Grand Mother: , family history unknown . M aternal Grand Father: , diagnosed with Diabetes, Hypertension, Heart Disease. M aternal Grand Mother: , diagnosed with Diabetes, Hypertension, Heart Disease. 2 sister(s) - healthy. 1 daughter(s) - healthy. . 1 sister with hypoglycemia. * Social History: S moking A re you a:: nonsmoker. R ecreational drug use: no. Exercise: no. Home smoke detector use: yes. Caffeine: no. Living Will: No. Alcohol: no. Sexually active: no. Travel outside [place]: no. 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 Occup. exposure: none. Lives alone. [...] LARGEST MEAL SUBCUTANEOUSLY subcutaneously , Taking Pen [place] DIRECTED SUBCUTANEOUSLY ULTRA SHORT , Notes to Pharmacist: *Please review and pick correct strength- formulation from Medispan options. If intended option is [...] tab(s) orally once a day , Taking Doxycycline Hyclate 100 MG Capsule 1 capsule Orally twice a day , Taking Clindamycin HCl 300 MG Capsule 1 capsule Orally 3 times a day , Medication List reviewed and reconciled with the patient * Allergies: D APTOmycin: whelps. Objective: * Vitals: N urse: dw, Pain: 0, Temp: 98.2, RR: 20, HR: 84, BP: 128/82, Ht: 5 ft 7 in, Wt: 267, BMI:41.81. * Examination: G eneral Examination: General P leasant and Cooperative, NAD on RA,. Heart: R egular Rate and Rhythm,. Lungs: c lear to auscultation,. Abdomen: S oft, NTND, BSNA, No organomegaly or peritoneal signs.. Extremities: r ight foot is mildly edematous with erythema surrounding an abrasion on the dorsal aspect, lateral of midline. right great toe is ecchymotic but well perfused, warm, without erythema and with normal ROM. 2nd toe with some scant blood around a loose nail. Psych N ormal Mood/Affect. Assessment: * Assessment: 1. T ype 2 diabetes mellitus with diabetic polyneuropathy - E11.42 (Primary) 2 . L robby term prescription opiate use - Z79.891 3 . P aresthesia of lower extremity - R20.2 4 . O ther chronic pain - G89.29 5 . F oot arthropathy - M19.079 6 . C hronic kidney disease, stage 3a - N18.31 ?7. E ssential (primary) hypertension - I10 8 . C ellulitis of right foot - L03.115 Plan: * Treatment: 2. L robby term prescription opiate use Notes: No changes made today...continue orthopedic FU as well as current medication regimen ? 3. P aresthesia of lower extremity Clinical Notes: increased risk for injury, encouraged her to discuss diabetic shoes with podiatry? 4. F oot arthropathy Notes: evaluated by podiatry in the past, injections not significantly effective for pain relief? 5. C hronic kidney disease, stage 3a Clinical Notes: discussed diagnosis and goals of management. continue ACEI, encouraged better water intake and avoidance of NSAIDS. glucose well controlled 6. E ssential (primary) hypertension Clinical Notes: reasonable control. encouraged to check periodically at home 7. C ellulitis of right foot Start Doxycycline Hyclate Capsule, 100 MG, 1 capsule, Orally, twice a day, 7 days, 14 Capsule, Refills 0; S tart Clindamycin HCl Capsule, 300 MG, 1 capsule, Orally, 3 times a day, 7 days, 21 Capsule, Refills 0. Clinical Notes: appearance today is improved with less erythema, no drainage. xrays with soft tissue swelling, mildly elevated inflammatory markers and normal WBC. Complete antibiotics orally, topical betadine and keep appt with podiatry * Follow Up: 3 Months * * Sign off status: Completed true * Provider: MONI Smith Date: 0 08/27/2024 Generated for Ruthy brower/Barney/Hipolitoitting on: 0 09/05/2024 09:24 AM EDT History and Physical Notes * HPI (History of Present Illness) Category Sub-Category Detail Notes Category Not es Diabetes ophthalmology eval retina specialist VIC inhibitor? yes Statin therapy multiple intolerance s in the past Complications Retinopathy, Neuropa thy, CKD Chronic Pain Follow-up Pain Scale 5-8/10 Imaging xray and MRI feet, s /p partial amputation, left 5th metatarsal xray LS spine, moderate degenerative changes Examination Category Sub-Category Detail Notes Category Not es General Examination Heart: Regular Rate and Rhyt hm, Lungs: clear to auscultatio n, Abdomen: Soft, NTND, BSNA, No organomegaly or peritoneal signs. Extremities: right foot is mildly edematous with erythema surrounding an abrasion on the dorsal aspect, lateral of midline. right great toe is ecchymotic but well perfused, warm, without erythema and with normal ROM. 2nd toe with some scant blood around a loose nail General Pleasant and Coopera tive, NAD on RA, Psych Normal Mood/Affect
--- OUTSIDE RECORDS SUMMARY | 2024-09-05 09:24 | XMS_ITS | Patient Health Record ---
Author Organization [facility] Address [address] [place] [address] Care Team Providers Care Precision Lens Grinder Name Role Phone AVINASH ALEGRE Primary Care Provider Un available Avinash Alegre Unavailable [phone] Buddy Blanton Unavailable [phone] Parul Keenan Unavailable [phone] Avinash Rodriguez Unavailable [phone] Migration, Provider Unavailable Unavailable Allergies Allergen (clinical drug ingredient) Drug/Non Drug Allergy documented on EMR Reaction Allergy Type Onset Date Status daptomycin DAPTOmycin whelps Drug Allergy Activ e Results Component Value Reference Range Notes M-Comprehensive Metabolic Pa selene Reviewed date:08/26/2024 11:20:30 [...] Level > 8% Poorly Controlled Diabetic Level M-Hemoglobin A1C Reviewed date:06/30/2024 09:31:27 AM Interpretation: Performing Lab: Notes/Report: HGBA1C 5.7 4.0-6.0 % < 6% Non-Diabetic Level < 7% Controlled Diabetic Level > 8% Poorly Controlled Diabetic Level F-S-Flsxavdd Protein Reviewed date:08/26/2024 11:20:30 AM Interpretation: Performing Lab: Notes/Report: CRP 12.9 0-4 mg/L M-Lipid Panel Reviewed date:06/30/2024 09:31:27 AM Interpretation: Performing Lab: Notes/Report: Patient Fasting? Y TRIG 196 30-150 mg/dl CHOL 209 140-200 mg/dl DLDL 109.99 100-129 mg/dL VLDL 39 0-40 mg/dL HDL 50 40-60 mg/dl CHLHDL 4.2 1-3.5 M-Basic Metabolic Panel Reviewed date:04/22/2024 03:33:16 PM Interpretation: Performing Lab: Notes/Report: NA 139 136-145 mmol/L K 5.3 3.5-5.1 mmoL/L CL 106 98-107 mmol/L CO2 25 22.0-30.0 mmol/L GAP 13.3 5-15 mEq/L BUN 15 7-17 mg/dl CREATT 1.10 0.52-1.04 mg/dl GFRAA 61 >60 ML/MIN EGFR 50 >60 ml/min GLU 99 74-100 mg/dl CA 9.4 8.4-10.2 mg/dl M-Comprehensive Metabolic Pa selene Reviewed date:06/30/2024 09:31:27 [...] AGRATIO 1.3 1.1-1.8 ALP 126 38-126 U/L M-Erythrocyte Sedimentation Rate Reviewed date:08/26/2024 11:20:30 AM Interpretation: Performing Lab: Notes/Report: ESR 55 0-30 mm/hr M-Complete Blood Count Auto Diff Reviewed date:06/30/2024 [...] K/mm3 RDW-SD 54.2 NRBC% 0 NRBC# 0 M-Complete Blood Count Auto Diff Reviewed date:08/26/2024 [...] 0 IG% 0.3 NRBC# 0 IG# 0.02 DEXA Hip and Spine - Screeni ng Reviewed date:01/22/2024 11:04:38 AM Interpretation: Performing Lab: Notes/Report: X ray : Ankle, Right Reviewed date:08/26/2024 09:53:17 PM Interpretation: Performing Lab: Notes/Report: MICROALBUMIN RANDOM URINE Reviewed date:12/26/2023 06:09:53 PM Interpretation: Performing Lab: Notes/Report: MICROALBUMIN RANDOM 34.5 1.3-17.0 mcg/mL Note Unless otherwise noted testing performed at: [address] [address] Timi Davis MD CLIA: [id number] CREATININE URINE Reviewed date:12/26/2023 06:09:53 PM Interpretation: Performing Lab: Notes/Report: CREATININE URINE 390.0 30-125 mg/dL Note Unless otherwise noted testing performed at: [place] [address] Timi Davis MD CLIA: [id number] URINE DRUG SCREEN - SYVA Reviewed date:12/26/2023 01:24:17 PM Interpretation: Performing Lab: Notes/Report: AMPHETAMINE/METAMPHETAMINE NEGATIVE NEGATIVE BARBITURATES NEGATIVE NEGATIVE BENZODIAZEPHINES NEGATIVE NEGATIVE BUPRENOPHINE NEGATIVE NEGATIVE COCAINE METABOLITE NEGATIVE NEGATIVE METHADONE NEGATIVE NEGATIVE OPIATES POSITIVE NEGATIVE OXYCODONE NEGATIVE NEGATIVE CANNABINOIDS NEGATIVE NEGATIVE PCP NEGATIVE NEGATIVE FENTANYL, URINE NEGATIVE NEGATIVE TRICYCLIC ANTIDEPRESSANTS POSITIVE NEGATIVE INTERNAL CONTROL PASS PASS Note Unless otherwise noted testing performed at: [address] [address] Timi Davis MD CLIA: [id number] LIPID PANEL Reviewed date:12/27/2023 03:05:38 PM Interpretation: [...] Note Unless otherwise noted testing performed at: [address] [address] Timi Davis MD CLIA: [id number] HEMOGLOBIN A1C Reviewed date:12/27/2023 03:05:38 PM Interpretation: Performing Lab: Notes/Report: GLYCOSYLATED HEMOGLOBIN A1C 6.2 4.5-6.2 % ESTIMATED AVERAGE GLUCOSE 131 82-131 mg/dl Note Unless otherwise noted testing performed at: [address] [address] Timi Davis MD CLIA: [id number] COMP METABOLIC PANEL Reviewed date:12/27/2023 03:05:37 PM [...] Note Unless otherwise noted testing performed at: [address] [address] Timi Davis MD CLIA: [id number] H-MALBCREA Reviewed date:06/27/2024 12:54:27 PM Interpretation: Performing Lab: Notes/Report: Units: mg/g creat Normal: 0 - 29 Moderately Increased: 30 - 300 Severely Increased: >300 UCREAT 119 Not Estab. mg/dL Random urine reference range not established. 24 hour urine samples recommended. MICROALB 8.000 0-16.7 mg/L MALBCREAT 6.7 Mammogram: Screening Reviewed date:01/22/2024 11:04:12 AM Interpretation: Performing Lab: Notes/Report: Urinalysis Reviewed date:01/25/2024 04:39:56 PM Interpretation: Performing Lab: Notes/Report: Color/Clarity yellow Leuk small Nitrite neg Urobili 0.2 Protein 30mg pH 7.0 Blood neg Sp. Gr. 1.025 Ketone neg Bili neg Glucose neg CULTURE, URINE, ROUTINE (395 ) Reviewed date:01/30/2024 03:48:44 PM Interpretation: Performing Lab:[facility], [facility] Brodie Prakash Notes/Report: NON-FASTING CULTURE, URINE, ROUTINE SEE NOTE CULTURE, URINE, ROUTINE Micro Number: [id number] Test Status: Final Specimen Source: Urine, clean catch Specimen Quality: Adequate Result: Mixed genital debby isolated. These superficial bacteria are not indicative of a urinary tract infection. No further organism identification is warranted on this specimen. If clinically indicated, recollect clean-catch, mid-stream urine and transfer immediately to Urine Culture Transport Tube. Reason For Referral Reason screening c Marquise kilpatrick Diagnosis 1 Routine medical exam (Z00.00) Referral Organization [facility] Referring Provider First Name Avinash Referring Provider Last Name Sis [facility] Evy Velazquez 08:59:53 AM > faxed and they will call her to schedule Referral Priority Routine Reason [facility] podiatry Diagnosis 1 Cellulitis of right foot (L03.115) Referral Organization [facility] Referring Provider First Name Avinash Referring Provider Last Name Sis Referring Provider [facility] ctice Referred Organization [facility] Referred Address [address], [place], [place],[address], Referred Provider Specialty Podiatry - S urgical Chiropody General Notes She Villarreal 2024 09:55:55 AM >sent to Podiatry Referral Priority Urgent Medications Medication SIG (Take, Route, Frequency, Duration) Notes Start Date End Date Status NovoLOG FlexPen 100 UNIT/ML INJECT 14 UNITS DAILY WITH LARGEST MEAL SUBCUTANEOUSLY subcutaneously; Duration: 30 days Active HYDROcodone-Acetami nophen 10-325 MG 1 tab(s) orally every 8 hours PRN pain; Duration: 30 days 09/04/2024 Active Clindamycin HCl 300 MG 1 capsule Orally 3 times a day; Duration: 7 days Active Doxycycline Hyclate 100 MG 1 capsule Orally twice a day; Duration: 7 days Active Pen Marshall DIRECTED SUBCUTANEOUSLY ULTRA SHORT; Duration: 30 DAYS *Please review and pick correct strength-formulati on from Renrendai options. If intended option is not shown, discontinue and re-order from Quick Search* Active Carvedilol 25 MG 1 tab(s) orally 2 times a day; Duration: 30 days Active Ozempic (2 MG/DOSE) 8 MG/3ML 2 MG SUBCUTANEOUSLY ONCE A WEEK 28 DAYS; Duration: 28 Active MiraLax - 17 GRAM ORALLY ONCE A DAY; Duration: 30 DAYS prn 02/07/2023 Active Lantus SoloStar 100 UNIT/ML Inject 80 units subcutaneously once daily at bedtime; Duration: 30 days Active C-PAP MASK AND SUPPLIES DIRECTED; Duration: 30 DAYS 04/15/2015 Active OLANZapine 10 MG 1 tab(s) orally once a day; Duration: 30 day(s) Active Lisinopril 20 MG 1 tab(s) orally once a day; Duration: 30 days 04/22/2024 Active Doxepin HCl 100 [...] e-prescription and drug interaction check* 06/06/2023 Active Immunizations Vaccine Route Administration Date Status [...] Status W/U Status Risk Notes Problem Hypothyroidism (06927689) Hypothyroidism, unspecified (E03.9) Active confirmed Problem Proliferative retinopathy with retinal edema due to type 2 diabetes mellitus (88995183829593) Type 2 diabetes mellitus with unspecified diabetic retinopathy with macular edema (E11.311) Active confirmed Problem Polyneuropathy due to type 2 diabetes mellitus (080816070) Type 2 diabetes mellitus with diabetic polyneuropathy (E11.42) Active confirmed Problem Hyperglycemia due to type 2 diabetes mellitus (307872038181391) Type 2 diabetes mellitus with hyperglycemia (E11.65) Active confirmed Problem Morbid obesity (disorder) (532741260) Morbid (severe) obesity due to excess calories (E66.01) Active confirmed Problem Obstructive sleep apnea syndrome (disorder) (22810840) Obstructive sleep apnea (adult) (pediatric) (G47.33) Active confirmed Problem Essential hypertension (26779160) Essential (primary) hypertension (I10) Active confirmed Problem Saddle embolus of pulmonary artery (938411465662244) Saddle embolus of pulmonary artery without acute cor pulmonale (I26.92) Active confirmed Problem Chronic pulmonary embolism (477022245037913) Chronic pulmonary embolism (I27.82) Active confirmed Problem Dependence on enabling machine or device (774263768) Dependence on other enabling machines and devices (Z99.89) Active confirmed Problem Diabetes mellitus (17975289) Diabetes mellitus (E11.9) Active confirmed Problem Vitamin D deficiency (37582042) Vitamin D deficiency (E55.9) Active confirmed Problem Migraine variant with headache (disorder) (512273863) Migraine headache (G43.909) Active confirmed Problem Neuropathy (146293269) Neuropathy (G62.9) Active confirmed Problem Body mass index 40+ - morbidly obese (614848428) BMI 40.0-44.9, adult (Z68.41) Active confirmed Problem Chronic pain (62213412) Other chronic pain (G89.29) Active confirmed Problem Obese class II (863857529251099) BMI 39.0-39.9,adult (Z68.39) Active confirmed Problem History of pulmonary embolism on long-term anticoagulation therapy (16814627784514519 ) Hx pulmonary embolism (Z86.711) Active confirmed Problem Hyperglycemia due to type 2 diabetes mellitus (480197086951255) Hyperglycemia due to type 2 diabetes mellitus (E11.65) Active confirmed Problem Abnormal mammogram (507093367) Abnormal mammogram (R92.8) Active confirmed Problem Long-term current 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 (349308536) [facility]CI current 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 (Z79.4) Active confirmed Problem Degeneration of lumbosacral intervertebral disc (95535136) DDD (degenerative disc disease), lumbosacral (M51.37) Active confirmed Problem Esophageal stricture (88701424) Esophageal stricture (K22.2) Active confirmed Problem Refractory migraine without aura (746847898) Intractable migraine without aura and with status migrainosus (G43.011) Active confirmed Problem Acute osteomyelitis of ankle and/or foot (348969168) Osteomyelitis of foot, left, acute (M86.172) Active confirmed Problem Microcytic anemia (187139154) Microcytic anemia (D50.9) Active confirmed Problem Long-term current 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 (929829087) Long-term insulin use (Z79.4) Active confirmed Problem Paresthesia of lower extremity (041992076) Paresthesia of lower extremity (R20.2) Active confirmed Problem Psychophysical visual disturbance (42660093) Hallucination, visual (R44.1) Active confirmed Problem Type II diabetes mellitus without complication (715586888) Controlled type 2 diabetes mellitus without complication, without long-term current 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 (E11.9) Active confirmed Problem Hyperlipidemia (56515182) Hyperlipidemia LDL goal <100 (E78.5) Active confirmed Problem Recurrent falls (497605676) Falling (R29.6) Active confirmed Problem Major depression, single episode (05818058) Major depressive disorder, remission status unspecified, unspecified whether recurrent (F32.9) Active confirmed Problem Diabetic retinopathy associated with type 2 diabetes mellitus (513089677) Diabetic retinopathy associated with controlled type 2 diabetes mellitus (E11.319) Active confirmed Problem Chronic kidney disease stage 3A (disorder) (747348971) Chronic kidney disease, stage 3a (N18.31) Active confirmed Problem Localized, primary osteoarthritis of the ankle and/or foot (875236059) Foot arthropathy (M19.079) Active confirmed Vital Signs Heart Rate 84 /min 08/27/2024 Temperature 98.2 degrees Fahrenheit 08/27/2024 Blood pressure diastolic 82 mm Hg 08/27/2024 Height 5 ft 7 in in 08/27/2024 Blood pressure systolic 128 mm Hg 08/27/2024 Weight 267 lbs 08/27/2024 BMI 41.81 kg/m2 08/27/2024 Encounters Encounter Location Date Provider Diagnosis [facility] [address] [facility] [address] [place] [address] 06/14/2024 Provider Migration Other chronic pain G89.[address] [address] 09/12/2023 Avinash Alegre Type 2 diabetes mellitus with diabetic polyneuropathy E11.42 ; 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 Z79.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 ; Paresthesia of lower extremity R20.2 ; Other chronic pain G89.29 ; Foot arthropathy M19.079 ; DDD (degenerative disc disease), lumbosacral M51.37 ; Leg DVT (deep venous thromboembolism), chronic, left I82.502 ; Hx pulmonary embolism Z86.711 and Pain in left knee M25.[address] [address] 12/26/2023 Avinash Alegre Type 2 diabetes mellitus with diabetic polyneuropathy E11.42 ; Routine medical exam Z00.00 ; 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 Z79.891 ; Paresthesia of lower extremity R20.2 ; Other chronic pain G89.29 ; Foot arthropathy M19.079 ; Hx pulmonary embolism Z86.711 ; Hx pulmonary embolism Z86.711 ; Pain in left knee M25.562 ; Pain in left knee M25.562 ; BMI 39.0-39.9,adult Z68.39 ; Visit for screening mammogram Z12.31 ; Asymptomatic postmenopausal state Z78.0 and Encounter for immunization Z23 [facility] [address] [address] 01/25/2024 Parul McNees Left flank pain R10. 9 and Gastroenteritis K52.9 [facility] [address] [address] 04/02/2024 Avinash Sis Type 2 diabetes mellitus with diabetic polyneuropathy E11.42 ; [facility] prescription opiate use Z79.891 ; Paresthesia of lower extremity R20.2 ; Other chronic pain G89.29 ; Foot arthropathy M19.079 ; Chronic kidney disease, stage 3a N18.31 ; Essential (primary) hypertension I10 and Dizziness R42 [facility] [address] [address] 06/25/2024 Avinash Sis Type 2 diabetes mellitus with diabetic polyneuropathy E11.42 ; [facility]CI prescription opiate use Z79.891 ; Paresthesia of lower extremity R20.2 ; Other chronic pain G89.29 ; Foot arthropathy M19.079 ; Chronic kidney disease, stage 3a N18.31 ; Essential (primary) hypertension I10 and Hyperkalemia E87.5 [facility] [address] [address] 08/08/2024 Avinash Rodriguez Acute otitis externa of left ear, unspecified type H60.502 and TMJ (temporomandibular joint disorder) M26.609 [facility] [address] [place] [address] 08/25/2024 Avinash Sis Cellulitis of right foot L03.115 ; FCI current 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 Z79.4 ; Type 2 diabetes mellitus with diabetic polyneuropathy E11.42 and History of osteomyelitis Z87.39 [facility] [address] [address] 08/27/2024 Avinash Alegre Type 2 diabetes mellitus with diabetic polyneuropathy E11.42 ; [facility] prescription opiate use Z79.891 ; Paresthesia of lower extremity R20.2 ; Other chronic pain G89.29 ; Foot arthropathy M19.079 ; Chronic kidney disease, stage 3a N18.31 ; Essential (primary) hypertension I10 and Cellulitis of right foot L03.115 [facility] [address] [place] [address] 09/11/2023 Buddy Besson Other chronic pain G89.29 [facility] [address] [place] [address] 10/08/2023 Buddy Besson Other chronic pain G89.29 [facility] [address] [address] 11/06/2023 Buddy Besson Other chronic pain G89.29 [facility] [address] [place] [address] 11/09/2023 Avinash Alegre Type 2 diabetes mellitus with diabetic polyneuropathy E11.42 [facility] [address] [address] 12/04/2023 Buddy Bessawyer Other chronic pain G89.29 [facility] [address] [place] [address] 12/07/2023 Avinash Alegre [facility] [address] [address] 01/01/2024 Buddy Besson Other chronic pain G89.29 [facility] [address] [address] 01/31/2024 Buddy Besson Other chronic pain G89.29 [facility] [address] [address] 02/05/2024 Avinash Sis Type 2 diabetes mellitus with diabetic polyneuropathy E11.42 [facility] [address] [address] 02/26/2024 Buddy Besson Other chronic pain G89.29 [facility] [address] [address] 03/26/2024 Buddy Besson Other chronic pain G89.29 [facility] [address] [address] 03/26/2024 Avinash Sis Other chronic pain G89.29 [facility] [address] [place] [address] 04/08/2024 Avinash Sis [facility] [address] [place] [address] 04/15/2024 Avinash Sis [facility] [address] [place] [address] 04/22/2024 Buddy Besson Other chronic pain G89.29 [facility] [address] [place] [address] 04/22/2024 Avinash Sis [facility] [address] [place] [address] 05/07/2024 Avinash Sis [facility] [address] [place] [address] 05/20/2024 Buddy Besson Other chronic pain G89.29 [facility] [address] [place] [address] 06/17/2024 Buddy Besson Other chronic pain G89.29 [facility] [address] [place] [address] 07/15/2024 Buddy Besson Other chronic pain G89.29 [facility] [address] [place] [address] 07/16/2024 Buddy Besson Other chronic pain G89.29 [facility] [address] [place] [address] 08/06/2024 Avinash Sis Type 2 diabetes mellitus with diabetic polyneuropathy E11.42 [facility] [address] [place] [address] 08/12/2024 Buddy Besson Other chronic pain G89.29 [facility] [address] [place] [address] 08/19/2024 Avinash Sis [facility] [address] [place] [address] 08/27/2024 Avinash Sis [facility] [address] [place] [address] 09/04/2024 Buddy Besson Other chronic pain G89.29 Assessments Encounter Date Diagnosis (ICD Code) Assessment Notes Treatment Notes Treatment Clinical Notes Section Notes 09/11/2023 Other chronic pain (ICD-10 - G89.29) 09/12/2023 Type 2 diabetes mellitus with diabetic polyneuropathy (ICD-10 - E11.42) reports good readings at home, A1C < 8 in June. Encouraged annual eye exam and daily foot exams. 09/12/2023 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 (ICD-10 - Z79.891) No [...] eye exam and daily foot exams. 04/02/2024 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 (ICD-10 - Z79.891) No [...] eye exam and daily foot exams. 06/25/2024 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 (ICD-10 - Z79.891) No [...] Other chronic pain (ICD-10 - G89.29) 08/25/2024 FCI current 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 (ICD-10 - Z79.4) 08/25/2024 Cellulitis of right foot (ICD-10 - L03.115) rec dual coverage with oral doxycycline and clindamycin as noted, close FU in 48 hours but will also arrange for eval with podiatry. imaging and labs today. rec clean with warm soapy water and apply betadine daily to the abrasion 08/27/2024 Type 2 diabetes mellitus with diabetic polyneuropathy (ICD-10 - E11.42) reports good readings at home, A1C < 7. Encouraged annual eye exam and daily foot exams. 08/27/2024 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 (ICD-10 - Z79.891) No changes made today...continue orthopedic FU as well as current medication regimen 09/04/2024 Other chronic pain (ICD-10 - G89.29) 08/27/2024 Paresthesia of lower extremity (ICD-10 - R20.2) increased risk for injury, encouraged her to discuss diabetic shoes with podiatry 06/25/2024 Paresthesia of lower extremity (ICD-10 - R20.2) 08/25/2024 Type 2 diabetes mellitus with diabetic polyneuropathy (ICD-10 - E11.42) 04/02/2024 Paresthesia of lower extremity (ICD-10 - R20.2) 12/26/2023 [facility]CI prescription opiate use (ICD-10 - Z79.891) No [...] 08/25/2024 History of osteomyelitis (ICD-10 - Z87.39) 08/27/2024 Other chronic pain (ICD-10 - G89.29) 08/27/2024 Foot arthropathy (ICD-10 - M19.079) evaluated by podiatry in the past, injections not significantly effective for pain relief 06/25/2024 Foot arthropathy (ICD-10 - M19.079) evaluated [...] avoidance of NSAIDS. glucose well controlled 08/27/2024 Chronic kidney disease, stage 3a (ICD-10 - N18.31) discussed diagnosis and goals of management. continue ACEI, encouraged better water intake and avoidance of NSAIDS. glucose well controlled 08/27/2024 Essential (primary) hypertension (ICD-10 - I10) reasonable control. encouraged to check periodically at home 06/25/2024 Essential (primary) hypertension (ICD-10 - I10) [...] Continue eliquis and FU with pulmonology at [facility] 09/12/2023 Hx pulmonary embolism (ICD-10 - Z86.711) 12/26/2023 Hx pulmonary embolism (ICD-10 - Z86.711) 06/25/2024 Hyperkalemia (ICD-10 - E87.5) 04/02/2024 Dizziness (ICD-10 - R42) 09/12/2023 Pain in left knee (ICD-10 - M25.562) 12/26/2023 Pain in left knee (ICD-10 - M25.562) 12/26/2023 Pain in left knee (ICD-10 - M25.562) 08/27/2024 Cellulitis of right foot (ICD-10 - L03.115) appearance today is improved with less erythema, no drainage. xrays with soft tissue swelling, mildly elevated inflammatory markers and normal WBC. Complete antibiotics orally, topical betadine and keep appt with podiatry 12/26/2023 BMI 39.0-39.9,adult (ICD-10 - Z68.39) 12/26/2023 Visit for screening mammogram (ICD-10 - Z12.31) 12/26/2023 Asymptomatic postmenopausal state (ICD-10 - Z78.0) 12/26/2023 Encounter for immunization (ICD-10 - Z23) Plan Of Treatment Pending Test Test Name Order Date MRI : Foot, Right 06/06/2017 X ray : Foot, Left 09/26/2016 X ray : Foot, Right 08/25/2024 Mammogram : Right Breast 12/29/2016 Physical Therapy 09/27/2022 Physical Therapy : Wound Care 01/28/2018 H-CBC with AUTO DIFF 08/27/2014 H-VITAMIN B12 08/27/2014 H-CMP 08/27/2014 H-LIPID PANEL 08/27/2014 H-HGBA1C 08/27/2014 H-TSH 08/27/2014 H-VIT D, 25-HYDROXY 08/27/2014 H-MICROALBUMIN URINE 08/27/2014 C-CBC 10/27/2019 C-CBC 02/28/2018 C-CMP 02/28/2018 C-CMP 01/13/2016 C-CMP 10/27/2019 C-LIPID PANEL 10/27/2019 C-LIPID PANEL 02/28/2018 C-HGBA1C 01/13/2016 C-HGBA1C 02/28/2018 C-HGBA1C 10/27/2019 Urine Culture, Routine 05/29/2017 VENIPUNCT, ROUTINE* 10/05/2015 VENIPUNCT, ROUTINE* 04/24/2016 VENIPUNCT, ROUTINE* 03/30/2015 M-Complete Blood Count Auto Diff 023 M-Complete Blood Count Auto Diff 019 M-Complete Blood Count Auto Diff 020 M-Comprehensive Metabolic Panel 04/21/19 20 M-Comprehensive Metabolic Panel 01/05/20 20 M-Comprehensive Metabolic Panel 03/29/19 21 M-Comprehensive Metabolic Panel 12/31/19 M-Comprehensive Metabolic Panel 05/03/19 23 M-Basic Metabolic Panel 04/02/2024 M-Hemoglobin A1C 05/03/2022 M-Hemoglobin A1C 12/30/2018 M-Hemoglobin A1C 04/21/2019 M-Hemoglobin A1C 01/05/2020 M-Hemoglobin A1C 03/29/2020 M-Hemoglobin A1C 10/25/2022 M-Lipid Panel 10/25/2022 M-Lipid Panel 01/05/2020 M-Lipid Panel 12/30/2018 M-Lipid Panel 05/03/2022 M-Thyroid Stimulating Hormone 10/25/2022 M-Thyroid Stimulating Hormone 04/21/2019 M-Drug Screen,Urine 05/03/2022 M-Vitamin B12 10/25/2022 M-Vitamin D 25 Hydroxy 10/25/2022 M-Folate 10/25/2022 M-Microalb/Creat Ratio, [facility] Ur 025 M-Microalb/Creat Ratio, [facility] Ur 023 COMPREHENSIVE METABOLIC PANEL (05899) CBC (INCLUDES DIFF/PLT) (6399) HEMOGLOBIN A1C 02/07/2023 DRUG SCREEN 10 W/CONF, WB 12/26/2023 MICROALBUMIN/CREATININE URINE 12/26/2023 Future Test Test Name Order Date H-CMP 01/22/2017 H-LIPID PANEL 01/22/2017 H-HGBA1C 01/22/2017 Next Appt Details Provider Name:Avinash Sen ce, 09/24/2024 09:45:00 AM, 2017 [facility] 4, [place], [address], Insurance Providers Payer Name Payer Address Payer Phone Subscriber Number Group Number Insured Name Patient Relationship to Insured Coverage Start Date Coverage End Date [employer] [address] [place] [address] [phone] [id number] Angy Colon Self - patient is the [...] left cataract 09/2018 Hospitalization History Reason Date(Month/Year) [facility] - Major Depression Dehydration 12/2014 - Uncontrolled DM 2012 [facility] - PE 03/22- [facility] - UTI , chest pain 03/07- [facility]- foot infection- toe amputation 10/02-10/09/2016
== END 2024-09-03 23:59 | disposition home or self-care (01) ==
LOC: LAB.DROPOF 09-05 09:21
PROVIDERS: PCP Podiatrist; Visit Provider Podiatrist
DX: E11.621 Type 2 diabetes mellitus with foot ulcer (principal); L97.509 Non-pressure chronic ulcer of other part of unspecified foot with unspecified severity
CPT/HCPCS: 87070; 87077; 87186; 87205